=== PATIENT | male | born 1955 | race Caucasian/White ===

== ENCOUNTER 2020-01-28 16:13 | Inpatient (IN) | payer OTHER ==
[2020-01-28] MEDS ORDERED: Magnesium Replacement Protocol 1 EACH MISC MISCELLANE PRN (18:11)
[2020-01-28] MEDS ORDERED: Potassium Replacement Protocol 1 EACH MISC MISCELLANE PRN (18:12)
[2020-01-28] MEDS ORDERED: ACETAMINOPHEN TAB 325 MG TAB PO PRN (18:12)
[2020-01-28 18:56] LABS: ALT 19 U/L (4-49); AST 33 U/L (17-59); African American GFR (CKD) >90 (>60 ml/min/1.73 sqM); Albumin 2.7 g/dL (3.5-5.0); Alkaline Phosphatase 69 U/L (38-126); Anion Gap 7 mmol/L; Blood Urea Nitrogen 12 mg/dL (9-20); Calcium 8.3 mg/dL (8.4-10.2); Carbon Dioxide 25 mmol/L (22-30); Chloride 95 mmol/L (98-107); Glucose 109 mg/dL (74-99); Magnesium 1.8 mg/dL (1.6-2.3); Non-African American GFR(CKD) >90 (>60 ml/min/1.73 sqM); Potassium 3.6 mmol/L (3.5-5.1); Sodium 127 mmol/L (137-145); Total Protein 5.1 g/dL (6.3-8.2)
[2020-01-28 19:17] LABS: HCT 33.8 % (39.0-53.0); HGB 11.5 gm/dL (13.0-17.5); MCH 32.1 pg (25.0-35.0); MCV 94.3 fL (80.0-100.0); Platelet Count 240 k/uL (150-450); RBC 3.58 m/uL (4.30-5.90); RDW 14.8 % (11.5-15.5); WBC 4.5 k/uL (3.8-10.6)
[2020-01-28] MEDS: HYDROcodone/APAP 5-325MG 1 EACH TAB PO PRN (19:31)
[2020-01-28 19:54] LABS: Appearance,Urine Clear (Clear); Bilirubin,Urine Negative (Negative); Blood,Urine Negative (Negative); Color,Urine Yellow; Glucose,Urine (UA) Negative (Negative); Ketones,Urine Negative (Negative); Leukocyte Esterase,Urine Negative (Negative); Nitrite,Urine Negative (Negative); PH, Urine 8.5 (5.0-8.0); Protein,Urine Trace (Negative); Specific Gravity,Urine 1.014 (1.001-1.035); Urobilinogen,Urine <2.0 mg/dL (<2.0)
[2020-01-28] MEDS: SODIUM CHLORIDE 0.9% 1,000 ML IV SCH (19:57)
[2020-01-28] MEDS ORDERED: POTASSIUM CHLORIDE ER 20 MEQ TAB.ER PO SCH (20:00)
[2020-01-28] MEDS: HEPARIN SODIUM,PORCINE 5,000 UNIT/ML 1 ML VIAL SQ SCH (20:13)
[2020-01-28] MEDS: MAGNESIUM SULFATE-D5W PMX 1 GM in DEXTROSE/WATER 1 100ML.BAG IVPB SCH ×2 (20:19→21:40)
[2020-01-28 20:38] LABS: Lymphocytes # (M) 0.27 k/uL (1.0-4.8); Nucleated Red Blood Cells 0 /100 WBC (0-0)
[2020-01-28 20:50] LABS: Band Neutrophils % 9 %; Metamyelocytes # (M) 0.86 k/uL (0); Metamyelocytes % 19 %; Monocytes # (M) 0.23 k/uL (0-1.0); Myelocytes # (M) 2.12 k/uL (0); Myelocytes % 47 %; Neutrophils % (M) 15 %; Total Cells Counted 200
[2020-01-28 20:51] LABS: Polychromasia Present; Toxic Vacuolation Present
[2020-01-28] MEDS ORDERED: LORazepam 2 MG/ML INJ IV PRN ×3 (21:29)
[2020-01-28] MEDS: THIAMINE 100 MG TAB PO SCH (21:39)
[2020-01-28] MEDS ORDERED: HYDROmorphone 0.5 MG/0.5 ML SYRINGE IVP PRN (21:55)
--- NOTE | 2020-01-28 23:48 | US ---
EXAMINATION TYPE: US venous doppler duplex LE DATE OF EXAM: 01/28/2020 11:03 PM COMPARISON: NONE CLINICAL HISTORY: swelling, pain. Swelling and pain in bilateral lower extremities x 3 weeks. No hx o f DVT. Patient does not take blood thinners. SIDE PERFORMED: Bilateral TECHNIQUE: The lower extremity deep venous system is examined utilizing real time linear array sonog vanessa with graded compression, doppler sonography and color-flow sonography. VESSELS IMAGED: External Iliac Vein (EIV) Common Femoral Vein Deep Femoral Vein Greater Saphenous Vein * Femoral Vein Popliteal Vein Small Saphenous Vein * Proximal Calf Veins (* superficial vessels) Right Leg: No evidence of DVT in veins imaged at this time from prox calf veins to EIV. Multiple hyp oechoic areas with hyperechoic centers seen within the right groin. Largest appears to measure: 1.9 x 1.2 x 0.9 cm. Left Leg: No evidence of DVT in veins imaged at this time from prox calf veins to EIV. Hypoechoic/co mplex area seen left popliteal area measurin.0 x 2.3 x 0.9 cm. Incidental finding in right popliteal vein compression views: Right popliteal artery appears to good ve extensive calcification. Artery not completely evaluated, only venous study ordered. IMPRESSION: No evidence of deep vein thrombosis in both legs. Atherosclerotic vascular disease. Left side popliteal cyst noted.
[2020-01-29] MEDS: HYDROcodone/APAP 5-325MG 1 EACH TAB PO PRN ×2 (01:47→11:22)
--- NOTE | 2020-01-29 04:50 | HP ---
HISTORY AND PHYSICAL CHIEF COMPLAINT: Weakness. HISTORY OF PRESENT ILLNESS: This 64-year-old gentleman with a past medical history of COPD, history of dementia, history of DJD being followed by apparently by no primary physician in the outpatient setting presented to [facility] with complaints of weakness and tiredness. Evaluation showed possible hypokalemia and hypomagnesemia and the patient apparently also had in June 2019 had a liver biopsy for suspected mass lesion in [facility] in [facility]. The patient did not have any followup on that and because now currently the patient is severely emaciated. The patient is taking significant amount of alcohol and the patient was found to be extremely weak and tired and malnourished and patient was sent to [facility] after I talked to Dr. emerson over the phone. Patient was a direct admission. There is no history of fever, rigors. No history of headache, loss of consciousness, seizures. PAST MEDICAL HISTORY: COPD, memory impairment, DJD, history of orthopedic surgery, history of EtOH. MEDICATIONS: Home medications are: PreserVision 1 capsule daily. ALLERGIES: None. FAMILY HISTORY: No history of heart disease or strokes family. SOCIAL HISTORY: History of smoking. History of alcohol abuse, 2 bottles of wine daily. REVIEW OF SYSTEMS: ENT: Diminished hearing and diminished vision. CARDIOVASCULAR SYSTEM: No angina. RESPIRATORY SYSTEM: No cough or hemoptysis. GI: As mentioned earlier. : No dysuria. NERVOUS SYSTEM: No numbness or weakness. ALLERGY/IMMUNOLOGY: No asthma. MUSCULOSKELETAL: As mentioned earlier. HEMATOLOGY/ONCOLOGY: No history of anemia. ENDOCRINE: No history of diabetes or hypothyroidism. CONSTITUTIONAL: As mentioned earlier. DERMATOLOGY: Negative. RHEUMATOLOGY: Negative. PSYCHIATRY: As mentioned earlier. PHYSICAL EXAMINATION: The patient is alert and oriented x3. Pulse is 111, blood pressure is 100/54, respiration 16, temperature 98.7, pulse ox 100% on room air. HEENT: Conjunctivae normal. Oral mucosa moist. NECK: No jugular venous distention. No carotid bruit. No lymph node enlargement. CARDIOVASCULAR: S1, S2 muffled. RESPIRATORY: Breath sounds diminished at the bases. A few scattered rhonchi and crackles. ABDOMEN: Soft, obese, nontender. No mass palpable. LEGS: No edema. No swelling. Significantly emaciated, some erythema also present. NERVOUS SYSTEM: Higher function as mentioned. Moves all 4 limbs. Significant diffuse weakness present LYMPHATICS: No lymphadenopathy of the neck, axillae or groin. SKIN: No ulcer, rash or bleeding. JOINTS: No active deforming arthropathy. LABS: WBC 4.5, hemoglobin 11.5, otherwise sodium is 127, and calcium is 8.3. Albumin is 2.7. ASSESSMENT: 1. Diffuse weakness and emaciation wasting, alcoholic myopathy. 2. Severe gait dysfunction. 3. Change in mental status, acute delirium tremens. 4. Hyponatremia. 5. Hypokalemia. 6. Anemia, normocytic anemia of nutritional origin. 7. Severe protein calorie malnutrition, body mass index of 13.7. 8. History EtOH. 9. History of nicotine dependence. 10.Chronic obstructive pulmonary disease. 11.History of dementia, possibly. 12.History of liver biopsy. 13.History of enlarged prostate. 14.History of degenerative joint disease. 15.History of noncompliance with medications. RECOMMENDATIONS AND DISCUSSION: This 64-year-old gentleman presented with multiple complex medical issues as mentioned earlier. At this time I recommend to continue current medications, continue symptomatic treatment. Otherwise replace lytes and repeat lytes. I would also recommend resume the home medications. CIWA protocol. PT, OT evaluation. Possible ECF rehab. Otherwise, I would also recommend COVID-19 testing and supplement vitamins. DVT prophylaxis. Symptomatic treatment will be provided. Overall prognosis extremely guarded because of multiple complex medical issues. Further recommendations to follow. Also recommend the patient to follow up with a primary physician closely. GERALDINE / EDINN: [id number] / LALO
--- NOTE | 2020-01-29 07:47 | XR ---
EXAMINATION TYPE: XR chest 1V portable DATE OF EXAM: 01/29/2020 HISTORY: Shortness of breath. COMPARISON: None. TECHNIQUE: Single view of the chest is submitted. FINDINGS: Demonstrated are scattered senescent parenchymal change. COPD changes. There is no evidence for focal infiltrate. There is right upper lobe pulmonary nodule measuring 2.6 c m. There is also right paratracheal adenopathy. CT of the chest is recommended to exclude malignancy. The heart is stable. Degenerative changes are seen of the dorsal spine. IMPRESSION: 1. Right upper lobe pulmonary nodule right paratracheal adenopathy. Further characterization with CT is advised. A [place] level critical message alert has been initiated for Gilles Tirado MD via the [employer] Critical Results System on 01/29/2020 7:45 AM. This message alert has been sent to Gilles Tirado MD v lucille the preferences provided by the clinician for the receipt of Radiology Critical Findings. Message ID [id number].
[2020-01-29 08:10] LABS: African American GFR (CKD) >90 (>60 ml/min/1.73 sqM); Anion Gap 4 mmol/L; Blood Urea Nitrogen 12 mg/dL (9-20); Calcium 8.2 mg/dL (8.4-10.2); Carbon Dioxide 29 mmol/L (22-30); Chloride 95 mmol/L (98-107); Glucose 75 mg/dL (74-99); Magnesium 2.1 mg/dL (1.6-2.3); Non-African American GFR(CKD) >90 (>60 ml/min/1.73 sqM); Potassium 4.5 mmol/L (3.5-5.1); Sodium 128 mmol/L (137-145)
[2020-01-29] MEDS: PANTOPRAZOLE 40 MG/10 ML VIAL IVP SCH (10:04)
[2020-01-29] MEDS: MULTIVITAMINS, THERA 1 EACH TAB PO SCH (10:04)
[2020-01-29] MEDS: FOLIC ACID 1 MG TAB PO SCH (10:04)
[2020-01-29] MEDS: THIAMINE 100 MG TAB PO SCH ×2 (10:04→17:32)
[2020-01-29] MEDS: HEPARIN SODIUM,PORCINE 5,000 UNIT/ML 1 ML VIAL SQ SCH ×2 (10:16→20:02)
[2020-01-29 11:31] VITALS: BMI 13.6
[2020-01-29] MEDS: IOPAMIDOL CONTRAST (ORAL USE) VIAL PO PRN ×2 (13:31→14:33)
--- NOTE | 2020-01-29 17:52 | PN ---
PROGRESS NOTE DATE OF SERVICE: 01/29/2020 This 64-year-old gentleman who was admitted with diffuse weakness and emaciation and wasting with alcoholic myopathy is being closely monitored. The patient apparently had a biopsy report at [place]; we were able to obtain the report, which showed hepatic steatosis and no evidence of any malignancy. 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 A CT scan of the abdomen, pelvis and chest is being sought at this time. The patient continues to be confused and diffusely weak and emaciated. Past medical history reviewed. REVIEW OF SYSTEMS: CARDIOVASCULAR SYSTEM: No angina, palpitations. RESPIRATORY SYSTEM: As mentioned earlier. GI: No nausea, vomiting. : No dysuria or retention. NERVOUS SYSTEM: No numbness, weakness. CURRENT MEDICATIONS: Reviewed. They include: 1. Tylenol 650 q.6 p.r.n. 2. [place] 5 mg q.6 p.r.n. 3. Folic acid. 4. Heparin 5000 units subcutaneously b.i.d. 5. Dilaudid. 6. Ativan. 7. Replacement protocols. 8. Protonix. 9. Vitamin B1. PHYSICAL EXAMINATION: Patient is alert, oriented x1. Pulse is 103, blood pressure 99/62, respiration 18, temperature 98.1, pulse ox 94% on room air. HEENT: Conjunctivae normal. Oral mucosa moist. NECK: No jugular venous distention. No carotid bruit. No lymph node enlargement. CARDIOVASCULAR SYSTEM: S1, S2 muffled. RESPIRATORY SYSTEM: Breath sounds diminished at the bases. A few scattered rhonchi and crackles. ABDOMEN: Soft, scaphoid, non-tender. No mass palpable. LEGS: No edema. No swelling. NERVOUS SYSTEM: Higher functions as mentioned earlier. Moves all 4 limbs. No focal motor or sensory deficit. LYMPHATICS: No lymph node palpable in neck, axillae or groin. SKIN: No ulcer, rash, bleeding. JOINTS: No active deforming arthropathy. LABS: WBC 4.2, hemoglobin 11.5, sodium 128. ASSESSMENT: 1. Diffuse weakness, emaciation, wasting and alcoholic myopathy. 2. Severe gait dysfunction. 3. Right pulmonary nodule. Rule out malignancy. 4. Change in mental status, acute delirium tremens. 5. Hyponatremia. 6. Hypokalemia. 7. Anemia, normocytic anemia of nutritional origin. 8. Severe protein-calorie malnutrition with body mass index of 13.7. 9. History of ETOH. 10.History of nicotine dependence. 11.Chronic obstructive pulmonary disease. 12.Dementia, possibly. 13.History of liver biopsy. 14.History of enlarged prostate. 15.History of degenerative joint disease. 16.History of noncompliance with medications. 17.Generalized lymphadenopathy. RECOMMENDATIONS AND DISCUSSION: In this 64-year-old gentleman who presented with multiple complex medical issues, we will monitor the patient closely, continue the current medications, continue with vitamin supplementation. Await CT scan reports, PT/OT evaluation nutrition. Possible ECF rehab. Repeat electrolytes. Otherwise, continue with [facility] protocol, DVT prophylaxis. The chest x-ray, which was reviewed by me personally, showed right upper lobe pulmonary nodule and right paratracheal adenopathy. CT scan has been reviewed. Will continue to monitor. A venous Doppler was noted which was negative for DVT. Lymphadenopathy was noted. Once again, overall prognosis is guarded. Further recommendations to follow. MMODL / IJN: [id number] / LALO
--- NOTE | 2020-01-29 19:06 | CT ---
EXAMINATION TYPE: CT ChestAbdPelvis wo con DATE OF EXAM: 01/29/2020 INDICATION: possible mets COMPARISON: None CT DLP: 952 mGycm CONTRAST: Performed with Oral Contrast. No intravenous contrast. TECHNIQUE: Axial images at 5 mm thick sections. Reconstructed images in the coronal plane. Delayed images through the kidneys. FINDINGS: CT CHEST: Portion of the thyroid visualized is normal. There is a 0.5 cm nodularity in the lateral right apex. Series 4 image 12. There is a subtle area of increased density measuring 0.5 cm in the anterior lateral right upper lobe. Series 4 image 14. There is a small density with a central lucency measuring 0.5 cm in the posterior right midlung. Series 4 image 30. There is a spiculated suspicious mass measuring 2.1 x 2.2 cm in the right upper lobe. Series 4 image 18. There is a subtle area of pneumonitis within the periphery of the lingula. Series 4 image 28 Lack of intravenous contrast limits evaluation of the adenopathy within the mediastinum. However, the re appears to be a 3.5 cm pretracheal lymph node present. An additional 2.9 cm pretracheal lymph node is above the sigifredo. Hilar adenopathy would be difficult to exclude. Small bilateral pleural effusions are present with mild adjacent compressive atelectasis. The ascending aorta diameter at the level of the main pulmonary artery is 3.8 cm. The main pulmonary artery diameter at the bifurcation is 2.7 cm. Moderate coronary artery calcification is present. CT ABDOMEN: Liver: Normal Spleen: Normal Pancreas: Normal Adrenal glands: The adrenal glands are normal. Gallbladder: Normal Kidneys: No masses are evident. No hydronephrosis is present. No cysts are present. No renal stone s are identified. Aorta: Vascular calcification is within the aorta. Inferior vena cava: Normal. CT PELVIS: Loops of bowel within the abdomen and pelvis are normal. Diverticulosis without acute diverticulitis is within the sigmoid colon region. There are loops of bowel which are incompletely distended or l ack oral contrast limiting their evaluation. Appendix: Normal as visualized. Urinary bladder: Normal. Genitourinary structures: Urinary bladder wall may be mildly thickened diffusely. Suspicious nodulari ty is not identified. Osseous structures: No suspicious lytic or sclerotic lesions. Sacroiliac joint degenerative changes a re noted. IMPRESSIONS: 1. Spiculated nodule right upper lobe. 2. Subtle small nodularities are within the right upper lobe with additional areas of pneumonitis. Me tastatic disease is not excluded. 3. Markedly enlarged mediastinal lymph nodes suspicious for metastatic disease. 4. There may be some diffuse wall thickening through the urinary bladder. Correlate for cystitis. 5. Recommend follow-up PET CT for additional workup.
[2020-01-29] MEDS: SODIUM CHLORIDE 0.9% 1,000 ML IV SCH (19:38)
[2020-01-30 07:26] LABS: African American GFR (CKD) >90 (>60 ml/min/1.73 sqM); Anion Gap 5 mmol/L; Blood Urea Nitrogen 14 mg/dL (9-20); Calcium 8.6 mg/dL (8.4-10.2); Carbon Dioxide 25 mmol/L (22-30); Chloride 98 mmol/L (98-107); Cholesterol 89 mg/dL (<200); Glucose 78 mg/dL (74-99); HDL Cholesterol 31 mg/dL (40-60); LDL Cholesterol,Calculated 42 mg/dL (0-99); Non-African American GFR(CKD) >90 (>60 ml/min/1.73 sqM); Potassium 3.8 mmol/L (3.5-5.1); Sodium 128 mmol/L (137-145); Triglycerides 79 mg/dL (<150)
[2020-01-30] MEDS: THIAMINE 100 MG TAB PO SCH ×2 (07:53→17:37)
[2020-01-30 08:16] LABS: Basophils # (A) 0.1 k/uL (0-0.2); Basophils % (A) 1 %; Eosinophils % (A) 0 %; HGB 11.6 gm/dL (13.0-17.5); Lymphocytes # (A) 0.3 k/uL (1.0-4.8); Lymphocytes % (A) 2 %; MCH 31.4 pg (25.0-35.0); MCHC 31.5 g/dL (31.0-37.0); Macrocytosis Slight; Mean Platelet Volume 7.7; Monocytes # (A) 0.6 k/uL (0-1.0); Monocytes % (A) 4 %; Neutrophils # (A) 16.4 k/uL (1.3-7.7); Neutrophils % (A) 93 %; Platelet Count 203 k/uL (150-450); RDW 14.9 % (11.5-15.5); WBC 17.6 k/uL (3.8-10.6)
[2020-01-30 08:18] LABS: MCV 99.8 fL (80.0-100.0)
[2020-01-30] MEDS: HEPARIN SODIUM,PORCINE 5,000 UNIT/ML 1 ML VIAL SQ SCH ×2 (09:12→19:55)
[2020-01-30] MEDS: HYDROcodone/APAP 5-325MG 1 EACH TAB PO PRN (10:30)
[2020-01-30] MEDS: PANTOPRAZOLE 40 MG/10 ML VIAL IVP SCH (10:30)
[2020-01-30] MEDS: GABAPENTIN 100 MG CAP PO SCH ×3 (11:53→22:51)
[2020-01-30] MEDS: FOLIC ACID 1 MG TAB PO SCH (11:53)
[2020-01-30] MEDS: MULTIVITAMINS, THERA 1 EACH TAB PO SCH (11:53)
--- NOTE | 2020-01-30 16:27 | P.CNPUL ---
History of Present Illness Consult date: 01/30/20 Reason for consult: lung mass History of present illness: 62-year-old male patient, known history of COPD, dementia and chronic malnutrition seems to be significantly emaciated. The patient got transferred from [facility] because of generalized weakness and tiredness. He also had abnormalities in his electrolytes were the patient was found to be hyponatremic. The patient is a chronic alcoholic and he was found to be extrem aure weak and tired and malnourished and he was admitted to the hospital for further evaluation. He did have difficulty with mobility and gait along with altered mentation and electrodes imbalance with the patient was found to be hyponatremic and hypokalemic and anemic. His BMI is 13.7 and his severely malnourished. He is a chronic smoker. The CAT scan of the chest abdomen and pelvis was done on 01/29/2028 showed a spiculated right upper lobe mass and the mass was measuring 2.1 x 2.2 cm. In addition to small nodularity within the right upper lobe in addition to pneumonitis and possible metastatic disease. In addition there was a enlarged mediastinal paratracheal lymph node suspicious for malignancy. There was also some diffuse wall thickening throughout the urinary bladder. Recurrent sodium is 127. His potassium was 3.6 and replaced up to 4.5. The stuart virus Covid 19 evaluation by nasal swab was negative. UA was negative. At the time of my evaluation, the patient was fully competent awake and oriented 3 without any focal neurological deficit other than Review of Systems ROS unobtainable: due to mental status Constitutional: Reports fatigue, Reports weakness, Reports weight loss Eyes: denies as per HPI, denies blurred vision, denies bulging eye, denies decreased vision, denies diplopia, denies discharge, denies dry eye, denies irritation, denies itching, denies pain, denies photophobia, denies loss of peripheral vision, denies loss of vision, denies tunnel vision/blind spots Ears: deny: decreased hearing, ear discharge, earache, tinnitus Ears, nose, mouth and throat: Denies headache, Denies sore throat Breasts: absent: as per HPI, gynecomastia Cardiovascular: Reports decreased exercise tolerance, Reports dyspnea on exertion Respiratory: Reports cough, Reports dyspnea, Reports wheezing Gastrointestinal: Reports loss of appetite Genitourinary: Reports as per HPI, Reports urinary frequency, Reports urinary hesitancy, Reports urinary retention Musculoskeletal: Reports as per HPI Musculoskeletal: absent: ankle pain, ankle stiffness, ankle swelling Integumentary: Reports as per HPI Neurological: Reports as per HPI, Reports gait dysfunction, Reports weakness Psychiatric: Reports as per HPI Endocrine: Reports fatigue Allergic/Immunologic: Reports as per HPI Past Medical History Past Medical History: COPD, Memory Impairment Additional Past Medical History / Comment(s): BPH, dysphagia , previous liver biopsy for suspicion of a malignancy and malignancy was not confirmed back then pedis was done and [facility] in [place]. Alcoholism, COPD, dementia, chronic malnutrition History of Any Multi-Drug Resistant Organisms: None Reported Past Surgical History: Orthopedic Surgery Additional Past Surgical History / Comment(s): liver biopsy, left thumb surgery left arm fasciotomy Past Anesthesia/Blood Transfusion Reactions: No Reported Reaction Past Psychological History: No Psychological Hx Reported Smoking Status: Current every day smoker Past Alcohol Use History: Abuse, Daily Additional Past Alcohol Use History / Comment(s): 2 bottles of wine daily but says he is going to stop because it is expensive, smokes 1 pack a day of ciggarettes and daily marijuana use - Past Family History Father History Unknown: Yes Medications and Allergies Home Medications Medication Instructions Recorded Confirmed Type Vit C/E/Zn/Coppr/Lutein/Zeaxan 1 cap PO DAILY 01/28/20 01/28/20 History [Preservision Areds 2 Softgel] Allergies Allergy/AdvReac Type Severity Reaction Status Date / Time No Known Allergies Allergy Verified 01/28/20 19:35 Physical Exam Vitals: Vital Signs Temp Pulse Resp BP Pulse Ox 01/30/20 11:38 97.6 F 97 18 150/78 95 01/30/20 04:37 98.2 F 100 18 122/70 94 L 01/29/20 20:44 99.4 F 106 H 18 100/65 94 L Intake and Output 01/30/20 01/30/20 01/30/20 06:59 14:59 22:59 Other: Voiding Method Urinal Diaper Incontinent # Voids 1 Gen. appearance the patient is emaciated cachectic and thin with a BMI of 13.7 Head exam was generally normal. There was no scleral icterus or corneal arcus. Mucous membranes were moist. Neck was supple and without jugular venous distension, thyromegaly, or carotid bruits. Carotids were easily palpable bilaterally. There was no adenopathy. Lungs sounds are diminished breath sounds bilaterally along with some few scatte red expiratory rhonchi and wheeze Cardiac exam revealed the PMI to be normally situated and sized. The rhythm was regular and no extrasystoles were noted during several minutes of auscultation. The first and second heart sounds were normal and physiologic splitting of the second heart sound was noted. There were no murmurs, rubs, clicks, or gallops. Abdominal exam revealed normal bowel sounds. The abdomen was soft, non-tender, and without masses, organomegaly, or appreciable enlargement of the abdominal aorta. Examination of the extremities revealed easily palpable radial, femoral and pedal pulses. There was no cyanosis, clubbing or edema. The patient had diffuse muscle atrophy and weakness in all 4 extremities Neurologically, the patient has been moving all 4 extremity is without limitat ion. He has significant motor weakness. He is awake and alert 3 Examination of the skin revealed no evidence of significant rashes, suspicious appearing nevi or other concerning lesions. Results - Laboratory Findings CBC and BMP: 01/30/20 06:35 01/30/20 06:35 Abnormal lab findings: Abnormal Labs 01/28/20 01/28/20 01/28/20 18:09 18:09 18:30 WBC RBC 3.58 L Hgb 11.5 L Hct 33.8 L Neutrophils # Neutrophils # (Manual) 1.00 L Lymphocytes # Lymphocytes # (Manual) 0.27 L Metamyelocytes # (Man) 0.86 H Myelocytes # (Manual) 2.12 H Sodium 127 L Chloride 95 L Creatinine 0.31 L Glucose 109 H Calcium 8.3 L Total Protein 5.1 L Albumin 2.7 L HDL Cholesterol Urine pH 8.5 H Urine Protein Trace H 01/29/20 01/30/20 01/30/20 07:21 06:35 06:35 WBC 17.6 H RBC 3.70 L Hgb 11.6 L Hct 37.0 L Neutrophils # 16.4 H Neutrophils # (Manual) Lymphocytes # 0.3 L Lymphocytes # (Manual) Metamyelocytes # (Man) Myelocytes # (Manual) Sodium 128 L 128 L Chloride 95 L Creatinine 0.37 L 0.30 L Glucose Calcium 8.2 L Total Protein Albumin HDL Cholesterol 31 L Urine pH Urine Protein - Diagnostic Findings CT scan - chest: image reviewed Assessment and Plan Plan: 1 right upper lobe mass measuring 2.2 x 2.1 cm size along with medicinal lymphadenopathy, highly suspicious for malignancy, consider primary bronchogenic cancer 2 COPD 3 hyponatremia, consider SIADH related to lung cancer 4 chronic alcoholism 5 diffuse muscle wasting and protein calorie nutrition with a BMI of 13.7 6 gait dysfunction secondary to above 7 mental status change, with a component of delirium tremens, currently awake and alert at a time of my evaluation the patient had no cognitive impairment. 8 chronic anemia 9 alcoholism 10 chronic smoker 11 BPH 12 osteoarthritis 13 noncompliance with medical treatment Plan I elected discussion with the patient. Obviously the patient has a malignancy. The mass is easily accessible for biopsy. The patient categorically declined the procedure. He wanted no treatment that may be related to malignancy. He was made aware that this is a lethal disease and her progress within the next 6 months a year causing and mortality. He totally understands this. I think is competent. I would also run this by his family. No biopsy was planned for now.
--- NOTE | 2020-01-30 16:48 | PN ---
PROGRESS NOTE DATE OF SERVICE: 01/30/2020 This is a 64-year-old gentleman who was admitted with weakness and wasting and alcoholic myopathy, also had significant liver lesions. Apparently, the biopsy showed only is changes for possible chronic liver disease secondary to alcohol and no evidence of malignancy, but currently the patient had a chest x-ray which showed suspicious nodular lesion in the right upper lobe. A CAT scan of the chest, abdomen and pelvis was noted, showed a spiculated nodule in the right upper lobe and subtle small nodules within the right upper lobe with additional areas of pneumonias, metastatic disease not completely ruled out. Patient is also complaining of bilateral leg pain, history of peripheral neuropathy pains, possibly secondary to alcohol also. Some diffuse wall thickening of the urinary bladder was also noted. Mediastinal nodes are markedly enlarged. PAST MEDICAL HISTORY: Reviewed. REVIEW OF SYSTEMS: CARDIOVASCULAR SYSTEM: As mentioned earlier. RESPIRATORY: As mentioned earlier. GI: As mentioned earlier. : As mentioned earlier. NERVOUS SYSTEM: As mentioned earlier. CURRENT MEDICATIONS: 1. Tylenol p.r.n. 2. [place] 7.5 q.6 p.r.n. 3. Folic acid. 4. Neurontin 100 mg p.o. t.i.d. 5. Heparin. 6. Dilaudid. 7. Ativan. 8. Replacement protocols. 9. Protonix. 10.Vitamin B1. PHYSICAL EXAM: Patient is alert and oriented x2. Pulse is 100, blood pressure 120/70, respiration 18, temperature 98.2, pulse ox 94% on room air. HEENT: Conjunctivae normal. NECK: No jugular venous distension. CARDIOVASCULAR SYSTEM: S1, S2, muffled. RESPIRATIONS: Breath sounds diminished at the bases, no rhonchi, no crackles. ABDOMEN: Soft, nontender. LEGS: No edema, no swelling. LABS: WBC 17, hemoglobin 7.2, sodium 128. Other labs are noted. ASSESSMENT: 1. Diffuse weakness and mentation wasting secondary to severe alcoholic myopathy. 2. Severe gait dysfunction. 3. Right spiculated pulmonary nodules, rule out metastatic malignancy. 4. Bilateral painful neuropathy secondary. 5. Change in mental status, acute delirium tremens and acute metabolic encephalopathy. 6. Hyponatremia. 7. Hypokalemia. 8. Anemia, normocytic anemia for nutritional origin. 9. Severe protein calorie malnutrition with body mass index of 37.7. 10.History of EtOH. 11.Possible history of chronic liver disease secondary to EtOH. 12.History nicotine dependence. 13.COPD. 14.Dementia, possibly. 15.History of liver biopsy. 16.History of enlarged prostate. 17.History of degenerative joint disease. 18.History of noncompliance with medication. 19.Generalized lymphadenopathy. RECOMMENDATION: In this 64-year-old gentleman who presented with multiple complex medical issues, will monitor the patient closely, continue with the current management and symptomatic treatment. Otherwise at this time, sodium is 128. I would recommend continue with symptomatic treatment and repeat lytes. CT scan findings noted. I would recommend consultation with Pulmonary, otherwise rule out possible malignancy. Otherwise PT, OT evaluation, possible ECF rehab. Will continue with multivitamins and also add Neurontin with complex medications. MMODL / IJN: [id number] /
[2020-01-30] MEDS: HYDROcodone/APAP 7.5-325MG 1 EACH TAB PO PRN (19:50)
[2020-01-30] MEDS: SODIUM CHLORIDE 0.9% 1,000 ML IV SCH (19:53)
[2020-01-31 07:03] LABS: Basophils % (A) 0 %; Eosinophils # (A) 0.1 k/uL (0-0.7); Eosinophils % (A) 0 %; HCT 34.2 % (39.0-53.0); HGB 10.9 gm/dL (13.0-17.5); Lymphocytes # (A) 0.8 k/uL (1.0-4.8); Lymphocytes % (A) 5 %; MCH 30.6 pg (25.0-35.0); MCHC 31.8 g/dL (31.0-37.0); MCV 96.1 fL (80.0-100.0); Mean Platelet Volume 7.5; Monocytes # (A) 0.6 k/uL (0-1.0); Monocytes % (A) 4 %; Neutrophils # (A) 14.9 k/uL (1.3-7.7); Neutrophils % (A) 90 %; Platelet Count 233 k/uL (150-450); RBC 3.55 m/uL (4.30-5.90); RDW 14.7 % (11.5-15.5); WBC 16.5 k/uL (3.8-10.6)
[2020-01-31 07:19] LABS: African American GFR (CKD) >90 (>60 ml/min/1.73 sqM); Anion Gap 3 mmol/L; Blood Urea Nitrogen 11 mg/dL (9-20); Calcium 8.5 mg/dL (8.4-10.2); Carbon Dioxide 29 mmol/L (22-30); Chloride 98 mmol/L (98-107); Cholesterol 91 mg/dL (<200); Glucose 108 mg/dL (74-99); HDL Cholesterol 25 mg/dL (40-60); LDL Cholesterol,Calculated 47 mg/dL (0-99); Non-African American GFR(CKD) >90 (>60 ml/min/1.73 sqM); Potassium 3.4 mmol/L (3.5-5.1); Sodium 130 mmol/L (137-145); Triglycerides 96 mg/dL (<150)
[2020-01-31] MEDS: HEPARIN SODIUM,PORCINE 5,000 UNIT/ML 1 ML VIAL SQ SCH ×3 (07:53→19:58)
[2020-01-31] MEDS: PANTOPRAZOLE 40 MG/10 ML VIAL IVP SCH (07:53)
[2020-01-31] MEDS: GABAPENTIN 100 MG CAP PO SCH ×3 (07:53→19:53)
[2020-01-31] MEDS: THIAMINE 100 MG TAB PO SCH ×2 (07:53→17:06)
[2020-01-31] MEDS: POTASSIUM CHLORIDE ER 20 MEQ TAB.ER PO SCH ×2 (11:04→12:47)
[2020-01-31] MEDS: FOLIC ACID 1 MG TAB PO SCH (11:04)
[2020-01-31] MEDS: MULTIVITAMINS, THERA 1 EACH TAB PO SCH (11:04)
[2020-01-31] MEDS ORDERED: MINERAL OIL-WHITE PETROLATUM 120 GM JAR TOPICAL PRN (11:14)
[2020-01-31] MEDS: HYDROcodone/APAP 7.5-325MG 1 EACH TAB PO PRN ×2 (12:47→22:08)
--- NOTE | 2020-01-31 14:38 | P.PN ---
Subjective Progress Note Date: 01/31/20 Principal diagnosis: This is a 64-year-old male who was recently admitted with weakness and wasting an alcoholic myopathy and is also noted to have significant liver lesions. Nahomy ent is being Closely monitored. Patient was evaluated by pulmonary As most recent chest x-ray showed a nodular lesion in the right upper lobe and CAT scan shows a speculated nodule in the right upper lobe with subtle small nodules within the right upper lobe and additional areas of pneumonia as with metastatic disease not completely ruled out. Patient is refusing any further imaging or testing and treatment of these nodules. Patient continues to have some bilateral lower extremity discomfort and neuropathic pain and states he feels the Neurontin is slightly helping as he is now able to wiggle his toes and feel them. Patient is agreeable and open to discussing with palliative care and case management was made aware. Patient states once stabilized and discharged he will be returning home as he lives with his son and has support at home. Patient refusing Homecare at this time. Review of systems: Constitutional: No reports of fatigue, fevers, sore chills Cardiovascular: No reports of chest pain or palpitations Respiratory: No reports of shortness of breath, reports some occasional cough GI: No reports of nausea, vomiting, or diarrhea, reports some mild feelings of constipation : No reports of dysuria or retention Neurovascular: Reports mild weakness, reports tingling sensation of the lower extremities has improved Active Medications Acetaminophen (Tylenol Tab) 650 mg PO Q6HR PRN PRN Reason: Fever and/ or Pain Last Admin: 01/31/20 01:24 Dose: 650 mg Documented by: Hydrocodone Bitart/Acetaminophen ([place] 7.5-325) 1 each PO Q6H PRN PRN Reason: Pain Last Admin: 01/31/20 12:47 Dose: 1 each Documented by: Folic Acid (Folic Acid) 1 mg PO DAILY@1200 [facility] Last Admin: 01/31/20 11:04 Dose: 1 mg Documented by: Gabapentin (Neurontin) 200 mg PO TID [facility] Heparin Sodium (Porcine) (Heparin) 5,000 unit SQ Q12HR [facility] Last Admin: 01/31/20 07:53 Dose: Not Given Documented by: Hydromorphone HCl (Dilaudid) 0.5 mg IVP Q3HR PRN PRN Reason: Pain Sodium Chloride (Saline 0.9%) 1,000 mls @ 20 mls/hr IV .Q24H [facility] Last Admin: 01/30/20 19:53 Dose: Not Given Documented by: Lorazepam (Ativan) 1 mg IV Q2HR PRN PRN Reason: CIWA 8 or 9 Lorazepam (Ativan) 1 mg IV Q1HR PRN PRN Reason: CIWA 10 to 15 Miscellaneous Information (Magnesium Per Protocol) 1 each MISCELLANE DAILY PRN; Protocol PRN Reason: Per Protocol Miscellaneous Information (Potassium Per Protocol) 1 each MISCELLANE DAILY PRN; Protocol PRN Reason: Per Protocol Multi-Ingred Cream/Lotion/Oil/Oint (Eucerin Cream) 1 applic TOPICAL BID PRN PRN Reason: Dry Skin Multivitamins (Theragran) 1 each PO DAILY@1200 [facility] Last Admin: 01/31/20 11:04 Dose: 1 each Documented by: Pantoprazole Sodium (Protonix) 40 mg IVP DAILY [facility] Last Admin: 01/31/20 07:53 Dose: 40 mg Documented by: Senna/Docusate Sodium (Senokot-S) 1 each PO BID [facility] Thiamine HCl (Vitamin B-1) 100 mg PO BID-W/MEALS [facility] Last Admin: 01/31/20 07:53 Dose: 100 mg Documented by: Objective - Vital Signs Vital signs: Vital Signs Temp 98.6 F 01/31/20 12:05 Pulse 94 01/31/20 12:05 Resp 17 01/31/20 12:05 BP 123/77 01/31/20 12:05 Pulse Ox 98 01/31/20 12:05 Intake & Output 01/30/20 01/31/20 01/31/20 18:59 06:59 18:59 Intake Total 0 Output Total 200 Balance -200 Intake: Intake, IV Titration 0 Amount Sodium Chloride 0.9% 1, 0 000 ml @ 20 mls/hr IV . Q24H [facility] Rx#:[id number] Output: Urine 200 Other: Voiding Method Urinal Urinal Urinal Diaper Diaper Diaper Incontinent Incontinent Incontinent # Voids 4 - Exam Gen: This is a 64-year-old male sitting up in bed, awake, alert and oriented 3, thin built. HEENT: Head is atraumatic, normocephalic. Pupils equal, round. Sclerae is anicte mendoza. NECK: Supple. No JVD. No lymphadenopathy. No thyromegaly. LUNGS:Menisci sounds bilaterally with no rhonchi or wheezing noted. No intercostal retractions. HEART: S1, S2 are muffled ABDOMEN: Soft. Bowel sounds are present. No masses. No tenderness. EXTREMITIES: No pedal edema. No calf tenderness. NEUROLOGICAL: Patient is awake, alert and oriented x3. 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 Severe gait dysfunction Right spiculated pulmonary nodules, rule out metastatic malignancy Bilateral painful neuropathy Change in mental status, acute delirium tremens an acute metabolic encephalopathy Hyponatremia Hypokalemia anemia, normocytic anemia of nutritional origin Severe protein calorie malnutrition with a body mass index of 13.7 History of EtOH Possible history of chronic liver disease secondary to EtOH History of nicotine dependence COPD dementia, possibly History of liver biopsy history of enlarged prostate History of degenerative joint disease History of noncompliance with medications Generalized lymphadenopathy Recommendations and discussion: Recommend continue current medications, management, and symptomatic treatment. Increase Neurontin to 200 mg 3 times a day. Senokot also ordered as patient states he has not had a bowel movement since Tuesday. Pulmonary following although patient refusing any further treatments in regards to the lung nodules noted. Case management and social work following as patient is agreeable to discuss with palliative about their options although is not agreeable to home care and will be returning home with son once stabilized and discharged. Due to multiple complex medical issues, prognosis is guarded. Further recommendations to follow. Possible discharge in 24 hours. Time with Patient: Greater than 30
[2020-01-31] MEDS: SODIUM CHLORIDE 0.9% 1,000 ML IV SCH (16:56)
[2020-01-31] MEDS: SENNOSIDES-DOCUSATE SODIUM 1 EACH TAB PO SCH (19:53)
[2020-02-01] MEDS: HYDROcodone/APAP 7.5-325MG 1 EACH TAB PO PRN ×2 (04:13→13:47)
[2020-02-01 07:15] LABS: Basophils % (A) 0 %; Eosinophils # (A) 0.1 k/uL (0-0.7); Eosinophils % (A) 1 %; HCT 34.9 % (39.0-53.0); HGB 11.1 gm/dL (13.0-17.5); Lymphocytes % (A) 14 %; MCH 30.8 pg (25.0-35.0); MCHC 31.9 g/dL (31.0-37.0); MCV 96.5 fL (80.0-100.0); Monocytes # (A) 0.5 k/uL (0-1.0); Monocytes % (A) 7 %; Neutrophils # (A) 5.7 k/uL (1.3-7.7); Neutrophils % (A) 75 %; Platelet Count 239 k/uL (150-450); RBC 3.62 m/uL (4.30-5.90); RDW 14.8 % (11.5-15.5); WBC 7.6 k/uL (3.8-10.6)
[2020-02-01 07:40] LABS: African American GFR (CKD) >90 (>60 ml/min/1.73 sqM); Anion Gap 4 mmol/L; Blood Urea Nitrogen 7 mg/dL (9-20); Carbon Dioxide 29 mmol/L (22-30); Chloride 99 mmol/L (98-107); Glucose 85 mg/dL (74-99); Non-African American GFR(CKD) >90 (>60 ml/min/1.73 sqM); Potassium 3.7 mmol/L (3.5-5.1); Sodium 132 mmol/L (137-145)
[2020-02-01 08:36] VITALS: RESP 18
[2020-02-01] MEDS: PANTOPRAZOLE 40 MG/10 ML VIAL IVP SCH (09:34)
[2020-02-01] MEDS: THIAMINE 100 MG TAB PO SCH (09:34)
[2020-02-01] MEDS: GABAPENTIN 100 MG CAP PO SCH ×2 (09:51→15:54)
[2020-02-01] MEDS: HEPARIN SODIUM,PORCINE 5,000 UNIT/ML 1 ML VIAL SQ SCH ×2 (09:52→13:39)
[2020-02-01] MEDS: SENNOSIDES-DOCUSATE SODIUM 1 EACH TAB PO SCH (09:53)
[2020-02-01] MEDS: MULTIVITAMINS, THERA 1 EACH TAB PO SCH (13:44)
[2020-02-01] MEDS: FOLIC ACID 1 MG TAB PO SCH (13:47)
[2020-02-01 13:51] VITALS: BP 148/79; PULSE 92; TEMP 98.6
[2020-02-02] MEDS ORDERED: PANTOPRAZOLE 40 MG TABLET PO SCH (07:30)
--- NOTE | 2020-02-02 10:29 | P.DS ---
Providers Date of admission: 01/28/20 18:04 Expected date of discharge: 02/01/20 Attending physician: Gilles Tirado Consults: 01/30/20 13:37 Consult Physician Routine Consulting Provider: Laura Wen Consult Reason/Comments: lung ca?? 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 Severe gait dysfunction Right spiculated pulmonary nodules, rule out metastatic malignancy Bilateral painful neuropathy Change in mental status, acute delirium tremens an acute metabolic encephalopathy Hyponatremia Hypokalemia anemia, normocytic anemia of nutritional origin Severe protein calorie malnutrition with a body mass index of 13.7 History of EtOH Possible history of chronic liver disease secondary to EtOH History of nicotine dependence COPD dementia, possibly History of liver biopsy history of enlarged prostate History of degenerative joint disease History of noncompliance with medications Generalized lymphadenopathy Discharge disposition Patient is being discharged in a stable condition with guarded prognosis to home. Patient will follow-up with Dr. Garcia upon discharge. Patient also instructed to follow up with palliative care in the outpatient setting. A referral was placed. Total time taken is greater than 35 minutes. History of present illness This is a 64-year-old male who was recently admitted with weakness and wasting an alcoholic myopathy and is also noted to have significant liver lesions. Patient is being Closely monitored. Patient was evaluated by pulmonary As most recent chest x-ray showed a nodular lesion in the right upper lobe and CAT scan shows a speculated nodule in the right upper lobe with subtle small nodules within the right upper lobe and additional areas of pneumonia as with metastatic disease not completely ruled out. Patient is refusing any further imaging or testing and treatment of these nodules. Discussed with patient about palliative care and patient is willing to discuss options with them although is refusing home care or any form of rehab. Patient states that he lives with his son and has necessary equipment at home to be cared for. Currently no reports of chest pain, palpitations, or worsening shortness of breath. Patient is afebrile. No reports of nausea or vomiting and patient is tolerating diet. Prognosis is guarded. On exam vital signs are stable. Temp is 97.9F, pulse is 95, respirations are 18, blood pressure 128/80, oxygen saturation is 99% on room air. Cardio S1, S2 are present. Respiratory shows diminished breath sounds at the bases with no wheezing noted. Some scattered rhonchi noted. Abdomen is soft and nontender. Nervous system shows no focal deficits. Please refer to medication reconciliation sheet for a list of medications. Patient Condition at Discharge: Good Plan - Discharge Summary Discharge Rx Participant: Yes New Discharge Prescriptions: New Folic Acid 1 mg PO DAILY@1200 30 Days #30 tab Multivitamins, Thera [Multivitamin (formulary)] 1 each PO DAILY@1200 30 Days #30 tab Gabapentin [Neurontin] 200 mg PO TID #12 cap HYDROcodone/APAP 7.5-325MG [[place] 7.5-325] 1 each PO Q6H PRN #12 tab PRN Reason: Pain Sennosides-Docusate Sodium [Senokot-S] 1 each PO BID PRN #10 tab PRN Reason: Constipation Acetaminophen Tab [Tylenol] 650 mg PO Q6HR PRN 30 Days #30 tab PRN Reason: Fever And/ Or Pain Thiamine [Vitamin B-1] 100 mg PO BID-W/MEALS 30 Days #60 tab Continue Vit C/E/Zn/Coppr/Lutein/Zeaxan [Preservision Areds 2 Softgel] 1 cap PO DAILY Discharge Medication List Vit C/E/Zn/Coppr/Lutein/Zeaxan [Preservision Areds 2 Softgel] 1 cap PO DAILY 01/28/20 [History] Acetaminophen Tab [Tylenol] 650 mg PO Q6HR PRN 30 Days #30 tab 02/01/20 [Rx] Folic Acid 1 mg PO DAILY@1200 30 Days #30 tab 02/01/20 [Rx] Gabapentin [Neurontin] 200 mg PO TID #12 cap 02/01/20 [Rx] HYDROcodone/APAP 7.5-325MG [[place] 7.5-325] 1 each PO Q6H PRN #12 tab 02/01/20 [Rx] Multivitamins, Thera [Multivitamin (formulary)] 1 each PO DAILY@1200 30 Days #30 tab 02/01/20 [Rx] Sennosides-Docusate Sodium [Senokot-S] 1 each PO BID PRN #10 tab 02/01/20 [Rx] Thiamine [Vitamin B-1] 100 mg PO BID-W/MEALS 30 Days #60 tab 02/01/20 [Rx] Follow up Appointment(s)/Referral(s): [facility], [NON-STAFF] - Boom Garcia MD [REFERRING] - 02/07/20 3:00 pm Patient Instructions/Handouts: Acetaminophen (By mouth), Hydrocodone/Acetaminophen (By mouth), Thiamine (By mouth), Folic Acid (By mouth), Multivitamins, Adult Formula (By mouth), Gabapentin (By mouth), Senna (By mouth), Hyponatremia (DC), Hypomagnesemia (DC) Activity/Diet/Wound Care/Special Instructions: palliative care referral Activity Limited until follow-up Follow up with primary care provider Upon discharge Continue current diet Follow up with palliative care Discharge Disposition: HOME WITH HOME HEALTH SERVICES
== END 2020-02-01 18:18 | disposition home health service (06) | DRG 896 ==
LOC: 5NMEDONC 18:04
PROVIDERS: ADMIT Hospitalist; ATTEND Hospitalist
DX: F10.231 Alcohol dependence with withdrawal delirium (principal); E43 Unspecified severe protein-calorie malnutrition; G93.41 Metabolic encephalopathy; G72.1 Alcoholic myopathy; E22.2 Syndrome of inappropriate secretion of antidiuretic hormone; R64 Cachexia; C77.1 Secondary and unspecified malignant neoplasm of intrathoracic lymph nodes; C34.01 Malignant neoplasm of right main bronchus; Z68.1 Body mass index [BMI] 19.9 or less, adult; Z11.59 Encounter for screening for other viral diseases; F03.90 Unspecified dementia, unspecified severity, without behavioral disturbance, psychotic disturbance, mood disturbance, and anxiety; K76.0 Fatty (change of) liver, not elsewhere classified; K70.30 Alcoholic cirrhosis of liver without ascites; G62.1 Alcoholic polyneuropathy; J44.9 Chronic obstructive pulmonary disease, unspecified; R26.9 Unspecified abnormalities of gait and mobility; E87.6 Hypokalemia; D53.9 Nutritional anemia, unspecified; M19.90 Unspecified osteoarthritis, unspecified site; F17.210 Nicotine dependence, cigarettes, uncomplicated; K59.00 Constipation, unspecified; R13.10 Dysphagia, unspecified; N40.1 Benign prostatic hyperplasia with lower urinary tract symptoms; N39.498 Other specified urinary incontinence; R59.1 Generalized enlarged lymph nodes; Z71.3 Dietary counseling and surveillance; Z79.899 Other long term (current) drug therapy; Z91.14 Patient's other noncompliance with medication regimen
CPT/HCPCS: 71045; 71250; 74176; 80048; 80053; 80061; 81003; 83735; 85025; 93970

== ENCOUNTER 2020-02-16 10:54 | Inpatient (IN) | payer OTHER ==
[2020-02-16] MEDS ORDERED: MORPHINE SULFATE 4 MG/ML SYRINGE IVP STA (11:29)
[2020-02-16 12:20] LABS: ALT 17 U/L (4-49); AST 28 U/L (17-59); African American GFR (CKD) >90 (>60 ml/min/1.73 sqM); Albumin 2.6 g/dL (3.5-5.0); Alcohol <10 mg/dL; Alkaline Phosphatase 157 U/L (38-126); Anion Gap 6 mmol/L; Blood Urea Nitrogen 9 mg/dL (9-20); Calcium 7.9 mg/dL (8.4-10.2); Carbon Dioxide 28 mmol/L (22-30); Chloride 94 mmol/L (98-107); Glucose 100 mg/dL (74-99); Magnesium 1.8 mg/dL (1.6-2.3); Non-African American GFR(CKD) >90 (>60 ml/min/1.73 sqM); Potassium 4.3 mmol/L (3.5-5.1); Sodium 128 mmol/L (137-145); Total Bilirubin 0.3 mg/dL (0.2-1.3); Total Protein 5.7 g/dL (6.3-8.2)
[2020-02-16 12:22] LABS: INR 0.9 (<1.2); Prothrombin Time 9.3 sec (9.0-12.0)
[2020-02-16 12:24] LABS: Basophils # (A) 0.1 k/uL (0-0.2); Basophils % (A) 1 %; Eosinophils # (A) 0.2 k/uL (0-0.7); Eosinophils % (A) 1 %; HCT 33.2 % (39.0-53.0); HGB 10.8 gm/dL (13.0-17.5); Lymphocytes # (A) 2.2 k/uL (1.0-4.8); Lymphocytes % (A) 15 %; MCH 30.8 pg (25.0-35.0); MCHC 32.5 g/dL (31.0-37.0); MCV 94.9 fL (80.0-100.0); Mean Platelet Volume 6.4; Monocytes # (A) 1.1 k/uL (0-1.0); Monocytes % (A) 8 %; Neutrophils # (A) 10.8 k/uL (1.3-7.7); Neutrophils % (A) 74 %; RDW 14.8 % (11.5-15.5); WBC 14.6 k/uL (3.8-10.6)
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
[2020-02-16 12:33] LABS: Platelet Count 594 k/uL (150-450)
[2020-02-16 12:35] LABS: C Reactive Protein 29.4 mg/L (<10.0)
[2020-02-16] MEDS ORDERED: HYDROmorphone 1 MG/ML 1 ML SYRINGE IVP STA (13:09)
[2020-02-16] MEDS ORDERED: SODIUM CHLORIDE 0.9% 500 ML 500 ML IV STA (13:09)
[2020-02-16] MEDS ORDERED: NALOXONE 0.4 MG/ML 1 ML VIAL IV PRN (13:23)
[2020-02-16] MEDS ORDERED: ONDANSETRON 4 MG/2 ML VIAL IVP PRN (13:23)
[2020-02-16] MEDS ORDERED: LORazepam 2 MG/ML INJ IV PRN ×3 (13:23→21:23)
[2020-02-16] MEDS ORDERED: ACETAMINOPHEN TAB 325 MG TAB PO PRN (13:23)
[2020-02-16] MEDS ORDERED: MORPHINE SULFATE 4 MG/ML SYRINGE IV PRN (13:23)
[2020-02-16] MEDS ORDERED: VANCOMYCIN IV PER PHARMACY 1 EACH MISC MISCELLANE PRN (13:25)
[2020-02-16] MEDS ORDERED: VANCOMYCIN 1,250 MG in SODIUM CHLORIDE 0.9% 250 ML IVPB STA (13:35)
--- NOTE | 2020-02-16 13:49 | XR ---
EXAMINATION TYPE: XR foot complete bilateral DATE OF EXAM: 02/16/2020 CLINICAL HISTORY: pain TECHNIQUE: Frontal, lateral and oblique images of the right foot are obtained. COMPARISON: None. FINDINGS: There is no acute fracture/dislocation evident. The joint spaces appear within normal dickens its. The overlying soft tissue appears unremarkable. IMPRESSION: There is no acute fracture or dislocation. ICD 10 NO FRACTURE, INITIAL EVALUATION EXAMINATION TYPE: XR foot complete bilateral DATE OF EXAM: 02/16/2020 CLINICAL HISTORY: pain TECHNIQUE: Frontal, lateral and oblique images of the left foot are obtained. COMPARISON: None. FINDINGS: There is no acute fracture/dislocation evident. The joint spaces appear within normal dickens its. The overlying soft tissue appears unremarkable.
[2020-02-16] MEDS: SODIUM CHLORIDE 0.9% 1,000 ML IV SCH (14:02)
[2020-02-16] MEDS: HYDROcodone/APAP 5-325MG 1 EACH TAB PO PRN ×3 (15:01→22:00)
--- NOTE | 2020-02-16 16:27 | US ---
EXAMINATION TYPE: US venous doppler duplex LE DATE OF EXAM: 02/16/2020 4:10 PM COMPARISON: NONE CLINICAL HISTORY: Rule out DVT. extensive swelling, multiple lower leg ulcers, no h/o dvt SIDE PERFORMED: Bilateral TECHNIQUE: The lower extremity deep venous system is examined utilizing real time linear array sonog vanessa with graded compression, doppler sonography and color-flow sonography. VESSELS IMAGED: External Iliac Vein (EIV) Common Femoral Vein Deep Femoral Vein Greater Saphenous Vein * Femoral Vein Popliteal Vein Small Saphenous Vein * Proximal Calf Veins (* superficial vessels) patient has a hard time keeping legs still due to pain Right Leg: Negative for DVT Left Leg: Negative for DVT IMPRESSION: No evidence of deep vein thrombosis in both legs.
[2020-02-16 20:20] LABS: Glucose,Whole Blood 105 mg/dL (75-99)
--- NOTE | 2020-02-16 20:25 | P.HPIM ---
History of Present Illness This is a pleasant 64 years old male With past medical history of COPD, memory impairment, benign prostatic hypertrophy, alcoholism, chronic malnutrition, dysphagia. He is a patient of Dr. Garcia. He does not follow up with a ne urologist as an outpatient. Presents because of lower extremity infections. Patient states that he has chronic neuropathy as they told him earlier this year in June, he states that at baseline he cannot walk , that whenever he stands he looses balance and he cannot walk. and he uses a walker and a wheelchair. And he was pushing a cart which ran over his both feet about one month ago and now presents with bilateral redness, swelling and tenderness of both lower extremity with blistering the legs are red, scaly with ulcers there is one in the upper right leg anteriorly with a blunt on its base, and there are when dry ulcer on the right foods and when dry ulcer on the lower left leg also is right heel is with big ulcer covered with black eschar The history of numbness in both lower extremity from the groin down on both sides and then both fingertips since March 2019 Patient denies headache or back pain. He denies other symptoms like no chest pain or dyspnea, no abdominal pain, no change in urine or bowel habits. He smokes about 1 pack per day, he refuses to quit after he consult and he agrees were nicotine patch, he drinks alcohol daily as wine and smokes marijuana as he has medical cart Also patient looks disheveled with poor hygiene Patient's vitals are stable. Labs showed leukocytosis of 14.6 K, hemoglobin 10.8. INR is normal 0.9, BMP showing mild hyponatremia of 128, glucose 100, creatinine normal 0.3, potassium normal at 4.3. Liver enzymes not elevated. In the emergency room patient was started on ceftriaxone and IV vancomycin Infectious disease and vascular surgery consults were started from the emergency room. Review of Systems CONSTITUTIONAL: No fever, no malaise, no fatigue. HEENT: No recent visual problems or hearing problems. Denied any sore throat. CARDIOVASCULAR: No orthopnea, PND, no palpitations, no syncope. PULMONARY: No shortness of breath, no cough, no hemoptysis. GASTROINTESTINAL: No diarrhea, no nausea, no vomiting, no abdominal pain. Normoactive bowel sounds. NEUROLOGICAL: No headaches, no weakness, no numbness. HEMATOLOGICAL: Denies any bleeding or petechiae. GENITOURINARY: Denies any burning micturition, frequency, or urgency. MUSCULOSKELETAL/RHEUMATOLOGICAL: Denies any joint pain, swelling, or any muscle pain. ENDOCRINE: Denies any polyuria or polydipsia. Past Medical History Past Medical History: COPD, Memory Impairment Additional Past Medical History / Comment(s): BPH, dysphagia , previous liver biopsy for suspicion of a malignancy and malignancy was not confirmed back then pedis was done and [facility] in [place]. Alcoholism, COPD, dementia, chronic malnutrition History of Any Multi-Drug Resistant Organisms: None Reported Past Surgical History: Orthopedic Surgery Additional Past Surgical History / Comment(s): liver biopsy, left thumb surgery left arm fasciotomy Past Anesthesia/Blood Transfusion Reactions: No Reported Reaction Past Psychological History: No Psychological Hx Reported Smoking Status: Current every day smoker Past Alcohol Use History: Abuse, Daily Past Drug Use History: Marijuana - Past Family History Father History Unknown: Yes Medications and Allergies Home Medications Medication Instructions Recorded Confirmed Type Vit C/E/Zn/Coppr/Lutein/Zeaxan 1 cap PO DAILY 01/28/20 02/16/20 History [Preservision Areds 2 Softgel] Acetaminophen Tab [Tylenol] 650 mg PO Q6HR PRN 30 Days #30 tab 02/01/20 02/16/20 Rx Folic Acid 1 mg PO DAILY@1200 30 Days #30 tab 02/01/20 02/16/20 Rx Multivitamins, Thera [Multivitamin 1 each PO DAILY@1200 30 Days #30 02/01/20 02/16/20 Rx (formulary)] tab Sennosides-Docusate Sodium 1 each PO BID PRN #10 tab 02/01/20 02/16/20 Rx [Senokot-S] Thiamine [Vitamin B-1] 100 mg PO BID-W/MEALS 30 Days #60 02/01/20 02/16/20 Rx tab Furosemide [Lasix] 20 mg PO DAILY 02/16/20 02/16/20 History Gabapentin 300 mg PO DAILY 02/16/20 02/16/20 History Sulfamethox-Tmp 800-160Mg [Bactrim 1 tab PO BID 02/16/20 02/16/20 History DS 800-160 mg] Allergies Allergy/AdvReac Type Severity Reaction Status Date / Time No Known Allergies Allergy Verified 02/16/20 13:33 Physical Exam Vitals: Vital Signs Temp Pulse Pulse Resp BP BP Pulse Ox 02/16/20 14:35 97.7 F 100 19 163/90 100 02/16/20 14:00 99.0 F 78 20 155/78 99 02/16/20 13:07 90 20 135/72 99 02/16/20 11:03 97.9 F 99 18 142/72 96 Intake and Output 02/16/20 02/16/20 02/16/20 06:59 14:59 22:59 Other: Weight 68.039 kg GENERAL: The patient is alert and oriented x3, not in any acute distress. Well developed, well nourished. HEENT: Pupils are round and equally reacting to light. EOMI. No scleral icterus. No conjunctival pallor. Normocephalic, atraumatic. No pharyngeal erythema. No thyromegaly. CARDIOVASCULAR: S1 and S2 present. No murmurs, rubs, or gallops. PULMONARY: Chest is clear to auscultation, no wheezing or crackles. ABDOMEN: Soft, nontender, nondistended, normoactive bowel sounds. No palpable organomegaly. MUSCULOSKELETAL: No joint swelling or deformity. -EXTREMITIES: No cyanosis, clubbing, or pedal edema. Both legs are red swollen and tender, he has several ulcers in the right upper leg, the left lower leg and black base heel ulcer on the right side NEUROLOGICAL: Gross neurological examination did not reveal any focal deficits. SKIN: No rashes. No petechiae Results CBC & Chem 7: 02/16/20 11:48 02/16/20 11:48 Labs: Abnormal Lab Results - Last 24 Hours (Table) 02/16/20 02/16/20 02/16/20 Range/Units 11:48 11:48 12:59 WBC 14.6 H (3.8-10.6) k/uL RBC 3.50 L (4.30-5.90) m/uL Hgb 10.8 L (13.0-17.5) gm/dL Hct 33.2 L (39.0-53.0) % Plt Count 594 H D (150-450) k/uL Neutrophils # 10.8 H (1.3-7.7) k/uL Monocytes # 1.1 H (0-1.0) k/uL ESR 63 H (0-15) mm/hr Sodium 128 L (137-145) mmol/L Chloride 94 L (98-107) mmol/L Creatinine 0.36 L (0.66-1.25) mg/dL Glucose 100 H (74-99) mg/dL Calcium 7.9 L (8.4-10.2) mg/dL Alkaline Phosphatase 157 H (38-126) U/L C-Reactive Protein 29.4 H (<10.0) mg/L Total Protein 5.7 L (6.3-8.2) g/dL Albumin 2.6 L (3.5-5.0) g/dL Thrombosis Risk Factor Assmnt - Choose All That Apply Each Factor Represents 1 point: Swollen legs (current) Each Risk Factor Represents 2 Points: Age 61-74 years, Patient confined to bed Thrombosis Risk Factor Assessment Total Risk Factor Score: 5 Thrombosis Risk Factor Assessment Level: High Risk Assessment and Plan Assessment: Bilateral lower extremity cellulitis with multiple ulcerations Hypovolemic hyponatremia Alcohol abuse at-risk of alcohol withdrawal and delirium tremens Nicotine dependency Chronic peripheral neuropathy, with inability to walk at baseline with numbness and lower extremity 4 months Benign prostatic hypertrophy Chronic malnutrition COPD, not an active issue Benign prostatic hypertrophy Plan: This is a pleasant 64 years old male who presents with bilateral lower extremity cellulitis. Check Doppler ultrasound. Continue with antibiotics and consult infectious disease team for further recommendation. Follow-up vascular surgery consult. Continue with IV fluids. Ativan per CIWA protocol, give thiamine Labs and medication were reviewed.. Continue same treatment. Continue with symptomatic treatment. Resume home medication. Monitor lytes and vitals. DVT and GI prophylaxis. Further recommendations of the clinical course of the patient DVT prophylaxis: Subcutaneous heparin GI Prophylaxis: Pepcid PT/OT: Pending Prognosis is guarded
[2020-02-16] MEDS: THIAMINE 100 MG TAB PO SCH (21:31)
[2020-02-16] MEDS: FAMOTIDINE 20 MG/2 ML VIAL IV SCH (21:32)
[2020-02-16] MEDS: HEPARIN SODIUM,PORCINE 5,000 UNIT/ML 1 ML VIAL SQ SCH (21:32)
[2020-02-16] MEDS: VANCOMYCIN 1,250 MG in SODIUM CHLORIDE 0.9% 250 ML IVPB SCH (21:38)
[2020-02-16] MEDS: LORazepam 2 MG/ML INJ IV PRN (22:31)
--- NOTE | 2020-02-17 00:31 | P.CONS ---
History of Present Illness - Reason for Consult Consult date: 02/16/20 Bilateral leg wound and cellulitis Requesting physician: Clemente Pugh Sheet - Chief Complaint Bilateral leg wound and pain x weeks - History of Present Illness Patient is 64-year-old male with a past medical history significant for COPD current smoker and also history of alcoholism patient apparently seemed to have neuropathy and did have difficulty walking apparently the patient especially the cart about a month ago which again over both of his feet lately to some superficial ulceration to the lower leg most of the right leg that has not healed for the last 1 month patient basis and having increasing swelling redness patient with the right leg wound area for the patient was evaluated by the primary physician and was treated with the Bactrim DS patient to get 4 few days and did not have any improvement subsequently was evaluated by the nurse practitioner for the PCP yesterday and he was told that he needs to go to the hospital for admission and IV antibiotic therapy, patient complaining of nonhealing wound to both legs especially to the right leg for the last 1 month patient did have a associated swelling redness and a dull aching pain which at times can be sharp almost 7-8 out of 10 and no radiation patient denies having any purulent drainage from it, on arrival to the ER the patient was afebrile however he did have elevated white count of 14.6 did have elevated CRP x-rays of the leg did not show any bony changes patient was started on vancomycin and Rocephin and admitted to the hospital infectious disease and vascular surgery was consulted Review of Systems Positive point has been mentioned in the HPI rest of the systems are negative Past Medical History Past Medical History: COPD, Memory Impairment Additional Past Medical History / Comment(s): BPH, dysphagia , previous liver biopsy for suspicion of a malignancy and malignancy was not confirmed back then pedis was done and [facility] in [place]. Alcoholism, COPD, dementia, chronic malnutrition History of Any Multi-Drug Resistant Organisms: None Reported Past Surgical History: Orthopedic Surgery Additional Past Surgical History / Comment(s): liver biopsy, left thumb surgery left arm fasciotomy Past Anesthesia/Blood Transfusion Reactions: No Reported Reaction Past Psychological History: No Psychological Hx Reported Smoking Status: Current every day smoker Past Alcohol Use History: Abuse, Daily Past Drug Use History: Marijuana - Past Family History Father History Unknown: Yes Medications and Allergies Home Medications Medication Instructions Recorded Confirmed Type Vit C/E/Zn/Coppr/Lutein/Zeaxan 1 cap PO DAILY 01/28/20 02/16/20 History [Preservision Areds 2 Softgel] Acetaminophen Tab [Tylenol] 650 mg PO Q6HR PRN 30 Days #30 tab 02/01/20 02/16/20 Rx Folic Acid 1 mg PO DAILY@1200 30 Days #30 tab 02/01/20 02/16/20 Rx Multivitamins, Thera [Multivitamin 1 each PO DAILY@1200 30 Days #30 02/01/20 02/16/20 Rx (formulary)] tab Sennosides-Docusate Sodium 1 each PO BID PRN #10 tab 02/01/20 02/16/20 Rx [Senokot-S] Thiamine [Vitamin B-1] 100 mg PO BID-W/MEALS 30 Days #60 02/01/20 02/16/20 Rx tab Furosemide [Lasix] 20 mg PO DAILY 02/16/20 02/16/20 History Gabapentin 300 mg PO DAILY 02/16/20 02/16/20 History Sulfamethox-Tmp 800-160Mg [Bactrim 1 tab PO BID 02/16/20 02/16/20 History DS 800-160 mg] Allergies Allergy/AdvReac Type Severity Reaction Status Date / Time No Known Allergies Allergy Verified 02/16/20 13:33 Physical Exam Vitals: Vital Signs Temp Pulse Pulse Resp BP BP Pulse Ox 02/16/20 23:07 18 02/16/20 14:35 97.7 F 100 19 163/90 100 02/16/20 14:00 99.0 F 78 20 155/78 99 02/16/20 13:07 90 20 135/72 99 02/16/20 11:03 97.9 F 99 18 142/72 96 Intake and Output 02/16/20 02/16/20 02/17/20 14:59 22:59 06:59 Output Total 900 Balance -900 Output: Urine 900 Other: Voiding Method Urinal Diaper # Voids 3 Weight 68.039 kg GENERAL DESCRIPTION: Middle-aged male lying in bed, no distress. No tachypnea or accessory muscle of respiration use. HEENT: Shows Pallor , no scleral icterus. Oral mucous membrane is dry. No pharyngeal erythema or thrush NECK: Trachea central, no thyromegaly. LUNGS: Unlabored breathing. Clear to auscultation anteriorly. No wheeze or crackle. HEART: S1, S2, regular rate and rhythm. No loud murmur ABDOMEN: Soft, no tenderness , guarding or rigidity, no organomegaly EXTREMITIES: Bilateral lower extremity with superficial ulceration more marked the right leg with no significant slough tissue however the patient did have a necrotic unstageable wound to the right heel area SKIN: No rash, no masses palpable. NEUROLOGICAL: The patient is awake, alert, oriented x3, mood and affect normal. Results CBC & Chem 7: 02/16/20 11:48 02/16/20 11:48 Labs: Abnormal Lab Results - Last 24 Hours (Table) 02/16/20 02/16/20 02/16/20 Range/Units 11:48 11:48 12:59 WBC 14.6 H (3.8-10.6) k/uL RBC 3.50 L (4.30-5.90) m/uL Hgb 10.8 L (13.0-17.5) gm/dL Hct 33.2 L (39.0-53.0) % Plt Count 594 H D (150-450) k/uL Neutrophils # 10.8 H (1.3-7.7) k/uL Monocytes # 1.1 H (0-1.0) k/uL ESR 63 H (0-15) mm/hr Sodium 128 L (137-145) mmol/L Chloride 94 L (98-107) mmol/L Creatinine 0.36 L (0.66-1.25) mg/dL Glucose 100 H (74-99) mg/dL POC Glucose (mg/dL) (75-99) mg/dL Calcium 7.9 L (8.4-10.2) mg/dL Alkaline Phosphatase 157 H (38-126) U/L C-Reactive Protein 29.4 H (<10.0) mg/L Total Protein 5.7 L (6.3-8.2) g/dL Albumin 2.6 L (3.5-5.0) g/dL 02/16/20 Range/Units 20:10 WBC (3.8-10.6) k/uL RBC (4.30-5.90) m/uL Hgb (13.0-17.5) gm/dL Hct (39.0-53.0) % Plt Count (150-450) k/uL Neutrophils # (1.3-7.7) k/uL Monocytes # (0-1.0) k/uL ESR (0-15) mm/hr Sodium (137-145) mmol/L Chloride (98-107) mmol/L Creatinine (0.66-1.25) mg/dL Glucose (74-99) mg/dL POC Glucose (mg/dL) 105 H (75-99) mg/dL Calcium (8.4-10.2) mg/dL Alkaline Phosphatase (38-126) U/L C-Reactive Protein (<10.0) mg/L Total Protein (6.3-8.2) g/dL Albumin (3.5-5.0) g/dL Assessment and Plan Assessment: 1- patient with bilateral lower extremity wound traumatic with secondary cellulitis and possible component of ischemia in this patient failed to respond to outpatient oral Bactrim DS therapy will need to cover for resistant gram- positive and less likely Gram-negative pathogen 2-unstagable right heel pressure ulcer (1) Unstageable pressure ulcer of right heel Current Visit: Yes Status: Acute Code(s): L89.610 - PRESSURE ULCER OF RIGHT HEEL, UNSTAGEABLE SNOMED Code(s): 741432506 (2) Bilateral lower leg cellulitis Current Visit: Yes Status: Acute Code(s): L03.116 - CELLULITIS OF LEFT LOWER LIMB; L03.115 - CELLULITIS OF RIGHT LOWER LIMB SNOMED Code(s): 273732973 Plan: 1- await vascular surgery evaluation debridement and deep cultures 2- wound care with a dry aquacel silver dressing and apply protective dressing to the right heel wound 3-Vancomycin pharmacy to dose target trough of 15 while watching his kidney function and Vanco trough closely 4- Rocephin 2 g daily We will follow on clinical condition and cultures to further adjust medication if needed Thank you for this consultation will follow this patient with you
[2020-02-17] MEDS: LORazepam 2 MG/ML INJ IV PRN (04:26)
[2020-02-17] MEDS: VANCOMYCIN 1,250 MG in SODIUM CHLORIDE 0.9% 250 ML IVPB SCH ×3 (05:17→23:32)
[2020-02-17 07:19] LABS: African American GFR (CKD) >90 (>60 ml/min/1.73 sqM); Anion Gap 1 mmol/L; Blood Urea Nitrogen 8 mg/dL (9-20); Calcium 8.4 mg/dL (8.4-10.2); Carbon Dioxide 30 mmol/L (22-30); Chloride 99 mmol/L (98-107); Glucose 86 mg/dL (74-99); Non-African American GFR(CKD) >90 (>60 ml/min/1.73 sqM); Potassium 4.7 mmol/L (3.5-5.1); Sodium 130 mmol/L (137-145)
[2020-02-17] MEDS: HEPARIN SODIUM,PORCINE 5,000 UNIT/ML 1 ML VIAL SQ SCH ×2 (07:39→20:52)
[2020-02-17] MEDS: THIAMINE 100 MG TAB PO SCH (07:40)
[2020-02-17] MEDS: NICOTINE 21MG/24HR PATCH TRANSDERM SCH (07:40)
[2020-02-17 07:45] LABS: Basophils # (A) 0.1 k/uL (0-0.2); Basophils % (A) 1 %; Eosinophils # (A) 0.2 k/uL (0-0.7); Eosinophils % (A) 1 %; HCT 35.6 % (39.0-53.0); HGB 11.2 gm/dL (13.0-17.5); Lymphocytes # (A) 1.6 k/uL (1.0-4.8); Lymphocytes % (A) 10 %; MCH 30.6 pg (25.0-35.0); MCHC 31.4 g/dL (31.0-37.0); MCV 97.3 fL (80.0-100.0); Mean Platelet Volume 7.1; Monocytes # (A) 1.1 k/uL (0-1.0); Monocytes % (A) 7 %; Neutrophils % (A) 81 %; Platelet Count 531 k/uL (150-450); RBC 3.66 m/uL (4.30-5.90); RDW 14.8 % (11.5-15.5); WBC 16.1 k/uL (3.8-10.6)
[2020-02-17] MEDS: FAMOTIDINE 20 MG/2 ML VIAL IV SCH (08:45)
[2020-02-17] MEDS: HYDROcodone/APAP 5-325MG 1 EACH TAB PO PRN ×2 (08:53→13:56)
[2020-02-17] MEDS ORDERED: LORazepam 1 MG TAB PO PRN ×2 (11:15→11:16)
--- NOTE | 2020-02-17 12:23 | P.PN ---
Subjective This is a pleasant 64 years old male With past medical history of COPD, memory impairment, benign prostatic hypertrophy, alcoholism, chronic malnutrition, dysphagia. He is a patient of Dr. Garcia. He does not follow up with a neurologist as an outpatient. Presents because of lower extremity infections. Patient states that he has chronic neuropathy as they told him earlier this year in June, he states that at baseline he cannot walk , that whenever he stands he looses balance and he cannot walk. and he uses a walker and a wheelchair. And he was pushing a cart which ran over his both feet about one month ago and now presents with bilateral redness, swelling and tenderness of both lower extremity with blistering the legs are red, scaly with ulcers there is one in the upper right leg anteriorly with a blunt on its base, and there are when dry ulcer on the right foods and when dry ulcer on the lower left leg also is right heel is with big ulcer covered with black eschar The history of numbness in both lower extremity from the groin down on both sides and then both fingertips since March 2019 Patient denies headache or back pain. He denies other symptoms like no chest pain or dyspnea, no abdominal pain, no change in urine or bowel habits. He smokes about 1 pack per day, he refuses to quit after he consult and he agrees were nicotine patch, he drinks alcohol daily as wine and smokes marijuana as he has medical cart Also patient looks disheveled with poor hygiene Patient's vitals are stable. Labs showed leukocytosis of 14.6 K, hemoglobin 10.8. INR is normal 0.9, BMP showing mild hyponatremia of 128, glucose 100, c reatinine normal 0.3, potassium normal at 4.3. Liver enzymes not elevated. In the emergency room patient was started on ceftriaxone and IV vancomycin Infectious disease and vascular surgery consults were started from the emergency room. 02/17/2020 Patient is a little more drowsy and sleepy today, however he wakes up to verbal and tactile stimuli is and he is fully oriented to the surrounding and to his illness, it looks like he got several doses of Ativan last night and he had encounter with the aide because he did not want to take his clothes off, he got agitated several times and received several doses of Ativan. This morning he was refusing treatment, his IV line was out and he refused to be replaced, I talked to the patient and he did not get a clear answer but he said he will try. Patient denies to me any signs and symptoms of depression, he denies suicidal or homicidal ideation, also he denies hallucination, " I just want a cigarette and a Beer" patient asked me if he can go outside and smoke I explained to him this is against policy of the hospital, I offered nicotine patch but he declined saying it'll not work. Other than that the patient looks appropriate. Vitas looks stable, he has a leukocytosis at 16.1 K pro-calcitonin is normal at 0.09, serum alcohol less than 10, his sodium improved to 130 Infectious disease input is appreciated and was continued on IV vancomycin with local wound care. Venous Doppler is negative for DVT Review of Systems CONSTITUTIONAL: No fever, no malaise, no fatigue. HEENT: No recent visual problems or hearing problems. Denied any sore throat. CARDIOVASCULAR: No orthopnea, PND, no palpitations, no syncope. PULMONARY: No shortness of breath, no cough, no hemoptysis. GASTROINTESTINAL: No diarrhea, no nausea, no vomiting, no abdominal pain. Normoactive bowel sounds. NEUROLOGICAL: No headaches, no weakness, no numbness. HEMATOLOGICAL: Denies any bleeding or petechiae. GENITOURINARY: Denies any burning micturition, frequency, or urgency. MUSCULOSKELETAL/RHEUMATOLOGICAL: Denies any joint pain, swelling, or any muscle pain. ENDOCRINE: Denies any polyuria or polydipsia. Active Medications Generic Name Dose Route Start Last Admin Trade Name Freq PRN Reason Stop Dose Admin Acetaminophen 650 mg 02/16/20 13:23 Tylenol Tab PO Q6HR PRN Mild Pain or Fever > 100.5 Hydrocodone Bitart/Acetaminophen 1 each 02/16/20 13:23 02/17/20 08:53 Bledsoe 5-325 PO 1 each Q4HR PRN Administration Moderate Pain Famotidine 20 mg 02/17/20 21:00 Pepcid PO Q12HR HERACLIO Heparin Sodium (Porcine) 5,000 unit 02/16/20 21:00 02/17/20 07:39 Heparin SQ Not Given Q12HR HERACLIO Sodium Chloride 1,000 mls @ 75 mls/hr 02/16/20 13:30 02/16/20 14:02 Saline 0.9% IV 20 mls/hr .[id number] HERACLIO Administration Vancomycin HCl 1,250 mg/ 250 mls @ 125 mls/hr 02/16/20 22:00 02/17/20 05:17 Sodium Chloride IVPB 125 mls/hr Q8H HERACLIO Administration Ceftriaxone Sodium 2 gm/ 50 mls @ 100 mls/hr 02/17/20 09:00 02/17/20 08:56 Sodium Chloride IVPB Not Given Q24HR HERACLIO Lorazepam 1 mg 02/17/20 11:14 Ativan PO Q2HR PRN CIWA 8 or 9 Lorazepam 1 mg 02/17/20 11:15 Ativan PO Q1HR PRN CIWA 10 to 15 Lorazepam 2 mg 02/17/20 11:16 Ativan PO 02/18/20 23:59 Q10M PRN CIWA 16 or higher Miscellaneous Information 0 each 02/17/20 21:00 Vancomycin Trough Due MISCELLANE 02/17/20 21:01 DIRECTED ONE Morphine Sulfate 4 mg 02/16/20 13:23 Morphine Sulfate (Inj) IV Q4HR PRN Severe Pain Naloxone HCl 0.2 mg 02/16/20 13:23 Narcan IV Q2M PRN Opioid Reversal Nicotine 1 patch 02/17/20 09:00 02/17/20 07:40 Habitrol 21mg/24hr Patch TRANSDERM Not Given DAILY [facility] Ondansetron HCl 4 mg 02/16/20 13:23 Zofran IVP Q8HR PRN Nausea And Vomiting Thiamine HCl 100 mg 02/16/20 20:30 02/17/20 07:40 Vitamin B-1 PO Not Given DAILY [facility] Objective - Vital Signs Vital signs: Vital Signs Temp 97.9 F 02/17/20 07:00 Pulse 79 02/17/20 07:00 Resp 20 02/17/20 07:00 BP 156/77 02/17/20 01:00 Pulse Ox 97 02/17/20 07:00 Intake & Output 02/16/20 02/17/20 02/17/20 18:59 06:59 18:59 Output Total 900 Balance -900 Weight 68.039 kg Output: Urine 900 Other: Voiding Method Urinal Urinal Diaper Diaper # Voids 2 - Exam GENERAL: The patient is alert and oriented x3, not in any acute distress. Well developed, well nourished. HEENT: Pupils are round and equally reacting to light. EOMI. No scleral icterus. No conjunctival pallor. Normocephalic, atraumatic. No pharyngeal erythema. No thyromegaly. CARDIOVASCULAR: S1 and S2 present. No murmurs, rubs, or gallops. PULMONARY: Chest is clear to auscultation, no wheezing or crackles. ABDOMEN: Soft, nontender, nondistended, normoactive bowel sounds. No palpable organomegaly. MUSCULOSKELETAL: No joint swelling or deformity. -EXTREMITIES: No cyanosis, clubbing, or pedal edema. Both legs are red swollen and tender, he has several ulcers in the right upper leg, the left lower leg and black base heel ulcer on the right side NEUROLOGICAL: Gross neurological examination did not reveal any focal deficits. SKIN: No rashes. No petechiae - Labs CBC & Chem 7: 02/17/20 06:46 02/17/20 06:46 Labs: Abnormal Lab Results - Last 24 Hours (Table) 02/16/20 02/16/20 02/16/20 Range/Units 11:48 11:48 12:59 WBC 14.6 H (3.8-10.6) k/uL RBC 3.50 L (4.30-5.90) m/uL Hgb 10.8 L (13.0-17.5) gm/dL Hct 33.2 L (39.0-53.0) % Plt Count 594 H D (150-450) k/uL Neutrophils # 10.8 H (1.3-7.7) k/uL Monocytes # 1.1 H (0-1.0) k/uL ESR 63 H (0-15) mm/hr Sodium 128 L (137-145) mmol/L Chloride 94 L (98-107) mmol/L BUN (9-20) mg/dL Creatinine 0.36 L (0.66-1.25) mg/dL Glucose 100 H (74-99) mg/dL POC Glucose (mg/dL) (75-99) mg/dL Calcium 7.9 L (8.4-10.2) mg/dL Alkaline Phosphatase 157 H (38-126) U/L C-Reactive Protein 29.4 H (<10.0) mg/L Total Protein 5.7 L (6.3-8.2) g/dL Albumin 2.6 L (3.5-5.0) g/dL 02/16/20 02/17/20 02/17/20 Range/Units 20:10 06:46 06:46 WBC 16.1 H (3.8-10.6) k/uL RBC 3.66 L (4.30-5.90) m/uL Hgb 11.2 L (13.0-17.5) gm/dL Hct 35.6 L (39.0-53.0) % Plt Count 531 H (150-450) k/uL Neutrophils # 13.0 H (1.3-7.7) k/uL Monocytes # 1.1 H (0-1.0) k/uL ESR (0-15) mm/hr Sodium 130 L (137-145) mmol/L Chloride (98-107) mmol/L BUN 8 L (9-20) mg/dL Creatinine 0.28 L (0.66-1.25) mg/dL Glucose (74-99) mg/dL POC Glucose (mg/dL) 105 H (75-99) mg/dL Calcium (8.4-10.2) mg/dL Alkaline Phosphatase (38-126) U/L C-Reactive Protein (<10.0) mg/L Total Protein (6.3-8.2) g/dL Albumin (3.5-5.0) g/dL Assessment and Plan Assessment: Bilateral lower extremity cellulitis with multiple ulcerations, secondary to trauma Hypovolemic hyponatremia Nonadherence to therapy Alcohol abuse at-risk of alcohol withdrawal and delirium tremens Nicotine dependency Chronic peripheral neuropathy, with inability to walk at baseline with numbness and lower extremity 4 months Benign prostatic hypertrophy Chronic malnutrition COPD, not an active issue Benign prostatic hypertrophy Plan: This is a pleasant 64 years old male who presents with bilateral lower extremity cellulitis. Continue with antibiotics and consult infectious disease team for further recommendation. Follow-up vascular surgery consult. Continue with IV fluids. Ativan per CIWA protocol, give thiamine. Patient has been refusing treatment because he wants to smoke and drink and because of interaction with [facility] staff, Also patient looks to me has capacity to make decision and he is oriented to the surrounding, the suspicion for psychiatric illness is low however we will ask for psychiatrist evaluation for a second opinion. Labs and medication were reviewed.. Continue same treatment. Continue with sym ptomatic treatment. Resume home medication. Monitor lytes and vitals. DVT and GI prophylaxis. Further recommendations of the clinical course of the patient DVT prophylaxis: Subcutaneous heparin GI Prophylaxis: Pepcid PT/OT: Pending Prognosis is guarded
[2020-02-17] MEDS: SODIUM CHLORIDE 0.9% 1,000 ML IV SCH (13:22)
--- NOTE | 2020-02-17 18:35 | P.GSCN ---
History of Present Illness Consult date: 02/17/20 Reason for Consult: lower extremity wounds, arterial disease History of present illness: 64 year old male admitted to the hospital with lower extremity wounds and leg pain. Patient states the pain has been going on for weeks. He states he hasn't been ambulating but does admit to pain in his calf and feet at night. He also has numbness of his feet. He states he has pain at his right heel as well. He denies any fevers, chills, nausea or vomiting. Review of Systems All systems: negative (what is mentioned in the HPI or PMH) Past Medical History Past Medical History: COPD, Memory Impairment Additional Past Medical History / Comment(s): BPH, dysphagia , previous liver biopsy for suspicion of a malignancy and malignancy was not confirmed back then pedis was done and [facility] in [place]. Alcoholism, COPD, dementia, c hronic malnutrition History of Any Multi-Drug Resistant Organisms: None Reported Past Surgical History: Orthopedic Surgery Additional Past Surgical History / Comment(s): liver biopsy, left thumb surgery left arm fasciotomy Past Anesthesia/Blood Transfusion Reactions: No Reported Reaction Past Psychological History: No Psychological Hx Reported Smoking Status: Current every day smoker Past Alcohol Use History: Abuse, Daily Past Drug Use History: Marijuana - Past Family History Father History Unknown: Yes Medications and Allergies Home Medications Medication Instructions Recorded Confirmed Type Vit C/E/Zn/Coppr/Lutein/Zeaxan 1 cap PO DAILY 01/28/20 02/16/20 History [Preservision Areds 2 Softgel] Acetaminophen Tab [Tylenol] 650 mg PO Q6HR PRN 30 Days #30 tab 02/01/20 02/16/20 Rx Folic Acid 1 mg PO DAILY@1200 30 Days #30 tab 02/01/20 02/16/20 Rx Multivitamins, Thera [Multivitamin 1 each PO DAILY@1200 30 Days #30 02/01/20 02/16/20 Rx (formulary)] tab Sennosides-Docusate Sodium 1 each PO BID PRN #10 tab 02/01/20 02/16/20 Rx [Senokot-S] Thiamine [Vitamin B-1] 100 mg PO BID-W/MEALS 30 Days #60 02/01/20 02/16/20 Rx tab Furosemide [Lasix] 20 mg PO DAILY 02/16/20 02/16/20 History Gabapentin 300 mg PO DAILY 02/16/20 02/16/20 History Sulfamethox-Tmp 800-160Mg [Bactrim 1 tab PO BID 02/16/20 02/16/20 History DS 800-160 mg] Allergies Allergy/AdvReac Type Severity Reaction Status Date / Time No Known Allergies Allergy Verified 02/16/20 13:33 Surgical - Exam Vital Signs Temp Pulse Resp BP Pulse Ox 97.9 F 99 18 142/72 96 02/16/20 11:03 02/16/20 11:03 02/16/20 11:03 02/16/20 11:03 02/16/20 11:03 right anterior acosta wound which is shallow with surrounding erythema. Some eschar noted. No tenderness. Right heel with black eschar and adjacent wound. Erythema at the edges of the wound. Mild tenderness. No drainage. Palpable femoral, popliteal, and DP pulse on the left. Palpable femoral and popliteal pulse on the right. Non palpable DP or PT pulses. Slowed capillary refill - General well developed, no distress, other (disheveled) - Eyes PERRL - ENT normal pinna - Neck no masses, trachea midline - Respiratory normal expansion - Cardiovascular Rhythm: regular - Abdomen Abdomen: soft, non tender - Neurologic normal sensation - Psychiatric oriented to time, oriented to person, oriented to place Results - Labs 02/17/20 06:46 02/17/20 06:46 Abnormal Lab Results - Last 24 Hours (Table) 02/16/20 02/17/20 02/17/20 Range/Units 20:10 06:46 06:46 WBC 16.1 H (3.8-10.6) k/uL RBC 3.66 L (4.30-5.90) m/uL Hgb 11.2 L (13.0-17.5) gm/dL Hct 35.6 L (39.0-53.0) % Plt Count 531 H (150-450) k/uL Neutrophils # 13.0 H (1.3-7.7) k/uL Monocytes # 1.1 H (0-1.0) k/uL Sodium 130 L (137-145) mmol/L BUN 8 L (9-20) mg/dL Creatinine 0.28 L (0.66-1.25) mg/dL POC Glucose (mg/dL) 105 H (75-99) mg/dL Microbiology - Last 24 Hours (Table) 02/16/20 11:48 Blood Culture - Preliminary Blood No Growth after 24 hours Diabetes panel 02/17/20 Range/Units 06:46 Sodium 130 L (137-145) mmol/L Potassium 4.7 (3.5-5.1) mmol/L Chloride 99 (98-107) mmol/L Carbon Dioxide 30 (22-30) mmol/L BUN 8 L (9-20) mg/dL Creatinine 0.28 L (0.66-1.25) mg/dL Glucose 86 (74-99) mg/dL Calcium 8.4 (8.4-10.2) mg/dL Calcium panel 02/17/20 Range/Units 06:46 Calcium 8.4 (8.4-10.2) mg/dL Pituitary panel 02/17/20 Range/Units 06:46 Sodium 130 L (137-145) mmol/L Potassium 4.7 (3.5-5.1) mmol/L Chloride 99 (98-107) mmol/L Carbon Dioxide 30 (22-30) mmol/L BUN 8 L (9-20) mg/dL Creatinine 0.28 L (0.66-1.25) mg/dL Glucose 86 (74-99) mg/dL Calcium 8.4 (8.4-10.2) mg/dL Adrenal panel 02/17/20 Range/Units 06:46 Sodium 130 L (137-145) mmol/L Potassium 4.7 (3.5-5.1) mmol/L Chloride 99 (98-107) mmol/L Carbon Dioxide 30 (22-30) mmol/L BUN 8 L (9-20) mg/dL Creatinine 0.28 L (0.66-1.25) mg/dL Glucose 86 (74-99) mg/dL Calcium 8.4 (8.4-10.2) mg/dL Assessment and Plan Assessment: 1. Peripheral arterial disease Patt 4 2. Right lower extremity acosta and heel wounds 3. Peripheral neuropathy 4. Tobacco abuse Plan: Will obtain lower extremity arterial dopplers. Continue local wound care- will need formal debridement which we will schedule for Tuesday. Continue antibiotics
[2020-02-17] MEDS: FAMOTIDINE 20 MG TAB PO SCH (20:52)
[2020-02-17] MEDS ORDERED: VANCOMYCIN TROUGH DUE 1 EACH MISC MISCELLANE ONE (21:00)
[2020-02-17] MEDS: LORazepam 1 MG TAB PO PRN (22:00)
--- NOTE | 2020-02-18 00:26 | PN ---
PROGRESS NOTE DATE OF SERVICE: 02/17/2020 REASON FOR FOLLOWUP: Bilateral lower extremity wound and cellulitis. INTERVAL HISTORY: The patient is currently afebrile, has been breathing comfortably. Overall pain and discomfort to the lower extremity, slightly decreased. Denies having any chest pain or cough. No abdominal pain or diarrhea. PHYSICAL EXAMINATION: Blood pressure is 126/78 with a pulse of 91, temperature 98. He is 93% on room air. General description is a middle-aged male lying in bed in no distress. RESPIRATORY SYSTEM: Unlabored breathing, clear to auscultation anteriorly. HEART: S1, S2. Regular rate and rhythm. ABDOMEN: Soft. No tenderness. LEGS: Multiple wound with some redness with necrotic wound to the heel. LABS: White count 16.1, creatinine 0.28. DIAGNOSTIC IMPRESSION AND PLAN: Patient with bilateral lower extremity wound with unstageable pressure ulcer right heel. Surgery has seen the patient, formal debridement on Tuesday. Continue the vancomycin and Rocephin and will monitor his clinical course closely. Continue with supportive care. MMODL / IJN: [id number] /
[2020-02-18] MEDS: HYDROcodone/APAP 5-325MG 1 EACH TAB PO PRN ×6 (01:06→20:27)
[2020-02-18] MEDS: LORazepam 1 MG TAB PO PRN (01:07)
[2020-02-18] MEDS: VANCOMYCIN 1,250 MG in SODIUM CHLORIDE 0.9% 250 ML IVPB SCH ×2 (05:11→17:40)
[2020-02-18] MEDS: SODIUM CHLORIDE 0.9% 1,000 ML IV SCH ×3 (05:21→23:41)
[2020-02-18 07:54] LABS: African American GFR (CKD) >90 (>60 ml/min/1.73 sqM); Anion Gap 5 mmol/L; Basophils # (A) 0.1 k/uL (0-0.2); Basophils % (A) 1 %; Blood Urea Nitrogen 8 mg/dL (9-20); Calcium 8.3 mg/dL (8.4-10.2); Carbon Dioxide 28 mmol/L (22-30); Chloride 97 mmol/L (98-107); Eosinophils # (A) 0.2 k/uL (0-0.7); Eosinophils % (A) 1 %; Glucose 70 mg/dL (74-99); HCT 35.7 % (39.0-53.0); HGB 11.4 gm/dL (13.0-17.5); Lymphocytes # (A) 1.8 k/uL (1.0-4.8); Lymphocytes % (A) 11 %; MCV 97.1 fL (80.0-100.0); Mean Platelet Volume 7.3; Monocytes # (A) 0.9 k/uL (0-1.0); Monocytes % (A) 5 %; Neutrophils # (A) 12.9 k/uL (1.3-7.7); Neutrophils % (A) 81 %; Non-African American GFR(CKD) >90 (>60 ml/min/1.73 sqM); Platelet Count 507 k/uL (150-450); Potassium 4.3 mmol/L (3.5-5.1); RBC 3.68 m/uL (4.30-5.90); RDW 14.8 % (11.5-15.5); Sodium 130 mmol/L (137-145); WBC 16.1 k/uL (3.8-10.6)
[2020-02-18] MEDS: THIAMINE 100 MG TAB PO SCH (08:50)
[2020-02-18] MEDS: FAMOTIDINE 20 MG TAB PO SCH ×2 (08:50→20:27)
[2020-02-18] MEDS: NICOTINE 21MG/24HR PATCH TRANSDERM SCH (08:51)
[2020-02-18] MEDS: HEPARIN SODIUM,PORCINE 5,000 UNIT/ML 1 ML VIAL SQ SCH ×2 (08:51→20:28)
--- NOTE | 2020-02-18 12:27 | P.PN ---
Progress Note - Text Progress Note Date: 02/18/20 The patient was seen and examined at the bedside. Patient had physical therapy at the bedside earlier to help with ambulation. Patient states his right heel is painful. He denies any fevers or chills through the night. Arterial study was completed however is pending results. He denies any shortness of breath or chest pain. EXAM: right anterior acosta wound which is shallow with surrounding erythema. Some eschar noted. No tenderness. Right heel with black eschar and adjacent wound. Erythema at the edges of the wound. Mild tenderness. No drainage. Palpable femoral, popliteal, and DP pulse on the left. Palpable femoral and popliteal pulse on the right. Non palpable DP or PT pulses. Slowed capillary refill Assessment: 1. Peripheral arterial disease Patt 4 2. Right lower extremity acosta and heel wounds 3. Peripheral neuropathy 4. Tobacco abuse Plan: Arterial Doppler studY completed, pending results. Patient is scheduled to go to the operating room tomorrow with Dr. Fatima for right lower extremity wound debridements. Hold morning dose of heparin. Nothing by mouth after midnight. Continue with local wound care. Smoking cessation advised.
--- NOTE | 2020-02-18 16:30 | CONS ---
CONSULTATION DATE OF CONSULTATION: 02/18/2020 REASON FOR CONSULTATION: Capacity to make decision. HISTORY OF PRESENT ILLNESS: The patient is a 64-year-old male who has been receiving Social Security income since 2007. He presented to the emergency room with complaint of swelling and pain in both lower legs. The patient stated that the swelling has been going on since June, and he did seek help from his primary care physician, who put him on Bactrim for cellulitis. The patient stated that he has been smoking marijuana for the last 50 years, but it does not help the pain. Also he has been drinking almost on a daily basis; his last alcohol just prior to his admission, he had bottle of wine. The patient stated that he is living with his son, who is 37 years of age, and his son's girlfriend. According to him, his son is growing medical marijuana in the house. The patient stated that he has been losing weight since March of 2019, and he has lost 60 pounds since then. When I did ask him about the reason, he said "I was drinking hard liquor and my appetite was not the same." The patient denied any feeling of hopelessness or helplessness. He denied being suicidal or homicidal. He stated, "I am depressed because I am getting old, "" HOME MEDICATIONS: 1. Lasix 20 mg daily. 2. Gabapentin 300 mg daily. 3. Bactrim twice a day. 4. Vitamin C. ALLERGIES: There is NO DRUG ALLERGY. PAST MEDICAL HISTORY: History of COPD, status post liver biopsy to rule out malignancy, and it was not confirmed at that time. Currently they are trying to rule out lung malignancy. Currently patient has peripheral arterial disease and he is scheduled for wound cleaning on his lower extremity tomorrow. I did have a lengthy discussion about the procedure for tomorrow, and they need to do more workup to rule out any malignancy, as he lost 60 pounds since March of 2019. The patient said, "I do understand and I want to do everything to help myself." He stated that if he does not follow the recommendation regarding local wound care or any other medical recommendation, he will , and he does not want to , as he said, "I still have many years to go." PAST PSYCHIATRIC HISTORY: He has never been treated as outpatient or inpatient for depression or anxiety. SUBSTANCE USE DISORDER: Alcohol: He started drinking during his teens. He was drinking alcohol and then he startling drinking hard liquor. According to him, "I had been drinking hard liquor for almost 50 years." The patient stated that 10 years ago he was court-ordered to go for rehab and [facility] for alcohol use disorder, but according to him, after he was released from the program he did relapse right away. Marijuana: He has been smoking marijuana since age 16 or 17. It has been smoking on a daily basis between 1 and 2 joints. BRIEF SOCIAL HISTORY: The patient was once. This marriage ended by divorce in 1987. He has a son who is 37 years of age. The patient is currently living with his son and son's girlfriend. He has been retired since 2007. 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 Currently he is on an SSI. FAMILY PSYCHIATRIC HISTORY: He denied any mental illness in the family. However, he stated that both parents were alcoholic, and he said, "Even my mom was drinking while she was ." MENTAL STATUS EXAMINATION: The patient is an elderly cachectic male who looks much older than stated age. He was wearing hat to cover his avila hair. He is kind of disheveled and unkempt. He was cooperative and he gave good eye contact. His speech is spontaneous, normal in rhythm and volume. He denied any psychotic features. He denied any suicidal or homicidal ideation. He denied feeling hopeless or helpless, but he stated that he has been feeling down due to declining of his physical health. The patient was alert, oriented to place and person but not to today's exact date. He was able to recall the current president. He recalled the city and the state. He could not do any simple calculation, but he did recall 2 out of 3 objects after 5 minutes. His similarities between banana and orange were very concrete, as he stated that they are different in color. He could not spell "world" backward, but he did spell it forward. His insight and judgment are fair. However, his insight regarding his drinking is limited. DIAGNOSES: 1. Alcohol use disorder, severe. 2. Cannabis use disorder. 3. Anxiety disorder, unspecified, due to alcohol use. IMPRESSION: The patient has mild cognitive deficit due to extensive drinking,he did score in the mini-mental status exam 22 out of 30. However, I told him that if he continues drinking, his cognitive function will decline further. The patient is capable of making his own decisions, as he did understand his current medical condition and also he did understand the consequences if he refuses to do it. Currently he refused any referral to an alcohol use program. However, my recommendation is that when he is ready to be discharged, to give him a referral to a substance use program in case he will change his mind. Thank you for this consult. Psychiatrist will sign off. GERALDINE / DERECK: [id number] / LALO
[2020-02-18] MEDS ORDERED: fentaNYL (PF) 50 MCG/ML 2 ML AMP IV PRN (21:59)
[2020-02-18] MEDS ORDERED: DEXAMETHASONE SOD PHOSPHATE 10 MG/ML 1 ML VIAL IV ONE (21:59)
[2020-02-18] MEDS ORDERED: HYDROmorphone 0.5 MG/0.5 ML SYRINGE IVP PRN (21:59)
[2020-02-18] MEDS ORDERED: LIDOCAINE 1% (10MG/ML) FOR IV START INTRADERMA PRN (21:59)
--- NOTE | 2020-02-18 22:16 | PN ---
PROGRESS NOTE DATE OF SERVICE: 02/18/2020 REASON FOR FOLLOWUP: 1. Bilateral lower extremity wound and cellulitis. 2. Right heel unstageable pressure ulcer. INTERVAL HISTORY: The patient is currently afebrile, has been breathing comfortably. Still complaining of pain and discomfort to the lower extremities. No chest pain or cough. No abdominal pain or diarrhea. PHYSICAL EXAMINATION: Blood pressure 156/84 with a pulse of 99, temperature 99.4. He is 94% on room air. General description is a middle-aged male lying in bed in no distress. RESPIRATORY SYSTEM: Unlabored breathing. Clear to auscultation anteriorly. HEART: S1, S2. Regular rate and rhythm. ABDOMEN: Soft. No tenderness. Right lower extremity wounds present. Redness has improved. LABS: Hemoglobin 11.4, white count 16.1. BUN of 8, creatinine 0.32. DIAGNOSTIC IMPRESSION AND PLAN: Patient with bilateral lower extremity wounds with secondary cellulitis. Awaiting possible debridement tomorrow and possible deep cultures. Continue with vancomycin and Rocephin. Continue with supportive care. MMODL / IJN: [id number] /
--- NOTE | 2020-02-18 22:59 | P.PN ---
Subjective This is a pleasant 64 years old male With past medical history of COPD, memory impairment, benign prostatic hypertrophy, alcoholism, chronic malnutrition, dysphagia. He is a patient of Dr. Garcia. He does not follow up with a neurologist as an outpatient. Presents because of lower extremity infections. Patient states that he has chronic neuropathy as they told him earlier this year in June, he states that at baseline he cannot walk , that whenever he stands he looses balance and he cannot walk. and he uses a walker and a wheelchair. And he was pushing a cart which ran over his both feet about one month ago and now presents with bilateral redness, swelling and tenderness of both lower extremity with blistering the legs are red, scaly with ulcers there is one in the upper right leg anteriorly with a blunt on its base, and there are when dry ulcer on the right foods and when dry ulcer on the lower left leg also is right heel is with big ulcer covered with black eschar The history of numbness in both lower extremity from the groin down on both sides and then both fingertips since March 2019 Patient denies headache or back pain. He denies other symptoms like no chest pain or dyspnea, no abdominal pain, no change in urine or bowel habits. He smokes about 1 pack per day, he refuses to quit after he consult and he agrees were nicotine patch, he drinks alcohol daily as wine and smokes marijuana as he has medical cart Also patient looks disheveled with poor hygiene Patient's vitals are stable. Labs showed leukocytosis of 14.6 K, hemoglobin 10.8. INR is normal 0.9, BMP showing mild hyponatremia of 128, glucose 100, c reatinine normal 0.3, potassium normal at 4.3. Liver enzymes not elevated. In the emergency room patient was started on ceftriaxone and IV vancomycin Infectious disease and vascular surgery consults were started from the emergency room. 02/17/2020 Patient is a little more drowsy and sleepy today, however he wakes up to verbal and tactile stimuli is and he is fully oriented to the surrounding and to his illness, it looks like he got several doses of Ativan last night and he had encounter with the aide because he did not want to take his clothes off, he got agitated several times and received several doses of Ativan. This morning he was refusing treatment, his IV line was out and he refused to be replaced, I talked to the patient and he did not get a clear answer but he said he will try. Patient denies to me any signs and symptoms of depression, he denies suicidal or homicidal ideation, also he denies hallucination, " I just want a cigarette and a Beer" patient asked me if he can go outside and smoke I explained to him this is against policy of the hospital, I offered nicotine patch but he declined saying it'll not work. Other than that the patient looks appropriate. Vitas looks stable, he has a leukocytosis at 16.1 K pro-calcitonin is normal at 0.09, serum alcohol less than 10, his sodium improved to 130 Infectious disease input is appreciated and was continued on IV vancomycin with local wound care. Venous Doppler is negative for DVT 02/18/2020 Patient is fully awake and oriented today and he is more calm. He did not ask for smoking and Beer block yesterday however he was asking to increase his pain medic, patient is counseled about the risk of narcotics, continue with same medication. He is on Dilaudid and fentanyl It looks like his lower extremity wounds are secondary to trauma about one month ago, could be associated with poor blood supply, rather than infection, however we will keep antibiotics as he is high-risk for infection anyway as well as treatment if needed. ESR is elevated, leukocytosis but no fever Vascular surgery on the case and plan for surgical debridement of his lower extremity wound. Follow-up culture afterwards Patient is currently on normal saline, IV vancomycin and ceftriaxone, also his Ativan per [facility] protocol same Objective - Vital Signs Vital signs: Vital Signs Temp 98.4 F 02/18/20 14:39 Pulse 95 02/18/20 14:39 Resp 16 02/18/20 14:39 BP 155/79 02/18/20 14:39 Pulse Ox 97 02/18/20 14:39 Intake & Output 02/17/20 02/18/20 02/18/20 18:59 06:59 18:59 Intake Total 150 600 300 Balance 150 600 300 Intake: Intake, IV Titration 150 300 Amount Sodium Chloride 0.9% 1, 150 000 ml @ 75 mls/hr IV . [id number] [facility] Rx#:[id number] Vancomycin 1,250 mg In 250 Sodium Chloride 0.9% 250 ml @ 125 mls/hr IVPB Q12H [facility] Rx#:[id number] cefTRIAXone 2 gm In 50 Sodium Chloride 0.9% 50 ml @ 100 mls/hr IVPB Q24HR [facility] Rx#:[id number] Oral 600 Other: Voiding Method Urinal Urinal Urinal Diaper Diaper Diaper # Voids 3 # Bowel Movements 1 - Exam GENERAL: The patient is alert and oriented x3, not in any acute distress. Well developed, well nourished. HEENT: Pupils are round and equally reacting to light. EOMI. No scleral icterus. No conjunctival pallor. Normocephalic, atraumatic. No pharyngeal erythema. No thyromegaly. CARDIOVASCULAR: S1 and S2 present. No murmurs, rubs, or gallops. PULMONARY: Chest is clear to auscultation, no wheezing or crackles. ABDOMEN: Soft, nontender, nondistended, normoactive bowel sounds. No palpable organomegaly. MUSCULOSKELETAL: No joint swelling or deformity. -EXTREMITIES: No cyanosis, clubbing, or pedal edema. Both legs are red swollen and tender, he has several ulcers in the right upper leg, the left lower leg and black base heel ulcer on the right side NEUROLOGICAL: Gross neurological examination did not reveal any focal deficits. SKIN: No rashes. No petechiae - Labs CBC & Chem 7: 02/18/20 06:40 02/18/20 06:40 Labs: Abnormal Lab Results - Last 24 Hours (Table) 02/18/20 02/18/20 Range/Units 06:40 06:40 WBC 16.1 H (3.8-10.6) k/uL RBC 3.68 L (4.30-5.90) m/uL Hgb 11.4 L (13.0-17.5) gm/dL Hct 35.7 L (39.0-53.0) % Plt Count 507 H (150-450) k/uL Neutrophils # 12.9 H (1.3-7.7) k/uL Sodium 130 L (137-145) mmol/L Chloride 97 L (98-107) mmol/L BUN 8 L (9-20) mg/dL Creatinine 0.32 L (0.66-1.25) mg/dL Glucose 70 L (74-99) mg/dL Calcium 8.3 L (8.4-10.2) mg/dL Microbiology - Last 24 Hours (Table) 02/16/20 11:48 Blood Culture - Preliminary Blood No Growth after 48 hours Assessment and Plan Assessment: Bilateral lower extremity cellulitis with multiple ulcerations, secondary to trauma Hypovolemic hyponatremia Nonadherence to therapy Alcohol abuse at-risk of alcohol withdrawal and delirium tremens Nicotine dependency Chronic peripheral neuropathy, with inability to walk at baseline with numbness and lower extremity 4 months Benign prostatic hypertrophy Chronic malnutrition COPD, not an active issue Benign prostatic hypertrophy Plan: This is a pleasant 64 years old male who presents with bilateral lower extremity cellulitis. Continue with antibiotics and follow-up infectious disease team for further recommendation. Follow-up vascular surgery consult. Continue with IV fluids. Ativan per CIWA protocol, give thiamine. Patient has been refusing treatment because he wants to smoke and drink and because of interaction with the staff, Also patient looks to me has capacity to make decision and he is oriented to the surrounding, the suspicion for psychiatric illness is low however we will ask for psychiatrist evaluation for a second opinion. Labs and medication were reviewed.. Continue same treatment. Continue with symptomatic treatment. Resume home medication. Monitor lytes and vitals. DVT and GI prophylaxis. Further recommendations of the clinical course of the patient DVT prophylaxis: Subcutaneous heparin GI Prophylaxis: Pepcid PT/OT: Pending Prognosis is guarded
[2020-02-19] MEDS: HYDROcodone/APAP 5-325MG 1 EACH TAB PO PRN ×2 (06:12→14:53)
[2020-02-19] MEDS: VANCOMYCIN 1,250 MG in SODIUM CHLORIDE 0.9% 250 ML IVPB SCH ×2 (06:12→17:05)
[2020-02-19] MEDS: FAMOTIDINE 20 MG TAB PO SCH ×2 (06:51→20:11)
[2020-02-19] MEDS: HEPARIN SODIUM,PORCINE 5,000 UNIT/ML 1 ML VIAL SQ SCH ×2 (06:51→20:11)
[2020-02-19] MEDS: THIAMINE 100 MG TAB PO SCH (06:52)
--- NOTE | 2020-02-19 07:10 | CDI ---
Documentation Clarification Form Date: 02/19/2020 06:50:51 AM From: Sophia Crespo RN, CCDS Admit Date: 02/18/2020 09:22:00 AM Patient Name: Basil Mayen Visit Number: [id number] ATTENTION: The Clinical Documentation Specialists (CDI) and [facility] Coding Staff appreciate your assistance in clarifying documentation. Please respond to the clarification below the line at the bottom and electronically sign. The CDI & [facility] Coding staff will review the response and follow-up if needed. Please note: Queries are made part of the Legal Health Record. If you have any questions, please contact the author of this message via ITS. Dr. Clemente Milner Patient is noted to be cachetic, with alcoholism and lower extremity ulcers and chronic malnutrition. Please provide further specificity. History/Risk Factors: Alcoholism, nicotine dependency, dementia, chronic malnutrition, COPD, dysphagia Clinical Indicators: 02/17 Psych Consult: "The patient is an elderly cachectic male who looks much older than stated age." 02/15 H&P - 02/17 Attending Progress Note: " Chronic malnutrition. Alcohol abuse at-risk of alcohol withdrawal and delirium tremens Nicotine dependency." 02/15 ED Note: "Patient is a 64-year-old male, with multiple comorbidities including COPD, mild dementia, daily alcohol abuse, being currently worked up for lung malignancy, presenting to the emergency Department with complaints of swelling and pain in his bilateral lower legs for the past few weeks." 02/15 Labs: Total Protein 5.7, Albumin 2.6, Na+ 128, Ca+ 7.9, CRP 29.4, Alk Phos 157 Current BMI: 22.2 02/15 ED Note: Fluid accumulation: "bilateral lower leg edema, blisters, pain." Treatment: Dietary Consult: not ordered Supplements: Current NPO Status for Possible Debridement Lab monitoring: AM Daily 02/15 500 CC 0.9% NS IVF Bolus followed by 75 cc/hr Vitamin B-1 100 mg PO QD In your professional opinion, can you please clarify if these findings signify one of the following conditions? Mild Protein-Calorie Malnutrition Moderate Protein-Calorie Malnutrition Severe Protein-Calorie Malnutrition Other condition, please specify Unable to determine (Last Revision: December 2018) Mild Protein-Calorie Malnutrition MTDD
[2020-02-19 08:20] LABS: Basophils # (A) 0.1 k/uL (0-0.2); Basophils % (A) 1 %; Eosinophils # (A) 0.1 k/uL (0-0.7); Eosinophils % (A) 1 %; HCT 36.4 % (39.0-53.0); HGB 11.4 gm/dL (13.0-17.5); Lymphocytes # (A) 1.4 k/uL (1.0-4.8); Lymphocytes % (A) 12 %; MCH 30.1 pg (25.0-35.0); MCHC 31.4 g/dL (31.0-37.0); MCV 95.7 fL (80.0-100.0); Monocytes # (A) 0.7 k/uL (0-1.0); Monocytes % (A) 6 %; Neutrophils # (A) 9.7 k/uL (1.3-7.7); Neutrophils % (A) 80 %; Platelet Count 528 k/uL (150-450); RBC 3.81 m/uL (4.30-5.90); RDW 14.8 % (11.5-15.5); WBC 12.1 k/uL (3.8-10.6)
[2020-02-19 08:33] LABS: African American GFR (CKD) >90 (>60 ml/min/1.73 sqM); Anion Gap 4 mmol/L; Blood Urea Nitrogen 7 mg/dL (9-20); Calcium 8.4 mg/dL (8.4-10.2); Carbon Dioxide 30 mmol/L (22-30); Chloride 96 mmol/L (98-107); Glucose 100 mg/dL (74-99); Non-African American GFR(CKD) >90 (>60 ml/min/1.73 sqM); Potassium 4.2 mmol/L (3.5-5.1); Sodium 130 mmol/L (137-145)
[2020-02-19] MEDS ORDERED: ONDANSETRON 4 MG/2 ML VIAL IVP PRN (09:44)
[2020-02-19] MEDS ORDERED: NALOXONE 0.4 MG/ML 1 ML VIAL IV PRN (09:44)
[2020-02-19] MEDS: LACTATED RINGERS 1,000 ML IV SCH ×2 (11:11→20:08)
[2020-02-19] MEDS ORDERED: ONDANSETRON 4 MG/2 ML VIAL ONE (11:18)
[2020-02-19] MEDS ORDERED: fentaNYL (PF) 50 MCG/ML 2 ML AMP ONE (12:20)
[2020-02-19] MEDS ORDERED: MIDAZOLAM 2 MG/2 ML VIAL ONE (12:20)
[2020-02-19] MEDS ORDERED: PROPOFOL 10 MG/ML 20 ML VIAL IV ONE (12:20)
[2020-02-19] MEDS ORDERED: SODIUM HYPOCHLORITE 0.25% 480 ML BOT MISCELLANE ONE (12:44)
[2020-02-19] MEDS ORDERED: LACTATED RINGERS 1,000 ML IV ONE (12:57)
--- NOTE | 2020-02-19 14:52 | P.PN ---
Subjective Progress Note Date: 02/19/20 Principal diagnosis: This is a pleasant 64 years old male With past medical history of COPD, memory impairment, benign prostatic hypertrophy, alcoholism, chronic malnutrition, dysp hagia. He is a patient of Dr. Garcia. He does not follow up with a neurologist as an outpatient. Presents because of lower extremity infections. Patient states that he has chronic neuropathy as they told him earlier this year in June, he states that at baseline he cannot walk , that whenever he stands he looses balance and he cannot walk. and he uses a walker and a wheelchair. And he was pushing a cart which ran over his both feet about one month ago and now presents with bilateral redness, swelling and tenderness of both lower extremity with blistering the legs are red, scaly with ulcers there is one in the upper right leg anteriorly with a blunt on its base, and there are when dry ulcer on the right foods and when dry ulcer on the lower left leg also is right heel is with big ulcer covered with black eschar The history of numbness in both lower extremity from the groin down on both sides and then both fingertips since March 2019 Patient denies headache or back pain. He denies other symptoms like no chest pain or dyspnea, no abdominal pain, no change in urine or bowel habits. He smokes about 1 pack per day, he refuses to quit after he consult and he agrees were nicotine patch, he drinks alcohol daily as wine and smokes marijuana as he has medical cart Also patient looks disheveled with poor hygiene Patient's vitals are stable. Labs showed leukocytosis of 14.6 K, hemoglobin 10.8. INR is normal 0.9, BMP showing mild hyponatremia of 128, glucose 100, creatinine normal 0.3, potassium normal at 4.3. Liver enzymes not elevated. In the emergency room patient was started on ceftriaxone and IV vancomycin Infectious disease and vascular surgery consults were started from the emergency room. 02/17/2020 Patient is a little more drowsy and sleepy today, however he wakes up to verbal and tactile stimuli is and he is fully oriented to the surrounding and to his illness, it looks like he got several doses of Ativan last night and he had encounter with the aide because he did not want to take his clothes off, he got agitated several times and received several doses of Ativan. This morning he was refusing treatment, his IV line was out and he refused to be replaced, I talked to the patient and he did not get a clear answer but he said he will try. Patient denies to me any signs and symptoms of depression, he denies suicidal or homicidal ideation, also he denies hallucination, " I just want a cigarette and a Beer" patient asked me if he can go outside and smoke I explained to him this is against policy of the hospital, I offered nicotine patch but he declined saying it'll not work. Other than that the patient looks appropriate. Vitas looks stable, he has a leukocytosis at 16.1 K pro-calcitonin is normal at 0.09, serum alcohol less than 10, his sodium improved to 130 Infectious disease input is appreciated and was continued on IV vancomycin with local wound care. Venous Doppler is negative for DVT 02/18/2020 Patient is fully awake and oriented today and he is more calm. He did not ask for smoking and Beer block yesterday however he was asking to increase his pain medic, patient is counseled about the risk of narcotics, continue with same m edication. He is on Dilaudid and fentanyl It looks like his lower extremity wounds are secondary to trauma about one month ago, could be associated with poor blood supply, rather than infection, however we will keep antibiotics as he is high-risk for infection anyway as well as treatment if needed. ESR is elevated, leukocytosis but no fever Vascular surgery on the case and plan for surgical debridement of his lower extremity wound. Follow-up culture afterwards Patient is currently on normal saline, IV vancomycin and ceftriaxone, also his Ativan per [facility] protocol same Review of systems CONSTITUTIONAL: No fever, no malaise, no fatigue. HEENT: No recent visual problems or hearing problems. Denied any sore throat. CARDIOVASCULAR: No orthopnea, PND, no palpitations, no syncope. PULMONARY: No shortness of breath, no cough, no hemoptysis. GASTROINTESTINAL: No diarrhea, no nausea, no vomiting, no abdominal pain. Normoactive bowel sounds. NEUROLOGICAL: No headaches, no weakness, no numbness. HEMATOLOGICAL: Denies any bleeding or petechiae. 02/19/2020 Patient is seen and evaluated and follow-up awaiting to undergo deep tissue debridement of the right heel with vascular surgery Dr. Fatima today. Will await report. Patient is also being followed by infectious disease and cur rently maintained on IV antibiotics in the form of ceftriaxone and vancomycin and will continue while awaiting for deep tissue cultures. Blood cultures continue to be negative so far. Patient is afebrile. White blood count trending down and currently 12.1. Sodium continues to be low at 1:30, potassium is 4.2, current creatinine is 0.32. Review of systems: Constitutional: No reports of fatigue, fever, or chills Cardiovascular: No reports of chest pain or palpitations Respiratory: No reports of shortness of breath or cough GI: No reports of nausea, vomiting, or diarrhea : No reports of dysuria or retention Neurovascular: No reports of weakness or numbness All medications have been reviewed Objective - Vital Signs Vital signs: Vital Signs Temp 98.8 F 02/19/20 10:50 Pulse 95 02/19/20 10:50 Resp 16 02/19/20 10:50 BP 162/91 02/19/20 10:50 Pulse Ox 97 02/19/20 10:50 Intake & Output 02/18/20 02/19/20 02/19/20 18:59 06:59 18:59 Intake Total 300 200 Output Total 850 4000 Balance -550 -3800 Intake: Intake, IV Titration 300 Amount Vancomycin 1,250 mg In 250 Sodium Chloride 0.9% 250 ml @ 125 mls/hr IVPB Q12H [facility] Rx#:[id number] cefTRIAXone 2 gm In 50 Sodium Chloride 0.9% 50 ml @ 100 mls/hr IVPB Q24HR [facility] Rx#:[id number] Oral 200 Output: Urine 850 4000 Other: Voiding Method Urinal Urinal Urinal Diaper Diaper Diaper # Voids 2 # Bowel Movements 1 - Exam GENERAL: The patient is alert and oriented x3, not in any acute distress. Well developed, well nourished. HEENT: Pupils are round and equally reacting to light. EOMI. No scleral icterus. No conjunctival pallor. Normocephalic, atraumatic. No pharyngeal erythema. No t hyromegaly. CARDIOVASCULAR: S1 and S2 present. No murmurs, rubs, or gallops. PULMONARY: Chest is clear to auscultation, no wheezing or crackles. ABDOMEN: Soft, nontender, nondistended, normoactive bowel sounds. No palpable organomegaly. MUSCULOSKELETAL: No joint swelling or deformity. EXTREMITIES: No cyanosis, clubbing, or pedal edema. Both legs are red swollen and tender, he has several ulcers in the right upper leg and left lower leg, and black base heel ulcer on the right side NEUROLOGICAL: Gross neurological examination did not reveal any focal deficits. SKIN: No rashes. No petechiae - Labs CBC & Chem 7: 02/19/20 07:40 02/19/20 07:40 Labs: Abnormal Lab Results - Last 24 Hours (Table) 02/19/20 02/19/20 Range/Units 07:40 07:40 WBC 12.1 H (3.8-10.6) k/uL RBC 3.81 L (4.30-5.90) m/uL Hgb 11.4 L (13.0-17.5) gm/dL Hct 36.4 L (39.0-53.0) % Plt Count 528 H (150-450) k/uL Neutrophils # 9.7 H (1.3-7.7) k/uL Sodium 130 L (137-145) mmol/L Chloride 96 L (98-107) mmol/L BUN 7 L (9-20) mg/dL Creatinine 0.32 L (0.66-1.25) mg/dL Glucose 100 H (74-99) mg/dL Microbiology - Last 24 Hours (Table) 02/16/20 11:48 Blood Culture - Preliminary Blood No Growth after 48 hours Assessment and Plan Assessment: Bilateral lower extremity cellulitis with multiple ulcerations, secondary to trauma Hypovolemic hyponatremia Mild protein calorie malnutrition Nonadherence to therapy Alcohol abuse at-risk of alcohol withdrawal and delirium tremens Nicotine dependency Chronic peripheral neuropathy, with inability to walk at baseline with numbness and lower extremity 4 months Benign prostatic hypertrophy Chronic malnutrition COPD, not an active issue Benign prostatic hypertrophy DVT prophylaxis: Subcu heparin GI prophylaxis: Pepcid Plan: Continue current medications, management, and symptomatic treatment. Continue with IV antibiotic therapy while awaiting for wound cultures. Vascular surgery along with infectious disease are following. Currently maintained on CIWA protocol and will continue at this time. Psychiatry was consulted although currently pending at this time. Will repeat a.m. labs. Await debridement report with vascular surgery. Further recommendations to follow.
--- NOTE | 2020-02-19 15:42 | PN ---
PROGRESS NOTE DATE OF SERVICE: 02/19/2020 REASON FOR FOLLOWUP: Bilateral lower extremity wounds and cellulitis. INTERVAL HISTORY: The patient is currently afebrile. The patient is status post debridement of his lower extremity wounds by Vascular Surgery. Operative report is currently pending. The patient denies having any chest pain or cough. No abdominal pain or any worsening pain to the leg wounds. PHYSICAL EXAMINATION: Blood pressure 154/89 with a pulse of 95, temperature 97. He is 99% on room air. General description is a middle-aged male lying in bed in no distress. RESPIRATORY SYSTEM: Unlabored breathing. Clear to auscultation anteriorly. HEART: S1, S2. Regular rate and rhythm. ABDOMEN: Soft. No tenderness. Legs are currently dressed up. No obvious drainage on the dressing. LABS: Hemoglobin 11.4, white count 12.1, BUN of 7, creatinine 0.32. Blood culture negative. DIAGNOSTIC IMPRESSION AND PLAN: Patient with bilateral lower extremity wounds and cellulitis with an unstageable pressure ulcer on the right heel, status post debridement. Will wait for the extent of this wound and possible culture being done at surgery. The patient is covered with Rocephin and vancomycin; to continue, adjusting antibiotic further based on the culture report. Continue with supportive care. MMODL / IJN: [id number] /
[2020-02-19] MEDS: NICOTINE 21MG/24HR PATCH TRANSDERM SCH (17:06)
[2020-02-19] MEDS: SODIUM CHLORIDE 0.9% 1,000 ML IV SCH (17:06)
[2020-02-20] MEDS: HYDROcodone/APAP 5-325MG 1 EACH TAB PO PRN ×2 (01:37→07:34)
[2020-02-20] MEDS ORDERED: VANCOMYCIN TROUGH DUE 1 EACH MISC MISCELLANE ONE (05:00)
[2020-02-20 05:04] LABS: Basophils # (A) 0.1 k/uL (0-0.2); Basophils % (A) 1 %; Eosinophils # (A) 0.2 k/uL (0-0.7); Eosinophils % (A) 2 %; HCT 36.3 % (39.0-53.0); HGB 11.9 gm/dL (13.0-17.5); Lymphocytes # (A) 1.7 k/uL (1.0-4.8); Lymphocytes % (A) 15 %; MCH 31.4 pg (25.0-35.0); MCHC 32.6 g/dL (31.0-37.0); MCV 96.4 fL (80.0-100.0); Mean Platelet Volume 6.9; Monocytes # (A) 0.6 k/uL (0-1.0); Monocytes % (A) 6 %; Neutrophils % (A) 75 %; Platelet Count 528 k/uL (150-450); RBC 3.77 m/uL (4.30-5.90); RDW 14.7 % (11.5-15.5); WBC 10.7 k/uL (3.8-10.6)
[2020-02-20 05:15] LABS: African American GFR (CKD) >90 (>60 ml/min/1.73 sqM); Anion Gap 4 mmol/L; Blood Urea Nitrogen 8 mg/dL (9-20); Calcium 8.5 mg/dL (8.4-10.2); Carbon Dioxide 29 mmol/L (22-30); Chloride 98 mmol/L (98-107); Glucose 140 mg/dL (74-99); Non-African American GFR(CKD) >90 (>60 ml/min/1.73 sqM); Potassium 4.1 mmol/L (3.5-5.1); Sodium 131 mmol/L (137-145)
[2020-02-20] MEDS: VANCOMYCIN 1,250 MG in SODIUM CHLORIDE 0.9% 250 ML IVPB SCH ×2 (05:26→17:14)
[2020-02-20] MEDS: FAMOTIDINE 20 MG TAB PO SCH ×2 (07:34→20:16)
[2020-02-20] MEDS: THIAMINE 100 MG TAB PO SCH (07:34)
[2020-02-20] MEDS: NICOTINE 21MG/24HR PATCH TRANSDERM SCH (07:35)
[2020-02-20] MEDS: HEPARIN SODIUM,PORCINE 5,000 UNIT/ML 1 ML VIAL SQ SCH ×2 (07:36→20:15)
[2020-02-20] MEDS: SODIUM CHLORIDE 0.9% 1,000 ML IV SCH ×2 (08:26→21:51)
--- NOTE | 2020-02-20 09:06 | P.PN ---
Subjective Progress Note Date: 02/20/20 Principal diagnosis: Nonhealing right lower extremity wounds Patient was seen and examined at the bedside with Dr. Alfaro. Patient states pain has improved to the right lower extremity. Dressings are clean dry and intact. Patient denies any shortness of breath or chest pain. He denies any fever or chills. Patient states he drank 4 cases a week, he he has at least a pack a day smoker, also smokes marijuana. Patient states he is being followed for questionable lung nodule/masses. Bilateral arterial study shows diminished blood flow to the right lower extremity. Objective - Vital Signs Vital signs: Vital Signs Temp 98.5 F 02/20/20 07:00 Pulse 82 02/20/20 07:00 Resp 18 02/20/20 07:00 BP 151/75 02/20/20 07:00 Pulse Ox 93 L 02/20/20 07:00 Intake & Output 02/19/20 02/20/20 02/20/20 18:59 06:59 18:59 Intake Total 1025 1500 Output Total 1205 3100 Balance -180 -1600 Intake: IV 1025 Oral 1500 Output: Urine 1200 3100 Estimated Blood Loss 5 Other: Voiding Method Urinal Urinal Diaper Diaper # Voids 2 - Exam General appearance: The patient is alert, oriented, in no acute distress. HET: Head is normocephalic and atraumatic. Neck: Supple Heart: S1 S2. Regular rate and rhythm. Lungs: Clear to auscultation bilaterally, slightly diminished Extremities: Right lower extremity with dressing that is clean dry and intact. Neurological: No focal deficits. Strength and sensation are grossly intact. - Labs CBC & Chem 7: 02/20/20 04:46 02/20/20 04:46 Labs: Abnormal Lab Results - Last 24 Hours (Table) 02/20/20 02/20/20 Range/Units 04:46 04:46 WBC 10.7 H (3.8-10.6) k/uL RBC 3.77 L (4.30-5.90) m/uL Hgb 11.9 L (13.0-17.5) gm/dL Hct 36.3 L (39.0-53.0) % Plt Count 528 H (150-450) k/uL Neutrophils # 8.0 H (1.3-7.7) k/uL Sodium 131 L (137-145) mmol/L BUN 8 L (9-20) mg/dL Creatinine 0.46 L (0.66-1.25) mg/dL Glucose 140 H (74-99) mg/dL Microbiology - Last 24 Hours (Table) 02/19/20 12:40 Gram Stain - Preliminary Foot - Right Wound Culture - Preliminary 02/19/20 12:40 Gram Stain - Preliminary Leg - Right Wound Culture - Preliminary 02/19/20 12:40 Anaerobic Culture - Preliminary Leg - Right 02/19/20 12:40 Anaerobic Culture - Preliminary Foot - Right 02/16/20 11:48 Blood Culture - Preliminary Blood No Growth after 72 hours Assessment and Plan Assessment: Assessment: 1. Postop day 1, right lower extremity debridement 2. Peripheral arterial disease [facility] 4 3. Right lower extremity acosta and heel wounds 4. Peripheral neuropathy 5. Tobacco abuse 6. Marijuana abuse Plan: Continue with IV antibiotics as recommended per infectious disease. Arterial ultrasound study reviewed by Dr. Alfaro. Daily wet-to-dry dressing changes to right lower extremity wounds. Please apply soft boots to bilateral feet. Further recommendations to follow. The above dictated assessment and findings were discussed with Dr. Alfaro. The impression and plan of care have been directed as dictated.
--- NOTE | 2020-02-20 09:12 | P.ARTDOP ---
Arterial Doppler LOWER EXTREMITY ARTERIAL DOPPLER: DATE OF SERVICE: 02/18/2020 Reason for study: Ulcers bilateral lower legs. Doppler waveforms: Multiphasic throughout on the left. Multiphasic to the popliteal on the right and atypical below.. Pulse volume recording: []. Pressure gradients: Gradient only on the right at the toe level. Ankle-brachial indices: Not done due to ulcerations. Toe brachial indices: 0.41 on the right, 0.71 on the left Impression: Based on limited information the left side appeared to be normal. The right side has what is probably moderate fem-pop disease. Perfusion suspected to be adequate for healing. Clinical correlation recommended..
[2020-02-20] MEDS: HYDROcodone/APAP 7.5-325MG 1 EACH TAB PO PRN ×3 (11:01→23:23)
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
--- NOTE | 2020-02-20 16:21 | P.OP ---
Date of Procedure: 02/19/20 Preoperative Diagnosis: Right lower extremity ischemic wounds Postoperative Diagnosis: Right lower extremity ischemic wounds Procedure(s) Performed: Right lower extremity excisional debridement of anterior lower leg wounds, heel wound and foot wound Anesthesia: MAC, local Surgeon: Usama Fatima Estimated Blood Loss (ml): 5 Pathology: other (Anterior leg wound culture and heel culture) Condition: stable Disposition: floor Indications for Procedure: 64 year old gentleman presents to the OR for debridement of his right lower extremity and heel wounds. He has been having pain in the lower extremities and worsening wounds which developed over the last several weeks. Operative Findings: Heel wound measures [id number] Anterior foot wound measures [id number] Anterior acosta wound measures [id number] Medial ankle wound measures [id number] Description of Procedure: After written and informed consent was obtained from the patient and all the risks, benefits, and complications were described the patient was brought to the operating room and laid in a supine position. The multiple wounds on the right lower extremity were then debrided with a 15 blade scalpel down to the subcutaneous bleeding tissue. The ischemic, tissue was removed and the wounds were unroofed and tissue beneath the eschar had good granulation tissue but there was some discoloration and purulence noted at the heel wound and anterior acosta wound which were cultured. The wounds were then washed with betadine. The wounds were then dressed with Daikins wet to dry dressings. The patient tolerated the procedure well and sent to the PACU in stable condition.
--- NOTE | 2020-02-20 17:11 | PN ---
PROGRESS NOTE DATE OF SERVICE: 02/20/2020 REASON FOR FOLLOWUP: Lower extremity wound and cellulitis. INTERVAL HISTORY: Patient is currently afebrile, has been breathing comfortably, denies having any chest pain. He did have some cough. An episode of nausea, vomiting. No abdominal pain or diarrhea. Denies any worsening pain to the leg. PHYSICAL EXAMINATION: Blood pressure 151/75 with a pulse of 82, temperature 98.5. He is 93% on room air. General description is a middle-aged male, lying in bed in no distress. RESPIRATORY SYSTEM: Unlabored breathing, clear to auscultation anteriorly. HEART: S1, S2. Regular rate and rhythm. ABDOMEN: Soft, no tenderness. Leg is currently wrapped up. No obvious drainage on the dressing. LABS: Hemoglobin 11.1, white count 10.7, BUN of 8, creatinine 0.46. Wound culture showing presumptive Staph aureus. DIAGNOSTIC IMPRESSION AND PLAN: Patient has bilateral lower extremity wound and cellulitis with a positive pressure ulcer to the right heel, status post debridement. Culture now showing Staph aureus. Will wait for the culture to finalize. Continue vancomycin and Rocephin, local care per Surgery. Continue supportive care. MMODL / IJN: [id number] /
[2020-02-20] MEDS: LACTATED RINGERS 1,000 ML IV SCH (23:20)
[2020-02-21] MEDS: VANCOMYCIN 1,250 MG in SODIUM CHLORIDE 0.9% 250 ML IVPB SCH (05:49)
[2020-02-21] MEDS: HYDROcodone/APAP 7.5-325MG 1 EACH TAB PO PRN ×3 (05:55→16:11)
[2020-02-21 08:13] LABS: Basophils # (A) 0.1 k/uL (0-0.2); Basophils % (A) 1 %; Eosinophils # (A) 0.2 k/uL (0-0.7); Eosinophils % (A) 2 %; HCT 37.5 % (39.0-53.0); Lymphocytes # (A) 1.5 k/uL (1.0-4.8); Lymphocytes % (A) 15 %; MCH 30.6 pg (25.0-35.0); MCHC 32.1 g/dL (31.0-37.0); MCV 95.5 fL (80.0-100.0); Mean Platelet Volume 7.5; Monocytes # (A) 0.7 k/uL (0-1.0); Monocytes % (A) 7 %; Neutrophils # (A) 7.2 k/uL (1.3-7.7); Neutrophils % (A) 73 %; Platelet Count 429 k/uL (150-450); RBC 3.92 m/uL (4.30-5.90); RDW 14.7 % (11.5-15.5); WBC 9.9 k/uL (3.8-10.6)
[2020-02-21] MEDS: HEPARIN SODIUM,PORCINE 5,000 UNIT/ML 1 ML VIAL SQ SCH (09:03)
[2020-02-21] MEDS: NICOTINE 21MG/24HR PATCH TRANSDERM SCH (09:03)
[2020-02-21] MEDS: FAMOTIDINE 20 MG TAB PO SCH (09:05)
[2020-02-21] MEDS: THIAMINE 100 MG TAB PO SCH (09:05)
[2020-02-21 09:17] LABS: African American GFR (CKD) >90 (>60 ml/min/1.73 sqM); Anion Gap 5 mmol/L; Blood Urea Nitrogen 9 mg/dL (9-20); Calcium 8.2 mg/dL (8.4-10.2); Carbon Dioxide 26 mmol/L (22-30); Chloride 99 mmol/L (98-107); Glucose 95 mg/dL (74-99); Non-African American GFR(CKD) >90 (>60 ml/min/1.73 sqM); Potassium 4.3 mmol/L (3.5-5.1); Sodium 130 mmol/L (137-145)
--- NOTE | 2020-02-21 09:50 | P.PN ---
Subjective Progress Note Date: 02/21/20 Principal diagnosis: Nonhealing right lower extremity wounds Patient was seen and examined at the bedside with Dr. Rain. Dressings are removed. Debridement sites are healing well. There is no foul odor, has minimal drainage. Good capillary refill to the right lower extremity. Patient denies any acute changes through the night. Pain is well controlled. No fevers or chills, and is of breath or chest pain. Objective - Vital Signs Vital signs: Vital Signs Temp 98.2 F 02/21/20 07:00 Pulse 71 02/21/20 07:00 Resp 18 02/21/20 07:00 BP 156/98 02/21/20 07:00 Pulse Ox 97 02/21/20 07:00 Intake & Output 02/20/20 02/21/20 02/21/20 18:59 06:59 18:59 Intake Total 1330 Output Total 900 Balance 430 Intake: Intake, IV Titration 490 Amount Lactated Ringers 1,000 ml 240 @ 20 mls/hr IV .Q24H HERACLIO Rx#:[id number] Vancomycin 1,250 mg In 250 Sodium Chloride 0.9% 250 ml @ 125 mls/hr IVPB Q12H HERACLIO Rx#:[id number] Oral 840 Output: Urine 900 Other: Voiding Method Urinal Urinal Diaper Diaper # Voids 2 - Exam General appearance: The patient is alert, oriented, in no acute distress. HET: Head is normocephalic and atraumatic. Neck: Supple Heart: S1 S2. Regular rate and rhythm. Lungs: Clear to auscultation bilaterally, slightly diminished Extremities: Right lower extremity debridement sites with minimal drainage, no foul odor. Granulated tissue. Neurological: No focal deficits. Strength and sensation are grossly intact. - Labs CBC & Chem 7: 02/21/20 07:21 02/21/20 07:21 Labs: Abnormal Lab Results - Last 24 Hours (Table) 02/21/20 Range/Units 07:21 RBC 3.92 L (4.30-5.90) m/uL Hgb 12.0 L (13.0-17.5) gm/dL Hct 37.5 L (39.0-53.0) % Microbiology - Last 24 Hours (Table) 02/16/20 11:48 Blood Culture - Preliminary Blood No Growth after 96 hours 02/19/20 12:40 Gram Stain - Preliminary Foot - Right Wound Culture - Preliminary Presumptive Staph aureus 02/19/20 12:40 Gram Stain - Preliminary Leg - Right Wound Culture - Preliminary Assessment and Plan Assessment: Assessment: 1. Postop day 2, right lower extremity debridement 2. Peripheral arterial disease Patt 4 3. Right lower extremity acosta and heel wounds 4. Peripheral neuropathy 5. Tobacco abuse 6. Marijuana abuse Plan: A long discussion was had with patient regarding importance of smoking cessation. Continue with daily dressing changes, use adaptic guaze with wet-to-dry dressing. Apply soft bilateral boots to lower extremities. Patient may be discharged home from a vascular surgical standpoint. Would recommend continued antibiotics such as oral Augmentin outpatient. Appreciate infectious disease recommendations. Recommend home care for dressing changes.
[2020-02-21] MEDS: SODIUM CHLORIDE 0.9% 1,000 ML IV SCH (13:29)
[2020-02-21 14:58] VITALS: BP 155/77; PULSE 80; RESP 16; TEMP 98.1
--- NOTE | 2020-02-21 16:38 | PN ---
PROGRESS NOTE DATE OF SERVICE: 02/21/2020 REASON FOR FOLLOWUP: Bilateral lower extremity wounds, cellulitis and right heel wound. INTERVAL HISTORY: The patient is currently afebrile. The patient is breathing comfortably. Denies having any chest pain, shortness of breath or cough. No nausea, vomiting, abdominal pain or any worsening pain to the right heel and leg wound areas. PHYSICAL EXAMINATION: Blood pressure 155/77, pulse of 80, temperature 98.1. She is 98% on room air. General description is a middle-aged male lying in bed in no distress. RESPIRATORY SYSTEM: Unlabored breathing. Clear to auscultation anteriorly. HEART: S1, S2. Regular rate and rhythm. ABDOMEN: Soft. No tenderness. Legs are currently dressed up. No obvious drainage on the dressing. LABS: Hemoglobin is 12, white count 9.9, BUN of 9, creatinine 0.29. DIAGNOSTIC IMPRESSION AND PLAN: Patient with bilateral lower extremity wounds with a wound to the right heel, status post debridement. Culture with MSSA. He will finish therapy with oral Keflex 500 mg p.o. q.6 hours for 2 weeks. Local wound care per Vascular Surgery and close outpatient followup. MMODL / IJN: [id number] /
--- NOTE | 2020-02-22 12:40 | P.DS ---
Providers Date of admission: 02/18/20 09:22 Expected date of discharge: 02/21/20 Attending physician: Clemente Milner MD Consults: 02/16/20 13:09 Consult Physician Urgent Consulting Provider: Cara Kang Consult Reason/Comments: leg ulcers Do you want consulting provider notified?: Yes 02/16/20 13:10 Consult Physician Urgent Consulting Provider: Usama Fatima Consult Reason/Comments: leg ulcers, poor circulation Do you want consulting provider notified?: Yes 02/17/20 12:20 Consult Physician Urgent Consulting Provider: Jeffrey Pinzon Consult Reason/Comments: Asst capacity to make decisions, refusal of treatment Do you want consulting provider notified?: Yes Primary care physician: Boom Garcia Hospital Course: Final diagnosis Bilateral lower extremity cellulitis with multiple ulcerations, secondary to trauma Hypovolemic hyponatremia Mild protein calorie malnutrition Nonadherence to therapy Alcohol abuse at-risk of alcohol withdrawal and delirium tremens Nicotine dependency Chronic peripheral neuropathy, with inability to walk at baseline with numbness and lower extremity 4 months Benign prostatic hypertrophy Chronic malnutrition COPD, not an active issue Benign prostatic hypertrophy DVT prophylaxis GI prophylaxis Discharge disposition Patient is being discharged in a stable condition with guarded prognosis to home. Patient will continue with home care in the outpatient setting and will follow-up at the wound care center as well. Patient will follow-up with Dr. Garcia in the outpatient setting upon discharge. Patient also instructed to follow-up with vascular surgery in the outpatient setting. Patient will continue on oral antibiotics in the form of Keflex 4 times daily for the next 2 weeks . Total time taken is greater than 35 minutes. History of present illness This is a 64-year-old male who was recently admitted with bilateral lower extremity cellulitis and also a dry ulcer of the right heel and was being closely monitored. Patient was seen and evaluated by vascular surgery along with infectious disease and underwent debridement of the right heel. Patient was maintained on IV antibiotics and we'll transition to oral Keflex 500 mg 4 times daily for the next 2 weeks. Wound cultures finalized showing Staphylococcus aureus. Patient will follow-up with vascular surgery in the outpatient setting along with the wound care center and his primary care provider upon discharge. Patient will also continue with home care in the outpatient setting and a consult has been placed for palliative care to [facility]. Currently no reports of chest pain, shortness of breath, or palpitations. Patient is afebrile. No reports of nausea or vomiting and patient is tolerating diet. Patient will be discharged home today. On exam vital signs are stable. Temp is 98.1F, pulse is 80, respirations are 16, blood pressure is 155/77, oxygen saturation is 98% on room air. Cardio S1, S2 are muffled. Respiratory system shows diminished breath sounds at the bases with no wheezing or rhonchi noted. Abdomen is soft and nontender. Nervous system shows no focal deficits. Please refer to medication reconciliation sheet for a list of medications. Patient Condition at Discharge: Fair Plan - Discharge Summary Discharge Rx Participant: Yes New Discharge Prescriptions: New Cephalexin [Keflex] 500 mg PO Q6HR 14 Days #56 cap HYDROcodone/APAP 7.5-325MG [Motley 7.5-325] 1 each PO Q4H PRN #12 tab PRN Reason: Pain Continue Vit C/E/Zn/Coppr/Lutein/Zeaxan [Preservision Areds 2 Softgel] 1 cap PO DAILY Folic Acid 1 mg PO DAILY@1200 30 Days #30 tab Multivitamins, Thera [Multivitamin (formulary)] 1 each PO DAILY@1200 30 Days #30 tab Sennosides-Docusate Sodium [Senokot-S] 1 each PO BID PRN #10 tab PRN Reason: Constipation Acetaminophen Tab [Tylenol] 650 mg PO Q6HR PRN 30 Days #30 tab PRN Reason: Fever And/ Or Pain Gabapentin 300 mg PO DAILY Changed Thiamine [Vitamin B-1] 100 mg PO DAILY 30 Days #60 tab Discontinued Sulfamethox-Tmp 800-160Mg [Bactrim DS 800-160 mg] 1 tab PO BID Furosemide [Lasix] 20 mg PO DAILY Discharge Medication List Vit C/E/Zn/Coppr/Lutein/Zeaxan [Preservision Areds 2 Softgel] 1 cap PO DAILY 01/28/20 [History] Acetaminophen Tab [Tylenol] 650 mg PO Q6HR PRN 30 Days #30 tab 02/01/20 [Rx] Folic Acid 1 mg PO DAILY@1200 30 Days #30 tab 02/01/20 [Rx] Multivitamins, Thera [Multivitamin (formulary)] 1 each PO DAILY@1200 30 Days #30 tab 08/07/20 [Rx] Sennosides-Docusate Sodium [Senokot-S] 1 each PO BID PRN #10 tab 02/01/20 [Rx] Gabapentin 300 mg PO DAILY 02/16/20 [History] Cephalexin [Keflex] 500 mg PO Q6HR 14 Days #56 cap 02/21/20 [Rx] HYDROcodone/APAP 7.5-325MG [Motley 7.5-325] 1 each PO Q4H PRN #12 tab 02/21/20 [Rx] Thiamine [Vitamin B-1] 100 mg PO DAILY 30 Days #60 tab 02/21/20 [Rx] Follow up Appointment(s)/Referral(s): Usama Fatima DO [STAFF PHYSICIAN] - 1 Week (Unnable to reach office, pt to make self appointment. ) [facility], [NON-STAFF] - As Needed (palliative care) Boom Garcia MD [Primary Care Provider] - 02/22/20 10:30 am [facility],Nurse [NON-STAFF] - As Needed (home care) Patient Instructions/Handouts: Chronic Wounds (DC) Activity/Diet/Wound Care/Special Instructions: Activity Limited until follow-up Continue current diet Follow-up with home care Follow-up with primary care provider upon discharge Follow-up with vascular surgery upon discharge Continue with antibiotics 4 times daily for 2 weeks Discharge Disposition: HOME WITH HOME HEALTH SERVICES
== END 2020-02-21 17:22 | disposition home health service (06) | DRG 571 ==
LOC: EC 10:54 → 4SSUR 13:23 → OBSVTOIN 02-18 09:22
PROVIDERS: ADMIT Internal Medicine; ATTEND Internal Medicine
PROC: 0JBQ0ZZ Excision of Right Foot Subcutaneous Tissue and Fascia, Open Approach (ICD-10-PCS; principal; 2020-02-20)
PROC: 0JBN0ZZ Excision of Right Lower Leg Subcutaneous Tissue and Fascia, Open Approach (ICD-10-PCS; principal; 2020-02-20)
DX: L03.115 Cellulitis of right lower limb (principal); E44.1 Mild protein-calorie malnutrition; E87.1 Hypo-osmolality and hyponatremia; L03.116 Cellulitis of left lower limb; I70.261 Atherosclerosis of native arteries of extremities with gangrene, right leg; L89.610 Pressure ulcer of right heel, unstageable; J44.9 Chronic obstructive pulmonary disease, unspecified; L97.519 Non-pressure chronic ulcer of other part of right foot with unspecified severity; L97.529 Non-pressure chronic ulcer of other part of left foot with unspecified severity; K76.89 Other specified diseases of liver; G62.9 Polyneuropathy, unspecified; N40.0 Benign prostatic hyperplasia without lower urinary tract symptoms; Z68.22 Body mass index [BMI] 22.0-22.9, adult; R63.4 Abnormal weight loss; E86.1 Hypovolemia; F03.90 Unspecified dementia, unspecified severity, without behavioral disturbance, psychotic disturbance, mood disturbance, and anxiety; F10.20 Alcohol dependence, uncomplicated; F12.10 Cannabis abuse, uncomplicated; F17.210 Nicotine dependence, cigarettes, uncomplicated; F41.9 Anxiety disorder, unspecified; Z79.899 Other long term (current) drug therapy; R13.10 Dysphagia, unspecified; W23.0XXD Caught, crushed, jammed, or pinched between moving objects, subsequent encounter; S99.922D Unspecified injury of left foot, subsequent encounter; S99.921D Unspecified injury of right foot, subsequent encounter; Z81.1 Family history of alcohol abuse and dependence; Z91.19 Patient's noncompliance with other medical treatment and regimen; Z53.20 Procedure and treatment not carried out because of patient's decision for unspecified reasons
CPT/HCPCS: 36415; 80048; 80053; 80202; 80320; 83605; 83735; 84145; 85025; 85610; 85652; 85730; 86140; 87040; 87070; 87075; 87077; 87186; 87205; 93922; 93970; 96361; 96365; 96375; 99284

== ENCOUNTER 2020-03-07 13:39 | Emergency (ER) | payer OTHER ==
[2020-03-07 13:44] VITALS: RESP 16; TEMP 98
[2020-03-07] MEDS ORDERED: SODIUM CHLORIDE 0.9% 500 ML 500 ML IV STA (14:28)
[2020-03-07] MEDS ORDERED: MORPHINE SULFATE 4 MG/ML SYRINGE IVP STA (14:28)
--- NOTE | 2020-03-07 14:32 | ED ---
General Adult HPI - General Chief complaint: Fall Stated complaint: fall Time Seen by Provider: 03/07/20 14:04 Source: EMS, RN notes reviewed Mode of arrival: EMS Limitations: physical limitation - History of Present Illness Initial comments: 64-year-old male presents to the emergency room for a chief complaint of falls. Patient states he was released from the hospital a few weeks ago for lower extremity leg wounds. Patient reports that he is supposed to sleep in his bed with his legs elevated but finds this too painful. Therefore patient reports that he has been sleeping in his wheelchair. According to EMS he has fallen out of this several times. They're concerned he hit his head this past time as he has abrasions to his forehead. Patient reports he has never fallen out of that while awake. However he does complain of weakness stating he cannot lift a gallon of milk.Patient has no other complaints at this time including shortness of breath, chest pain, abdominal pain, nausea or vomiting, headache, or visual changes. - Related Data Home Medications Medication Instructions Recorded Confirmed Vit C/E/Zn/Coppr/Lutein/Zeaxan 1 cap PO DAILY 01/28/20 02/16/20 [Preservision Areds 2 Softgel] Gabapentin 300 mg PO DAILY 02/16/20 02/16/20 Previous Rx's Medication Instructions Recorded Acetaminophen Tab [Tylenol] 650 mg PO Q6HR PRN 30 Days #30 tab 02/01/20 Folic Acid 1 mg PO DAILY@1200 30 Days #30 tab 02/01/20 Multivitamins, Thera [Multivitamin 1 each PO DAILY@1200 30 Days #30 02/01/20 (formulary)] tab Sennosides-Docusate Sodium 1 each PO BID PRN #10 tab 02/01/20 [Senokot-S] Cephalexin [Keflex] 500 mg PO Q6HR 14 Days #56 cap 02/21/20 HYDROcodone/APAP 7.5-325MG [Ast[place] 1 each PO Q4H PRN #12 tab 02/21/20 7.5-325] Thiamine [Vitamin B-1] 100 mg PO DAILY 30 Days #60 tab 02/21/20 HYDROcodone/APAP 5-325MG [[place] 1 tab PO Q6HR PRN #10 tab 03/07/20 5-325] Allergies Allergy/AdvReac Type Severity Reaction Status Date / Time No Known Allergies Allergy Verified 03/07/20 13:41 Review of Systems ROS Statement: Those systems with pertinent positive or pertinent negative responses have been documented in the HPI. ROS Other: All systems not noted in ROS Statement are negative. Past Medical History Past Medical History: COPD, Memory Impairment Additional Past Medical History / Comment(s): BPH, dysphagia , previous liver biopsy for suspicion of a malignancy and malignancy was not confirmed back then pedis was done and [facility] in [place]. Alcoholism, COPD, dementia, chronic malnutrition History of Any Multi-Drug Resistant Organisms: None Reported Past Surgical History: Orthopedic Surgery Additional Past Surgical History / Comment(s): liver biopsy, left thumb surgery left arm fasciotomy Past Anesthesia/Blood Transfusion Reactions: No Reported Reaction Past Psychological History: No Psychological Hx Reported Smoking Status: Current every day smoker Past Alcohol Use History: Abuse, Daily Past Drug Use History: Marijuana - Past Family History Father History Unknown: Yes General Exam Limitations: physical limitation General appearance: alert, in no apparent distress Head exam: Present: atraumatic, normocephalic, normal inspection Eye exam: Present: normal appearance, PERRL, EOMI. Absent: scleral icterus, conjunctival injection, periorbital swelling ENT exam: Present: normal exam, mucous membranes moist Neck exam: Present: normal inspection, full ROM. Absent: tenderness, meningismus, lymphadenopathy Respiratory exam: Present: normal lung sounds bilaterally. Absent: respiratory distress, wheezes, rales, rhonchi, stridor Cardiovascular Exam: Present: regular rate, normal rhythm, normal heart sounds. Absent: systolic murmur, diastolic murmur, rubs, gallop, clicks GI/Abdominal exam: Present: soft, normal bowel sounds. Absent: distended, tenderness, guarding, rebound, rigid Neurological exam: Present: alert, oriented X3 Course Vital Signs 03/07/20 03/07/20 13:41 16:39 Temperature 98.0 F Pulse Rate 88 89 Respiratory 16 16 Rate Blood Pressure 155/88 146/90 O2 Sat by Pulse 98 99 Oximetry EKG Findings - EKG Comments: EKG Findings:: Sinus rhythm, frequent PVCs, ventricular rate 86, WA interval 160, QTC 452 Medical Decision Making - Medical Decision Making Vitals are stable. CBC CMP unremarkable. Minimal hyponatremia, patient was given normal saline. Urinalysis is negative. Chest x-ray shows no acute process. CT shows a spinous process fracture of C5. No additional fractures identified. I did discuss these findings with patient, he prefers to be discharged home. I discussed this case with [facility] who is on-call for Dr. Nelson. States discharge home is okay with follow-up next week to Dr. Duran and soft collar. Patient was given a soft collar here in the emergency room as we did get one from OR. He will be given pain medication at home. He will return for any worsening symptoms. - Lab Data Result diagrams: 03/07/20 14:33 03/07/20 14:33 Lab Results 03/07/20 03/07/20 03/07/20 Range/Units 14:33 14:33 14:33 WBC 12.5 H (3.8-10.6) k/uL RBC 4.12 L (4.30-5.90) m/uL Hgb 12.4 L (13.0-17.5) gm/dL Hct 40.1 (39.0-53.0) % MCV 97.3 (80.0-100.0) fL MCH 30.2 (25.0-35.0) pg MCHC 31.0 (31.0-37.0) g/dL RDW 14.8 (11.5-15.5) % Plt Count 394 (150-450) k/uL Neutrophils % 72 % Lymphocytes % 16 % Monocytes % 6 % Eosinophils % 3 % Basophils % 1 % Neutrophils # 9.0 H (1.3-7.7) k/uL Lymphocytes # 2.0 (1.0-4.8) k/uL Monocytes # 0.8 (0-1.0) k/uL Eosinophils # 0.4 (0-0.7) k/uL Basophils # 0.2 (0-0.2) k/uL PT 9.5 (9.0-12.0) sec INR 0.9 (<1.2) APTT 29.7 (22.0-30.0) sec Sodium (137-145) mmol/L Potassium (3.5-5.1) mmol/L Chloride (98-107) mmol/L Carbon Dioxide (22-30) mmol/L Anion Gap mmol/L BUN (9-20) mg/dL Creatinine (0.66-1.25) mg/dL Est GFR (CKD-EPI)AfAm (>60 ml/min/1.73 sqM) Est GFR (CKD-EPI)NonAf (>60 ml/min/1.73 sqM) Glucose (74-99) mg/dL Calcium (8.4-10.2) mg/dL Magnesium (1.6-2.3) mg/dL Total Bilirubin (0.2-1.3) mg/dL AST (17-59) U/L ALT (4-49) U/L Alkaline Phosphatase (38-126) U/L Total Protein (6.3-8.2) g/dL Albumin (3.5-5.0) g/dL Urine Color Light Yellow Urine Appearance Clear (Clear) Urine pH 7.0 (5.0-8.0) Ur Specific [place] 1.006 (1.001-1.035) Urine Protein Negative (Negative) Urine Glucose (UA) Negative (Negative) Urine Ketones Negative (Negative) Urine Blood Negative (Negative) Urine Nitrite Negative (Negative) Urine Bilirubin Negative (Negative) Urine Urobilinogen <2.0 (<2.0) mg/dL Ur Leukocyte Esterase Negative (Negative) Serum Alcohol mg/dL 03/07/20 Range/Units 14:33 WBC (3.8-10.6) k/uL RBC (4.30-5.90) m/uL Hgb (13.0-17.5) gm/dL Hct (39.0-53.0) % MCV (80.0-100.0) fL MCH (25.0-35.0) pg MCHC (31.0-37.0) g/dL RDW (11.5-15.5) % Plt Count (150-450) k/uL Neutrophils % % Lymphocytes % % Monocytes % % Eosinophils % % Basophils % % Neutrophils # (1.3-7.7) k/uL Lymphocytes # (1.0-4.8) k/uL Monocytes # (0-1.0) k/uL Eosinophils # (0-0.7) k/uL Basophils # (0-0.2) k/uL PT (9.0-12.0) sec INR (<1.2) APTT (22.0-30.0) sec Sodium 130 L (137-145) mmol/L Potassium 4.2 (3.5-5.1) mmol/L Chloride 97 L (98-107) mmol/L Carbon Dioxide 27 (22-30) mmol/L Anion Gap 6 mmol/L BUN 11 (9-20) mg/dL Creatinine 0.36 L (0.66-1.25) mg/dL Est GFR (CKD-EPI)AfAm >90 (>60 ml/min/1.73 sqM) Est GFR (CKD-EPI)NonAf >90 (>60 ml/min/1.73 sqM) Glucose 74 (74-99) mg/dL Calcium 9.1 (8.4-10.2) mg/dL Magnesium 1.9 (1.6-2.3) mg/dL Total Bilirubin 0.4 (0.2-1.3) mg/dL AST 32 (17-59) U/L ALT 16 (4-49) U/L Alkaline Phosphatase 111 (38-126) U/L Total Protein 6.5 (6.3-8.2) g/dL Albumin 3.3 L (3.5-5.0) g/dL Urine Color Urine Appearance (Clear) Urine pH (5.0-8.0) Ur Specific [place] (1.001-1.035) Urine Protein (Negative) Urine Glucose (UA) (Negative) Urine Ketones (Negative) Urine Blood (Negative) Urine Nitrite (Negative) Urine Bilirubin (Negative) Urine Urobilinogen (<2.0) mg/dL Ur Leukocyte Esterase (Negative) Serum Alcohol <10 mg/dL Disposition Clinical Impression: Spinous process fracture Disposition: HOME SELF-CARE Condition: Good Instructions (If sedation given, give patient instructions): Soft Cervical Collar (ED) Additional Instructions: Please take Astoria for pain. Please follow-up with Dr. Duran next week. Call Tuesday for an appointment. Use soft collar until that time. Return to the emergency room for any worsening symptoms. Prescriptions: HYDROcodone/APAP 5-325MG [Ast[place] 5-325] 1 tab PO Q6HR PRN #10 tab PRN Reason: Pain Is patient prescribed a controlled substance at d/c from ED?: Yes When asked, does pt state using other controlled substances?: No If prescribed controlled substance>3 days was MAPS reviewed?: Prescribed <3 Days If opioid is for acute pain is fill amount 7 days or less?: Yes If Rx opioid, was Start Talking consent form obtained?: Yes Referrals: Boom Garcia MD [Primary Care Provider] - 1-2 days Lexy Duran DO [Doctor of Osteopathic Medicine] - 1-2 days Time of Disposition: 17:06
[2020-03-07 14:47] LABS: Basophils # (A) 0.2 k/uL (0-0.2); Basophils % (A) 1 %; Eosinophils # (A) 0.4 k/uL (0-0.7); Eosinophils % (A) 3 %; HCT 40.1 % (39.0-53.0); HGB 12.4 gm/dL (13.0-17.5); Lymphocytes % (A) 16 %; MCH 30.2 pg (25.0-35.0); MCV 97.3 fL (80.0-100.0); Mean Platelet Volume 7.2; Monocytes # (A) 0.8 k/uL (0-1.0); Monocytes % (A) 6 %; Neutrophils % (A) 72 %; Platelet Count 394 k/uL (150-450); RBC 4.12 m/uL (4.30-5.90); RDW 14.8 % (11.5-15.5); WBC 12.5 k/uL (3.8-10.6)
[2020-03-07 14:49] LABS: Appearance,Urine Clear (Clear); Bilirubin,Urine Negative (Negative); Blood,Urine Negative (Negative); Color,Urine Light Yellow; Glucose,Urine (UA) Negative (Negative); Ketones,Urine Negative (Negative); Leukocyte Esterase,Urine Negative (Negative); Nitrite,Urine Negative (Negative); Protein,Urine Negative (Negative); Specific Gravity,Urine 1.006 (1.001-1.035); Urobilinogen,Urine <2.0 mg/dL (<2.0)
[2020-03-07 14:56] LABS: ALT 16 U/L (4-49); AST 32 U/L (17-59); African American GFR (CKD) >90 (>60 ml/min/1.73 sqM); Albumin 3.3 g/dL (3.5-5.0); Alcohol <10 mg/dL; Alkaline Phosphatase 111 U/L (38-126); Anion Gap 6 mmol/L; Blood Urea Nitrogen 11 mg/dL (9-20); Calcium 9.1 mg/dL (8.4-10.2); Carbon Dioxide 27 mmol/L (22-30); Chloride 97 mmol/L (98-107); Glucose 74 mg/dL (74-99); Magnesium 1.9 mg/dL (1.6-2.3); Non-African American GFR(CKD) >90 (>60 ml/min/1.73 sqM); Potassium 4.2 mmol/L (3.5-5.1); Sodium 130 mmol/L (137-145); Total Bilirubin 0.4 mg/dL (0.2-1.3); Total Protein 6.5 g/dL (6.3-8.2)
[2020-03-07 15:09] LABS: INR 0.9 (<1.2); Partial Thromboplastin Time 29.7 sec (22.0-30.0); Prothrombin Time 9.5 sec (9.0-12.0)
--- NOTE | 2020-03-07 15:35 | CT ---
EXAMINATION TYPE: CT brain cspine wo con DATE OF EXAM: 03/07/2020 COMPARISON: CT chest abdomen pelvis January 29, 2020 HISTORY: Multiple falls with injuries CT DLP: 1428.[address] of the brain was performed. The ventricles, basal cisterns and sulci overlying the cerebral convexities demonstrate mild enlargem ent. There is no evidence for intracranial hemorrhage or sulcal effacement. There is decreased attenuatio n about the periventricular white matter and deep white matter of both cerebral hemispheres, compatib le with chronic small vessel ischemia. No mass effects are seen. If symptoms persist consider MRI. Osseous calvarium is intact. IMPRESSION: 1. Age related atrophic and chronic small vessel ischemic change without acute intracranial process seen at this time. CT Cervical Spine: Unenhanced CT of the cervical spine was performed with bone and soft tissue window settings submitted . Coronal and sagittal reconstruction is obtained. There is normal alignment and prevertebral soft tissues. There is spinous process fracture noted of C 5. No additional fractures identified. Additional well-corticated spinous process defects lower cervi gildardo spine are felt to be chronic in nature. Moderate to severe degenerative disc disease and spondylo sis. No spiculated mass right upper lobe and mediastinal adenopathy. IMPRESSION: 1. There is spinous process fracture noted of C5. No additional fractures identified.
--- NOTE | 2020-03-07 16:31 | XR ---
EXAMINATION TYPE: XR chest 2V DATE OF EXAM: 03/07/2020 COMPARISON: January 29, 2020 HISTORY: Shortness of breath TECHNIQUE: Frontal and lateral views of the chest are obtained. FINDINGS: Scattered senescent parenchymal changes noted. Hyperinflation compatible with COPD. No evidence for infiltrate. No evidence for atelectasis. Right upper lobe pulmonary nodular density i s again noted. Additional nodular density right lower lobe. Heart size is stable. Right paratracheal adenopathy. No evidence for hilar prominence. Degenerative changes dorsal spine. IMPRESSION: 1. No evidence for acute pulmonary disease. Stable pulmonary nodules and mediastinal adenopathy.
[2020-03-07 18:00] VITALS: BP 118/77; PULSE 86
== END 2020-03-07 19:59 | disposition home or self-care (01) ==
LOC: EC 13:39
DX: S12.400A Unspecified displaced fracture of fifth cervical vertebra, initial encounter for closed fracture (principal); S00.81XA Abrasion of other part of head, initial encounter; E87.1 Hypo-osmolality and hyponatremia; F17.200 Nicotine dependence, unspecified, uncomplicated; V00.811A Fall from moving wheelchair (powered), initial encounter; Y92.009 Unspecified place in unspecified non-institutional (private) residence as the place of occurrence of the external cause
CPT/HCPCS: 36415; 93005; 80053; 83735; 85025; 85610; 85730; 81003; 71046; 72125; 70450; 99284; 96374; 96361; G0480; J2270; 80320

== ENCOUNTER 2020-06-04 09:38 | Day surgery (SDC) | payer OTHER ==
[2020-06-02 10:15] VITALS: BMI 22.8
[~2020-06-04 09:38] MED LIST: ALBUTEROL NEB (CONC) 2.5 MG/0.5 ML INHALATION ONE; LIDOCAINE 2% (PF) 20 MG/ML 5 ML VIAL INHALATION ONE; LIDOCAINE VISCOUS 300 MG/15 ML CUP MUCOUS MEM ONE; SODIUM CHLORIDE 0.9% 1,000 ML IV SCH
[2020-06-04] MEDS ORDERED: LACTATED RINGERS 1,000 ML IV ONE (10:34)
[2020-06-04] MEDS ORDERED: LIDOCAINE 1% (10MG/ML) FOR IV START INTRADERMA ONE (10:35)
[2020-06-04] MEDS ORDERED: SUCCINYLCHOLINE CHLORIDE 100 MG/5 ML SYR IV ONE (12:55)
[2020-06-04] MEDS ORDERED: PROPOFOL 10 MG/ML 20 ML VIAL IV ONE (12:55)
--- NOTE | 2020-06-04 13:44 | CT ---
EXAMINATION TYPE: CT Chest ayad Mantilla Protocol DATE OF EXAM: 06/04/2020 COMPARISON: 01/29/2020 HISTORY: Pulmonary nodules/mass. CT DLP: 639 mGycm Automated exposure control for dose reduction was used. Axial images were obtained at 5 mm thick sections. Reconstructed images in the coronal plane are revi ewed. Lung and mediastinal windows are reviewed. FINDINGS: There is a spiculated mass in the right upper lobe measuring 2.5 x 2.5 cm. Small infiltrate may be in the periphery of the lingula. Series 6 image 36. There is very large lymph node within the pretracheal space measuring 2.8 cm additional 1.69 cm lymph node is present. There is likely right suprahilar lymph node measuring 1.7 cm. Coronary artery calcification is present. The ascending thoracic aorta at the level of main pulmonar y artery is 3.6 cm. The main pulmonary artery the bifurcation is 2.[address] sections are obtained through the upper abdomen. IMPRESSION: 1. RIGHT UPPER LOBE NODULE. 2. ENLARGED MEDIASTINAL ADENOPATHY. 3. SMALL INFILTRATE OR PNEUMONITIS LEFT MIDLUNG. 4. CT FOR BRONCHOSCOPY GUIDANCE
--- NOTE | 2020-06-04 13:50 | P.PCN ---
Date of Procedure: 06/04/20 Preoperative Diagnosis: RUL mass Postoperative Diagnosis: RUL mass Anesthesia: GETA Surgeon: Laura Wen Court Deputy #1: Lina Stevens Estimated Blood Loss (ml): 0 Pathology: none sent Condition: stable Disposition: same day Operative Findings: navigational bronchoscopy. The patient came in to the hospital and initially was given a CAT scan of the chest utilizing the Veran protocol. Following that, the patient had the Vpads applied to his chest. The CAT scan images were up loaded into the system and the right upper lobe mass was identified and wasin the appropriate navigation tracks was not identified. The patient was brought into the operating room. The patient was intubated and placed on a mechanical ventilator. Intubation process was done by [employer]. Following that, the flexible bronchoscope was introduced through the orotracheal tube was advanced into the lower trachea. Examination of the airway was done. The trachea, bilateral mainstem bronchi, right upper lobe bronchus, right middle lobe bronchus, right lower lobe bronchus, left upper lobe bronchus and left lower lobe bronchus were all patent and within normal limits. The bronchoscope was then utilized to make the appropriate calibrations utilizing the main sigifredo nd the secondary sigifredo on the left. using navigational guidance, transbronchial needle aspirate of the paratracheal lymph node was located total of 4 passes with patient utilizing the 19 gait instability. The samples were checked and appropriateness of the sample was confirmed by the pathologist at the bedside. Following that, the bronchoscope was navigated to the right upper lobe. The appropriate subsegment in the apical segment of the right upper lobe was identified and transbronchial biopsies of the right upper lobe mass was done. Multiple biopsies were done on the medication guidance. At the conclusion of the procedure, using navigational guidance, and the bronchial brushings of the right upper lobe mass was done. The target lesion was biopsied and brushed without any major difficulties. No significant bleeding was encountered. therapeutic airway suctioning was done. Bronchoscope was removed and the patient was extubated and following that the patient was transferred recovery in stable condition. The patient will likely get discharged home today to follow up with me in the office.
[2020-06-04 14:02] VITALS: TEMP 98.7
[2020-06-04 14:27] VITALS: RESP 16
--- NOTE | 2020-06-04 14:45 | XR ---
EXAMINATION TYPE: XR chest 1V DATE OF EXAM: 06/04/2020 COMPARISON: Prior chest x-ray 03/07/2020 HISTORY: Post bronchoscopy TECHNIQUE: Single frontal view of the chest is obtained. FINDINGS: There is no focal air space opacity, pleural effusion, or pneumothorax seen. The cardiac silhouette size is within normal limits. The osseous structures are intact. There are overlying car diac leads. Right upper lobe mass is again seen. IMPRESSION: No evident complications status post biopsy
[2020-06-04 14:53] VITALS: BP 148/87; PULSE 88
== END 2020-06-04 15:10 | disposition home or self-care (01) ==
LOC: ORWHC2ENDO 09:38
PROVIDERS: ATTEND Internal Medicine Critical Care Medicine
DX: C34.11 Malignant neoplasm of upper lobe, right bronchus or lung (principal); G58.9 Mononeuropathy, unspecified; J44.9 Chronic obstructive pulmonary disease, unspecified; D64.9 Anemia, unspecified; R26.9 Unspecified abnormalities of gait and mobility; E43 Unspecified severe protein-calorie malnutrition; N40.0 Benign prostatic hyperplasia without lower urinary tract symptoms; M19.90 Unspecified osteoarthritis, unspecified site; F03.90 Unspecified dementia, unspecified severity, without behavioral disturbance, psychotic disturbance, mood disturbance, and anxiety; F17.210 Nicotine dependence, cigarettes, uncomplicated; F10.20 Alcohol dependence, uncomplicated; R29.6 Repeated falls; E87.1 Hypo-osmolality and hyponatremia; N32.89 Other specified disorders of bladder; G62.9 Polyneuropathy, unspecified; R13.10 Dysphagia, unspecified; Y90.9 Presence of alcohol in blood, level not specified; Z77.090 Contact with and (suspected) exposure to asbestos; Z79.899 Other long term (current) drug therapy; Z87.81 Personal history of (healed) traumatic fracture; Z98.890 Other specified postprocedural states; Z68.1 Body mass index [BMI] 19.9 or less, adult; Z87.01 Personal history of pneumonia (recurrent); Z97.2 Presence of dental prosthetic device (complete) (partial); Z80.0 Family history of malignant neoplasm of digestive organs
CPT/HCPCS: 88104; 88305; 88173; 88342; 88341; 71045; 71250; 31628; 31629; 31623; 31627; J0330; J2704

== ENCOUNTER → 2020-08-02 | Outpatient (CLI) | payer OTHER ==
--- NOTE | 2020-08-05 06:18 | PE ---
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 TECHNIQUE: Following the intravenous administration of 10.78 mCi of F-18 FDG, whole body images are performed from the skull base to the midthigh. Images are reviewed on the computer in the coronal, a xial, and sagittal planes. Reconstructed rotating images are created on independent workstation and reviewed on the computer. A localization and attenuation correction CT is performed in conjunction with the PET scan. Blood glucose level equals 89. SCAN: Initial Scan FINDINGS: SKULL BASE AND NECK: No areas of suspicious hypermetabolic uptake. CHEST, MEDIASTINUM, AND HILAR REGION: Background mild to moderate underlying emphysematous change. Th ere is hypermetabolic right upper lobe spiculated nodule redemonstrated measuring 2.7 x 1.9 cm axial image 76, max SUV is 4.62 on axial image 78. No additional areas of parenchymal hypermetabolic uptake . Interval resolution of small bilateral pleural effusions. There is abnormal large hypermetabolic paracarinal 4.9 x 3.7 cm lymph node axial image 88, max SUV is 6.23. There is abnormal enlarged hypermetabolic right paratracheal 3.5 x 3.5 cm lymph node superior to this axial image 78 with mass effect on the SVC near brachiocephalic confluence, max SUV is 5.03. ABDOMEN AND PELVIS: No additional areas of abnormal hypermetabolic uptake. No adrenal masses. OSSEOUS STRUCTURES: No areas of abnormal hypermetabolic uptake. OTHER CT: Multilevel spurring in the spine. Facet arthropathy lower lumbar spine. Multilevel disc spa ce narrowing and vacuum disc phenomenon. Moderate to severe degenerative changes bilateral shoulders and hips. Mild to moderate calcified plaque left carotid bulb. Mild cardiomegaly with moderate to severe three- vessel coronary artery calcification. Moderate to severe calcified plaque distal abdominal aorta extending into branch vessels. IMPRESSION: Confirmation of known malignancy right upper lobe with thoracic adenopathy. No distal met astatic disease. TNM STAGING T1c,N2,M0 AJCC STAGING IIIa
== END | disposition home or self-care (01) ==
LOC: RADPETMAIN 09:41
PROVIDERS: ATTEND Internal Medicine Hematology & Oncology
DX: C34.11 Malignant neoplasm of upper lobe, right bronchus or lung (principal); R59.0 Localized enlarged lymph nodes
CPT/HCPCS: 78815; A9552

== ENCOUNTER 2020-10-01 15:31 | Inpatient (IN) | payer OTHER ==
[2020-10-01] MEDS ORDERED: AMPICILLIN-SULBACTAM 3 GM in SODIUM CHLORIDE 0.9% 100 ML IVPB STA (16:46)
[2020-10-01] MEDS ORDERED: VANCOMYCIN IV PER PHARMACY 1 EACH MISC MISCELLANE PRN (16:47)
[2020-10-01] MEDS ORDERED: HYDROmorphone 1 MG/ML 1 ML SYRINGE IVP STA (16:47)
[2020-10-01] MEDS ORDERED: VANCOMYCIN 1,250 MG in SODIUM CHLORIDE 0.9% 250 ML IVPB ONE (17:00)
[2020-10-01 17:32] LABS: Basophils # (A) 0.1 k/uL (0-0.2); Basophils % (A) 1 %; Eosinophils # (A) 0.5 k/uL (0-0.7); Eosinophils % (A) 3 %; HCT 42.3 % (39.0-53.0); HGB 14.8 gm/dL (13.0-17.5); Lymphocytes % (A) 11 %; MCH 31.7 pg (25.0-35.0); MCV 90.7 fL (80.0-100.0); Mean Platelet Volume 7.7; Monocytes # (A) 1.1 k/uL (0-1.0); Monocytes % (A) 6 %; Neutrophils # (A) 14.9 k/uL (1.3-7.7); Neutrophils % (A) 80 %; Platelet Count 331 k/uL (150-450); RBC 4.67 m/uL (4.30-5.90); RDW 13.4 % (11.5-15.5); WBC 18.8 k/uL (3.8-10.6)
[2020-10-01 17:44] LABS: ALT 15 U/L (4-49); AST 26 U/L (17-59); African American GFR (CKD) >90 (>60 ml/min/1.73 sqM); Albumin 3.6 g/dL (3.5-5.0); Alkaline Phosphatase 121 U/L (38-126); Anion Gap 9 mmol/L; Blood Urea Nitrogen 13 mg/dL (9-20); C Reactive Protein 46.8 mg/L (<10.0); Calcium 9.5 mg/dL (8.4-10.2); Carbon Dioxide 33 mmol/L (22-30); Chloride 96 mmol/L (98-107); Glucose 89 mg/dL (74-99); Non-African American GFR(CKD) >90 (>60 ml/min/1.73 sqM); Potassium 3.8 mmol/L (3.5-5.1); Sodium 138 mmol/L (137-145); Total Bilirubin 0.6 mg/dL (0.2-1.3); Total Protein 7.1 g/dL (6.3-8.2)
[2020-10-01 18:39] LABS: Erythrocyte Sedimentation Rate 58 mm/hr (0-15)
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
[2020-10-01] MEDS ORDERED: NALOXONE 0.4 MG/ML 1 ML VIAL IV PRN (18:45)
[2020-10-01] MEDS: SODIUM CHLORIDE 0.9% 1,000 ML IV SCH (19:38)
[2020-10-02] MEDS: ENOXAPARIN 40 MG/0.4 ML SYRINGE SQ SCH ×5 (00:35→21:00)
[2020-10-02] MEDS: PREGABALIN 75 MG CAP PO SCH ×3 (00:36→20:25)
[2020-10-02] MEDS: AMPICILLIN-SULBACTAM 3 GM in SODIUM CHLORIDE 0.9% 100 ML IVPB SCH ×4 (04:23→23:30)
[2020-10-02] MEDS: VANCOMYCIN 1,250 MG in SODIUM CHLORIDE 0.9% 250 ML IVPB SCH ×3 (04:33→20:25)
[2020-10-02] MEDS: SODIUM CHLORIDE 0.9% 1,000 ML IV SCH ×3 (05:25→17:57)
[2020-10-02] MEDS: HYDROmorphone 1 MG/ML 1 ML SYRINGE IVP PRN ×4 (08:32→23:34)
[2020-10-02 09:38] LABS: Basophils # (A) 0.08 X 10*3/uL (0.00-0.10); Basophils % (A) 0.4 %; Eosinophils # (A) 0.01 X 10*3/uL (0.04-0.35); Eosinophils % (A) 0.1 %; HCT 39.7 % (39.6-50.0); HGB 12.8 g/dL (13.0-17.0); Lymphocytes # (A) 1.23 X 10*3/uL (0.90-5.00); Lymphocytes % (A) 6.8 %; MCH 29.8 pg (27.0-32.0); MCHC 32.2 g/dL (32.0-37.0); MCV 92.5 fL (80.0-97.0); Monocytes # (A) 0.94 X 10*3/uL (0.20-1.00); Monocytes % (A) 5.2 %; Neutrophils # (A) 15.57 X 10*3/uL (1.80-7.70); Neutrophils % (A) 86.1 %; Platelet Count 348 X 10*3/uL (140-440); RBC 4.29 X 10*6/uL (4.40-5.60); WBC 18.08 X 10*3/uL (4.50-10.00)
[2020-10-02] MEDS: dexAMETHasone 2 MG TAB PO SCH (15:07)
[2020-10-02] MEDS: NICOTINE 21MG/24HR PATCH TRANSDERM SCH ×2 (15:07→15:20)
--- NOTE | 2020-10-02 15:24 | XR ---
EXAMINATION TYPE: XR chest 1V portable DATE OF EXAM: 10/02/2020 HISTORY: Shortness of breath. COMPARISON: 06/04/2020 TECHNIQUE: Single view of the chest is submitted. FINDINGS: Demonstrated are scattered senescent parenchymal change. There is no evidence for focal infiltrate. Persistent right upper lobe of 2.2 cm pulmonary nodule con sistent with known malignancy. The heart is stable. Hilar and mediastinal structures are within normal limits. Degenerative changes are seen of the dorsal spine. IMPRESSION: 1. There is no evidence for focal infiltrate. Persistent right upper lobe of 2.2 cm pulmonary nodule consistent with known malignancy.
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
[2020-10-02] MEDS: ALBUTEROL HFA INHALER INHALATION SCH ×2 (15:57→19:24)
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
--- NOTE | 2020-10-02 20:03 | P.HPIM ---
History of Present Illness H&P Date: 10/02/20 Chief Complaint: Redness lower extremity History of presenting complaint: This is a 65-year-old patient who follows with Dr. Garcia. Patient's chronic stable medical conditions includes some cognitive impairment, painful peripheral neuropathy in both hand and feet, smoker has been diagnosed with right upper lobe lung mass with a negative PET scan currently no treatment, as best as exposure. Patient lives with his son and his girlfriend.. Does use a battery operated wheelchair. Patient has a home nurse who takes care of her lower extremities. Patient has noted increasing pain and redness and sometimes some drainage from the lower extremity. With swelling. Denies any fever and chills. Patient also got a cough some shortness of breath. A bit congested the chest. Denies any obvious fever and chills Review of systems: GEN.: Tired EYES: None HEENT: None NECK: None RESPIRATORY: As above CARDIOVASCULAR: None GASTROINTESTINAL: None GENITOURINARY: None MUSCULOSKELETAL: Joint pains LYMPHATICS: None HEMATOLOGICAL: None PSYCHIATRY: Anxious NEUROLOGICAL: Difficulty to walk uses a electronic cart Past medical history to include: COPD, cognitive impairment, bilateral lower extremity chronic cellulitis and wounds, peripheral neuropathy, smoker, right upper lobe lung mass with a negative PET scan, chronic anemia as best as exposure chronic left shoulder p ain. Social history: Visit his son and his girlfriend. Gets about of the electric cart. Patient s tarted smoking at the age of 10 up to pack and a half to 2 packs a day now down to one half a pack a day. Up to about a year ago he was drinking 4 cases of beer a week is not down to 6 Paxil 2 bottles of wine a week. Does use marijuana Gummi's Physical examination: VITAL SIGNS: 97.5, 90, 18, 145/79, 98% room air GENERAL: BMI 22.9, sitting up in bed, slightly short of breath. EYES: Pupils equal. Conjunctiva normal. HEENT: External appearance of nose and ears normal, oral cavity grossly normal. NECK: JVD not raised; masses not palpable. HEART: First and second heart sounds are normal; edema present. LUNGS: Respiratory rate increased, decreased breath sounds prolonged expiration and wheezing. ABDOMEN: Soft, nontender, liver spleen not palpable, no masses palpable. PSYCH: Alert and oriented x3; mood and affect slightly anxiousl. NEUROLOGICAL: Cranial nerves grossly intact; no facial asymmetry, power and sensation are decreased distally. DERMATOLOGICAL: Lower extremity redness with superficial breakdown of skin, tenderness edema LYMPHATICS: No lymph nodes palpable in the axilla and neck.. INVESTIGATIONS, reviewed in the clinical context: Chest x-ray film personally reviewed by me-right upper nodule, hyperinflation WBC 18.8 hemoglobin 14.8 platelets 331 potassium 3.8 creatinine 0.48 Lactic acid 3. 0 repeat 1.6 CRP 46.8 Coronavirus [PCR]-detected proBNP 1530 Assessment and plan: -Acute on chronic bilateral lower extremity cellulitis, worsened by underlying peripheral arterial disease. Consult ID. Silvadene cream. With Kerlix and Castro wrap. IV Unasyn and vanco mycin. -Acute COPD exacerbation and not current smoker Bronchodilators, steroids -Chronic nicotine dependence patient is a cigarette smoker Nicotine patch -Mild cognitive impairment -Painful peripheral neuropathy Continue with Lyrica -Right upper lobe lung mass with a known negative PET scan. Patient has not had any further workup or follow-up with seizures. Consult oncology -Chronic medical debility. Does use electronic cart Consult PTOT -Social issues including placement. Consult hospice case manager and social worker assistant. 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 History of Any Multi-Drug Resistant Organisms: None Reported Past Surgical History: Orthopedic Surgery Additional Past Surgical History / Comment(s): liver biopsy, left thumb surgery left arm fasciotomy, BILAT CATARACTS REMOVED WITH LENS IMPLANTS Past Anesthesia/Blood Transfusion Reactions: No Reported Reaction Past Psychological History: No Psychological Hx Reported Smoking Status: Current every day smoker Past Drug Use History: Marijuana - Past Family History Father History Unknown: Yes Mother Additional Family Medical History / Comment(s): Mother had a tumor in her heart/surgery to remove and of post op infection. Medications and Allergies Home Medications Medication Instructions Recorded Confirmed Type Furosemide [Lasix] 40 mg PO DAILY 06/02/20 10/01/20 History Ibuprofen [Motrin] 800 mg PO TID PRN 10/01/20 10/01/20 History Pregabalin [Lyrica] 150 mg PO BID 10/01/20 10/01/20 History Allergies Allergy/AdvReac Type Severity Reaction Status Date / Time No Known Allergies Allergy Verified 06/04/20 10:11 Physical Exam Vitals: Vital Signs Temp Pulse Resp BP Pulse Ox 10/02/20 09:58 71 18 96 10/02/20 08:23 77 18 97 10/02/20 07:38 97.2 F L 69 18 137/76 97 10/02/20 02:00 83 16 157/94 99 10/01/20 22:00 99 15 157/93 90 L 10/01/20 19:00 16 10/01/20 18:29 78 18 146/84 95 10/01/20 15:52 97.5 F L 90 18 145/79 98 Intake and Output 10/01/20 10/02/20 10/02/20 22:59 06:59 14:59 Output Total 400 Balance -400 Output: Urine 400 Other: # Voids 2 Weight 70.307 kg Results CBC & Chem 7: 10/02/20 05:10 10/01/20 17:04 Labs: Abnormal Lab Results - Last 24 Hours (Table) 10/01/20 10/01/20 10/01/20 Range/Units 17:04 17:04 17:04 WBC 18.8 H (3.8-10.6) k/uL RBC (4.40-5.60) X 10*6/uL Hgb (13.0-17.0) g/dL Immature Gran # (0.00-0.04) X 10*3/uL Neutrophils # 14.9 H (1.3-7.7) k/uL Monocytes # 1.1 H (0-1.0) k/uL Eosinophils # (0.04-0.35) X 10*3/uL ESR 58 H (0-15) mm/hr Chloride 96 L (98-107) mmol/L Carbon Dioxide 33 H (22-30) mmol/L Creatinine 0.48 L (0.66-1.25) mg/dL Plasma Lactic Acid Roberto Carlos 3.0 H* (0.7-2.0) mmol/L C-Reactive Protein 46.8 H (<10.0) mg/L Coronavirus (PCR) (Not Detectd) 10/01/20 10/02/20 Range/Units 21:00 05:10 WBC 18.08 H (3.8-10.6) k/uL RBC 4.29 L (4.40-5.60) X 10*6/uL Hgb 12.8 L (13.0-17.0) g/dL Immature Gran # 0.25 H (0.00-0.04) X 10*3/uL Neutrophils # 15.57 H (1.3-7.7) k/uL Monocytes # (0-1.0) k/uL Eosinophils # 0.01 L (0.04-0.35) X 10*3/uL ESR (0-15) mm/hr Chloride (98-107) mmol/L Carbon Dioxide (22-30) mmol/L Creatinine (0.66-1.25) mg/dL Plasma Lactic Acid Roberto Carlos (0.7-2.0) mmol/L C-Reactive Protein (<10.0) mg/L Coronavirus (PCR) Detected A (Not Detectd)
[2020-10-02] MEDS: MICONAZOLE NITRATE 2% CREAM 14 GM TUBE TOPICAL SCH (20:30)
[2020-10-02 21:08] LABS: African American GFR (CKD) 133.7 (60.0-200.0); Anion Gap 8.7 mmol/L (4.00-12.00); Calcium 8.6 mg/dL (8.7-10.3); Carbon Dioxide 29.3 mmol/L (21.6-31.8); Non-African American GFR(CKD) 115.3 (60.0-200.0); Potassium 3.8 mmol/L (3.5-5.5)
[2020-10-03] MEDS ORDERED: VANCOMYCIN TROUGH DUE 1 EACH MISC MISCELLANE ONE (02:00)
[2020-10-03] MEDS: SODIUM CHLORIDE 0.9% 1,000 ML IV SCH ×2 (02:39→17:01)
[2020-10-03] MEDS: AMPICILLIN-SULBACTAM 3 GM in SODIUM CHLORIDE 0.9% 100 ML IVPB SCH ×4 (05:11→23:15)
[2020-10-03 05:21] LABS: African American GFR (CKD) >90 (>60 ml/min/1.73 sqM); Non-African American GFR(CKD) >90 (>60 ml/min/1.73 sqM)
--- NOTE | 2020-10-03 06:12 | CONS ---
CONSULTATION DATE OF SERVICE: 10/02/2020 REASON FOR FOLLOWUP: 1. Bilateral lower extremity cellulitis. 2. Positive COVID test. HISTORY OF PRESENT ILLNESS: The patient is a 65-year-old male with past medical history significant for lung cancer diagnosed in the summer. However, the patient did not receive any treatment for it. The patient also has lower extremity stasis dermatitis, currently under care of his primary care physician. This patient mentioned he did have some kind of cream applied follow by Timi Leal. The last time the dressing was changed, the patient started having increasing pain to the lower extremity. The patient describes the pain to be more of a sharp pain with intensity 6 to 7/10. No radiation. Did have some superficial ulceration but no purulent drainage. The patient denies having any fever or any chills. Denies any chest pain. His breathing is mostly baseline. Also has a cough but no worsening, no sputum production. No abdominal pain. No diarrhea. With these symptoms, the patient was evaluated by the ER physician. On arrival to the ER, the patient was afebrile. The patient did have mild hypoxemia requiring supplemental oxygen placement. He did have elevated white count of 18.8 with left shift. Did have elevated lactic acid 3.0, repeat is 1.6. Electrolytes have been normal. COVID test came back positive. Chest x-ray reported negative. The patient was started on Unasyn and vancomycin and admitted to the hospital. Infectious Disease was consulted for further management of antibiotic therapy. REVIEW OF SYSTEMS: Positive points have been mentioned in HPI. Rest of systems are negative. PAST MEDICAL HISTORY: COPD, memory impairment, BPH, dysphagia, and lung cancer. PAST SURGICAL HISTORY: Liver biopsy, left thumb surgery, left arm , bilateral cataract surgery and lung biopsy. SOCIAL HISTORY: Patient is a current everyday smoker. Did admit to marijuana use. No drinking. FAMILY HISTORY: No pertinent findings noticed. ALLERGIES: No known drug allergies. MEDICATIONS: Currently the patient is on Unasyn 3 grams q.8 hours, vancomycin Pharmacy to dose, Ventolin, vitamin C, vitamin D3, dexamethasone, Lovenox Dilaudid, Narcan, nicotine patch, Lyrica, Silvadene cream. PHYSICAL EXAMINATION: VITAL SIGNS: Blood pressure 132/90 with a pulse of 83, temperature 97.8, he is 97% on 2 L nasal cannula. GENERAL DESCRIPTION: Patient is a middle-aged male lying in bed in no distress. No tachypnea or accessory muscles of respiration use. HEENT: Examination shows no pallor or scleral icterus. Oral mucous membrane is dry. NECK: Trachea central, no thyromegaly. LUNGS: Unlabored breathing, decreased intensity of breath sounds, no wheeze. HEART: S1-S2, regular rate and rhythm. ABDOMEN: Soft, no tenderness. No guarding or rigidity. EXTREMITIES: Did have evidence of venous stasis dermatitis with mild cellulitis. No purulent drainage. NEUROLOGICAL: Patient is awake, alert, oriented times three. Mood and affect normal. LABS: Hemoglobin is 12.1, white count 18.08, BUN of 10, creatinine 0.5. Lactic acid 3.0, repeat is 1.6. DIAGNOSTIC IMPRESSION AND PLAN: 1. Patient admitted to the hospital with bilateral lower extremity superficial ulceration and pain in this patient who has symptoms mostly of venous stasis dermatitis, plus or minus mild cellulitis likely from a gram-positive skin anastasiya. 2. Patient did have positive COVID test, but no significant respiratory symptoms. No ground-glass opacities or significant hypoxemia. More like mild infection and will need symptomatic supportive treatment. PLAN: 1. Discontinue the vancomycin. 2. Adjust dose of Unasyn to 3 grams q.6 hours. 3. We will apply Mycolog cream to the lower extremity. 4. Droplet isolation and respiratory support. 5. We will follow on clinical condition and culture to further adjust medication if needed. Thank you for this consultation. Will follow this patient along with you. MMODL / IJN: [id number] /
[2020-10-03] MEDS: dexAMETHasone 2 MG TAB PO SCH (08:16)
[2020-10-03] MEDS: ASCORBIC ACID 500 MG TAB PO SCH (08:18)
[2020-10-03] MEDS: CHOLECALCIFEROL 25 MCG (1000 IU) TABLET PO SCH (08:18)
[2020-10-03] MEDS: ZINC SULFATE 220 MG CAP PO SCH (08:18)
[2020-10-03] MEDS: NICOTINE 21MG/24HR PATCH TRANSDERM SCH (08:19)
[2020-10-03] MEDS: MICONAZOLE NITRATE 2% CREAM 14 GM TUBE TOPICAL SCH ×2 (08:19→21:31)
[2020-10-03] MEDS: PREGABALIN 75 MG CAP PO SCH ×2 (08:19→20:00)
[2020-10-03 08:48] LABS: Basophils % (A) 0 %; Eosinophils % (A) 0 %; HCT 39.7 % (39.0-53.0); HGB 13.2 gm/dL (13.0-17.5); Lymphocytes # (A) 0.8 k/uL (1.0-4.8); Lymphocytes % (A) 5 %; MCH 30.8 pg (25.0-35.0); MCHC 33.3 g/dL (31.0-37.0); MCV 92.5 fL (80.0-100.0); Mean Platelet Volume 8.9; Monocytes # (A) 0.7 k/uL (0-1.0); Monocytes % (A) 4 %; Neutrophils % (A) 90 %; Platelet Count 343 k/uL (150-450); RBC 4.29 m/uL (4.30-5.90); RDW 13.5 % (11.5-15.5); WBC 15.6 k/uL (3.8-10.6)
[2020-10-03] MEDS: ALBUTEROL HFA INHALER INHALATION SCH ×4 (08:50→20:12)
--- NOTE | 2020-10-03 10:14 | P.PN ---
Subjective Progress Note Date: 10/03/20 Principal diagnosis: Gamez virus infection and chronic lower extremity cellulitis 65-year-old male with a history of COPD, chronic lower extremity cellulitis, and lung cancer, who presents to the emergency room with bilateral lower shimmy pain. The patient was seen on October 01, at 1531. The patient was seen by Dr. Whittington. The patient typically sees a family doctor in the area. And also apparently has a home care nurse to come to the house to 10 to his lower extremity cellulitis and wounds. For a number of days now, the pain is been getting worse, and for that reason he came in to be evaluated. The legs are edematous, painful, and red. The legs have been weeping. He apparently takes Lyrica for pain control. He denied any fever or chills. There is no nausea or vomiting. White count 18.08, hemoglobin 12.8, hematocrit 39.7, and platelet count 348,000. Sodium 138, potassium 3.8, chlorides 96, CO2 33, anion gap 9, BUN 13, creatinine 0.48, and lactic acid 3.0. Repeat lactic acid was 1.6. C- reactive protein is 46.8. The patient did test positive for coronavirus. He is not having typical coronavirus symptoms. The patient apparently has a lesion in the right upper lobe, measuring about 2 cm in size, which is consistent with his known lung cancer. He apparently has not received any treatment as yet. Patient was reevaluated today on 10/03/2020, remains on room air, his O2 saturation is 91%. Patient is not in any distress, patient is receiving antibio tics for his cellulitis which is quite severe and seems to be affecting both lower extremities. Patient denies any cough, no wheezing, no shortness of breath. Leukocytosis is improving down to 15.6. Electrolytes and renal profile are normal. Lactic acid on admission was 1.6. Patient remains on vancomycin and Unasyn. Chest x-ray showed no evidence of focal infiltrate, patient has a persistent right upper lobe nodule consistent with known malignancy measures 2.2 cm. Objective - Vital Signs Vital signs: Vital Signs Temp 98.8 F 10/03/20 09:48 Pulse 60 10/03/20 09:48 Resp 16 10/03/20 09:48 BP 143/70 10/03/20 09:48 Pulse Ox 91 L 10/03/20 09:48 Intake & Output 10/02/20 10/03/20 10/03/20 18:59 06:59 18:59 Output Total 600 1375 Balance -600 -1375 Weight 70.307 kg Output: Urine 600 1375 Other: Voiding Method Urinal # Voids 2 - Exam GENERAL: Revealed a 65-year-old white male in no distress. On room air. EYES: PERRLA, EOMI, anicteric.. HEENT: External appearance of nose and ears normal, oral cavity grossly normal. NECK: Supple no neck masses no JVD no stridor. HEART: Normal S1 and S2, no S3 gallop. LUNGS: Symmetrical chest expansion, no crackles or rhonchi or wheezes. ABDOMEN: Soft nontender no megaly no rebound no guarding. PSYCH: Normal mood affect and normal mental status examination. NEUROLOGICAL: Alert and oriented 3 no gross focal deficits. DERMATOLOGICAL: Evidence of chronic venous stasis dermatitis with cellulitis, no purulent discharge noted. Or drainage LYMPHATICS: No palpable adenopathy. - Labs CBC & Chem 7: 10/03/20 08:10 10/03/20 02:19 Labs: Abnormal Lab Results - Last 24 Hours (Table) 10/02/20 10/03/20 Range/Units 05:10 08:10 WBC 15.6 H (3.8-10.6) k/uL RBC 4.29 L (4.30-5.90) m/uL Neutrophils # 14.0 H (1.3-7.7) k/uL Lymphocytes # 0.8 L (1.0-4.8) k/uL Creatinine 0.5 L (0.6-1.5) mg/dL Glucose 124 H (70-110) mg/dL Calcium 8.6 L (8.7-10.3) mg/dL Assessment and Plan Assessment: Impression: Gamez virus infection without pulmonary symptoms Chronic lower extremity cellulitis Recent diagnosis of non-small cell lung cancer no treatment initiated yet. History of underlying COPD History of chronic alcohol abuse History of BPH. Recommendation: Continue antibiotics including vancomycin and Unasyn as per infectious disease on the case. Continue the code but 19 cocktail. Patient is on Decadron and vitamin C vitamin D and zinc Continue Lovenox 40 mg subcu daily Chest x-ray was reviewed, and seems to be reassuring. Patient will need eventual follow-up on his right upper lobe malignancy, and I believe he is already scheduled to see oncology. At this point, considering his overall condition, lobectomy is not even an option, patient is a poor candidate for surgery We will continue to follow. Time with Patient: Less than 30
--- NOTE | 2020-10-03 12:28 | P.CONS ---
History of Present Illness - Reason for Consult Consult date: 10/03/20 wound care - History of Present Illness Is a 65-year-old patient being seen on 4 S. for a nonhealing ulceration to the right calcaneus. Patient also has irritation and redness to bilateral lower extremity. No open ulcerations are noted to bilateral lower extremity. The right calcaneus ulceration is a stae 2 ulceration with fat layer exposure wound edges are attached to the wound base. There is significant amount of slough noted within the wound bed and granulation seen throughout the wound base. Patient states that he's been utilizing Unna boots to the site with vascular surgery. He does have significant amount of pain to the left foot digits. No open ulcerations are noted. Patient's past medical history significant for COPD, memory impairment. Patient was seen previously in the wound care center which he did not like the wound care doctor and would not come back again. He has been receiving his wound care through home care. Review Of Systems: Constitutional: No fever, no chills, no night sweats. No weight change. No weakness, fatigue or lethargy. No daytime sleepiness. Integumentary:reports wounds, no lesions. No rash or pruritus. No unusual bruising. No change in hair or nails. Physical exam: General Appearance: Alert, cooperative, no distress, appears stated age. Skin: See HPI all other Skin color, texture, tugor normal, no rashes or lesions. Neurologic: Alert oriented x3 Assessment 1. Stage II pressure ulcer right calcaneus with fat layer exposure 2. Bilateral lower extremity irritation Plan: 1. Apply honey alginate, saline moistened gauze, dry gauze, rolled gauze and secure with paper tape. Change Tuesday. Utilize foam heel protectors. No weightbearing to the right calcaneus. Patient to continue with the dressings until healed. Thank you for the consultation any questions contact the wound care center DNP note has been reviewed and discussed with Dr. Tolentino and the impression and plan of care has been directed as dictated. 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 History of Any Multi-Drug Resistant Organisms: None Reported Past Surgical History: Orthopedic Surgery Additional Past Surgical History / Comment(s): liver biopsy, left thumb surgery left arm fasciotomy, BILAT CATARACTS REMOVED WITH LENS IMPLANTS Past Anesthesia/Blood Transfusion Reactions: No Reported Reaction Past Psychological History: No Psychological Hx Reported Smoking Status: Current every day smoker Past Drug Use History: Marijuana - Past Family History Father History Unknown: Yes Family Medical History: Myocardial Infarction ([place]) Additional Family Medical History / Comment(s): Father of a [place] at the age of 57yrs. Mother Additional Family Medical History / Comment(s): Mother had a tumor in her heart/surgery to remove and of post op infection. Medications and Allergies Home Medications Medication Instructions Recorded Confirmed Type Furosemide [Lasix] 40 mg PO DAILY 06/02/20 10/01/20 History Ibuprofen [Motrin] 800 mg PO TID PRN 10/01/20 10/01/20 History Pregabalin [Lyrica] 150 mg PO BID 10/01/20 10/01/20 History Allergies Allergy/AdvReac Type Severity Reaction Status Date / Time No Known Allergies Allergy Verified 06/04/20 10:11 Physical Exam Vitals: Vital Signs Temp Pulse Pulse Resp BP BP Pulse Ox 10/03/20 09:48 98.8 F 60 16 143/70 91 L 10/03/20 05:23 97.9 F 101 H 116/67 90 L 10/03/20 02:26 98.5 F 99 124/71 90 L 10/02/20 22:00 99.4 F 117 H 17 115/80 90 L 10/02/20 16:00 17 10/02/20 15:29 97.2 F L 85 18 132/90 97 10/02/20 12:27 85 18 132/90 97 Intake and Output 10/02/20 10/03/20 10/03/20 22:59 06:59 14:59 Output Total 1225 750 Balance -1225 -750 Output: Urine 1225 750 Other: Voiding Method Urinal # Voids 2 Results CBC & Chem 7: 10/03/20 08:10 10/03/20 02:19 Labs: Abnormal Lab Results - Last 24 Hours (Table) 10/02/20 10/03/20 Range/Units 05:10 08:10 WBC 15.6 H (3.8-10.6) k/uL RBC 4.29 L (4.30-5.90) m/uL Neutrophils # 14.0 H (1.3-7.7) k/uL Lymphocytes # 0.8 L (1.0-4.8) k/uL Creatinine 0.5 L (0.6-1.5) mg/dL Glucose 124 H (70-110) mg/dL Calcium 8.6 L (8.7-10.3) mg/dL Assessment and Plan (1) Stage II pressure ulcer of right heel Current Visit: Yes Status: Acute Code(s): L89.612 - PRESSURE ULCER OF RIGHT HEEL, STAGE 2 SNOMED Code(s): 021936092 (2) Bilateral lower leg cellulitis Current Visit: Yes Status: Acute Code(s): L03.116 - CELLULITIS OF LEFT LOWER LIMB; L03.115 - CELLULITIS OF RIGHT LOWER LIMB SNOMED Code(s): 713060136
--- NOTE | 2020-10-03 13:14 | P.PN ---
Subjective Progress Note Date: 10/03/20 Principal diagnosis: Bilateral lower extremity pain, cellulitis The patient is seen and examined lying in bed. States his pain in bilateral lower extremities has improved some. Swelling in the right lower extremity has improved. He has been afebrile, with no acute changes through the night. Her extremity arterial study although suboptimal shows likely some peripheral arter ial disease in the right lower extremity. Objective - Vital Signs Vital signs: Vital Signs Temp 98.8 F 10/03/20 09:48 Pulse 60 10/03/20 09:48 Resp 16 10/03/20 09:48 BP 143/70 10/03/20 09:48 Pulse Ox 91 L 10/03/20 09:48 Intake & Output 10/02/20 10/03/20 10/03/20 18:59 06:59 18:59 Output Total 600 1375 Balance -600 -1375 Weight 70.307 kg Output: Urine 600 1375 Other: Voiding Method Urinal # Voids 2 - Exam General appearance: The patient is alert, oriented, in no acute distress. HET: Head is normocephalic and atraumatic. Extremities: Left lower extremity with swelling and cellulitis. Right lower extremity with improved redness and swelling. Pressure ulcer on the right heel. Neurological: No focal deficits. Strength and sensation are grossly intact. - Labs CBC & Chem 7: 10/03/20 08:10 10/03/20 02:19 Labs: Abnormal Lab Results - Last 24 Hours (Table) 10/02/20 10/03/20 Range/Units 05:10 08:10 WBC 15.6 H (3.8-10.6) k/uL RBC 4.29 L (4.30-5.90) m/uL Neutrophils # 14.0 H (1.3-7.7) k/uL Lymphocytes # 0.8 L (1.0-4.8) k/uL Creatinine 0.5 L (0.6-1.5) mg/dL Glucose 124 H (70-110) mg/dL Calcium 8.6 L (8.7-10.3) mg/dL Assessment and Plan Assessment: 1. Peripheral arterial disease 2. Bilateral lower extremity cellulitis 3. Lower extremity Venous stasis 4. Peripheral neuropathy 5. Tobacco abuse 6. History of alcohol abuse 7. Recent diagnosis of non-small cell lung cancer 8. Positive Covid-19 PCR Plan: 1. Supportive care 2. Arterial Doppler studies reviewed 3. Consult wound care with local wound care 4. Infectious disease on consult, follow recommendations for IV antibiotics 5. Continue Lyrica 6. There is no indication for any vascular surgical intervention at this time patient may follow-up with vascular surgery in outpatient basis The impression and plan of care has been dictated as directed. Dr. Alfaro I performed a history and examination of this patient, discussed the same with the dictator. I agree with the dictator's note ,documented as a scribe. Any additional findings or plans will be noted.
--- NOTE | 2020-10-03 15:23 | P.CONS ---
History of Present Illness - Reason for Consult Consult date: 10/03/20 Lung Cancer Requesting physician: Ye Scott - Chief Complaint COvid - History of Present Illness Ti was recently seen by Dr. Lozano in office for concern of new lung cancer dx. 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 CT Scan Jun 04 revealed increased size of RUL mass to 2.5 cm, as well as, development of R paratracheal and subcarinal lymphadenopathy. He had navigational bronchoscopy by Dr Wen on 06/04/2020 revealed Pulmonary adenocarcinoma. The patient denies anorexia or weight loss, has chronic exertional dyspnea, denies hemoptysis. He smoked 1 PPD X 45 years, continues to smoke. Consumes 12 beers/day and claims to have stopped drinking 2 weeks ago. He denied family history of malignancy. 09/24/20: Stated being tired, having numbness & tingling in hands/feet, he is frustrated because insurance can't arrange transportations. PET Scan: Stage III disease, PTEN mutated, PD-L1 positive He now presents with COVID and Cellulitis (failing outpatient treatment). 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 History of Any Multi-Drug Resistant Organisms: None Reported Past Surgical History: Orthopedic Surgery Additional Past Surgical History / Comment(s): liver biopsy, left thumb surgery left arm fasciotomy, BILAT CATARACTS REMOVED WITH LENS IMPLANTS Past Anesthesia/Blood Transfusion Reactions: No Reported Reaction Past Psychological History: No Psychological Hx Reported Smoking Status: Current every day smoker Past Drug Use History: Marijuana - Past Family History Father History Unknown: Yes Family Medical History: Myocardial Infarction ([place]) Additional Family Medical History / Comment(s): Father of a [place] at the age of 57yrs. Mother Additional Family Medical History / Comment(s): Mother had a tumor in her heart/surgery to remove and of post op infection. Medications and Allergies Home Medications Medication Instructions Recorded Confirmed Type Furosemide [Lasix] 40 mg PO DAILY 06/02/20 10/01/20 History Ibuprofen [Motrin] 800 mg PO TID PRN 10/01/20 10/01/20 History Pregabalin [Lyrica] 150 mg PO BID 10/01/20 10/01/20 History Allergies Allergy/AdvReac Type Severity Reaction Status Date / Time No Known Allergies Allergy Verified 06/04/20 10:11 Physical Exam Vitals: Vital Signs Temp Pulse Pulse Resp BP BP Pulse Ox 10/03/20 09:48 98.8 F 60 16 143/70 91 L 10/03/20 05:23 97.9 F 101 H 116/67 90 L 10/03/20 02:26 98.5 F 99 124/71 90 L 10/02/20 22:00 99.4 F 117 H 17 115/80 90 L 10/02/20 16:00 17 10/02/20 15:29 97.2 F L 85 18 132/90 97 Intake and Output 10/03/20 10/03/20 10/03/20 06:59 14:59 22:59 Output Total 750 Balance -750 Output: Urine 750 - Constitutional General appearance: cooperative, no acute distress - EENT Eyes: EOMI, PERRLA ENT: hard of hearing, NA/AT, normal oropharynx - Neck Neck: normal ROM - Respiratory Respiratory: bilateral: rhonchi (increased effort) - Cardiovascular Rhythm: regularly irregular leg Peripheral Edema: bilateral: 2+ (bilateral ulcerations and bandages) - Gastrointestinal General gastrointestinal: soft, tenderness - Integumentary Integumentary: pale - Neurologic Neurologic: CNII-XII intact - Musculoskeletal Musculoskeletal: generalized weakness - Psychiatric Psychiatric: A&O x's 3 Results CBC & Chem 7: 10/03/20 08:10 10/03/20 02:19 Labs: Abnormal Lab Results - Last 24 Hours (Table) 10/02/20 10/03/20 Range/Units 05:10 08:10 WBC 15.6 H (3.8-10.6) k/uL RBC 4.29 L (4.30-5.90) m/uL Neutrophils # 14.0 H (1.3-7.7) k/uL Lymphocytes # 0.8 L (1.0-4.8) k/uL Creatinine 0.5 L (0.6-1.5) mg/dL Glucose 124 H (70-110) mg/dL Calcium 8.6 L (8.7-10.3) mg/dL Assessment and Plan (1) Non-small cell cancer of right lung Current Visit: Yes Status: Acute Code(s): C34.91 - MALIGNANT NEOPLASM OF UNSP PART OF RIGHT BRONCHUS OR LUNG SNOMED Code(s): 212895444 (2) COVID-19 Current Visit: Yes Status: Acute Code(s): U07.1 - COVID-19 SNOMED Code(s): 401061130 (3) Bilateral lower leg cellulitis Current Visit: Yes Status: Acute Code(s): L03.116 - CELLULITIS OF LEFT LOWER LIMB; L03.115 - CELLULITIS OF RIGHT LOWER LIMB SNOMED Code(s): 191405415 Plan: With known cancer diagnosis and positive COVID - recommend full dose anticoagulation for increased risk of thrombolic event Dr. Huber consultation to continue to monitor for start of concurrent radiation and chemotherapy (plan after resolution of acute picture) Pulmonary following and continued supportive care Physcian attest: I have completed the full history and physical and agree with above dictation, dictated as a scribe,.
[2020-10-03] MEDS: HYDROmorphone 1 MG/ML 1 ML SYRINGE IVP PRN (16:53)
--- NOTE | 2020-10-03 21:04 | P.PN ---
Progress Note - Text Progress Note Date: 10/03/20 Chief Complaint: Redness lower extremity History of presenting complaint: This is a 65-year-old patient who follows with Dr. Garcia. Patient's chronic stable medical conditions includes some cognitive impairment, painful peripheral neuropathy in both hand and feet, smoker has been diagnosed with right upper lobe lung mass with a negative PET scan currently no treatment, as best as exposure. Patient lives with his son and his girlfriend.. Does use a battery operated wheelchair. Patient has a home nurse who takes care of her lower extremities. Patient has noted increasing pain and redness and sometimes some drainage from the lower extremity. With swelling. Denies any fever and chills. Patient also got a cough some shortness of breath. A bit congested the chest. Denies any obvious fever and chills Admitted with: Acute on chronic bilateral lower extremity cellulitis, acute COPD exacerbation, COVID 19 infection. Today-sitting up in bed. Bringing up chunks of sputum. Thickened yellow in color. Wheezing. Appetite fair. Short of breath Review of systems: Was done for constitutional, cardiovascular, GI, pulmonary. relevant finding as above Active Medications Albuterol Sulfate (Albuterol Hfa Inhaler) 4 puff INHALATION RT-QID [facility] Last Admin: 10/03/20 20:12 Dose: Not Given Documented by: Ascorbic Acid (Ascorbic Acid 500 Mg Tab) 1,000 mg PO DAILY [facility] Last Admin: 10/03/20 08:18 Dose: 1,000 mg Documented by: Cholecalciferol (Cholecalciferol 25 Mcg (1000 Iu) Tablet) 125 mcg PO DAILY [facility] Last Admin: 10/03/20 08:18 Dose: 125 mcg Documented by: Dexamethasone (Dexamethasone 2 Mg Tab) 6 mg PO DAILY [facility] Last Admin: 10/03/20 08:16 Dose: 6 mg Documented by: Enoxaparin Sodium (Enoxaparin 40 Mg/0.4 Ml Syringe) 40 mg SQ DAILY@2200 [facility] Last Admin: 10/02/20 21:00 Dose: Not Given Documented by: Hydromorphone HCl (Hydromorphone 1 Mg/Ml 1 Ml Syringe) 1 mg IVP Q3HR PRN PRN Reason: Severe Pain Last Admin: 10/03/20 16:53 Dose: 1 mg Documented by: Sodium Chloride (Saline 0.9%) 1,000 mls @ 130 mls/hr IV .Q7H42M [facility] Last Admin: 10/03/20 17:01 Dose: Not Given Documented by: Ampicillin Sodium/Sulbactam (Sodium 3 gm/ Sodium Chloride) 100 mls @ 200 mls/hr IVPB Q6H [facility] Last Admin: 10/03/20 16:56 Dose: 200 mls/hr Documented by: Miconazole Nitrate (Miconazole Nitrate 2% Cream 14 Gm Tube) 1 applic TOPICAL BID [facility] Last Admin: 10/03/20 08:19 Dose: 1 applic Documented by: Naloxone HCl (Naloxone 0.4 Mg/Ml 1 Ml Vial) 0.2 mg IV Q2M PRN PRN Reason: Opioid Reversal Nicotine (Nicotine 21mg/24hr Patch) 1 patch TRANSDERM DAILY [facility] Last Admin: 10/03/20 08:19 Dose: Not Given Documented by: Pregabalin (Pregabalin 75 Mg Cap) 150 mg PO BID [facility] Last Admin: 10/03/20 20:00 Dose: 150 mg Documented by: Zinc Sulfate (Zinc Sulfate 220 Mg Cap) 220 mg PO DAILY [facility] Last Admin: 10/03/20 08:18 Dose: 220 mg Documented by: Past medical history to include: COPD, cognitive impairment, bilateral lower extremity chronic cellulitis and wounds, peripheral neuropathy, smoker, right upper lobe lung mass with a negative PET scan, chronic anemia as best as exposure chronic left shoulder pain. Social history: Visit his son and his girlfriend. Gets about of the [employer]. Patient [facility] [place] smoking at the age of 10 up to pack and a half to 2 packs a day now down to one half a pack a day. Up to about a year ago he was drinking 4 cases of beer a week is not down to 6 Paxil 2 bottles of wine a week. Does use marijuana Gummi's Physical examination: VITAL SIGNS: 99, 56, 16, 140/76, 92% room air GENERAL: BMI 22.9, sitting up in bed, coughing up thick sputum EYES: Pupils equal. Conjunctiva normal. HEENT: External appearance of nose and ears normal, oral cavity grossly normal. NECK: JVD not raised; masses not palpable. HEART: First and second heart sounds are normal; edema present. LUNGS: Respiratory rate increased, decreased breath sounds prolonged expiration and wheezing. ABDOMEN: Soft, nontender, liver spleen not palpable, no masses palpable. PSYCH: Alert and oriented x3; mood and affect slightly anxiousl. NEUROLOGICAL: Cranial nerves grossly intact; no facial asymmetry, power and sensation are decreased distally. DERMATOLOGICAL: Lower extremity redness with superficial breakdown of skin, tenderness edema INVESTIGATIONS, reviewed in the clinical context: October 03: WBC 15.6 hemoglobin 13.2 procalcitonin 0.06 Chest x-ray film personally reviewed by me-right upper nodule, hyperinflation WBC 18.8 hemoglobin 14.8 platelets 331 potassium 3.8 creatinine 0.48 Lactic acid 3. 0 repeat 1.6 CRP 46.8 Coronavirus [PCR]-detected proBNP 1530 Assessment and plan: -Acute on chronic bilateral lower extremity cellulitis, worsened by underlying peripheral arterial disease. Consult ID. honey alginate, saline moistened gauze, dry gauze,. IV Unasyn -Stage II pressure ulcer right calcaneum with fat layer exposure, POA Foam heel protectors -Acute COPD exacerbation in current smoker-slow to respond Bronchodilators, steroids -Chronic nicotine dependence patient is a cigarette smoker Nicotine patch -Mild cognitive impairment -Painful peripheral neuropathy Continue with Lyrica -Right upper lobe lung mass with a known negative PET scan. Patient has not had any further workup or follow-up with seizures. Oncology is consulted Dr. Huber from radiation oncology. -Chronic medical debility. Does use electronic cart Consult PTOT -Social issues including placement. Consult case resolution specialist and social media assistant. -COVID 19 infection On dexamethasone. Subcu Lovenox Continue wound care as per ID. Sputum sent off for his Gram stain and culture. beet worker looking into placement. Radiation oncology consulted. Add Mucinex
[2020-10-03] MEDS: guaiFENesin 600 MG TABLET.ER PO SCH (21:31)
[2020-10-04] MEDS: SODIUM CHLORIDE 0.9% 1,000 ML IV SCH ×4 (01:26→23:36)
[2020-10-04] MEDS: AMPICILLIN-SULBACTAM 3 GM in SODIUM CHLORIDE 0.9% 100 ML IVPB SCH ×4 (04:59→23:33)
--- NOTE | 2020-10-04 06:09 | PN ---
PROGRESS NOTE DATE OF SERVICE: 10/03/2020 REASON FOR FOLLOWUP: 1. Bilateral lower extremity ulceration and cellulitis. 2. COVID-19 infection. INTERVAL HISTORY: Patient is currently afebrile. Patient slightly sleepy and lethargic and not able to provide any medical history today. No vomiting, diarrhea and change has been reported. PHYSICAL EXAMINATION: Blood pressure 134/70 with a pulse of 90, temperature 98.5. He is 92% on room air. General description is a middle-aged male lying in bed in no distress. Respiratory system: Unlabored breathing with decreased breath sounds at the bases. Heart S1, S2. Regular rate and rhythm. ABDOMEN: Soft, no tenderness. Bilateral lower extremities with venous stasis dermatitis, though redness slightly decreased. No drainage. LABS: Hemoglobin is 13.1, white count down to 15.6, creatinine 0.6. IMPRESSION/PLAN: 1. Patient with bilateral lower extremity venous stasis dermatitis, possible fungal component. Continue local care with Mycolog cream. 2. Continue with Unasyn to cover for the possible cellulitis. 3. For the COVID-19 infection, patient is covered with dexamethasone, Lovenox, zinc and ascorbic acid. May qualify for the remdesivir. Monitor clinical course closely. MMODL / IJN: [id number] /
[2020-10-04] MEDS: CHOLECALCIFEROL 25 MCG (1000 IU) TABLET PO SCH (07:50)
[2020-10-04] MEDS: ASCORBIC ACID 500 MG TAB PO SCH (07:50)
[2020-10-04] MEDS: ZINC SULFATE 220 MG CAP PO SCH (07:51)
[2020-10-04] MEDS: dexAMETHasone 2 MG TAB PO SCH (07:51)
[2020-10-04] MEDS: guaiFENesin 600 MG TABLET.ER PO SCH ×4 (07:51→19:49)
[2020-10-04] MEDS: PREGABALIN 75 MG CAP PO SCH ×2 (07:51→19:49)
[2020-10-04] MEDS: NICOTINE 21MG/24HR PATCH TRANSDERM SCH (07:52)
[2020-10-04] MEDS: MICONAZOLE NITRATE 2% CREAM 14 GM TUBE TOPICAL SCH (07:52)
[2020-10-04] MEDS: ALBUTEROL HFA INHALER INHALATION SCH ×4 (08:16→19:58)
[2020-10-04 08:34] LABS: Basophils # (A) 0.1 k/uL (0-0.2); Basophils % (A) 0 %; Eosinophils # (A) 0.1 k/uL (0-0.7); Eosinophils % (A) 1 %; HCT 40.1 % (39.0-53.0); HGB 13.7 gm/dL (13.0-17.5); Lymphocytes # (A) 2.5 k/uL (1.0-4.8); Lymphocytes % (A) 16 %; MCH 31.1 pg (25.0-35.0); MCHC 34.2 g/dL (31.0-37.0); MCV 90.9 fL (80.0-100.0); Mean Platelet Volume 7.8; Monocytes # (A) 1.1 k/uL (0-1.0); Monocytes % (A) 7 %; Neutrophils # (A) 11.4 k/uL (1.3-7.7); Neutrophils % (A) 74 %; Platelet Count 321 k/uL (150-450); RBC 4.41 m/uL (4.30-5.90); RDW 13.6 % (11.5-15.5); WBC 15.3 k/uL (3.8-10.6)
[2020-10-04 08:57] LABS: ALT 13 U/L (4-49); AST 27 U/L (17-59); African American GFR (CKD) >90 (>60 ml/min/1.73 sqM); Albumin 2.8 g/dL (3.5-5.0); Albumin/Globulin Ratio 0.9; Alkaline Phosphatase 87 U/L (38-126); Anion Gap 5 mmol/L; Blood Urea Nitrogen 11 mg/dL (9-20); Calcium 8.8 mg/dL (8.4-10.2); Carbon Dioxide 26 mmol/L (22-30); Chloride 107 mmol/L (98-107); Globulin 3.1 g/dL; Glucose 98 mg/dL (74-99); Non-African American GFR(CKD) >90 (>60 ml/min/1.73 sqM); Potassium 3.5 mmol/L (3.5-5.1); Sodium 138 mmol/L (137-145); Total Bilirubin 0.4 mg/dL (0.2-1.3); Total Protein 5.9 g/dL (6.3-8.2)
[2020-10-04] MEDS: ACETAMINOPHEN TAB 325 MG TAB PO PRN (12:36)
--- NOTE | 2020-10-04 12:38 | P.PN ---
Subjective Progress Note Date: 10/04/20 Principal diagnosis: Gamez virus infection and chronic lower extremity cellulitis 65-year-old male with a history of COPD, chronic lower extremity cellulitis, and lung cancer, who presents to the emergency room with bilateral lower shimmy pain. The patient was seen on October 01, at 1531. The patient was seen by Dr. Whittington. The patient typically sees a family doctor in the area. And also apparently has a home care nurse to come to the house to 10 to his lower extremity cellulitis and wounds. For a number of days now, the pain is been getting worse, and for that reason he came in to be evaluated. The legs are edematous, painful, and red. The legs have been weeping. He apparently takes Lyrica for pain control. He denied any fever or chills. There is no nausea or vomiting. White count 18.08, hemoglobin 12.8, hematocrit 39.7, and platelet count 348,000. Sodium 138, potassium 3.8, chlorides 96, CO2 33, anion gap 9, BUN 13, creatinine 0.48, and lactic acid 3.0. Repeat lactic acid was 1.6. C- reactive protein is 46.8. The patient did test positive for coronavirus. He is not having typical coronavirus symptoms. The patient apparently has a lesion in the right upper lobe, measuring about 2 cm in size, which is consistent with his known lung cancer. He apparently has not received any treatment as yet. Patient was reevaluated today on 10/03/2020, remains on room air, his O2 saturation is 91%. Patient is not in any distress, patient is receiving antibio tics for his cellulitis which is quite severe and seems to be affecting both lower extremities. Patient denies any cough, no wheezing, no shortness of breath. Leukocytosis is improving down to 15.6. Electrolytes and renal profile are normal. Lactic acid on admission was 1.6. Patient remains on vancomycin and Unasyn. Chest x-ray showed no evidence of focal infiltrate, patient has a persistent right upper lobe nodule consistent with known malignancy measures 2.2 cm. Patient was reevaluated today on 10/04/2020, remains about the same, he has no active pulmonary symptoms whatsoever. Patient is asymptomatic, refusing lots of his medications according to the nurse. From our perspective, the patient has no active pulmonary issues, and he is being followed by oncology for his lung nodule which was proven to be cancerous. We will see the patient on when necessary basis. Objective - Vital Signs Vital signs: Vital Signs Temp 98.2 F 10/04/20 09:57 Pulse 101 H 10/04/20 09:57 Resp 17 10/04/20 09:57 BP 175/75 10/04/20 09:57 Pulse Ox 92 L 10/04/20 09:57 Intake & Output 10/03/20 10/04/20 10/04/20 18:59 06:59 18:59 Intake Total 360 Output Total 425 Balance -65 Intake: Oral 360 Output: Urine 425 Other: Voiding Method Urinal Urinal # Voids 2 4 - Exam GENERAL: Revealed a 65-year-old white male in no distress. On room air. EYES: PERRLA, EOMI, anicteric.. HEENT: External appearance of nose and ears normal, oral cavity grossly normal. NECK: Supple no neck masses no JVD no stridor. HEART: Normal S1 and S2, no S3 gallop. LUNGS: Symmetrical chest expansion, no crackles or rhonchi or wheezes. ABDOMEN: Soft nontender no megaly no rebound no guarding. PSYCH: Normal mood affect and normal mental status examination. NEUROLOGICAL: Alert and oriented 3 no gross focal deficits. DERMATOLOGICAL: Evidence of chronic venous stasis dermatitis with cellulitis, no purulent discharge noted. Or drainage LYMPHATICS: No palpable adenopathy. - Labs CBC & Chem 7: 10/04/20 08:08 10/04/20 08:08 Labs: Abnormal Lab Results - Last 24 Hours (Table) 10/04/20 10/04/20 Range/Units 08:08 08:08 WBC 15.3 H (3.8-10.6) k/uL Neutrophils # 11.4 H (1.3-7.7) k/uL Monocytes # 1.1 H (0-1.0) k/uL Creatinine 0.53 L (0.66-1.25) mg/dL Total Protein 5.9 L (6.3-8.2) g/dL Albumin 2.8 L (3.5-5.0) g/dL Assessment and Plan Assessment: Impression: Gamez virus infection without pulmonary symptoms Chronic lower extremity cellulitis Recent diagnosis of non-small cell lung cancer no treatment initiated yet. History of underlying COPD History of chronic alcohol abuse History of BPH. Recommendation: Continue antibiotics as per infectious disease on the case. Continue the the culprit 19 cocktail. Continue Lovenox 40 mg subcu daily Chest x-ray was reviewed, and seems to be reassuring. We will sign off and see on when necessary basis. Time with Patient: Less than 30
[2020-10-04] MEDS: HYDROmorphone 1 MG/ML 1 ML SYRINGE IVP PRN ×2 (16:16→19:48)
[2020-10-04] MEDS: ENOXAPARIN 40 MG/0.4 ML SYRINGE SQ SCH (19:47)
--- NOTE | 2020-10-04 20:02 | PN ---
PROGRESS NOTE DATE OF SERVICE: 10/04/2020 REASON FOR FOLLOWUP: Bilateral lower extremity venous stasis, dermatitis and cellulitis. INTERVAL HISTORY: The patient is currently afebrile. He is breathing comfortably currently on room air. Patient denies having any chest pain or cough. No abdominal pain or diarrhea. PHYSICAL EXAMINATION: Blood pressure 158/81 with a pulse of 107, temperature 98.1. He is 93% on room air. General description: The patient is a middle-aged male up in the bed in no distress. Respiratory system: Unlabored breathing, with decreased intensity of breath sounds, no wheeze. Heart S1, S2. Regular rate and rhythm. Abdomen: Soft, no tenderness. Lower extremity did have dry scaly skin and some superficial ulceration. Redness has decreased. LABS: Hemoglobin 13.1, white count 15.3, BUN of 11, creatinine 0.59. DIAGNOSTIC IMPRESSION AND PLAN: Patient with extensive bilateral lower extremity venous stasis dermatitis with cellulitis. Will advise Mycolog cream along with Unasyn and monitor clinical course closely. MMODL / IJN: [id number] /
[2020-10-04] MEDS: TRIAMCINOLONE ACET 0.1% OINTMENT 80 GM TUBE TOPICAL SCH (20:23)
[2020-10-04] MEDS: NYSTATIN 100,000 UNIT/GM OINT 30 GM TUBE TOPICAL SCH (20:23)
[2020-10-04] MEDS ORDERED: CLOTRIMAZOLE 1% CREAM 30 GM TUBE TOPICAL SCH (21:00)
--- NOTE | 2020-10-04 22:55 | P.PN ---
Progress Note - Text Progress Note Date: 10/04/20 Chief Complaint: Redness lower extremity History of presenting complaint: This is a 65-year-old patient who follows with Dr. Garcia. Patient's chronic stable medical conditions includes some cognitive impairment, painful peripheral neuropathy in both hand and feet, smoker has been diagnosed with right upper lobe lung mass with a negative PET scan currently no treatment, as best as exposure. Patient lives with his son and his girlfriend.. Does use a battery operated wheelchair. Patient has a home nurse who takes care of her lower extremities. Patient has noted increasing pain and redness and sometimes some drainage from the lower extremity. With swelling. Denies any fever and chills. Patient also got a cough some shortness of breath. A bit congested the chest. Denies any obvious fever and chills Admitted with: Acute on chronic bilateral lower extremity cellulitis, acute COPD exacerbation, COVID 19 infection. Today-feeling tired today. Some cough. Not eating much. Wants to sleep. Review of systems: Was done for constitutional, cardiovascular, GI, pulmonary. relevant finding as above Active Medications Acetaminophen (Acetaminophen Tab 325 Mg Tab) 650 mg PO Q6HR PRN PRN Reason: Fever and/ or Mild Pain Last Admin: 10/04/20 12:36 Dose: 650 mg Documented by: Albuterol Sulfate (Albuterol Hfa Inhaler) 4 puff INHALATION RT-QID [facility] Last Admin: 10/04/20 19:58 Dose: Not Given Documented by: Ascorbic Acid (Ascorbic Acid 500 Mg Tab) 1,000 mg PO DAILY [facility] Last Admin: 10/04/20 07:50 Dose: 1,000 mg Documented by: Cholecalciferol (Cholecalciferol 25 Mcg (1000 Iu) Tablet) 125 mcg PO DAILY [facility] Last Admin: 10/04/20 07:50 Dose: 125 mcg Documented by: Dexamethasone (Dexamethasone 2 Mg Tab) 6 mg PO DAILY [facility] Last Admin: 10/04/20 07:51 Dose: 6 mg Documented by: Enoxaparin Sodium (Enoxaparin 40 Mg/0.4 Ml Syringe) 40 mg SQ DAILY@2200 [facility] Last Admin: 10/04/20 19:47 Dose: Not Given Documented by: Guaifenesin (Guaifenesin 600 Mg Tablet.Er) 600 mg PO QID [facility] Last Admin: 10/04/20 19:49 Dose: 600 mg Documented by: Hydromorphone HCl (Hydromorphone 1 Mg/Ml 1 Ml Syringe) 1 mg IVP Q3HR PRN PRN Reason: Severe Pain Last Admin: 10/04/20 19:48 Dose: 1 mg Documented by: Sodium Chloride (Saline 0.9%) 1,000 mls @ 130 mls/hr IV .Q7H42M [facility] Last Admin: 10/04/20 16:53 Dose: 130 mls/hr Documented by: Ampicillin Sodium/Sulbactam (Sodium 3 gm/ Sodium Chloride) 100 mls @ 200 mls/hr IVPB Q6H [facility] Last Admin: 10/04/20 16:53 Dose: 200 mls/hr Documented by: Naloxone HCl (Naloxone 0.4 Mg/Ml 1 Ml Vial) 0.2 mg IV Q2M PRN PRN Reason: Opioid Reversal Nicotine (Nicotine 21mg/24hr Patch) 1 patch TRANSDERM DAILY [facility] Last Admin: 10/04/20 07:52 Dose: Not Given Documented by: Nystatin (Nystatin 100,000 Unit/Gm Oint 30 Gm Tube) 1 applic TOPICAL BID [facility] Last Admin: 10/04/20 20:23 Dose: 1 applic Documented by: Pregabalin (Pregabalin 75 Mg Cap) 150 mg PO BID [facility] Last Admin: 10/04/20 19:49 Dose: 150 mg Documented by: Triamcinolone Acetonide (Triamcinolone Acet 0.1% Ointment 80 Gm Tube) 1 applic TOPICAL BID [facility] Last Admin: 10/04/20 20:23 Dose: 1 applic Documented by: Zinc Sulfate (Zinc Sulfate 220 Mg Cap) 220 mg PO DAILY [facility] Last Admin: 10/04/20 07:51 Dose: 220 mg Documented by: Past medical history to include: COPD, cognitive impairment, bilateral lower extremity chronic cellulitis and wounds, peripheral neuropathy, smoker, right upper lobe lung mass with a negative PET scan, chronic anemia as best as exposure chronic left shoulder pain. Social history: Visit his son and his girlfriend. Gets about of the [employer]. Patient started smoking at the age of 10 up to pack and a half to 2 packs a day now down to one half a pack a day. Up to about a year ago he was drinking 4 cases of beer a week is not down to 6 Paxil 2 bottles of wine a week. Does use marijuana Gummi's Physical examination: VITAL SIGNS: 99.1, 107, 18, 158/81, 93% on room air GENERAL: Reclining in bed, tired EYES: Pupils equal. Conjunctiva normal. HEENT: External appearance of nose and ears normal, oral cavity grossly normal. NECK: JVD not raised; masses not palpable. HEART: First and second heart sounds are normal; edema present. LUNGS: Respiratory rate increased, decreased breath sounds prolonged expiration and wheezing. ABDOMEN: Soft, nontender, liver spleen not palpable, no masses palpable. PSYCH: Sleepy today DERMATOLOGICAL: Lower extremity redness with superficial breakdown of skin, tenderness edema INVESTIGATIONS, reviewed in the clinical context: October 04: WBC 15.3 hemoglobin 13.7 potassium 3.5 creatinine 0.53 October 03: WBC 15.6 hemoglobin 13.2 procalcitonin 0.06 Chest x-ray film personally reviewed by me-right upper nodule, hyperinflation WBC 18.8 hemoglobin 14.8 platelets 331 potassium 3.8 creatinine 0.48 Lactic acid 3. 0 repeat 1.6 CRP 46.8 Coronavirus [PCR]-detected proBNP 1530 Assessment and plan: -Acute on chronic bilateral lower extremity cellulitis, worsened by underlying peripheral arterial disease. Consult ID. honey alginate, saline moistened gauze, dry gauze,. IV Unasyn -Stage II pressure ulcer right calcaneum with fat layer exposure, POA Foam heel protectors -Acute COPD exacerbation in current smoker-slow to respond Bronchodilators, steroids -Chronic nicotine dependence patient is a cigarette smoker Nicotine patch -Mild cognitive impairment -Painful peripheral neuropathy Continue with Lyrica -Right upper lobe lung mass with a known negative PET scan. Patient has not had any further workup or follow-up with seizures. Oncology is consulted Dr. Huber from radiation oncology. -Chronic medical debility. Does use electronic cart Consult PTOT -Social issues including placement. Consult caser up and social worker psychiatric. -COVID 19 infection On dexamethasone. Subcu Lovenox Continue current medications.
[2020-10-05] MEDS: HYDROmorphone 1 MG/ML 1 ML SYRINGE IVP PRN ×3 (06:16→17:52)
[2020-10-05] MEDS: AMPICILLIN-SULBACTAM 3 GM in SODIUM CHLORIDE 0.9% 100 ML IVPB SCH ×3 (06:17→17:45)
[2020-10-05] MEDS: SODIUM CHLORIDE 0.9% 1,000 ML IV SCH (06:18)
[2020-10-05] MEDS: NICOTINE 21MG/24HR PATCH TRANSDERM SCH (08:19)
[2020-10-05] MEDS: PREGABALIN 75 MG CAP PO SCH ×2 (08:21→20:07)
[2020-10-05] MEDS: guaiFENesin 600 MG TABLET.ER PO SCH ×4 (08:21→20:08)
[2020-10-05] MEDS: dexAMETHasone 2 MG TAB PO SCH (08:21)
[2020-10-05] MEDS: ASCORBIC ACID 500 MG TAB PO SCH (08:21)
[2020-10-05] MEDS: CHOLECALCIFEROL 25 MCG (1000 IU) TABLET PO SCH (08:21)
[2020-10-05] MEDS: ZINC SULFATE 220 MG CAP PO SCH (08:21)
[2020-10-05] MEDS: NYSTATIN 100,000 UNIT/GM OINT 30 GM TUBE TOPICAL SCH ×2 (08:22→20:08)
[2020-10-05] MEDS: TRIAMCINOLONE ACET 0.1% OINTMENT 80 GM TUBE TOPICAL SCH ×2 (08:22→20:08)
[2020-10-05] MEDS: ALBUTEROL HFA INHALER INHALATION SCH ×4 (09:02→20:46)
[2020-10-05] MEDS: ENOXAPARIN 40 MG/0.4 ML SYRINGE SQ SCH (20:05)
--- NOTE | 2020-10-05 20:27 | PN ---
PROGRESS NOTE DATE OF SERVICE: 10/05/2020 REASON FOR FOLLOWUP VISIT: 1. Bilateral lower extremity stasis dermatitis and cellulitis. 2. COVID-19 infection. INTERVAL HISTORY: The patient is currently afebrile. The patient is breathing comfortably currently on room air. Denies having any chest pain. He did have a cough with clear sputum. No abdominal pain. Overall pain and discomfort to lower extremity has improved. PHYSICAL EXAMINATION: Blood pressure 148/83, pulse of 108, temperature is 98. He is 94% on room air. General description is a middle-aged male up in the room in no distress. Respiratory system: Unlabored breathing, decreased intensity of breath sounds. No wheeze. Heart: S1, S2. Regular rate and rhythm. Abdomens soft, no tenderness. LAB: D-dimer [place] 1.09. CRP is down to 27.9. DIAGNOSTIC IMPRESSION AND PLAN: 1. Patient with bilateral lower extremity venous stasis dermatitis and cellulitis. Patient is covered with Unasyn and Mycolog cream to continue. 2. Patient with COVID-19 infection, no hypoxemia. Continue with zinc, ascorbic acid, Lovenox and finish therapy with oral Augmentin and Mycolog cream for cellulitis and close outpatient followup. MMODL / IJN: [id number] /
--- NOTE | 2020-10-05 20:31 | P.PN ---
Progress Note - Text Progress Note Date: 10/05/20 Chief Complaint: Redness lower extremity History of presenting complaint: This is a 65-year-old patient who follows with Dr. Garcia. Patient's chronic stable medical conditions includes some cognitive impairment, painful peripheral neuropathy in both hand and feet, smoker has been diagnosed with right upper lobe lung mass with a negative PET scan currently no treatment, as best as exposure. Patient lives with his son and his girlfriend.. Does use a battery operated wheelchair. Patient has a home nurse who takes care of her lower extremities. Patient has noted increasing pain and redness and sometimes some drainage from the lower extremity. With swelling. Denies any fever and chills. Patient also got a cough some shortness of breath. A bit congested the chest. Denies any obvious fever and chills Admitted with: Acute on chronic bilateral lower extremity cellulitis, acute COPD exacerbation, COVID 19 infection. Patient rather picky about the food. Today-nurse informed me that patient having only drinking tea coffee and sometimes water which sugar. This morning that he ate better. Review of systems: Was done for constitutional, cardiovascular, GI, pulmonary. relevant finding as above Active Medications Acetaminophen (Acetaminophen Tab 325 Mg Tab) 650 mg PO Q6HR PRN PRN Reason: Fever and/ or Mild Pain Last Admin: 10/04/20 12:36 Dose: 650 mg Documented by: Albuterol Sulfate (Albuterol Hfa Inhaler) 4 puff INHALATION RT-QID [facility] Last Admin: 10/05/20 16:11 Dose: Not Given Documented by: Ascorbic Acid (Ascorbic Acid 500 Mg Tab) 1,000 mg PO DAILY [facility] Last Admin: 10/05/20 08:21 Dose: 1,000 mg Documented by: Cholecalciferol (Cholecalciferol 25 Mcg (1000 Iu) Tablet) 125 mcg PO DAILY [facility] Last Admin: 10/05/20 08:21 Dose: 125 mcg Documented by: Dexamethasone (Dexamethasone 2 Mg Tab) 6 mg PO DAILY [facility] Last Admin: 10/05/20 08:21 Dose: 6 mg Documented by: Enoxaparin Sodium (Enoxaparin 40 Mg/0.4 Ml Syringe) 40 mg SQ DAILY@2200 [facility] Last Admin: 10/05/20 20:05 Dose: Not Given Documented by: Guaifenesin (Guaifenesin 600 Mg Tablet.Er) 600 mg PO QID [facility] Last Admin: 10/05/20 20:08 Dose: Not Given Documented by: Hydromorphone HCl (Hydromorphone 1 Mg/Ml 1 Ml Syringe) 1 mg IVP Q3HR PRN PRN Reason: Severe Pain Last Admin: 10/05/20 17:52 Dose: 1 mg Documented by: Ampicillin Sodium/Sulbactam (Sodium 3 gm/ Sodium Chloride) 100 mls @ 200 mls/hr IVPB Q6H [facility] Last Admin: 10/05/20 17:45 Dose: 200 mls/hr Documented by: Naloxone HCl (Naloxone 0.4 Mg/Ml 1 Ml Vial) 0.2 mg IV Q2M PRN PRN Reason: Opioid Reversal Nicotine (Nicotine 21mg/24hr Patch) 1 patch TRANSDERM DAILY [facility] Last Admin: 10/05/20 08:19 Dose: Not Given Documented by: Nystatin (Nystatin 100,000 Unit/Gm Oint 30 Gm Tube) 1 applic TOPICAL BID [facility] Last Admin: 10/05/20 20:08 Dose: 1 applic Documented by: Pregabalin (Pregabalin 75 Mg Cap) 150 mg PO BID [facility] Last Admin: 10/05/20 20:07 Dose: 150 mg Documented by: Triamcinolone Acetonide (Triamcinolone Acet 0.1% Ointment 80 Gm Tube) 1 applic TOPICAL BID [facility] Last Admin: 10/05/20 20:08 Dose: 1 applic Documented by: Zinc Sulfate (Zinc Sulfate 220 Mg Cap) 220 mg PO DAILY [facility] Last Admin: 10/05/20 08:21 Dose: 220 mg Documented by: Past medical history to include: COPD, cognitive impairment, bilateral lower extremity chronic cellulitis and wounds, peripheral neuropathy, smoker, right upper lobe lung mass with a negative PET scan, chronic anemia as best as exposure chronic left shoulder pain. Social history: Visit his son and his girlfriend. Gets about of the [employer] Patient started smoking at the age of 10 up to pack and a half to 2 packs a day now down to one half a pack a day. Up to about a year ago he was drinking 4 cases of beer a week is not down to 6 Paxil 2 bottles of wine a week. Does use marijuana Gummi's Physical examination: VITAL SIGNS: 98.9, 105, 16, 136/73, 94% room air GENERAL: Reclining in bed, tired EYES: Pupils equal. Conjunctiva normal. HEENT: External appearance of nose and ears normal, oral cavity grossly normal. NECK: JVD not raised; masses not palpable. HEART: First and second heart sounds are normal; edema present. LUNGS: Respiratory rate increased, decreased breath sounds prolonged expiration and wheezing. ABDOMEN: Soft, nontender, liver spleen not palpable, no masses palpable. PSYCH: Awake, answering questions DERMATOLOGICAL: Lower extremity redness with superficial breakdown of skin, tenderness edema INVESTIGATIONS, reviewed in the clinical context: October 05: D-dimer 1.09 CRP 27.9 October 04: WBC 15.3 hemoglobin 13.7 potassium 3.5 creatinine 0.53 October 03: WBC 15.6 hemoglobin 13.2 procalcitonin 0.06 Chest x-ray film personally reviewed by me-right upper nodule, hyperinflation WBC 18.8 hemoglobin 14.8 platelets 331 potassium 3.8 creatinine 0.48 Lactic acid 3. 0 repeat 1.6 CRP 46.8 Coronavirus [PCR]-detected proBNP 1530 Assessment and plan: -Acute on chronic bilateral lower extremity cellulitis, worsened by underlying peripheral arterial disease. Seen by ID. honey alginate, saline moistened gauze, dry gauze,. IV Unasyn -Stage II pressure ulcer right calcaneum with fat layer exposure, POA Foam heel protectors -Acute COPD exacerbation in current smoker-slow to respond Bronchodilators, steroids -Chronic nicotine dependence patient is a cigarette smoker Nicotine patch -Mild cognitive impairment -Painful peripheral neuropathy Continue with Lyrica -Right upper lobe lung mass with a known negative PET scan. Patient has not had any further workup or follow-up with seizures. Oncology is consulted Dr. Huber from radiation oncology. -Chronic medical debility. Does use electronic cart Consult PTOT -Social issues including placement. Consult case resolution specialist and manager social media. -COVID 19 infection On dexamethasone. Subcu Lovenox Hopefully discharged to [facility] tomorrow
[2020-10-06] MEDS: AMPICILLIN-SULBACTAM 3 GM in SODIUM CHLORIDE 0.9% 100 ML IVPB SCH ×4 (00:21→17:02)
[2020-10-06] MEDS: HYDROmorphone 1 MG/ML 1 ML SYRINGE IVP PRN ×3 (00:28→13:54)
--- NOTE | 2020-10-06 05:02 | XR ---
EXAM: XR Chest, 1 View CLINICAL HISTORY: ITS.REASON XR Reason: shortness of breath TECHNIQUE: Frontal view of the chest. COMPARISON: 10/02/2020 chest x-ray. PET/CT 08/02/20 FINDINGS: Lungs: Mild bibasilar atelectasis or airspace disease. Mildly increased. Right upper lobe nodule obscured by overlying lead. Right paratracheal opacity correlates with adenopathy seen on the CT. Pleural space: Small left pleural effusion or thickening. Similar to prior. No pneumothorax. Heart: Unremarkable. No cardiomegaly. Mediastinum: Unremarkable. Bones/joints: Unremarkable. IMPRESSION: 1. Right upper lobe nodule obscured by overlying lead. Right paratracheal opacity correlates with adenopathy seen on the PET CT. 2. Mild bibasilar atelectasis or airspace disease. Mildly increased. 3. Small left pleural effusion or thickening. Similar to prior.
[2020-10-06] MEDS ORDERED: IPRATROPIUM-ALBUTEROL 3 ML NEB INHALATION PRN (06:27)
[2020-10-06 06:37] LABS: ALT 15 U/L (4-49); AST 30 U/L (17-59); African American GFR (CKD) >90 (>60 ml/min/1.73 sqM); Albumin 2.9 g/dL (3.5-5.0); Albumin/Globulin Ratio 0.9; Alkaline Phosphatase 92 U/L (38-126); Anion Gap 8 mmol/L; Blood Urea Nitrogen 14 mg/dL (9-20); Calcium 8.4 mg/dL (8.4-10.2); Carbon Dioxide 24 mmol/L (22-30); Chloride 100 mmol/L (98-107); Globulin 3.3 g/dL; Glucose 86 mg/dL (74-99); Magnesium 1.7 mg/dL (1.6-2.3); Non-African American GFR(CKD) >90 (>60 ml/min/1.73 sqM); Potassium 3.7 mmol/L (3.5-5.1); Sodium 132 mmol/L (137-145); Total Bilirubin 0.3 mg/dL (0.2-1.3); Total Protein 6.2 g/dL (6.3-8.2)
[2020-10-06] MEDS: NICOTINE 21MG/24HR PATCH TRANSDERM SCH (07:20)
[2020-10-06 08:18] LABS: Basophils # (A) 0.1 k/uL (0-0.2); Basophils % (A) 1 %; Eosinophils # (A) 0.1 k/uL (0-0.7); Eosinophils % (A) 1 %; HCT 45.8 % (39.0-53.0); HGB 14.8 gm/dL (13.0-17.5); Lymphocytes # (A) 1.1 k/uL (1.0-4.8); Lymphocytes % (A) 7 %; MCHC 32.3 g/dL (31.0-37.0); MCV 92.7 fL (80.0-100.0); Mean Platelet Volume 8.4; Monocytes # (A) 0.9 k/uL (0-1.0); Monocytes % (A) 6 %; Neutrophils # (A) 14.1 k/uL (1.3-7.7); Neutrophils % (A) 85 %; Platelet Count 273 k/uL (150-450); RBC 4.94 m/uL (4.30-5.90); RDW 14.1 % (11.5-15.5); WBC 16.5 k/uL (3.8-10.6)
[2020-10-06] MEDS: ALBUTEROL HFA INHALER INHALATION SCH ×4 (09:13→20:41)
[2020-10-06 09:16] LABS: Band Neutrophils % 17 %; Eosinophils # (M) 0.17 k/uL (0-0.7); Lymphocytes # (M) 1.98 k/uL (1.0-4.8); Metamyelocytes # (M) 0.17 k/uL (0); Metamyelocytes % 1 %; Monocytes # (M) 1.49 k/uL (0-1.0); Neutrophils % (M) 61 %; Nucleated Red Blood Cells 0 /100 WBC (0-0); Total Cells Counted 200
--- NOTE | 2020-10-06 09:27 | CT ---
EXAMINATION TYPE: CT brain wo con DATE OF EXAM: 10/06/2020 COMPARISON: 03/07/2020 HISTORY: 65-year-old male Fall, hit left side of the head. TECHNIQUE: Examination was done in axial plane without intravenous contrast. Coronal and sagittal r econstructions performed. CT DLP: 1099.4 mGycm Automated exposure control for dose reduction was used. FINDINGS: There is no evidence of acute intracranial hemorrhage, acute ischemic changes, mass, mass-effect, or extra-axial fluid collection. There is no effacement of cerebral sulci or basal subarachnoid cister ns. There is no hydrocephalus. There is no midline shift. Mueller-white matter distinction is preserv ed. Atherosclerotic calcifications within the carotid siphons and also within the V4 segments of the vert ebral arteries. No calvarial fracture seen. Leftward nasal septal deviation. Paranasal sinuses and ma stoid air cells well pneumatized. IMPRESSION: No acute intracranial abnormality seen.
[2020-10-06] MEDS ORDERED: METOPROLOL TARTRATE 25 MG TAB PO STA (09:30)
[2020-10-06] MEDS: ASCORBIC ACID 500 MG TAB PO SCH (09:58)
[2020-10-06] MEDS: PREGABALIN 75 MG CAP PO SCH ×2 (09:58→21:34)
[2020-10-06] MEDS: dexAMETHasone 2 MG TAB PO SCH (09:58)
[2020-10-06] MEDS: guaiFENesin 600 MG TABLET.ER PO SCH ×4 (09:59→21:34)
[2020-10-06] MEDS: ZINC SULFATE 220 MG CAP PO SCH (09:59)
[2020-10-06] MEDS: CHOLECALCIFEROL 25 MCG (1000 IU) TABLET PO SCH (09:59)
[2020-10-06] MEDS: NYSTATIN 100,000 UNIT/GM OINT 30 GM TUBE TOPICAL SCH ×2 (09:59→21:35)
[2020-10-06] MEDS: TRIAMCINOLONE ACET 0.1% OINTMENT 80 GM TUBE TOPICAL SCH ×2 (09:59→21:35)
--- NOTE | 2020-10-06 10:20 | CT ---
EXAMINATION TYPE: CT angio chest DATE OF EXAM: 10/06/2020 COMPARISON: PET CT 08/02/2020 HISTORY: 65-year-old male shortness of breath, rule out PE, COVID positive. TECHNIQUE: Contiguous axial scanning of the chest performed with IV Contrast, patient injected with 1 00 mL of Isovue 370. Coronal/sagittal MIP reconstructions performed. CT DLP: 374.2 mGycm Automated exposure control for dose reduction was used. FINDINGS: Heart normal size without pericardial effusion. LAD coronary artery calcifications are present. Mild reflux of contrast into the hepatic veins but no flattening of the interventricular septum. Ascending aorta borderline ectatic at 3.6 cm. Mild atherosclerotic arch calcifications. Bovine config uration to the aortic arch and additional direct takeoff of the left vertebral artery directly from t he aortic arch. Satisfactory opacification of the pulmonary system without evidence for pulmonary embolus. Right paratracheal lymphadenopathy measures 5.9 x 3.9 cm versus 5.2 x 3.8 cm, previously. Lower right paratracheal lymphadenopathy measures 5.2 x 4.0 cm versus 4.9 x 3.7 cm, previously. Right hilar lymph node measures 2.7 cm, more pronounced from previous. Lower left paratracheal lymph nodes have increased in size as well now measuring up to 1.0 cm short a xis. Bilateral axillary nodes have increased in size currently measuring up to 1 cm on each side, probably reactive. Small right and trace left effusions are new. Adjacent areas of atelectasis. Generalized anasarca darshan nge. Spiculated nodule right upper lobe measures 2.6 x 2.3 cm versus 2.3 x 2.2 cm, previously. Small area of central spiculation is noted. Some scattered peripheral patchy groundglass changes are also demonstrated. Mottled debris layering within the mid to lower trachea. A 1.5 cm left adrenal nodule not well seen previously. Bones: Degenerative change at both shoulders. Effusion at the left shoulder redemonstrated. Moderate to advanced degenerative disc disease mid to lower thoracic spine. IMPRESSION: 1. NO EVIDENCE FOR PULMONARY EMBOLUS. MILD PATCHY GROUNDGLASS COVID PNEUMONIA IS NOTED. 2. FINDINGS SUGGEST DISEASE PROGRESSION. SPICULATED RIGHT UPPER LOBE NEOPLASM AND THE LARGER AT 2.6 C M VERSUS 2.3 CM, PREVIOUSLY. RIGHT PARATRACHEAL LYMPHADENOPATHY IS ALSO INCREASING IN SIZE, FOR EXAMP LE, MEASURING UP TO 5.9 CM VERSUS 5.2 CM, PREVIOUSLY. A 1.5 CM LEFT ADRENAL NODULE IS NOW NOTED, NOT WELL SEEN PREVIOUSLY. A NEW LEFT ADRENAL METASTASIS NOT EXCLUDED. 3. CORRELATE FOR FLUID OVERLOAD STATE/MILD CHF GIVEN NEW SMALL RIGHT AND TRACE LEFT EFFUSIONS AND MIL D GENERALIZED ANASARCA CHANGES. 4. MILD DEBRIS LAYERING WITHIN THE MID AND LOWER TRACHEA COULD REPRESENT DYSMOTILITY OR GERD. CLINICA LLY CORRELATE.
--- NOTE | 2020-10-06 13:21 | P.CRDCN ---
History of Present Illness Consult date: 10/06/20 History of present illness: CHIEF COMPLAINT: A. fib with RVR HISTORY OF PRESENT ILLNESS: This is a 65-year-old male with a past medical history significant for COPD, nicotine dependence, marijuana use, alcohol abuse and memory impairment. We have been asked to see the patient in consultation for afib with RVR. Patient is currently admitted to the hospital secondary to Covid 19. Two EKGs obtained which revealing sinus tachycardia with PVCs and PACs. Telemetry tracings reviewed also reviewing sinus tachycardia with PACs and PVCs. No atrial fibrillation seen. Patient received a dose of oral metoprolol this morning with improvement in tachycardia. DIAGNOSTICS: EKG reveals sinus tachycardia with PACs and PVCs Chest xray right upper lobe nodule obscured by overlying made. Right paratracheal opacity correlates with adenopathy seen on PET CT. mild bibasilar atelectasis or airspace disease. Small left pleural effusion or thickening. Laboratory data: WBC 16.5. Hemoglobin 14.8. Platelet count 273. Sodium 132. Potassium 3.7. BUN 14. Creatinine 0.53. Current home cardiac medications include Lasix 40 mg daily REVIEW OF SYSTEMS: Thorough review of systems not completed secondary to limited evaluation/examination and due to Covid19 PHYSICAL EXAM: Thorough physical exam not completed secondary to limited evaluation/examination and due to Covid19 ASSESSMENT: Covid 19 Bilateral lower extremity cellulitis Acute exacerbation of COPD Sinus tachycardia Right upper lung mass Chronic nicotine dependence PLAN: Obtain 2D echo to assess cardiac structure and function Begin metoprolol 25mg PO BID for optimal heart rate control Obtain TSH Continue telemetry monitoring Further recommendations pending patient course Nurse practitioner note has been reviewed by physician. Signing provider agrees with the documented findings, assessment, and plan of care. 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 History of Any Multi-Drug Resistant Organisms: None Reported Past Surgical History: Orthopedic Surgery Additional Past Surgical History / Comment(s): liver biopsy, left thumb surgery left arm fasciotomy, BILAT CATARACTS REMOVED WITH LENS IMPLANTS Past Anesthesia/Blood Transfusion Reactions: No Reported Reaction Past Psychological History: No Psychological Hx Reported Smoking Status: Current every day smoker Past Drug Use History: Marijuana - Past Family History Father History Unknown: Yes Family Medical History: Myocardial Infarction (PR) Additional Family Medical History / Comment(s): Father of a PR at the age of 57yrs. Mother Additional Family Medical History / Comment(s): Mother had a tumor in her heart/surgery to remove and of post op infection. Medications and Allergies Home Medications Medication Instructions Recorded Confirmed Type Furosemide [Lasix] 40 mg PO DAILY 06/02/20 10/01/20 History Ibuprofen [Motrin] 800 mg PO TID PRN 10/01/20 10/01/20 History Pregabalin [Lyrica] 150 mg PO BID 10/01/20 10/01/20 History Allergies Allergy/AdvReac Type Severity Reaction Status Date / Time No Known Allergies Allergy Verified 06/04/20 10:11 Physical Exam Vitals: Vital Signs Temp Pulse Resp BP Pulse Ox 10/06/20 10:00 98.8 F 65 18 133/84 92 L 10/06/20 07:48 140 H 28 H 152/98 10/06/20 04:38 120 H 26 H 176/91 95 10/06/20 01:42 99.8 F H 58 L 21 146/76 86 L 10/05/20 21:21 99.3 F 87 19 127/67 91 L 10/05/20 20:00 110 H 20 10/05/20 17:46 98.0 F 110 H 16 148/83 94 L 10/05/20 14:00 98.9 F 105 H 16 136/73 94 L Intake and Output 10/05/20 10/06/20 10/06/20 22:59 06:59 14:59 Intake Total 100 Output Total 600 Balance -500 Intake: Oral 100 Output: Urine 600 Other: Voiding Method Urinal # Voids 8 2 Results 10/06/20 05:35 10/06/20 05:35 Cardiac Enzymes 10/06/20 Range/Units 05:35 AST 30 (17-59) U/L CBC 10/06/20 Range/Units 05:35 WBC 16.5 H (3.8-10.6) k/uL RBC 4.94 (4.30-5.90) m/uL Hgb 14.8 (13.0-17.5) gm/dL Hct 45.8 (39.0-53.0) % Plt Count 273 (150-450) k/uL Comprehensive Metabolic Panel 10/06/20 Range/Units 05:35 Sodium 132 L (137-145) mmol/L Potassium 3.7 (3.5-5.1) mmol/L Chloride 100 (98-107) mmol/L Carbon Dioxide 24 (22-30) mmol/L BUN 14 (9-20) mg/dL Creatinine 0.53 L (0.66-1.25) mg/dL Glucose 86 (74-99) mg/dL Calcium 8.4 (8.4-10.2) mg/dL AST 30 (17-59) U/L ALT 15 (4-49) U/L Alkaline Phosphatase 92 (38-126) U/L Total Protein 6.2 L (6.3-8.2) g/dL Albumin 2.9 L (3.5-5.0) g/dL Current Medications Generic Name Dose Route Start Last Admin Trade Name Freq PRN Reason Stop Dose Admin Acetaminophen 650 mg 10/04/20 12:32 10/04/20 12:36 Acetaminophen Tab 325 Mg Tab PO 650 mg Q6HR PRN Administration Fever and/ or Mild Pain Albuterol Sulfate 4 puff 10/02/20 16:00 10/06/20 12:37 Albuterol Hfa Inhaler INHALATION Not Given RT-QID [facility] Albuterol/Ipratropium 3 ml 10/06/20 06:27 Ipratropium-Albuterol 3 Ml Neb INHALATION RT-Q2H PRN Shortness Of Breath Or Wheezing Ascorbic Acid 1,000 mg 10/03/20 09:00 10/06/20 09:58 Ascorbic Acid 500 Mg Tab PO 1,000 mg DAILY [facility] Administration Cholecalciferol 125 mcg 10/03/20 09:00 10/06/20 09:59 Cholecalciferol 25 Mcg (1000 Iu) Tablet PO 125 mcg DAILY [facility] Administration Dexamethasone 6 mg 10/02/20 14:15 10/06/20 09:58 Dexamethasone 2 Mg Tab PO 6 mg DAILY [facility] Administration Enoxaparin Sodium 40 mg 10/01/20 21:30 10/05/20 20:05 Enoxaparin 40 Mg/0.4 Ml Syringe SQ Not Given DAILY@2200 [facility] Guaifenesin 600 mg 10/03/20 22:00 10/06/20 09:59 Guaifenesin 600 Mg Tablet.Er PO 600 mg QID [facility] Administration Hydromorphone HCl 1 mg 10/01/20 18:45 10/06/20 05:18 Hydromorphone 1 Mg/Ml 1 Ml Syringe IVP 1 mg Q3HR PRN Administration Severe Pain Ampicillin Sodium/Sulbactam 100 mls @ 200 mls/hr 10/03/20 00:00 10/06/20 05:27 Sodium 3 gm/ Sodium Chloride IVPB 200 mls/hr Q6H [facility] Administration Metoprolol Tartrate 25 mg 10/06/20 21:00 Metoprolol Tartrate 25 Mg Tab PO BID [facility] Naloxone HCl 0.2 mg 10/01/20 18:45 Naloxone 0.4 Mg/Ml 1 Ml Vial IV Q2M PRN Opioid Reversal Nicotine 1 patch 10/02/20 14:15 10/06/20 07:20 Nicotine 21mg/24hr Patch TRANSDERM Not Given DAILY [facility] Nystatin 1 applic 10/04/20 21:00 10/06/20 09:59 Nystatin 100,000 Unit/Gm Oint 30 Gm Tube TOPICAL 1 applic BID [facility] Administration Pregabalin 150 mg 10/01/20 21:30 10/06/20 09:58 Pregabalin 75 Mg Cap PO 150 mg BID [facility] Administration Triamcinolone Acetonide 1 applic 10/04/20 21:00 10/06/20 09:59 Triamcinolone Acet 0.1% Ointment 80 Gm Tube TOPICAL 1 applic BID [facility] Administration Zinc Sulfate 220 mg 10/03/20 09:00 10/06/20 09:59 Zinc Sulfate 220 Mg Cap PO 220 mg DAILY [facility] Administration Intake and Output 10/05/20 10/06/20 10/06/20 22:59 06:59 14:59 Intake Total 100 Output Total 600 Balance -500 Intake: Oral 100 Output: Urine 600 Other: Voiding Method Urinal # Voids 8 2 10/06/20 05:35 10/06/20 05:35
--- NOTE | 2020-10-06 14:53 | P.PN ---
Subjective Progress Note Date: 10/06/20 Principal diagnosis: Cellulitis, covid, lung adenocarcinoma In f/u pt feels he is doing ok, he needs more assistance with ADLs then normal, he is going to rehab. Lower extremities are less painful, fewer scabs, he is getting stiff from laying in bed. Tolerating oral intake, no acute/uncontrolled pain Objective - Vital Signs Vital signs: Vital Signs Temp 98.8 F 10/06/20 10:00 Pulse 65 10/06/20 10:00 Resp 18 10/06/20 10:00 BP 133/84 10/06/20 10:00 Pulse Ox 92 L 10/06/20 10:00 Intake & Output 10/05/20 10/06/20 10/06/20 18:59 06:59 18:59 Intake Total 100 Output Total 600 Balance -500 Intake: Oral 100 Output: Urine 600 Other: Voiding Method Urinal # Voids 8 2 - Constitutional General appearance: Present: cooperative, no acute distress, thin - EENT Eyes: Present: anicteric sclerae, poor dentition ENT: Present: hearing grossly normal - Respiratory Respiratory: bilateral: diminished - Cardiovascular Heart sounds: normal: S1, S2 - Peripheral edema leg Peripheral Edema: bilateral: Trace - Gastrointestinal General gastrointestinal: Present: normal bowel sounds, soft - Integumentary Integumentary: Present: cellulitis (BLE, mild) - Musculoskeletal Musculoskeletal: Present: generalized weakness, strength equal bilaterally - Psychiatric Psychiatric: Present: A&O x's 3, appropriate affect, intact judgment & insight - Labs CBC & Chem 7: 10/06/20 05:35 10/06/20 05:35 Labs: Abnormal Lab Results - Last 24 Hours (Table) 10/06/20 10/06/20 Range/Units 05:35 05:35 WBC 16.5 H (3.8-10.6) k/uL Neutrophils # 14.1 H (1.3-7.7) k/uL Neutrophils # (Manual) 12.80 H (1.3-7.7) k/uL Monocytes # (Manual) 1.49 H (0-1.0) k/uL Metamyelocytes # (Man) 0.17 H (0) k/uL Sodium 132 L (137-145) mmol/L Creatinine 0.53 L (0.66-1.25) mg/dL Total Protein 6.2 L (6.3-8.2) g/dL Albumin 2.9 L (3.5-5.0) g/dL Microbiology - Last 24 Hours (Table) 10/05/20 12:45 Gram Stain - Preliminary Sputum Sputum Culture - Preliminary Gram Neg Bacilli Assessment and Plan (1) Bilateral lower leg cellulitis Narrative/Plan: Improved with treatment of the same. Cont plan of care according to ID and wound care Current Visit: Yes Status: Acute Priority: High Code(s): L03.116 - CELLULITIS OF LEFT LOWER LIMB; L03.115 - CELLULITIS OF RIGHT LOWER LIMB SNOMED Code(s): 583529717 (2) COVID-19 Narrative/Plan: No current symptoms, resp status is stable. Current Visit: Yes Status: Acute Priority: High Code(s): U07.1 - COVID-19 SNOMED Code(s): 915493184 (3) Non-small cell cancer of right lung Narrative/Plan: Plans for chemo/XRT. Pt need rehabilitation and needs to be able to care for h imself. Pending treatment until discharged from rehab F/U with Dr. Lozano, appt in [place] plan Will discuss with Rad Onc Current Visit: Yes Status: Acute Priority: High Code(s): C34.91 - MALIGN ANT NEOPLASM OF UNSP PART OF RIGHT BRONCHUS OR LUNG SNOMED Code(s): 736308896 Plan: Covid and malignancy-recommend DVT prophylaxis with lovenox 40mg SQ daily for 28 days. Documented in discharge plan. Should be able to receive while in rehab. Will need Rx to complete 28 days of treatment when he is discharged form rehab.
[2020-10-06] MEDS: ACETAMINOPHEN TAB 325 MG TAB PO PRN (15:45)
--- NOTE | 2020-10-06 17:01 | ECHOF ---
Referral Reason:LV function, tachycardia MEASUREMENTS -------- HEIGHT: 177.8 cm WEIGHT: 70.3 kg BP: IVSd: 1.0 cm (0.6 - 1.1) LVIDd: 5.4 cm (3.9 - 5.3) LVPWd: 1.2 cm (0.6 - 1.1) EDV(Teich): 144 ml IVSs: 1.4 cm LVIDs: 4.6 cm LVPWs: 1.2 cm %IVS Thck: 40 % ESV(Teich): 99 ml EF(Teich): 31 % %FS: 15 % SV(Teich): 45 ml IVC: 18.41 mm LALs A4C: 4.6 cm LAAs A4C: 14.0 cm LAESV A-L A4C: 36 ml LAESV MOD A4C: 33 ml LALs A2C: 4.4 cm LAAs A2C: 9.6 cm LAESV A-L A2C: 18 ml LAESV MOD A2C: 17 ml LAESV(A-L): 26 ml LAESV Index (A-L): 13.84 ml/m Ao Diam: 3.2 cm (2.0 - 3.7) LA Diam: 2.6 cm (2.7 - 3.8) AV Cusp: 1.9 cm (1.5 - 2.6) EPSS: 1.9 cm MV E Pratik: 0.65 m/s MV DecT: 288 ms MV Dec [place]: 2.3 m/s MV A Pratik: 0.41 m/s MV E/A Ratio: 1.60 MV PHT: 84 ms MR Vmax: 2.35 m/s MR maxP.07 mmHg AV Vmax: 1.07 m/s AV maxP.56 mmHg AR Vmax: 2.71 m/s AR maxP.36 mmHg AR PHT: 924 ms AR Dec Time: 3186 ms AR Dec [place]: 0.9 m/s TR Vmax: 1.26 m/s TR maxP.33 mmHg RAP: 5.00 mmHg RVSP: 11.33 mmHg MV EF SLOPE: 81.77 mm/s (70 - 150) MV EXCURSION: 15.27 mm (> 18.000) FINDINGS -------- This was a technically good study. The left ventricular size is normal. Left ventricular wall thickness is normal. Overall left vent ricular systolic function is severely impaired with, an EF between 20 - 25 %. Normal LAP Grade 1 Di astolic Dysfunction. The right ventricle is normal in size. The left atrial size is normal. Normal LA size by volume 22+/-6 ml/m2. The right atrial size is normal. The aortic valve is trileaflet and appears structurally normal. There is mild aortic regurgitation. The mitral valve is normal. There is trace mitral regurgitation. The tricuspid valve appears structurally normal. Trace tricuspid regurgitation present. Right damián tricular systolic pressure is normal at < 35 mmHg. There is no pulmonic regurgitation present. The aortic root size is normal. Normal inferior vena cava with normal inspiratory collapse consistent with estimated right atrial pre ssure of 5 mmHg. There is a small, generalized pericardial effusion present. CONCLUSIONS -------- 1. The left ventricular size is normal. 2. Left ventricular wall thickness is normal. 3. Overall left ventricular systolic function is severely impaired with, an EF between 20 - 25 %. 4. Normal LAP Grade 1 Diastolic Dysfunction. 5. There is mild aortic regurgitation. 6. There is trace mitral regurgitation. 7. Trace tricuspid regurgitation present. 8. There is a small, generalized pericardial effusion present. BODY AND FENDER WORKER: Niurka Lamb RDCS
--- NOTE | 2020-10-06 18:06 | P.CONS ---
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 The patient was initially diagnosed in May 2020, but secondary to poor compliance and social support, he has not initiated any therapy as of yet. He is currently hospitalized secondary to lower extremity cellulitis. The patient's oncologic history began back in January 2020 when he was found to have a lung nodule on an x-ray. He subsequent underwent a CT scan of the chest, abdomen and pelvis on January 28 without contrast. This revealed a 2.2 cm right upper lung mass with a 3.5 and 2.9 cm paratracheal and pretracheal lymph node noted. The patient subsequently followed up with pulmonology, and underwent a bronchoscopy on June 04, 2020. No airway abnormalities were seen, but a biopsy of the pretracheal lymph node was consistent with pulmonary adenocarcinoma. He subsequently underwent a PET/CT on August 04, 2020 with the right upper lung lesion showing abnormal SUV. There is also increased uptake within the right paratracheal and pretracheal mediastinum. There was no evidence of elsewhere disease. The patient was subsequently admitted to the hospital secondary to increased difficulty with his lower extremities. 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 He notes ongoing difficulty with burning and pain in the lower extremities. He has also had difficulty with nonhealing areas of the bilateral lower extremities. He states he has had wound care out to his house over the past year. These have been having increased pain and swelling recently, and the patient was admitted and started on IV antibiotics for cellulitis. The patient was also found to be Covid positive, although he does not have any typical symptoms. He denies difficulty with abnormal cough, dyspnea, dysphagia or chest pain. The patient reports that he currently lives with his son and [place] the patient is unable to drive and he has very little support in early November transportation for his treatments. He has reportedly with Dr. Lozano in medical oncology - he was due to be seen in our clinic on Tuesday. Review of Systems Constitutional: Denies chills, Denies fever Eyes: denies blurred vision Ears, nose, mouth and throat: Denies headache Cardiovascular: Reports leg edema, Denies chest pain Respiratory: Reports cough, Denies dyspnea, Denies hemoptysis Gastrointestinal: Denies BRBPR, Denies change in bowel habits Genitourinary: Denies flank pain Integumentary: Reports darkening of skin, Reports sores (lower extremities) Neurological: Denies aphasia, Denies ataxia Psychiatric: Reports memory loss, Denies confusion Endocrine: Reports fatigue 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 History of Any Multi-Drug Resistant Organisms: None Reported Past Surgical History: Orthopedic Surgery Additional Past Surgical History / Comment(s): liver biopsy, left thumb surgery left arm fasciotomy, BILAT CATARACTS REMOVED WITH LENS IMPLANTS Past Anesthesia/Blood Transfusion Reactions: No Reported Reaction Past Psychological History: No Psychological Hx Reported Smoking Status: Current every day smoker Past Drug Use History: Marijuana - Past Family History Father History Unknown: Yes Family Medical History: Myocardial Infarction ([place]) Additional Family Medical History / Comment(s): Father of a [place] at the age of 57yrs. Mother Additional Family Medical History / Comment(s): Mother had a tumor in her heart/surgery to remove and of post op infection. Medications and Allergies Home Medications Medication Instructions Recorded Confirmed Type Furosemide [Lasix] 40 mg PO DAILY 06/02/20 10/01/20 History Ibuprofen [Motrin] 800 mg PO TID PRN 10/01/20 10/01/20 History Pregabalin [Lyrica] 150 mg PO BID 10/01/20 10/01/20 History Enoxaparin [Lovenox] 40 mg SQ DAILY #28 syringe 10/06/20 Rx Allergies Allergy/AdvReac Type Severity Reaction Status Date / Time No Known Allergies Allergy Verified 06/04/20 10:11 Physical Exam Vitals: Vital Signs Temp Pulse Resp BP Pulse Ox 10/06/20 14:00 99.9 F H 110 H 16 99/48 93 L 10/06/20 10:00 98.8 F 65 18 133/84 92 L 10/06/20 07:48 140 H 28 H 152/98 10/06/20 04:38 120 H 26 H 176/91 95 10/06/20 01:42 99.8 F H 58 L 21 146/76 86 L 10/05/20 21:21 99.3 F 87 19 127/67 91 L 10/05/20 20:00 110 H 20 Intake and Output 10/06/20 10/06/20 10/06/20 06:59 14:59 22:59 Other: # Voids 2 - Constitutional General appearance: no acute distress - EENT Eyes: EOMI, PERRLA ENT: hearing grossly normal - Neck Neck: no lymphadenopathy - Respiratory Respiratory: bilateral: rhonchi, negative: diminished - Cardiovascular Rhythm: regular - Gastrointestinal General gastrointestinal: no distended, no tenderness - Integumentary Integumentary: ulcer - Neurologic Neurologic: CNII-XII intact - Musculoskeletal Musculoskeletal: no generalized weakness - Psychiatric Psychiatric: A&O x's 3, appropriate affect Results CBC & Chem 7: 10/06/20 05:35 10/06/20 05:35 Labs: Abnormal Lab Results - Last 24 Hours (Table) 10/06/20 10/06/20 Range/Units 05:35 05:35 WBC 16.5 H (3.8-10.6) k/uL Neutrophils # 14.1 H (1.3-7.7) k/uL Neutrophils # (Manual) 12.80 H (1.3-7.7) k/uL Monocytes # (Manual) 1.49 H (0-1.0) k/uL Metamyelocytes # (Man) 0.17 H (0) k/uL Sodium 132 L (137-145) mmol/L Creatinine 0.53 L (0.66-1.25) mg/dL Total Protein 6.2 L (6.3-8.2) g/dL Albumin 2.9 L (3.5-5.0) g/dL Microbiology - Last 24 Hours (Table) 10/05/20 12:45 Gram Stain - Preliminary Sputum Sputum Culture - Preliminary Gram Neg Bacilli CT scan - chest: report reviewed, image reviewed CT Scan - head: report reviewed Assessment and Plan Assessment: The patient is a 65-year-old male with a history of a clinical stage III (cT1c, cN2, M0) pulmonary adenocarcinoma of the right upper lung. The patient was initially diagnosed in May 2020, but secondary to poor compliance and social support, he has not initiated any therapy as of yet. He is currently hospitalized secondary to lower extremity cellulitis. Plan: 1. Non-small cell lung cancer - at least stage III. I discussed with the patient that a typical standard of care for this type of disease would involve concurrent chemotherapy with radiation. I explained that he should undergo neuro imaging to rule out metastatic disease to the brain. He had a CT scan without contrast which was unremarkable, but MRI is preferred. I explained to the patient the standard course of radiation involve daily treatment for approximately 6 weeks. As the patient is currently recovering from a bout of cellulitis, and has difficulty with ambulation, I am not sure if he will be fit enough for this treatment regimen. I recommended the patient return to our clinic for outpatient evaluation following his rehabilitation stay. I will discuss his care in further detail with medical oncology. I will also discuss his case with our nurse navigator, as he appears to need significant social and functional help. Of note, the patient was initially seen in consultation on October 03. This document was not created until October 06 secondary to difficulty with remote login. Time with Patient: Greater than 30
--- NOTE | 2020-10-06 18:48 | PN ---
PROGRESS NOTE DATE OF SERVICE: 10/06/2020 REASON FOR FOLLOWUP: Bilateral lower extremity venostasis ulcers and cellulitis. INTERVAL HISTORY: The patient is currently afebrile. The patient is breathing comfortably. Denies having any chest pain or shortness of breath. Occasional cough. No abdominal pain or any worsening pain to the lower extremities. PHYSICAL EXAMINATION: Blood pressure 99/48, pulse of 110, temperature 99.9. He is 93% on room air. General description is a middle-aged male lying in bed in no distress. RESPIRATORY SYSTEM: Unlabored breathing with decreased intensity of breath sounds. No wheeze. HEART: S1, S2. Regular rate and rhythm. ABDOMEN: Soft. No tenderness. LEGS: Swelling and redness improved. LABS: Hemoglobin is 14.9, white count 16.5. DIAGNOSTIC IMPRESSION AND PLAN: 1. Patient with bilateral lower extremity venostasis ulcers and cellulitis, covered with Unasyn and Mycolog cream; to continue. 2. Patient with and possible tracheobronchitis. Sputum showing Gram-negative. Covered with Unasyn COVID-19, covered with dexamethasone, Lovenox. 3. Elevated white count, more likely steroid effect, as the patient did not show any worsening of his clinical condition. MMODL / IJN: [id number] /
[2020-10-06] MEDS ORDERED: METOPROLOL TARTRATE 25 MG TAB PO SCH (21:00)
[2020-10-06] MEDS: ENOXAPARIN 40 MG/0.4 ML SYRINGE SQ SCH (21:35)
--- NOTE | 2020-10-06 23:07 | P.PN ---
Progress Note - Text Progress Note Date: 10/06/20 Chief Complaint: Redness lower extremity History of presenting complaint: This is a 65-year-old patient who follows with Dr. Garcia. Patient's chronic stable medical conditions includes some cognitive impairment, painful peripheral neuropathy in both hand and feet, smoker has been diagnosed with right upper lobe lung mass with a negative PET scan currently no treatment, as best as exposure. Patient lives with his son and his girlfriend.. Does use a battery operated wheelchair. Patient has a home nurse who takes care of her lower extremities. Patient has noted increasing pain and redness and sometimes some drainage from the lower extremity. With swelling. Denies any fever and chills. Patient also got a cough some shortness of breath. A bit congested the chest. Denies any obvious fever and chills Admitted with: Acute on chronic bilateral lower extremity cellulitis, acute COPD exacerbation, COVID 19 infection. Patient rather picky about the food. Telemetry showing sinus tachycardia with PACs and PVCs. Patient told to cut back on his caffeine intake which has been excessive. Today: Sitting up, tired. Eating some. Review of systems: Was done for constitutional, cardiovascular, GI, pulmonary. relevant finding as above Active Medications Acetaminophen (Acetaminophen Tab 325 Mg Tab) 650 mg PO Q6HR PRN PRN Reason: Fever and/ or Mild Pain Last Admin: 10/06/20 15:45 Dose: 650 mg Documented by: Albuterol Sulfate (Albuterol Hfa Inhaler) 4 puff INHALATION RT-QID [facility] Last Admin: 10/06/20 20:41 Dose: 4 puff Documented by: Albuterol/Ipratropium (Ipratropium-Albuterol 3 Ml Neb) 3 ml INHALATION RT-Q2H PRN PRN Reason: Shortness Of Breath Or Wheezing Ascorbic Acid (Ascorbic Acid 500 Mg Tab) 1,000 mg PO DAILY [facility] Last Admin: 10/06/20 09:58 Dose: 1,000 mg Documented by: Cholecalciferol (Cholecalciferol 25 Mcg (1000 Iu) Tablet) 125 mcg PO DAILY [facility] Last Admin: 10/06/20 09:59 Dose: 125 mcg Documented by: Dexamethasone (Dexamethasone 2 Mg Tab) 6 mg PO DAILY [facility] Last Admin: 10/06/20 09:58 Dose: 6 mg Documented by: Enoxaparin Sodium (Enoxaparin 40 Mg/0.4 Ml Syringe) 40 mg SQ DAILY@2200 [facility] Last Admin: 10/06/20 21:35 Dose: 40 mg Documented by: Guaifenesin (Guaifenesin 600 Mg Tablet.Er) 600 mg PO QID [facility] Last Admin: 10/06/20 21:34 Dose: 600 mg Documented by: Hydromorphone HCl (Hydromorphone 1 Mg/Ml 1 Ml Syringe) 1 mg IVP Q3HR PRN PRN Reason: Severe Pain Last Admin: 10/06/20 13:54 Dose: 1 mg Documented by: Ampicillin Sodium/Sulbactam (Sodium 3 gm/ Sodium Chloride) 100 mls @ 200 mls/hr IVPB Q6H [facility] Last Admin: 10/06/20 17:02 Dose: 200 mls/hr Documented by: Metoprolol Tartrate (Metoprolol Tartrate 25 Mg Tab) 25 mg PO BID [facility] Last Admin: 10/06/20 21:35 Dose: 25 mg Documented by: Naloxone HCl (Naloxone 0.4 Mg/Ml 1 Ml Vial) 0.2 mg IV Q2M PRN PRN Reason: Opioid Reversal Nicotine (Nicotine 21mg/24hr Patch) 1 patch TRANSDERM DAILY [facility] Last Admin: 10/06/20 07:20 Dose: Not Given Documented by: Nystatin (Nystatin 100,000 Unit/Gm Oint 30 Gm Tube) 1 applic TOPICAL BID [facility] Last Admin: 10/06/20 21:35 Dose: 1 applic Documented by: Pregabalin (Pregabalin 75 Mg Cap) 150 mg PO BID [facility] Last Admin: 10/06/20 21:34 Dose: 150 mg Documented by: Triamcinolone Acetonide (Triamcinolone Acet 0.1% Ointment 80 Gm Tube) 1 applic TOPICAL BID [facility] Last Admin: 10/06/20 21:35 Dose: 1 applic Documented by: Zinc Sulfate (Zinc Sulfate 220 Mg Cap) 220 mg PO DAILY [facility] Last Admin: 10/06/20 09:59 Dose: 220 mg Documented by: Past medical history to include: COPD, cognitive impairment, bilateral lower extremity chronic cellulitis and wounds, peripheral neuropathy, smoker, right upper lobe lung mass with a negative PET scan, chronic anemia as best as exposure chronic left shoulder pain. Social history: Visit his son and his girlfriend. Gets about of the electric cart. Patient started smoking at the age of 10 up to pack and a half to 2 packs a day now down to one half a pack a day. Up to about a year ago he was drinking 4 cases of beer a week is not down to 6 Paxil 2 bottles of wine a week. Does use marijuana Gummi's Physical examination: VITAL SIGNS: 99.9, 110, 16, 99/48, 93% room air GENERAL: Reclining in bed, tired EYES: Pupils equal. Conjunctiva normal. HEENT: External appearance of nose and ears normal, oral cavity grossly normal. NECK: JVD not raised; masses not palpable. HEART: First and second heart sounds are normal; edema present. LUNGS: Respiratory rate increased, decreased breath sounds prolonged expiration and wheezing. ABDOMEN: Soft, nontender, liver spleen not palpable, no masses palpable. PSYCH: Awake, answering questions DERMATOLOGICAL: Lower extremity redness with superficial breakdown of skin, tenderness edema INVESTIGATIONS, reviewed in the clinical context: October 06: WBC 16.5 hemoglobin 14.8 potassium 3.7 creatinine 0.53 October 05: D-dimer 1.09 CRP 27.9 October 04: WBC 15.3 hemoglobin 13.7 potassium 3.5 creatinine 0.53 October 03: WBC 15.6 hemoglobin 13.2 procalcitonin 0.06 Chest x-ray film personally reviewed by me-right upper nodule, hyperinflation WBC 18.8 hemoglobin 14.8 platelets 331 potassium 3.8 creatinine 0.48 Lactic acid 3. 0 repeat 1.6 CRP 46.8 Coronavirus [PCR]-detected proBNP 1530 Assessment and plan: -Acute on chronic bilateral lower extremity cellulitis, worsened by underlying peripheral arterial disease. Seen by ID. honey alginate, saline moistened gauze, dry gauze,. IV Unasyn -Stage II pressure ulcer right calcaneum with fat layer exposure, POA Foam heel protectors -Acute COPD exacerbation in current smoker: Improving Bronchodilators, steroids -Chronic nicotine dependence patient is a cigarette smoker Nicotine patch -Mild cognitive impairment -Painful peripheral neuropathy Continue with Lyrica -Right upper lobe lung mass with a known negative PET scan. Patient has not had any further workup or follow-up with seizures. Oncology is consulted Dr. Huber from radiation oncology. He'll follow up the patient in the outpatient following patient's rehab -Chronic medical debility. Does use electronic cart Consult PTOT -Social issues including placement. Consult keycase assembler and social welfare clerk. -COVID 19 infection On dexamethasone. Subcu Lovenox Versed called me earlier about patient being in possible atrial fibrillation. Cardiology was consulted. Patient does have sinus tachycardia with EACs and PVCs. Lopressor 25 mg twice a day was started. Blood pressure remained under the lower side. Cutback to 12.5 twice a day
[2020-10-07] MEDS: AMPICILLIN-SULBACTAM 3 GM in SODIUM CHLORIDE 0.9% 100 ML IVPB SCH ×3 (00:20→11:43)
[2020-10-07] MEDS: HYDROmorphone 1 MG/ML 1 ML SYRINGE IVP PRN ×3 (00:24→11:43)
[2020-10-07] MEDS: ALBUTEROL HFA INHALER INHALATION SCH ×4 (07:59→21:21)
[2020-10-07] MEDS: CHOLECALCIFEROL 25 MCG (1000 IU) TABLET PO SCH (08:21)
[2020-10-07] MEDS: dexAMETHasone 2 MG TAB PO SCH (08:21)
[2020-10-07] MEDS: PREGABALIN 75 MG CAP PO SCH ×2 (08:21→22:04)
[2020-10-07] MEDS: ASCORBIC ACID 500 MG TAB PO SCH (08:21)
[2020-10-07] MEDS: ZINC SULFATE 220 MG CAP PO SCH (08:21)
[2020-10-07] MEDS: guaiFENesin 600 MG TABLET.ER PO SCH ×4 (08:21→22:04)
[2020-10-07] MEDS: NICOTINE 21MG/24HR PATCH TRANSDERM SCH (08:22)
[2020-10-07] MEDS: NYSTATIN 100,000 UNIT/GM OINT 30 GM TUBE TOPICAL SCH ×2 (08:22→22:03)
[2020-10-07] MEDS: TRIAMCINOLONE ACET 0.1% OINTMENT 80 GM TUBE TOPICAL SCH ×2 (08:22→22:03)
[2020-10-07] MEDS ORDERED: METOPROLOL TARTRATE 25 MG TAB PO STA (08:42)
[2020-10-07] MEDS ORDERED: METOPROLOL TARTRATE 12.5 MG TAB PO SCH (09:00)
[2020-10-07] MEDS: ATORVASTATIN 40 MG TAB PO SCH (09:43)
[2020-10-07] MEDS: lisinopriL 5 MG TAB PO SCH (09:43)
[2020-10-07] MEDS: ASPIRIN 81 MG PO SCH (09:43)
[2020-10-07] MEDS: ACETAMINOPHEN TAB 325 MG TAB PO PRN ×2 (11:44→17:35)
[2020-10-07] MEDS ORDERED: FLUCONAZOLE 100 MG TAB PO ONE (11:53)
[2020-10-07] MEDS ORDERED: CEFEPIME 2 GM in SODIUM CHLORIDE 0.9% 100 ML IVPB ONE (12:00)
--- NOTE | 2020-10-07 12:47 | P.PN ---
Subjective This is a pleasant 65-year-old male past medical history significant for COPD, chronic nicotine dependence, marijuana use and alcohol abuse. He is currently being treated for COVID 19. We are following secondary to possible arrhythmia noted on telemetry. Review of tracings indicate he is maintaining sinus mechanism with frequent PVCs and short runs of VT longest being 6 beats. Echocardiogram obtained revealed severely impaired LV systolic function with EF 20-25%. Blood pressure 128/70 heart rate 94 101.3F maintaining oxygen saturation on nasal cannula. No physical exam was performed due to acute COVID 19 infection ASSESSMENT Severe cardiomyopathy, likely from COVID but exact etiology is unclear at this point COVID Lower extremity cellulitis Non-small cell lung cancer Chronic nicotine dependence Marijuana use Alcohol abuse PLAN Increase lopressor to 50 mg BID. Add aspirin 81 mg daily, atorvastatin 40 mg daily and lisinopril 5 mg daily. He will require further outpatient work-up to determine if ischemic or non- ischemic, however we will defer this until his COVID has resolved. Nurse Practitioner note has been reviewed, I agree with a documented findings and plan of care. Patient was seen and examined. Objective - Vital Signs Vital signs: Vital Signs Temp 101.3 F H 10/07/20 11:50 Pulse 94 10/07/20 10:00 Resp 16 10/07/20 10:00 BP 128/70 10/07/20 10:00 Pulse Ox 95 10/07/20 10:00 Intake & Output 10/06/20 10/07/20 10/07/20 18:59 06:59 18:59 Intake Total 900 Output Total 1400 Balance -500 Intake: Intake, IV Titration 100 Amount Ampicillin-Sulbactam 3 gm 100 In Sodium Chloride 0.9% 100 ml @ 200 mls/hr IVPB Q6H [facility] Rx#:[id number] Oral 800 Output: Urine 1400 Other: # Voids 3 2 - Labs CBC & Chem 7: 10/06/20 05:35 10/06/20 05:35 Labs: Microbiology - Last 24 Hours (Table) 10/05/20 12:45 Gram Stain - Final Sputum Sputum Culture - Final Pseudomonas aeruginosa Aspen albicans
--- NOTE | 2020-10-07 14:33 | P.PN ---
Subjective Progress Note Date: 10/07/20 Principal diagnosis: Cellulitis, covid, lung adenocarcinoma In f/u pt needs more assistance with ADLs then normal, pending DC to rehab. Lower extremity pain, swelling and redness is improved. Objective - Vital Signs Vital signs: Vital Signs Temp 101.3 F H 10/07/20 11:50 Pulse 94 10/07/20 10:00 Resp 16 10/07/20 10:00 BP 128/70 10/07/20 10:00 Pulse Ox 95 10/07/20 10:00 Intake & Output 10/06/20 10/07/20 10/07/20 18:59 06:59 18:59 Intake Total 900 Output Total 1400 Balance -500 Intake: Intake, IV Titration 100 Amount Ampicillin-Sulbactam 3 gm 100 In Sodium Chloride 0.9% 100 ml @ 200 mls/hr IVPB Q6H [facility] Rx#:[id number] Oral 800 Output: Urine 1400 Other: # Voids 3 2 - Constitutional General appearance: Present: no acute distress, thin - EENT Eyes: Present: anicteric sclerae, EOMI - Respiratory Details: respirations even and unlabored - Integumentary Integumentary Comment(s): bilateral lower extremities continue to be reddened, mildly swollen, dry, peeling skin - Neurologic Neurologic: Present: CNII-XII intact - Psychiatric Psychiatric: Present: A&O x's 3, appropriate affect, intact judgment & insight - Labs CBC & Chem 7: 10/06/20 05:35 10/06/20 05:35 Labs: Microbiology - Last 24 Hours (Table) 10/05/20 12:45 Gram Stain - Final Sputum Sputum Culture - Final Pseudomonas aeruginosa Aspen albicans Assessment and Plan (1) Bilateral lower leg cellulitis Narrative/Plan: Improved with treatment of the same. Cont plan of care according to ID and wound care Current Visit: Yes Status: Acute Priority: High Code(s): L03.116 - CELLULITIS OF LEFT LOWER LIMB; L03.115 - CELLULITIS OF RIGHT LOWER LIMB SNOMED Code(s): 170597370 (2) COVID-19 Narrative/Plan: No current symptoms, resp status is stable. Fevers noted late this morning/early afternoon when documenting. Current Visit: Yes Status: Acute Priority: High Code(s): U07.1 - COVID-19 SNOMED Code(s): 315894248 (3) Non-small cell cancer of right lung Narrative/Plan: Plans for chemo/XRT. Pt need rehabilitation and needs to be able to care for himself. Pending treatment until discharged from rehab F/U with darian Schwarzt in DC plan Did not see CTA of chest report until after pt seen. Recommend recovery from covid before jumping to the conclusion that pt has metastatic disease, though that is alos possible. The data is very limited but, this link below to one of the better articles, with imaging results in the paper. Currently there is no established criteria for Radiologist to use to absolutely distinguish covid vs progressive malignancy. Discussed with treating Oncologist. F/U after rehab complete, then plan PET [facility]. 2019; 67: 003135. Published online 2019Dec 03. doi: [email or web address] Current Visit: Yes Status: Acute Priority: High Code(s): C34.91 - MALIGNANT NEOPLASM OF UNSP PART OF RIGHT BRONCHUS OR LUNG SNOMED Code(s): 855894146 Plan: Covid and malignancy-recommend DVT prophylaxis with lovenox 40mg SQ daily for 28 days. Documented in discharge plan. Should be able to receive while in rehab. Will need Rx to complete 28 days of treatment when he is discharged form rehab. Discussed with Manager Helpdesk
--- NOTE | 2020-10-07 20:38 | PN ---
PROGRESS NOTE DATE OF SERVICE: 10/07/2020 REASON FOR FOLLOWUP: 1. Bilateral lower extremity cellulitis. 2. Tracheobronchitis. INTERVAL HISTORY: The patient did spike a fever this morning of 101.3; subsequently afebrile. The patient denies having any worsening shortness of breath or chest pain. He did have a cough with green sputum but no abdominal pain or diarrhea. Lower extremity swelling and redness have much improved. PHYSICAL EXAMINATION: Blood pressure 117/60 with a pulse of 70, temperature 98.5, T-max 101.3. He is 93% on 2 L nasal cannula. General description is a middle-aged male up in the bed in no distress. RESPIRATORY SYSTEM: Unlabored breathing with decreased intensity of breath sounds. No wheeze. HEART: S1, S2. Regular rate and rhythm. ABDOMEN: Soft. No tenderness. Lower extremity swelling and redness have much improved. LABS: No new labs have been obtained today. Sputum has Pseudomonas and Aspen albicans. DIAGNOSTIC IMPRESSION AND PLAN: 1. Patient with lower extremity cellulitis, much improved clinically. Local care to continue with Mycolog cream. 2. Patient now with a new fever, concern for possible Pseudomonas tracheobronchitis, as CT was negative for any pneumonia but did show worsening of his malignancy. Antibiotic has been adjusted to cefepime. Will obtain blood cultures, CRP and procalcitonin and monitor his clinical course closely. MMODL / IJN: [id number] /
[2020-10-07] MEDS: CEFEPIME 2 GM in SODIUM CHLORIDE 0.9% 100 ML IVPB SCH (22:00)
[2020-10-07] MEDS: METOPROLOL TARTRATE 50 MG TAB PO SCH (22:04)
[2020-10-07] MEDS: ENOXAPARIN 40 MG/0.4 ML SYRINGE SQ SCH (22:05)
--- NOTE | 2020-10-07 22:49 | P.PN ---
Progress Note - Text Progress Note Date: 10/07/20 Chief Complaint: Redness lower extremity History of presenting complaint: This is a 65-year-old patient who follows with Dr. Garcia. Patient's chronic stable medical conditions includes some cognitive impairment, painful peripheral neuropathy in both hand and feet, smoker has been diagnosed with right upper lobe lung mass with a negative PET scan currently no treatment, as best as exposure. Patient lives with his son and his girlfriend.. Does use a battery operated wheelchair. Patient has a home nurse who takes care of her lower extremities. Patient has noted increasing pain and redness and sometimes some drainage from the lower extremity. With swelling. Denies any fever and chills. Patient also got a cough some shortness of breath. A bit congested the chest. Denies any obvious fever and chills Admitted with: Acute on chronic bilateral lower extremity cellulitis, acute COPD exacerbation, COVID 19 infection. Patient rather picky about the food. Telemetry showing sinus tachycardia with PACs and PVCs. Patient told to cut back on his caffeine intake which has been excessive. Today: Patient has not been eating much. Drinking a lot of water. Did cut back on his caffeine. Sputum culture did come back showing Pseudomonas. And Aspen. IV Unasyn swished over to IV cefepime and Diflucan added. Patient put on fluid restriction. Review of systems: Was done for constitutional, cardiovascular, GI, pulmonary. relevant finding as above Active Medications Acetaminophen (Acetaminophen Tab 325 Mg Tab) 650 mg PO Q6HR PRN PRN Reason: Fever and/ or Mild Pain Last Admin: 10/07/20 17:35 Dose: 650 mg Documented by: Albuterol Sulfate (Albuterol Hfa Inhaler) 4 puff INHALATION RT-QID [facility] Last Admin: 10/07/20 21:21 Dose: 2 puff Documented by: Albuterol/Ipratropium (Ipratropium-Albuterol 3 Ml Neb) 3 ml INHALATION RT-Q2H PRN PRN Reason: Shortness Of Breath Or Wheezing Ascorbic Acid (Ascorbic Acid 500 Mg Tab) 1,000 mg PO DAILY [facility] Last Admin: 10/07/20 08:21 Dose: 1,000 mg Documented by: Aspirin (Aspirin 81 Mg) 81 mg PO DAILY [facility] Last Admin: 10/07/20 09:43 Dose: 81 mg Documented by: Atorvastatin Calcium (Atorvastatin 40 Mg Tab) 40 mg PO DAILY [facility] Last Admin: 10/07/20 09:43 Dose: 40 mg Documented by: Cholecalciferol (Cholecalciferol 25 Mcg (1000 Iu) Tablet) 125 mcg PO DAILY [facility] Last Admin: 10/07/20 08:21 Dose: 125 mcg Documented by: Dexamethasone (Dexamethasone 2 Mg Tab) 6 mg PO DAILY [facility] Last Admin: 10/07/20 08:21 Dose: 6 mg Documented by: Enoxaparin Sodium (Enoxaparin 40 Mg/0.4 Ml Syringe) 40 mg SQ DAILY@2200 [facility] Last Admin: 10/07/20 22:05 Dose: Not Given Documented by: Fluconazole (Fluconazole 100 Mg Tab) 100 mg PO DAILY [facility] Guaifenesin (Guaifenesin 600 Mg Tablet.Er) 600 mg PO QID [facility] Last Admin: 10/07/20 22:04 Dose: 600 mg Documented by: Cefepime HCl 2 gm/ Sodium (Chloride) 100 mls @ 25 mls/hr IVPB Q12HR [facility] Last Admin: 10/07/20 22:00 Dose: 25 mls/hr Documented by: Lisinopril (Lisinopril 5 Mg Tab) 5 mg PO DAILY [facility] Last Admin: 10/07/20 09:43 Dose: 5 mg Documented by: Metoprolol Tartrate (Metoprolol Tartrate 50 Mg Tab) 50 mg PO BID [facility] Last Admin: 10/07/20 22:04 Dose: 50 mg Documented by: Naloxone HCl (Naloxone 0.4 Mg/Ml 1 Ml Vial) 0.2 mg IV Q2M PRN PRN Reason: Opioid Reversal Nicotine (Nicotine 21mg/24hr Patch) 1 patch TRANSDERM DAILY [facility] Last Admin: 10/07/20 08:22 Dose: Not Given Documented by: Nystatin (Nystatin 100,000 Unit/Gm Oint 30 Gm Tube) 1 applic TOPICAL BID [facility] Last Admin: 10/07/20 22:03 Dose: 1 applic Documented by: Pregabalin (Pregabalin 75 Mg Cap) 150 mg PO BID [facility] Last Admin: 10/07/20 22:04 Dose: 150 mg Documented by: Triamcinolone Acetonide (Triamcinolone Acet 0.1% Ointment 80 Gm Tube) 1 applic TOPICAL BID [facility] Last Admin: 10/07/20 22:03 Dose: 1 applic Documented by: Zinc Sulfate (Zinc Sulfate 220 Mg Cap) 220 mg PO DAILY [facility] Last Admin: 10/07/20 08:21 Dose: 220 mg Documented by: Past medical history to include: COPD, cognitive impairment, bilateral lower extremity chronic cellulitis and wounds, peripheral neuropathy, smoker, right upper lobe lung mass with a negative PET scan, chronic anemia as best as exposure chronic left shoulder pain. Social history: Visit his son and his girlfriend. Gets about of the electric cart. Patient started smoking at the age of 10 up to pack and a half to 2 packs a day now down to one half a pack a day. Up to about a year ago he was drinking 4 cases of beer a week is not down to 6 Paxil 2 bottles of wine a week. Does use marijuana Gummi's Physical examination: VITAL SIGNS: 101.3, 72, 16, 103/62, 94% on 2 L GENERAL: Sitting up in bed, tired EYES: Pupils equal. Conjunctiva normal. HEENT: External appearance of nose and ears normal, oral cavity grossly normal. NECK: JVD not raised; masses not palpable. HEART: First and second heart sounds are normal; edema present. LUNGS: Respiratory rate increased, decreased breath sounds prolonged expiration ABDOMEN: Soft, nontender, liver spleen not palpable, no masses palpable. PSYCH: Awake, answering questions DERMATOLOGICAL: Lower extremity redness with superficial breakdown of skin, tenderness edema INVESTIGATIONS, reviewed in the clinical context: October 06: WBC 16.5 hemoglobin 14.8 potassium 3.7 creatinine 0.53 October 05: D-dimer 1.09 CRP 27.9 October 04: WBC 15.3 hemoglobin 13.7 potassium 3.5 creatinine 0.53 October 03: WBC 15.6 hemoglobin 13.2 procalcitonin 0.06 Chest x-ray film personally reviewed by me-right upper nodule, hyperinflation WBC 18.8 hemoglobin 14.8 platelets 331 potassium 3.8 creatinine 0.48 Lactic acid 3. 0 repeat 1.6 CRP 46.8 Coronavirus [PCR]-detected proBNP 1530 Assessment and plan: -Acute on chronic bilateral lower extremity cellulitis, worsened by underlying peripheral arterial disease. Seen by ID. honey alginate, saline moistened gauze, dry gauze,. IV Unasyn changed to IV cefepime because of Pseudomonas in the sputum -Stage II pressure ulcer right calcaneum with fat layer exposure, POA Foam heel protectors -Acute COPD exacerbation in current smoker: Improving Bronchodilators, steroids -Pneumonia secondary to Pseudomonas IV cefepime -Chronic nicotine dependence patient is a cigarette smoker Nicotine patch -Mild cognitive impairment -Painful peripheral neuropathy Continue with Lyrica -Right upper lobe lung mass with a known negative PET scan. Patient has not had any further workup or follow-up with seizures. Oncology is consulted Dr. Huber from radiation oncology. He'll follow up the patient in the outpatient following patient's rehab -Chronic medical debility. Does use electronic cart Consult PTOT -Social issues including placement. Consult sample case porter and group social worker. -COVID 19 infection On dexamethasone. Subcu Lovenox -Hyponatremia likely hypoosmolar from excessive water intake. Discussed with the patient. Fluid restriction 1800 mL a day Patient put on IV cefepime today. Fluid restriction. Repeat labs. Hold off discharged to ECF currently. Discussed with the patient. IV Dilaudid discontinued. Patient's chronic lower extremity pain not acute. Explained to the patient. Continue Lyrica
[2020-10-08 07:35] LABS: Basophils # (A) 0.1 k/uL (0-0.2); Basophils % (A) 1 %; Eosinophils # (A) 0.1 k/uL (0-0.7); Eosinophils % (A) 1 %; HCT 42.4 % (39.0-53.0); HGB 14.6 gm/dL (13.0-17.5); Lymphocytes # (A) 0.8 k/uL (1.0-4.8); Lymphocytes % (A) 6 %; MCH 30.9 pg (25.0-35.0); MCHC 34.3 g/dL (31.0-37.0); MCV 90.1 fL (80.0-100.0); Mean Platelet Volume 8.5; Monocytes # (A) 0.5 k/uL (0-1.0); Monocytes % (A) 4 %; Neutrophils # (A) 11.9 k/uL (1.3-7.7); Neutrophils % (A) 88 %; Platelet Count 233 k/uL (150-450); RBC 4.71 m/uL (4.30-5.90); RDW 14.1 % (11.5-15.5); WBC 13.5 k/uL (3.8-10.6)
[2020-10-08 07:47] LABS: African American GFR (CKD) >90 (>60 ml/min/1.73 sqM); Anion Gap 4 mmol/L; Blood Urea Nitrogen 9 mg/dL (9-20); C Reactive Protein 71.8 mg/L (<10.0); Calcium 8.4 mg/dL (8.4-10.2); Carbon Dioxide 30 mmol/L (22-30); Chloride 102 mmol/L (98-107); Glucose 104 mg/dL (74-99); Non-African American GFR(CKD) >90 (>60 ml/min/1.73 sqM); Potassium 3.6 mmol/L (3.5-5.1); Sodium 136 mmol/L (137-145)
[2020-10-08] MEDS: ALBUTEROL HFA INHALER INHALATION SCH ×4 (08:36→22:27)
[2020-10-08] MEDS: METOPROLOL TARTRATE 50 MG TAB PO SCH ×2 (09:09→21:10)
[2020-10-08] MEDS: CEFEPIME 2 GM in SODIUM CHLORIDE 0.9% 100 ML IVPB SCH ×2 (09:09→21:05)
[2020-10-08] MEDS: dexAMETHasone 2 MG TAB PO SCH (09:10)
[2020-10-08] MEDS: FLUCONAZOLE 100 MG TAB PO SCH (09:10)
[2020-10-08] MEDS: lisinopriL 5 MG TAB PO SCH (09:10)
[2020-10-08] MEDS: CHOLECALCIFEROL 25 MCG (1000 IU) TABLET PO SCH (09:10)
[2020-10-08] MEDS: ATORVASTATIN 40 MG TAB PO SCH (09:10)
[2020-10-08] MEDS: ASCORBIC ACID 500 MG TAB PO SCH (09:10)
[2020-10-08] MEDS: PREGABALIN 75 MG CAP PO SCH ×2 (09:10→21:07)
[2020-10-08] MEDS: guaiFENesin 600 MG TABLET.ER PO SCH ×4 (09:10→21:10)
[2020-10-08] MEDS: ZINC SULFATE 220 MG CAP PO SCH (09:10)
[2020-10-08] MEDS: ASPIRIN 81 MG PO SCH (09:10)
[2020-10-08] MEDS: NICOTINE 21MG/24HR PATCH TRANSDERM SCH (09:11)
[2020-10-08] MEDS: TRIAMCINOLONE ACET 0.1% OINTMENT 80 GM TUBE TOPICAL SCH ×2 (09:11→21:10)
[2020-10-08] MEDS: NYSTATIN 100,000 UNIT/GM OINT 30 GM TUBE TOPICAL SCH ×2 (09:11→21:10)
--- NOTE | 2020-10-08 09:24 | P.ARTDOP ---
Arterial Doppler LOWER EXTREMITY ARTERIAL DOPPLER: DATE OF SERVICE: 10/02/2020 Reason for study: Bilateral leg ulcers. Doppler waveforms: Multiphasic at the right femoral. Atypical throughout on the left and distally on the right.. Pulse volume recording: []. Pressure gradients: Limited study with the only pressures done on the brachial and left great toe.. Ankle-brachial indices: Not done. Toe brachial indices: Not done on the right, 0.35 on the left Impression: This is a very limited study due to the patient's open weeping wounds. Waveforms would suggest reasonable circulatory status for healing. Do suspect mild to moderate occlusive disease bilaterally. However limitations require significant clinical correlation..
--- NOTE | 2020-10-08 11:56 | P.PN ---
Subjective Progress Note Date: 10/08/20 CHIEF COMPLAINT: A. fib with RVR HISTORY OF PRESENT ILLNESS: 10/06/2020 This is a 65-year-old male with a past medical history significant for COPD, nicotine dependence, marijuana use, alcohol abuse and memory impairment. We have been asked to see the patient in consultation for afib with RVR. Patient is currently admitted to the hospital secondary to Covid 19. Two EKGs obtained which revealing sinus tachycardia with PVCs and PACs. Telemetry tracings review ed also reviewing sinus tachycardia with PACs and PVCs. No atrial fibrillation seen. Patient received a dose of oral metoprolol this morning with improvement in tachycardia. EKG reveals sinus tachycardia with PACs and PVCs Chest xray right upper lobe nodule obscured by overlying made. Right paratr acheal opacity correlates with adenopathy seen on PET CT. mild bibasilar atelectasis or airspace disease. Small left pleural effusion or thickening. Laboratory data: WBC 16.5. Hemoglobin 14.8. Platelet count 273. Sodium 132. Potassium 3.7. BUN 14. Creatinine 0.53. Current home cardiac medications include Lasix 40 mg daily 10/08/2020 Patient remains in sinus rhythm on telemetry with PVCs and short runs of V. tach. Echocardiogram obtained reveals ejection fraction 20-25%. Blood pressure 150/84. Heart rate is in the 70s. He is on 2 L nasal cannula with oxygen saturations greater than 92%. He is afebrile. 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 However this will be deferred until patient has recovered from Covid. Further recommendations pending patient course Nurse practitioner note has been reviewed by physician. Signing provider agrees with the documented findings, assessment, and plan of care. Objective - Vital Signs Vital signs: Vital Signs Temp 98.7 F 10/08/20 10:00 Pulse 68 10/08/20 10:00 Resp 24 10/08/20 10:00 BP 150/84 10/08/20 10:00 Pulse Ox 95 10/08/20 10:00 Intake & Output 10/07/20 10/08/20 10/08/20 18:59 06:59 18:59 Intake Total 1379 500 Output Total 2 Balance 1377 500 Intake: Intake, IV Titration 500 Amount Ampicillin-Sulbactam 3 gm 200 In Sodium Chloride 0.9% 100 ml @ 200 mls/hr IVPB Q6H [facility] Rx#:[id number] Cefepime 2 gm In Sodium 200 Chloride 0.9% 100 ml @ 200 mls/hr IVPB ONCE ONE Rx#:[id number] Cefepime 2 gm In Sodium 100 Chloride 0.9% 100 ml @ 25 mls/hr IVPB Q12HR [facility] Rx #:[id number] Oral 1379 Output: Urine 2 Other: Voiding Method Urinal - Labs CBC & Chem 7: 10/08/20 07:18 10/08/20 07:18 Labs: Abnormal Lab Results - Last 24 Hours (Table) 10/08/20 10/08/20 Range/Units 07:18 07:18 WBC 13.5 H (3.8-10.6) k/uL Neutrophils # 11.9 H (1.3-7.7) k/uL Lymphocytes # 0.8 L (1.0-4.8) k/uL Sodium 136 L (137-145) mmol/L Creatinine 0.40 L (0.66-1.25) mg/dL Glucose 104 H (74-99) mg/dL C-Reactive Protein 71.8 H (<10.0) mg/L Microbiology - Last 24 Hours (Table) 10/05/20 12:45 Gram Stain - Final Sputum Sputum Culture - Final Pseudomonas aeruginosa Aspen albicans
[2020-10-08] MEDS: ACETAMINOPHEN TAB 325 MG TAB PO PRN (13:57)
--- NOTE | 2020-10-08 14:51 | P.PN ---
Subjective Progress Note Date: 10/08/20 Principal diagnosis: Cellulitis, covid, lung adenocarcinoma Pt continues to lay in bed, he is not able to use his legs, he has not been in his motorized scooter and now does not feel he can transfer like he used to. He is expectorating large amounts of tea colored fluid. He had fever yesterday Objective - Vital Signs Vital signs: Vital Signs Temp 99.5 F 10/08/20 14:00 Pulse 74 10/08/20 14:00 Resp 24 10/08/20 14:00 BP 144/79 10/08/20 14:00 Pulse Ox 94 L 10/08/20 14:00 Intake & Output 10/07/20 10/08/20 10/08/20 18:59 06:59 18:59 Intake Total 1379 500 Output Total 2 Balance 1377 500 Intake: Intake, IV Titration 500 Amount Ampicillin-Sulbactam 3 gm 200 In Sodium Chloride 0.9% 100 ml @ 200 mls/hr IVPB Q6H [facility] Rx#:[id number] Cefepime 2 gm In Sodium 200 Chloride 0.9% 100 ml @ 200 mls/hr IVPB ONCE ONE Rx#:[id number] Cefepime 2 gm In Sodium 100 Chloride 0.9% 100 ml @ 25 mls/hr IVPB Q12HR [facility] Rx #:[id number] Oral 1379 Output: Urine 2 Other: Voiding Method Urinal - Constitutional General appearance: Present: cooperative, no acute distress, thin - EENT Eyes: Present: anicteric sclerae, EOMI ENT: Present: hearing grossly normal - Respiratory Respiratory: bilateral: rales - Cardiovascular Heart sounds: normal: S1, S2 - Peripheral edema leg Peripheral Edema: right: 1+, left: 2+ - Gastrointestinal General gastrointestinal: Present: normal bowel sounds, soft - Integumentary Integumentary Comment(s): BLE skin is red, multiple healing lesions/wounds and scabbs, skin is dry and flaky, no acute drainage, not hot - Neurologic Neurologic: Present: CNII-XII intact (grossly) - Musculoskeletal Musculoskeletal: Present: generalized weakness - Psychiatric Psychiatric: Present: A&O x's 3, appropriate affect, intact judgment & insight - Labs CBC & Chem 7: 10/08/20 07:18 04/14/21 07:18 Labs: Abnormal Lab Results - Last 24 Hours (Table) 10/08/20 10/08/20 10/08/20 Range/Units 07:18 07:18 07:18 WBC 13.5 H (3.8-10.6) k/uL Neutrophils # 11.9 H (1.3-7.7) k/uL Lymphocytes # 0.8 L (1.0-4.8) k/uL Sodium 136 L (137-145) mmol/L Creatinine 0.40 L (0.66-1.25) mg/dL Glucose 104 H (74-99) mg/dL C-Reactive Protein 71.8 H (<10.0) mg/L Procalcitonin 0.10 H (0.02-0.09) ng/mL Microbiology - Last 24 Hours (Table) 10/05/20 12:45 Gram Stain - Final Sputum Sputum Culture - Final Pseudomonas aeruginosa Aspen albicans Assessment and Plan (1) Bilateral lower leg cellulitis Narrative/Plan: Improved with treatment of the same. Cont plan of care according to ID and w ound care Current Visit: Yes Status: Acute Priority: High Code(s): L03.116 - CELLULITIS OF LEFT LOWER LIMB; L03.115 - CELLULITIS OF RIGHT LOWER LIMB SNOMED Code(s): 482563048 (2) COVID-19 Narrative/Plan: Fever yesterday, sputum returned positive for fungal infection as well, ID adjusted infection treatment. Pt showed me a urinal with about 4 inches of tea colored liquid in it, and stated that he coughed all that up. His Hgb is stable at this time. Not absolutely certain pt is "coughing" all of this fluid up. Discussed with RN. This fluid will be monitored and measured for volume. Current Visit: Yes Status: Acute Priority: High Code(s): U07.1 - COVID-19 SNOMED Code(s): 841615947 (3) Non-small cell cancer of right lung Narrative/Plan: Plans for chemo/XRT. Pt need rehabilitation and needs to be able to care for himself. Pending treatment until discharged from rehab F/U with darian Schwarzt in [place] plan CTA of chest report reviewed. Currently there is no established criteria for Radiologist to use to absolutely distinguish covid vs progressive malignancy. Plan is for PET for restaging after recovery. Discussed with pt and he verbalized understanding Current Visit: Yes Status: Acute Priority: High Code(s): C34.91 - MALIGNANT NEOPLASM OF UNSP PART OF RIGHT BRONCHUS OR LUNG SNOMED Code(s): 024110875 Plan: Covid and malignancy-recommend DVT prophylaxis with lovenox 40mg SQ daily for 28 days. Cont while inpt. Documented in discharge plan to cont while outpt. Verified he can receive in rehab. May need Rx to complete 28 days of treatment when he is discharged form rehab. Discussed with Online Marketing Strategist 10/07/20
[2020-10-08 15:09] VITALS: BMI 22.8
--- NOTE | 2020-10-08 18:07 | PN ---
PROGRESS NOTE DATE OF SERVICE: 10/08/2020 REASON FOR FOLLOWUP: 1. Pseudomonas tracheobronchitis. 2. Lower extremity cellulitis. INTERVAL HISTORY: The patient is currently afebrile. The patient mentioned his breathing has improved. The patient denies having any chest pain. He continues to have a cough and is bringing up some purulent sputum. No nausea. No vomiting. No abdominal pain. Overall lower extremity swelling has improved. PHYSICAL EXAMINATION: Blood pressure 144/79, pulse 74, temperature 99.5. He is 94% on 2 L nasal cannula. General description is a middle-aged male lying in bed in no distress. RESPIRATORY SYSTEM: Unlabored breathing with decreased intensity of breath sounds. No wheeze. HEART: S1, S2. Regular rate and rhythm. ABDOMEN: Soft. No tenderness. Lower extremity swelling persists. Redness has decreased. No drainage. LABS: Hemoglobin is 14.6, white count 13.5, BUN of 9, creatinine 0.40. DIAGNOSTIC IMPRESSION AND PLAN: 1. Patient with bilateral lower extremity venostasis dermatitis and cellulitis. Overall improvement on Unasyn. Currently on cefepime. 2. Patient with Pseudomonas tracheobronchitis, on cefepime. Transition to oral Cipro for a short course on discharge. Continue supportive care. MMODL / IJN: [id number] /
--- NOTE | 2020-10-08 21:07 | P.PN ---
Progress Note - Text Progress Note Date: 10/08/20 Chief Complaint: Redness lower extremity History of presenting complaint: This is a 65-year-old patient who follows with Dr. Garcia. Patient's chronic stable medical conditions includes some cognitive impairment, painful peripheral neuropathy in both hand and feet, smoker has been diagnosed with right upper lobe lung mass with a negative PET scan currently no treatment, as best as exposure. Patient lives with his son and his girlfriend.. Does use a battery operated wheelchair. Patient has a home nurse who takes care of her lower extremities. Patient has noted increasing pain and redness and sometimes some drainage from the lower extremity. With swelling. Denies any fever and chills. Patient also got a cough some shortness of breath. A bit congested the chest. Denies any obvious fever and chills Admitted with: Acute on chronic bilateral lower extremity cellulitis, acute COPD exacerbation, COVID 19 infection. Patient rather picky about the food. Telemetry showing sinus tachycardia with PACs and PVCs. Patient told to cut back on his caffeine intake which has been excessive. Patient hardly eats. Sputum culture did cope positive for Pseudomonas. Antibiotics changed to IV cefepime. Today: Patient is on fluid restriction. Breathing better. No further fever. Review of systems: Was done for constitutional, cardiovascular, GI, pulmonary. relevant finding as above Active Medications Acetaminophen (Acetaminophen Tab 325 Mg Tab) 650 mg PO Q6HR PRN PRN Reason: Fever and/ or Mild Pain Last Admin: 10/08/20 13:57 Dose: 650 mg Documented by: Albuterol Sulfate (Albuterol Hfa Inhaler) 4 puff INHALATION RT-QID [facility] Last Admin: 10/08/20 16:06 Dose: Not Given Documented by: Albuterol/Ipratropium (Ipratropium-Albuterol 3 Ml Neb) 3 ml INHALATION RT-Q2H PRN PRN Reason: Shortness Of Breath Or Wheezing Ascorbic Acid (Ascorbic Acid 500 Mg Tab) 1,000 mg PO DAILY [facility] Last Admin: 10/08/20 09:10 Dose: 1,000 mg Documented by: Aspirin (Aspirin 81 Mg) 81 mg PO DAILY [facility] Last Admin: 10/08/20 09:10 Dose: 81 mg Documented by: Atorvastatin Calcium (Atorvastatin 40 Mg Tab) 40 mg PO DAILY [facility] Last Admin: 10/08/20 09:10 Dose: 40 mg Documented by: Cholecalciferol (Cholecalciferol 25 Mcg (1000 Iu) Tablet) 125 mcg PO DAILY [facility] Last Admin: 10/08/20 09:10 Dose: 125 mcg Documented by: Dexamethasone (Dexamethasone 2 Mg Tab) 6 mg PO DAILY [facility] Last Admin: 10/08/20 09:10 Dose: 6 mg Documented by: Enoxaparin Sodium (Enoxaparin 40 Mg/0.4 Ml Syringe) 40 mg SQ DAILY@2200 [facility] Last Admin: 10/07/20 22:05 Dose: Not Given Documented by: Fluconazole (Fluconazole 100 Mg Tab) 100 mg PO DAILY [facility] Last Admin: 10/08/20 09:10 Dose: 100 mg Documented by: Guaifenesin (Guaifenesin 600 Mg Tablet.Er) 600 mg PO QID [facility] Last Admin: 10/08/20 17:53 Dose: Not Given Documented by: Cefepime HCl 2 gm/ Sodium (Chloride) 100 mls @ 25 mls/hr IVPB Q12HR [facility] Last Admin: 10/08/20 09:09 Dose: 25 mls/hr Documented by: Lisinopril (Lisinopril 5 Mg Tab) 5 mg PO DAILY [facility] Last Admin: 10/08/20 09:10 Dose: 5 mg Documented by: Metoprolol Tartrate (Metoprolol Tartrate 50 Mg Tab) 50 mg PO BID [facility] Last Admin: 10/08/20 09:09 Dose: 50 mg Documented by: Naloxone HCl (Naloxone 0.4 Mg/Ml 1 Ml Vial) 0.2 mg IV Q2M PRN PRN Reason: Opioid Reversal Nicotine (Nicotine 21mg/24hr Patch) 1 patch TRANSDERM DAILY [facility] Last Admin: 10/08/20 09:11 Dose: Not Given Documented by: Nystatin (Nystatin 100,000 Unit/Gm Oint 30 Gm Tube) 1 applic TOPICAL BID [facility] Last Admin: 10/08/20 09:11 Dose: 1 applic Documented by: Pregabalin (Pregabalin 75 Mg Cap) 150 mg PO BID [facility] Last Admin: 10/08/20 09:10 Dose: 150 mg Documented by: Triamcinolone Acetonide (Triamcinolone Acet 0.1% Ointment 80 Gm Tube) 1 applic TOPICAL BID [facility] Last Admin: 10/08/20 09:11 Dose: 1 applic Documented by: Zinc Sulfate (Zinc Sulfate 220 Mg Cap) 220 mg PO DAILY [facility] Last Admin: 10/08/20 09:10 Dose: 220 mg Documented by: Past medical history to include: COPD, cognitive impairment, bilateral lower extremity chronic cellulitis and wounds, peripheral neuropathy, smoker, right upper lobe lung mass with a negative PET scan, chronic anemia as best as exposure chronic left shoulder pain. Social history: Visit his son and his girlfriend. Gets about of the electric cart. Patient started smoking at the age of 10 up to pack and a half to 2 packs a day now down to one half a pack a day. Up to about a year ago he was drinking 4 cases of beer a week is not down to 6 Paxil 2 bottles of wine a week. Does use marijuana Gummi's Physical examination: VITAL SIGNS: 98.7, 16, 24, 1 5184, 95% on 2 L GENERAL: Sitting up in bed, tired EYES: Pupils equal. Conjunctiva normal. HEENT: External appearance of nose and ears normal, oral cavity grossly normal. NECK: JVD not raised; masses not palpable. HEART: First and second heart sounds are normal; edema present. LUNGS: Respiratory rate increased, decreased breath sounds prolonged expiration ABDOMEN: Soft, nontender, liver spleen not palpable, no masses palpable. PSYCH: Awake, answering questions DERMATOLOGICAL: Lower extremity redness with superficial breakdown of skin, tenderness edema INVESTIGATIONS, reviewed in the clinical context: October 08: WBC 13.5 hemoglobin 14.6 potassium 3.6 creatinine 0.4 CRP 71.8 pro- calcitonin 0.1 October 06: WBC 16.5 hemoglobin 14.8 potassium 3.7 creatinine 0.53 October 05: D-dimer 1.09 CRP 27.9 October 04: WBC 15.3 hemoglobin 13.7 potassium 3.5 creatinine 0.53 October 03: WBC 15.6 hemoglobin 13.2 procalcitonin 0.06 Chest x-ray film personally reviewed by me-right upper nodule, hyperinflation WBC 18.8 hemoglobin 14.8 platelets 331 potassium 3.8 creatinine 0.48 Lactic acid 3. 0 repeat 1.6 CRP 46.8 Coronavirus [PCR]-detected proBNP 1530 Assessment and plan: -Acute on chronic bilateral lower extremity venous stasis cellulitis, worsened by underlying peripheral arterial disease. Seen by ID. honey alginate, saline moistened gauze, dry gauze,. IV Unasyn changed to IV cefepime because of Pseudomonas in the sputum -Stage II pressure ulcer right calcaneum with fat layer exposure, POA Foam heel protectors -Acute COPD exacerbation in current smoker: Improving Bronchodilators, steroids -Pneumonia secondary to Pseudomonas IV cefepime -Chronic nicotine dependence patient is a cigarette smoker Nicotine patch -Mild cognitive impairment -Painful peripheral neuropathy Continue with Lyrica -Right upper lobe lung mass with a known negative PET scan. Patient has not had any further workup or follow-up with seizures. Oncology is consulted Dr. Huber from radiation oncology. He'll follow up the patient in the outpatient following patient's rehab -Chronic medical debility. Does use electronic cart Consult PTOT -Social issues including placement. Consult ed case manager and family welfare social work professor. -COVID 19 infection On dexamethasone. Subcu Lovenox -Hyponatremia likely hypoosmolar from excessive water intake.-Improving Discussed with the patient. Fluid restriction 1800 mL a day Continue IVs cefepime for 24 more hours. Hopefully discharged to ECF tomorrow on ciprofloxacin as per ID.
[2020-10-08] MEDS: ENOXAPARIN 40 MG/0.4 ML SYRINGE SQ SCH (21:10)
[2020-10-09] MEDS: ALBUTEROL HFA INHALER INHALATION SCH ×2 (07:51→11:39)
[2020-10-09] MEDS: ASPIRIN 81 MG PO SCH (08:00)
[2020-10-09] MEDS: ASCORBIC ACID 500 MG TAB PO SCH (08:00)
[2020-10-09] MEDS: ATORVASTATIN 40 MG TAB PO SCH (08:00)
[2020-10-09] MEDS: CEFEPIME 2 GM in SODIUM CHLORIDE 0.9% 100 ML IVPB SCH (08:00)
[2020-10-09] MEDS: METOPROLOL TARTRATE 50 MG TAB PO SCH (08:01)
[2020-10-09] MEDS: guaiFENesin 600 MG TABLET.ER PO SCH ×2 (08:01→12:19)
[2020-10-09] MEDS: dexAMETHasone 2 MG TAB PO SCH (08:01)
[2020-10-09] MEDS: lisinopriL 5 MG TAB PO SCH (08:01)
[2020-10-09] MEDS: CHOLECALCIFEROL 25 MCG (1000 IU) TABLET PO SCH (08:01)
[2020-10-09] MEDS: FLUCONAZOLE 100 MG TAB PO SCH (08:01)
[2020-10-09] MEDS: TRIAMCINOLONE ACET 0.1% OINTMENT 80 GM TUBE TOPICAL SCH (08:02)
[2020-10-09] MEDS: PREGABALIN 75 MG CAP PO SCH (08:02)
[2020-10-09] MEDS: ZINC SULFATE 220 MG CAP PO SCH (08:02)
[2020-10-09] MEDS: NYSTATIN 100,000 UNIT/GM OINT 30 GM TUBE TOPICAL SCH (08:02)
[2020-10-09] MEDS: NICOTINE 21MG/24HR PATCH TRANSDERM SCH (08:02)
[2020-10-09 10:42] VITALS: PULSE 64
--- NOTE | 2020-10-09 13:47 | P.PN ---
Subjective Progress Note Date: 10/09/20 CHIEF COMPLAINT: A. fib with RVR HISTORY OF PRESENT ILLNESS: 10/06/2020 This is a 65-year-old male with a past medical history significant for COPD, nicotine dependence, marijuana use, alcohol abuse and memory impairment. We have been asked to see the patient in consultation for afib with RVR. Patient is currently admitted to the hospital secondary to Covid 19. Two EKGs obtained which revealing sinus tachycardia with PVCs and PACs. Telemetry tracings review ed also reviewing sinus tachycardia with PACs and PVCs. No atrial fibrillation seen. Patient received a dose of oral metoprolol this morning with improvement in tachycardia. EKG reveals sinus tachycardia with PACs and PVCs Chest xray right upper lobe nodule obscured by overlying made. Right paratr acheal opacity correlates with adenopathy seen on PET CT. mild bibasilar atelectasis or airspace disease. Small left pleural effusion or thickening. Laboratory data: WBC 16.5. Hemoglobin 14.8. Platelet count 273. Sodium 132. Potassium 3.7. BUN 14. Creatinine 0.53. Current home cardiac medications include Lasix 40 mg daily 10/08/2020 Patient remains in sinus rhythm on telemetry with PVCs and short runs of V. tach. Echocardiogram obtained reveals ejection fraction 20-25%. Blood pressure 150/84. Heart rate is in the 70s. He is on 2 L nasal cannula with oxygen saturations greater than 92%. He is afebrile. Patient is currently maintained on aspirin 81 mg daily, atorvastatin 40 mg daily, lisinopril 5 mg daily, and metoprolol tartrate 50 mg twice a day 10/09/2020 Patient remains in sinus mechanism on telemetry with a heart rate in the 60s. Blood pressure this morning 125/83. Patient is afebrile. Patient eventually was nasal cannula with oxygen saturations greater than 92%. 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 However this will be deferred until patient has recovered from Covid. Patient to follow up outpatient with Dr. Cárdenas We will sign off. Please reconsult if needed. Nurse practitioner note has been reviewed by physician. Signing provider agrees with the documented findings, assessment, and plan of care. Objective - Vital Signs Vital signs: Vital Signs Temp 98.5 F 10/09/20 10:00 Pulse 64 10/09/20 10:00 Resp 16 10/09/20 10:00 BP 136/80 10/09/20 10:00 Pulse Ox 94 L 10/09/20 10:00 Intake & Output 10/08/20 10/09/20 10/09/20 18:59 06:59 18:59 Output Total 750 1400 Balance -750 -1400 Weight 70.307 kg Output: Gastric Drainage 50 100 Urine 700 1300 Other: Voiding Method Urinal Urinal - Labs CBC & Chem 7: 10/08/20 07:18 10/08/20 07:18 Labs: Microbiology - Last 24 Hours (Table) 10/08/20 07:18 Blood Culture - Preliminary Blood No Growth after 24 hours
--- NOTE | 2020-10-09 14:56 | P.DS ---
Providers Date of admission: 10/01/20 18:51 Expected date of discharge: 10/09/20 Attending physician: Ye Scott Consults: 10/01/20 18:50 Consult Physician Urgent Consulting Provider: Cara Kang Consult Reason/Comments: b/l le cellulitis, failed outpatient treatment Do you want consulting provider notified?: Yes 10/02/20 14:13 Consult Physician Routine Consulting Provider: Prosper Ho Consult Reason/Comments: covid Do you want consulting provider notified?: Yes 10/02/20 19:50 Consult Physician Routine Consulting Provider: Herson Bailey Consult Reason/Comments: Lung cancer Do you want consulting provider notified?: Yes 10/03/20 15:17 Consult Physician Routine Consulting Provider: Boom Huber Consult Reason/Comments: was suppose to begin concurrent xrt Do you want consulting provider notified?: Yes Primary care physician: Boom [place] Hospital Course: Chief Complaint: Redness lower extremity History of presenting complaint: This is a 65-year-old patient who follows with Dr. Garcia. Patient's chronic stable medical conditions includes some cognitive impairment, painful peripheral neuropathy in both hand and feet, smoker has been diagnosed with right upper lobe lung mass with a negative PET scan currently no treatment, as best as exposure. Patient lives with his son and his girlfriend.. Does use a battery operated wheelchair. Patient has a home nurse who takes care of her lower extremities. Patient has noted increasing pain and redness and sometimes some drainage from the lower extremity. With swelling. Denies any fever and chills. Patient also got a cough some shortness of breath. A bit congested the chest. Denies any obvious fever and chills Admitted with: Acute on chronic bilateral lower extremity cellulitis, acute COPD exacerbation, COVID 19 infection. Patient rather picky about the food. Telemetry showing sinus tachycardia with PACs and PVCs. Patient told to cut back on his caffeine intake which has been excessive. Patient hardly eats. Sputum culture did cope positive for Pseudomonas. Antibiotics changed to IV cefepime. Today: Sitting up. Sputum output is greatly improved. To be discharged on 1800 mL of fluid restriction in 24 hours. Being changed over to to Augmentin and. Ciprofloxacin to complete course. Patient will follow-up with Dr. García Huber from radiation oncology as outpatient.. Discussion and discharge planning more than 35 minutes Consultation: Cardiology associates Dr. Kang from ID Dr. Bailey from oncology Dr. García Huber from radiation oncology Plastic surgery Dr. Loraine Alfaro Past medical history to include: COPD, cognitive impairment, bilateral lower extremity chronic cellulitis and wounds, peripheral neuropathy, smoker, right upper lobe lung mass with a negative PET scan, chronic anemia as best as exposure chronic left shoulder pain. Social history: Visit his son and his girlfriend. Gets about of the electric cart. Patient started smoking at the age of 10 up to pack and a half to 2 packs a day now down to one half a pack a day. Up to about a year ago he was drinking 4 cases of beer a week is not down to 6 Paxil 2 bottles of wine a week. Does use marijuana Gummi's Physical examination: VITAL SIGNS: 98.5, 64, 16, 136-80, 94% on 2 L GENERAL: Sitting up in bed, awake EYES: Pupils equal. Conjunctiva normal. HEENT: External appearance of nose and ears normal, oral cavity grossly normal. NECK: JVD not raised; masses not palpable. HEART: First and second heart sounds are normal; edema present. LUNGS: Respiratory rate increased, decreased breath sounds prolonged expiration ABDOMEN: Soft, nontender, liver spleen not palpable, no masses palpable. PSYCH: Awake, answering questions DERMATOLOGICAL: Lower extremity redness with superficial breakdown of skin, tenderness edema INVESTIGATIONS, reviewed in the clinical context: October 08: WBC 13.5 hemoglobin 14.6 potassium 3.6 creatinine 0.4 CRP 71.8 pro- calcitonin 0.1 October 06: WBC 16.5 hemoglobin 14.8 potassium 3.7 creatinine 0.53 October 05: D-dimer 1.09 CRP 27.9 October 04: WBC 15.3 hemoglobin 13.7 potassium 3.5 creatinine 0.53 October 03: WBC 15.6 hemoglobin 13.2 procalcitonin 0.06 Chest x-ray film personally reviewed by me-right upper nodule, hyperinflation WBC 18.8 hemoglobin 14.8 platelets 331 potassium 3.8 creatinine 0.48 Lactic acid 3. 0 repeat 1.6 CRP 46.8 Coronavirus [PCR]-detected proBNP 1530 Sputum culture: Pseudomonas aeruginosa, Aspen albicans Assessment and plan: -Acute on chronic bilateral lower extremity venous stasis cellulitis, worsened b y underlying peripheral arterial disease. Seen by ID. honey alginate, saline moistened gauze, dry gauze,. IV Unasyn changed to IV cefepime because of Pseudomonas in the sputum. -Stage II pressure ulcer right calcaneum with fat layer exposure, POA Foam heel protectors -Acute COPD exacerbation in current smoker: Improved Bronchodilators, steroids -Pneumonia secondary to Pseudomonas IV cefepime-changed over to Augmentin -Chronic nicotine dependence patient is a cigarette smoker Nicotine patch -Mild cognitive impairment -Painful peripheral neuropathy Continue with Lyrica -Right upper lobe lung mass with a known negative PET scan. Patient has not had any further workup or follow-up with seizures. Oncology is consulted Dr. Huber from radiation oncology. He'll follow up the patient in the outpatient following patient's rehab -Chronic medical debility. Does use electronic cart Consult PTOT -COVID 19 infection On dexamethasone-changed to prednisone taper. Subcu Lovenox -Hyponatremia likely hypoosmolar from excessive water intake.-Improving Discussed with the patient. Fluid restriction 1800 mL a day Disposition: ECF/emergency Labs: CBC/CMP-3 days Patient Condition at Discharge: Stable Plan - Discharge Summary Discharge Rx Participant: No New Discharge Prescriptions: New Enoxaparin [Lovenox] 40 mg SQ DAILY #28 syringe Ciprofloxacin HCl [Cipro] 500 mg PO Q12HR 7 Days #14 tab Aspirin 81 mg PO DAILY #90 chew lisinopriL [Zestril] 5 mg PO DAILY #90 tab Ipratropium-Albuterol Nebulize [Duoneb 0.5 mg-3 mg/3 ml Soln] 3 ml INHALATION RT-Q2H PRN ml PRN Reason: Shortness Of Breath Or Wheezing Nicotine 21Mg/24Hr Patch [Habitrol] 1 patch TRANSDERM DAILY patch Nystatin 100,000 Unit/gm Oint [Mycostatin Oint] 1 applic TOPICAL BID applic Acetaminophen Tab [Tylenol] 650 mg PO Q6HR PRN tab PRN Reason: Fever and/ or Mild Pain Ascorbic Acid [Vitamin C] 1,000 mg PO DAILY tab Cholecalciferol [Vitamin D3 (25 Mcg = 1000 Iu)] 125 mcg PO DAILY tablet Amoxic-Pot Clav 875-125Mg [Augmentin 875-125] 1 tab PO Q12HR 7 Days #14 tab Atorvastatin [Lipitor] 40 mg PO DAILY #90 tab Metoprolol Tartrate [Lopressor] 50 mg PO BID #180 tab Fluconazole [Diflucan] 100 mg PO DAILY #7 tab Triamcinolone 0.1% Ointment [Kenalog] 1 applic TOPICAL BID applic guaiFENesin [Mucinex] 600 mg PO QID tablet.er Zinc Sulfate [Orazinc] 220 mg PO DAILY cap predniSONE 10 mg PO DAILY #30 tab Continue Pregabalin [Lyrica] 150 mg PO BID #6 cap Discontinued Furosemide [Lasix] 40 mg PO DAILY Ibuprofen [Motrin] 800 mg PO TID PRN PRN Reason: Pain Discharge Medication List Enoxaparin [Lovenox] 40 mg SQ DAILY #28 syringe 10/06/20 [Rx] Amoxic-Pot Clav 875-125Mg [Augmentin 875-125] 1 tab PO Q12HR 7 Days #14 tab 10/07/20 [Rx] Ciprofloxacin HCl [Cipro] 500 mg PO Q12HR 7 Days #14 tab 10/07/20 [Rx] Acetaminophen Tab [Tylenol] 650 mg PO Q6HR PRN tab 10/09/20 [Rx] Ascorbic Acid [Vitamin C] 1,000 mg PO DAILY tab 10/09/20 [Rx] Aspirin 81 mg PO DAILY #90 chew 10/09/20 [Rx] Atorvastatin [Lipitor] 40 mg PO DAILY #90 tab 10/09/20 [Rx] Cholecalciferol [Vitamin D3 (25 Mcg = 1000 Iu)] 125 mcg PO DAILY tablet 10/09/20 [Rx] Fluconazole [Diflucan] 100 mg PO DAILY #7 tab 10/09/20 [Rx] Ipratropium-Albuterol Nebulize [Duoneb 0.5 mg-3 mg/3 ml Soln] 3 ml INHALATION RT-Q2H PRN ml 10/09/20 [Rx] Metoprolol Tartrate [Lopressor] 50 mg PO BID #180 tab 10/09/20 [Rx] Nicotine 21Mg/24Hr Patch [Habitrol] 1 patch TRANSDERM DAILY patch 10/09/20 [Rx] Nystatin 100,000 Unit/gm Oint [Mycostatin Oint] 1 applic TOPICAL BID applic 10/09/20 [Rx] Pregabalin [Lyrica] 150 mg PO BID #6 cap 10/09/20 [Rx] Triamcinolone 0.1% Ointment [Kenalog] 1 applic TOPICAL BID applic 10/09/20 [Rx] Zinc Sulfate [Orazinc] 220 mg PO DAILY cap 10/09/20 [Rx] guaiFENesin [Mucinex] 600 mg PO QID tablet.er 10/09/20 [Rx] lisinopriL [Zestril] 5 mg PO DAILY #90 tab 10/09/20 [Rx] predniSONE 10 mg PO DAILY #30 tab 10/09/20 [Rx] Follow up Appointment(s)/Referral(s): Robby Saavedra MD [STAFF PHYSICIAN] - 1-2 Days Boom Garcia MD [Primary Care Provider] - As Needed Boom Huber MD [STAFF PHYSICIAN] - 10/29/20 10:00 am (Appt at [facility] 1st Floor-Radiation Oncology, 10/29/2020 at 10am. [facility] En[facility]) Ismael Lozano MD [STAFF PHYSICIAN] - 10/31/20 1:30 pm Krishan Cárdenas MD [STAFF PHYSICIAN] - 2 Weeks Activity/Diet/Wound Care/Special Instructions: Lovenox 40mg SQ daily for 28 days-malignancy and covid. Please give while in rehab. He may need Rx for remaining days after discharge from rehab. Care Plan Goals (MU): pt. has medications in pharmacy to be picked up prior to discharge.
[2020-10-09 15:16] VITALS: BP 116/74; RESP 20; TEMP 99.1
--- NOTE | 2020-10-09 15:34 | PN ---
PROGRESS NOTE DATE OF SERVICE: 10/09/2020 REASON FOR FOLLOWUP: 1. Bilateral lower extremity cellulitis. 2. Pseudomonas tracheobronchitis. INTERVAL HISTORY: The patient is currently afebrile. The patient has been complaining about his fluid has been cut down. The patient denies having any chest pain. He did have a cough and bringing up some purulent sputum. No vomiting. No abdominal pain. No diarrhea. Overall leg swelling and redness has resolved. PHYSICAL EXAMINATION: Blood pressure 138/60 with a pulse of 64, temperature 98.5. He is 94% on 2 L nasal cannula. General description is a middle-aged male lying in bed in no distress. RESPIRATORY SYSTEM: Unlabored breathing, decreased intensity of breath sounds, no wheeze. HEART: S1, S2. Regular rate and rhythm. ABDOMEN: Soft, no tenderness. LABS: Hemoglobin is 14.6, white count 13.5. BUN of 9, creatinine 0.40. DIAGNOSTIC IMPRESSION AND PLAN: 1. Patient with bilateral lower extremity cellulitis, adequately treated. 2. Patient has Pseudomonas tracheobronchitis/clinically not behaving as pneumonia in this patient have underlying malignancy. Patient is covered cefepime. Finish therapy with oral Cipro. Continue with supportive care. MMODL / IJN: [id number] /
--- NOTE | 2020-10-09 16:51 | P.PN ---
Subjective Progress Note Date: 10/09/20 Principal diagnosis: Cellulitis, covid, lung adenocarcinoma Pt in bed, states the extra fluid in urinal he is using for expectorating mucus is liquids he is spitting out. His legs are red and warm today. Objective - Vital Signs Vital signs: Vital Signs Temp 99.1 F 10/09/20 14:00 Pulse 64 10/09/20 14:00 Resp 20 10/09/20 14:00 BP 116/74 10/09/20 14:00 Pulse Ox 95 10/09/20 14:00 Intake & Output 10/08/20 10/09/20 10/09/20 18:59 06:59 18:59 Output Total 750 1400 Balance -750 -1400 Weight 70.307 kg Output: Gastric Drainage 50 100 Urine 700 1300 Other: Voiding Method Urinal Urinal - Constitutional General appearance: Present: no acute distress, thin - EENT Eyes: Present: anicteric sclerae, EOMI, poor dentition ENT: Present: hearing grossly normal - Respiratory Respiratory: bilateral: rhonchi (expiratory) - Cardiovascular Heart sounds: normal: S1, S2 Abnormal Heart Sounds: Absent: systolic murmur, diastolic murmur, rub, S3 Gallop, S4 Gallop, click, other - Peripheral edema leg Peripheral Edema: right: Trace, left: 1+ - Gastrointestinal General gastrointestinal: Present: normal bowel sounds, soft - Integumentary Integumentary Comment(s): red, flaky, peeling skin on BLE - Psychiatric Psychiatric: Present: A&O x's 3 - Labs CBC & Chem 7: 10/08/20 07:18 10/08/20 07:18 Labs: Microbiology - Last 24 Hours (Table) 10/08/20 07:18 Blood Culture - Preliminary Blood No Growth after 24 hours Assessment and Plan (1) Bilateral lower leg cellulitis Narrative/Plan: Improved with treatment of the same. Cont plan of care according to ID and wound care Current Visit: Yes Status: Acute Priority: High Code(s): L03.116 - CELLULITIS OF LEFT LOWER LIMB; L03.115 - CELLULITIS OF RIGHT LOWER LIMB SNOMED Code(s): 947365691 (2) COVID-19 Current Visit: Yes Status: Acute Priority: High Code(s): U07.1 - COVID-19 SNOMED Code(s): 578517982 (3) Non-small cell cancer of right lung Narrative/Plan: Plans for chemo/XRT. Pt need rehabilitation and needs to be able to care for himself. Pending treatment until discharged from rehab F/U with dorothy Schwarz in [place] plan CTA of chest report reviewed. Currently there is no established criteria for Radiologist to use to absolutely distinguish covid vs progressive malignancy. Plan is for PET for restaging after recovery. Discussed with pt and he verbalized understanding Need for restaging PET scan when pt released from rehab. Long delay in starting treatment, need to re-assess disease Current Visit: Yes Status: Acute Priority: High Code(s): C34.91 - MALIGNANT NEOPLASM OF UNSP PART OF RIGHT BRONCHUS OR LUNG SNOMED Code(s): 961414682 Plan: Covid and malignancy-recommend DVT prophylaxis with lovenox 40mg SQ daily for 28 days. Cont while inpt. Documented in discharge plan to cont while outpt. Verified he can receive in rehab. May need Rx to complete 28 days of treatment when he is discharged form rehab. Discussed with Chief Technician 10/07/20
== END 2020-10-09 16:41 | disposition home or self-care (01) | DRG 602 ==
LOC: EC 15:31 → 4SSUR 18:51
PROVIDERS: ADMIT Hospitalist; ATTEND Hospitalist
DX: L03.115 Cellulitis of right lower limb (principal); U07.1 COVID-19; J15.1 Pneumonia due to Pseudomonas; E87.2 Acidosis; J44.1 Chronic obstructive pulmonary disease with (acute) exacerbation; C34.11 Malignant neoplasm of upper lobe, right bronchus or lung; I47.2 Ventricular tachycardia; I42.9 Cardiomyopathy, unspecified; J44.0 Chronic obstructive pulmonary disease with (acute) lower respiratory infection; E87.1 Hypo-osmolality and hyponatremia; L97.929 Non-pressure chronic ulcer of unspecified part of left lower leg with unspecified severity; L30.9 Dermatitis, unspecified; L03.116 Cellulitis of left lower limb; F17.210 Nicotine dependence, cigarettes, uncomplicated; G62.9 Polyneuropathy, unspecified; F10.10 Alcohol abuse, uncomplicated; N40.0 Benign prostatic hyperplasia without lower urinary tract symptoms; L89.612 Pressure ulcer of right heel, stage 2; I87.2 Venous insufficiency (chronic) (peripheral); D72.829 Elevated white blood cell count, unspecified; T38.0X5A Adverse effect of glucocorticoids and synthetic analogues, initial encounter; I48.91 Unspecified atrial fibrillation; I73.9 Peripheral vascular disease, unspecified; F03.90 Unspecified dementia, unspecified severity, without behavioral disturbance, psychotic disturbance, mood disturbance, and anxiety; I49.3 Ventricular premature depolarization; I87.8 Other specified disorders of veins; R09.02 Hypoxemia; Z77.090 Contact with and (suspected) exposure to asbestos; Z91.19 Patient's noncompliance with other medical treatment and regimen; Z96.1 Presence of intraocular lens; Z82.49 Family history of ischemic heart disease and other diseases of the circulatory system; Z79.899 Other long term (current) drug therapy; L98.492 Non-pressure chronic ulcer of skin of other sites with fat layer exposed
CPT/HCPCS: 36415; 70450; 71045; 71275; 80048; 80053; 80202; 82565; 83605; 83735; 83880; 84145; 84443; 85025; 85379; 85652; 86140; 87040; 87070; 87077; 87186; 87205; 87635; 93005; 93306; 93922; 94640; 94760; 96365; 96366; 96375; 99284

== ENCOUNTER 2020-11-10 15:30 | Inpatient (IN) | payer OTHER ==
[2020-11-10] MEDS ORDERED: MORPHINE SULFATE 4 MG/ML SYRINGE IVP STA (15:54)
[2020-11-10] MEDS ORDERED: MORPHINE SULFATE 2 MG/ML SYRINGE IVP STA (15:54)
--- NOTE | 2020-11-10 16:01 | ED ---
General Adult HPI - General Chief complaint: Extremity Problem,Nontraumatic Stated complaint: cellulitis in both legs Time Seen by Provider: 11/10/20 15:43 Source: patient, EMS, RN notes reviewed, old records reviewed Mode of arrival: EMS Limitations: no limitations - History of Present Illness Initial comments: 65-year-old male presenting for evaluation of pain and swelling of both of his legs. He was seen by his care physician and home care nurse today and was recommended to present to the emergency department for evaluation. He states that he's had increased drainage from both legs, increased pain. He had recent admission approximately one 1 month ago for bilateral lower extremity cellulitis re-completed a round of antibiotics. He states he is not currently on oral antibiotics. He denies fever or constitutional symptoms. - Related Data Previous Rx's Medication Instructions Recorded Enoxaparin [Lovenox] 40 mg SQ DAILY #28 syringe 10/06/20 Amoxic-Pot Clav 875-125Mg 1 tab PO Q12HR 7 Days #14 tab 10/07/20 [Augmentin 875-125] Ciprofloxacin HCl [Cipro] 500 mg PO Q12HR 7 Days #14 tab 10/07/20 Acetaminophen Tab [Tylenol] 650 mg PO Q6HR PRN tab 10/09/20 Ascorbic Acid [Vitamin C] 1,000 mg PO DAILY tab 10/09/20 Aspirin 81 mg PO DAILY #90 chew 10/09/20 Atorvastatin [Lipitor] 40 mg PO DAILY #90 tab 10/09/20 Cholecalciferol [Vitamin D3 (25 125 mcg PO DAILY tablet 10/09/20 Mcg = 1000 Iu)] Fluconazole [Diflucan] 100 mg PO DAILY #7 tab 10/09/20 Ipratropium-Albuterol Nebulize 3 ml INHALATION RT-Q2H PRN ml 10/09/20 [Duoneb 0.5 mg-3 mg/3 ml Soln] Metoprolol Tartrate [Lopressor] 50 mg PO BID #180 tab 10/09/20 Nicotine 21Mg/24Hr Patch [Habitrol] 1 patch TRANSDERM DAILY patch 10/09/20 Nystatin 100,000 Unit/gm Oint 1 applic TOPICAL BID applic 10/09/20 [Mycostatin Oint] Pregabalin [Lyrica] 150 mg PO BID #6 cap 10/09/20 Triamcinolone 0.1% Ointment 1 applic TOPICAL BID applic 10/09/20 [Kenalog] Zinc Sulfate [Orazinc] 220 mg PO DAILY cap 10/09/20 guaiFENesin [Mucinex] 600 mg PO QID tablet.er 10/09/20 lisinopriL [Zestril] 5 mg PO DAILY #90 tab 10/09/20 predniSONE 10 mg PO DAILY #30 tab 10/09/20 Allergies Allergy/AdvReac Type Severity Reaction Status Date / Time No Known Allergies Allergy Verified 06/04/20 10:11 Review of Systems ROS Statement: Those systems with pertinent positive or pertinent negative responses have been documented in the HPI. ROS Other: All systems not noted in ROS Statement are negative. 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 History of Any Multi-Drug Resistant Organisms: None Reported Past Surgical History: Orthopedic Surgery Additional Past Surgical History / Comment(s): liver biopsy, left thumb surgery left arm fasciotomy, BILAT CATARACTS REMOVED WITH LENS IMPLANTS Past Anesthesia/Blood Transfusion Reactions: No Reported Reaction Past Psychological History: No Psychological Hx Reported Smoking Status: Current every day smoker Past Drug Use History: Marijuana - Past Family History Father History Unknown: Yes Family Medical History: Myocardial Infarction ([place]) Additional Family Medical History / Comment(s): Father of a [place] at the age of 57yrs. Mother Additional Family Medical History / Comment(s): Mother had a tumor in her heart/surgery to remove and of post op infection. General Exam Limitations: no limitations General appearance: alert, in no apparent distress Head exam: Present: atraumatic, normocephalic Eye exam: Present: normal appearance, PERRL ENT exam: Present: normal exam Neck exam: Present: normal inspection. Absent: tenderness, meningismus Respiratory exam: Present: normal lung sounds bilaterally. Absent: respiratory distress, wheezes Cardiovascular Exam: Present: regular rate, normal rhythm GI/Abdominal exam: Present: soft. Absent: distended, tenderness, guarding, rebound Extremities exam: Present: pedal edema, calf tenderness (Bilateral lower extremity cellulitis, warmth, no crepitus, there is drainage and saturation of the dressings on both legs.) Neurological exam: Present: alert, oriented X3. Absent: motor sensory deficit Psychiatric exam: Present: normal affect, normal mood Skin exam: Present: warm Course Vital Signs 11/10/20 15:34 Temperature 97.7 F Pulse Rate 104 H Respiratory 18 Rate Blood Pressure 115/66 O2 Sat by Pulse 97 Oximetry Medical Decision Making - Medical Decision Making Patient with bilateral lower extremity cellulitis, swelling, warmth, with sign ificant drainage. Ultrasound performed negative for DVT. X-ray performed which is showing concern for some soft [id number] with this is related to bandage material. There is no crepitus on exam. Patient started on IV antibiotics. He will be admitted to Dr. Scott who is aware of the patient with infectious disease on consult. IV antibiotics initiated in the emergency department. - Lab Data Result diagrams: 11/10/20 15:57 11/10/20 15:57 Lab Results 11/10/20 11/10/20 11/10/20 Range/Units 15:57 15:57 15:57 WBC 11.1 H (3.8-10.6) k/uL RBC 4.43 (4.30-5.90) m/uL Hgb 13.1 (13.0-17.5) gm/dL Hct 41.1 (39.0-53.0) % MCV 92.8 (80.0-100.0) fL MCH 29.7 (25.0-35.0) pg MCHC 32.0 (31.0-37.0) g/dL RDW 14.4 (11.5-15.5) % Plt Count 383 (150-450) k/uL MPV 7.9 Neutrophils % 73 % Lymphocytes % 16 % Monocytes % 6 % Eosinophils % 4 % Basophils % 1 % Neutrophils # 8.1 H (1.3-7.7) k/uL Lymphocytes # 1.7 (1.0-4.8) k/uL Monocytes # 0.6 (0-1.0) k/uL Eosinophils # 0.5 (0-0.7) k/uL Basophils # 0.1 (0-0.2) k/uL PT 9.8 (9.0-12.0) sec INR 0.9 (<1.2) APTT 26.0 (22.0-30.0) sec Sodium 142 (137-145) mmol/L Potassium 3.4 L (3.5-5.1) mmol/L Chloride 102 (98-107) mmol/L Carbon Dioxide 32 H (22-30) mmol/L Anion Gap 8 mmol/L BUN 13 (9-20) mg/dL Creatinine 0.51 L (0.66-1.25) mg/dL Est GFR (CKD-EPI)AfAm >90 (>60 ml/min/1.73 sqM) Est GFR (CKD-EPI)NonAf >90 (>60 ml/min/1.73 sqM) Glucose 93 (74-99) mg/dL Plasma Lactic Acid Roberto Carlos (0.7-2.0) mmol/L Calcium 8.8 (8.4-10.2) mg/dL Total Bilirubin 0.4 (0.2-1.3) mg/dL AST 22 (17-59) U/L ALT 13 (4-49) U/L Alkaline Phosphatase 112 (38-126) U/L NT-Pro-B Natriuret Pep pg/mL Total Protein 6.7 (6.3-8.2) g/dL Albumin 3.2 L (3.5-5.0) g/dL Coronavirus (PCR) (Not Detectd) 11/10/20 11/10/20 11/10/20 Range/Units 15:57 15:57 15:57 WBC (3.8-10.6) k/uL RBC (4.30-5.90) m/uL Hgb (13.0-17.5) gm/dL Hct (39.0-53.0) % MCV (80.0-100.0) fL MCH (25.0-35.0) pg MCHC (31.0-37.0) g/dL RDW (11.5-15.5) % Plt Count (150-450) k/uL MPV Neutrophils % % Lymphocytes % % Monocytes % % Eosinophils % % Basophils % % Neutrophils # (1.3-7.7) k/uL Lymphocytes # (1.0-4.8) k/uL Monocytes # (0-1.0) k/uL Eosinophils # (0-0.7) k/uL Basophils # (0-0.2) k/uL PT (9.0-12.0) sec INR (<1.2) APTT (22.0-30.0) sec Sodium (137-145) mmol/L Potassium (3.5-5.1) mmol/L Chloride (98-107) mmol/L Carbon Dioxide (22-30) mmol/L Anion Gap mmol/L BUN (9-20) mg/dL Creatinine (0.66-1.25) mg/dL Est GFR (CKD-EPI)AfAm (>60 ml/min/1.73 sqM) Est GFR (CKD-EPI)NonAf (>60 ml/min/1.73 sqM) Glucose (74-99) mg/dL Plasma Lactic Acid Roberto Carlos 2.2 H* (0.7-2.0) mmol/L Calcium (8.4-10.2) mg/dL Total Bilirubin (0.2-1.3) mg/dL AST (17-59) U/L ALT (4-49) U/L Alkaline Phosphatase (38-126) U/L NT-Pro-B Natriuret Pep 1470 pg/mL Total Protein (6.3-8.2) g/dL Albumin (3.5-5.0) g/dL Coronavirus (PCR) Not Detected (Not Detectd) Disposition Clinical Impression: Bilateral lower leg cellulitis Disposition: ADMITTED IP TO THIS HOSP Condition: Stable Is patient prescribed a controlled substance at d/c from ED?: No Referrals: Simba Salmon MD [Primary Care Provider] - 1-2 days Decision to Admit Reason: Admit from EC Decision Date: 11/10/20 Decision Time: 17:39
[2020-11-10 16:14] LABS: Basophils # (A) 0.1 k/uL (0-0.2); Basophils % (A) 1 %; Eosinophils # (A) 0.5 k/uL (0-0.7); Eosinophils % (A) 4 %; HCT 41.1 % (39.0-53.0); HGB 13.1 gm/dL (13.0-17.5); Lymphocytes # (A) 1.7 k/uL (1.0-4.8); Lymphocytes % (A) 16 %; MCH 29.7 pg (25.0-35.0); MCV 92.8 fL (80.0-100.0); Mean Platelet Volume 7.9; Monocytes # (A) 0.6 k/uL (0-1.0); Monocytes % (A) 6 %; Neutrophils # (A) 8.1 k/uL (1.3-7.7); Neutrophils % (A) 73 %; Platelet Count 383 k/uL (150-450); RBC 4.43 m/uL (4.30-5.90); RDW 14.4 % (11.5-15.5); WBC 11.1 k/uL (3.8-10.6)
[2020-11-10 16:19] LABS: INR 0.9 (<1.2); Prothrombin Time 9.8 sec (9.0-12.0)
--- NOTE | 2020-11-10 16:21 | XR ---
EXAMINATION TYPE: XR tibia fibula bilateral DATE OF EXAM: 11/10/2020 CLINICAL HISTORY: Cellulitis, bilateral leg pain and swelling. TECHNIQUE: Two views of the bilateral legs are obtained. COMPARISON: None. FINDINGS: There is no acute fracture or dislocation seen in either leg. Demineralization is present. Moderate degenerative changes bilateral knees noted. Right ankle shows advanced degenerative changes with loss mortise symmetry. Prominent hindfoot arthropathy partially imaged. Distal right leg shows overlying gauze or bandage material lateral aspect. Left leg has overlying gau ze or bandage material with lucency lateral aspect proximal to mid fibular level. Cannot exclude soft tissue gas versus related to product of overlying bandage material. No suspicious osseous destructio n. IMPRESSION: As above.
[2020-11-10 16:22] LABS: ALT 13 U/L (4-49); AST 22 U/L (17-59); African American GFR (CKD) >90 (>60 ml/min/1.73 sqM); Albumin 3.2 g/dL (3.5-5.0); Alkaline Phosphatase 112 U/L (38-126); Anion Gap 8 mmol/L; Blood Urea Nitrogen 13 mg/dL (9-20); Calcium 8.8 mg/dL (8.4-10.2); Carbon Dioxide 32 mmol/L (22-30); Chloride 102 mmol/L (98-107); Glucose 93 mg/dL (74-99); Non-African American GFR(CKD) >90 (>60 ml/min/1.73 sqM); Sodium 142 mmol/L (137-145); Total Bilirubin 0.4 mg/dL (0.2-1.3); Total Protein 6.7 g/dL (6.3-8.2)
[2020-11-10 16:28] LABS: Potassium 3.4 mmol/L (3.5-5.1)
--- NOTE | 2020-11-10 17:24 | US ---
EXAMINATION TYPE: US venous doppler duplex LE DATE OF EXAM: 11/10/2020 4:56 PM COMPARISON: US CLINICAL HISTORY: pain and swelling. Serosanguinous drainage from multiple wounds bilateral lower ext remity x 8 months per patient. Patient stated has PAD and also unable to tolerate wound care center treatment SIDE PERFORMED: Bilateral TECHNIQUE: The lower extremity deep venous system is examined utilizing real time linear array sonog vanessa with graded compression, doppler sonography and color-flow sonography. VESSELS IMAGED: Common Femoral Vein Deep Femoral Vein Greater Saphenous Vein * Femoral Vein Popliteal Vein Small Saphenous Vein * Proximal Calf Veins (* superficial vessels) There is normal flow, compressibility, vascular waveforms. Right Leg: Negative for DVT. Right groin lymph nodes seen with largest = 2.6 x 1.7 x 1.2cm. Left Leg: Negative for DVT. Left groin lymph node seen = 2.2 x 1.3 x 0.7cm. IMPRESSION: No evident deep venous thrombosis at or central to the knees
[2020-11-10] MEDS ORDERED: VANCOMYCIN IV PER PHARMACY 1 EACH MISC MISCELLANE PRN (17:36)
[2020-11-10] MEDS ORDERED: cefTRIAXone IN SWFI 1,000 MG/10 ML SYRINGE IVP STA (17:36)
[2020-11-10] MEDS ORDERED: NALOXONE 0.4 MG/ML 1 ML VIAL IV PRN (17:37)
[2020-11-10] MEDS ORDERED: VANCOMYCIN 1,000 MG in SODIUM CHLORIDE 0.9% 250 ML IVPB STA (17:41)
[2020-11-10] MEDS ORDERED: ENOXAPARIN 40 MG/0.4 ML SYRINGE SQ SCH (19:15)
--- NOTE | 2020-11-10 19:25 | P.HPIM ---
History of Present Illness H&P Date: 11/10/20 Chief Complaint: Lower extremity wounds History of presenting complaint: This is a 65-year-old patient who follows with visiting physicians Dr Salmon. 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 Patient lives with his step son and his girlfriend.. Does use a battery operated wheelchair. home nurse who takes care of her lower extremities. Patient has noted increasing pain and redness and sometimes some drainage from the lower extremity. With swelling. Denies any fever and chills. Patient also got a cough some shortness of breath. A bit congested the chest. Denies any obvious fever and chills Admitted on October 01 for a week for: Acute on chronic bilateral lower extremity cellulitis, acute COPD exacerbation, COVID 19 infection. Patient now presented increasing swelling blisters worsening wound the lower extremity. Home nurse has been coming out. Denies any fever and chills. Patient has continued to smoke. Pain is lower extremity. Has a bowel movement every 3 days. Some shortness of breath and wheezing. Review of systems: GEN.: Tired EYES: None HEENT: None NECK: None RESPIRATORY: As above CARDIOVASCULAR: None GASTROINTESTINAL: None GENITOURINARY: None MUSCULOSKELETAL: Joint pains LYMPHATICS: None HEMATOLOGICAL: None PSYCHIATRY: Anxious NEUROLOGICAL: Difficulty to walk uses a electronic cart Past medical history to include: COPD, cognitive impairment, bilateral lower extremity chronic cellulitis and wounds, peripheral neuropathy, smoker, right upper lobe lung mass with a negative PET scan, chronic anemia, asbestos exposure, chronic left shoulder pain. Social history: Lives with his step son and his girlfriend. Gets about of the electric cart. Patient started smoking at the age of 10 up to pack and a half to 2 packs a day now down to one half a pack a day. Up to about a year ago he was drinking 4 cases of beer a week is 2 bottles of wine a week. Does use marijuana Gummi's Physical examination: VITAL SIGNS: 97.7, 64, 18, 115/66, 97% on room air GENERAL: BMI 19.2, disheveled, sitting up, tired EYES: Pupils equal. Conjunctiva normal. HEENT: External appearance of nose and ears normal, oral cavity grossly normal. NECK: JVD not raised; masses not palpable. HEART: First and second heart sounds are normal; edema present. LUNGS: Respiratory rate increased, decreased breath sounds prolonged expiration and wheezing. ABDOMEN: Soft, nontender, liver spleen not palpable, no masses palpable. PSYCH: Alert and oriented x3; mood and affect slightly anxious. NEUROLOGICAL: Cranial nerves grossly intact; no facial asymmetry, power and sensation are decreased distally. DERMATOLOGICAL: Lower extremity redness with breakdown of skin/wound, tenderness edema LYMPHATICS: No lymph nodes palpable in the axilla and neck.. INVESTIGATIONS, reviewed in the clinical context: WBC 11.1 hemoglobin 13.1 platelets 323 potassium 3.4 creatinine 0.5 bun lactic acid 2.2 proBNP 1470 albumin 3.2 Coronavirus [PCF]-not detected Venous Doppler: Negative for DVT. Assessment and plan: -Acute on chronic bilateral lower extremity venous stasis cellulitis/wounds, worsened by underlying peripheral arterial disease. Continue wound care. Consult ID. -Possible sepsis. IV fluids, antibiotics -Stage II pressure ulcer right calcaneum with fat layer exposure, POA Foam heel protectors -Acute COPD exacerbation in current smoker: Bronchodilators, steroids -Chronic nicotine dependence patient is a cigarette smoker Nicotine patch -Mild cognitive impairment -Painful peripheral neuropathy Continue with Lyrica -Right upper lobe lung mass with a known negative PET scan. Patient being followed by oncology. -Chronic medical debility. Does use electronic cart Consult PTOT Mild protein calorie malnutrition Nutritional supplements Consult ID. Wound care to continue. Home medications resumed. 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 History of Any Multi-Drug Resistant Organisms: None Reported Past Surgical History: Orthopedic Surgery Additional Past Surgical History / Comment(s): liver biopsy, left thumb surgery left arm fasciotomy, BILAT CATARACTS REMOVED WITH LENS IMPLANTS Past Anesthesia/Blood Transfusion Reactions: No Reported Reaction Past Psychological History: No Psychological Hx Reported Smoking Status: Current every day smoker Past Drug Use History: Marijuana - Past Family History Father History Unknown: Yes Family Medical History: Myocardial Infarction ([place]) Additional Family Medical History / Comment(s): Father of a [place] at the age of 57yrs. Mother Additional Family Medical History / Comment(s): Mother had a tumor in her heart/surgery to remove and of post op infection. Medications and Allergies Home Medications Medication Instructions Recorded Confirmed Type Enoxaparin [Lovenox] 40 mg SQ DAILY #28 syringe 10/06/20 Rx Amoxic-Pot Clav 875-125Mg 1 tab PO Q12HR 7 Days #14 tab 10/07/20 Rx [Augmentin 875-125] Ciprofloxacin HCl [Cipro] 500 mg PO Q12HR 7 Days #14 tab 10/07/20 Rx Acetaminophen Tab [Tylenol] 650 mg PO Q6HR PRN tab 10/09/20 Rx Ascorbic Acid [Vitamin C] 1,000 mg PO DAILY tab 10/09/20 Rx Aspirin 81 mg PO DAILY #90 chew 10/09/20 Rx Atorvastatin [Lipitor] 40 mg PO DAILY #90 tab 10/09/20 Rx Cholecalciferol [Vitamin D3 (25 125 mcg PO DAILY tablet 10/09/20 Rx Mcg = 1000 Iu)] Fluconazole [Diflucan] 100 mg PO DAILY #7 tab 10/09/20 Rx Ipratropium-Albuterol Nebulize 3 ml INHALATION RT-Q2H PRN ml 10/09/20 Rx [Duoneb 0.5 mg-3 mg/3 ml Soln] Metoprolol Tartrate [Lopressor] 50 mg PO BID #180 tab 10/09/20 Rx Nicotine 21Mg/24Hr Patch [Habitrol] 1 patch TRANSDERM DAILY patch 10/09/20 Rx Nystatin 100,000 Unit/gm Oint 1 applic TOPICAL BID applic 10/09/20 Rx [Mycostatin Oint] Pregabalin [Lyrica] 150 mg PO BID #6 cap 10/09/20 Rx Triamcinolone 0.1% Ointment 1 applic TOPICAL BID applic 10/09/20 Rx [Kenalog] Zinc Sulfate [Orazinc] 220 mg PO DAILY cap 10/09/20 Rx guaiFENesin [Mucinex] 600 mg PO QID tablet.er 10/09/20 Rx lisinopriL [Zestril] 5 mg PO DAILY #90 tab 10/09/20 Rx predniSONE 10 mg PO DAILY #30 tab 10/09/20 Rx Allergies Allergy/AdvReac Type Severity Reaction Status Date / Time No Known Allergies Allergy Verified 06/04/20 10:11 Physical Exam Vitals: Vital Signs Temp Pulse Resp BP Pulse Ox 11/10/20 15:34 97.7 F 104 H 18 115/66 97 Intake and Output 11/10/20 11/10/20 11/10/20 06:59 14:59 22:59 Other: Weight 58.967 kg Results CBC & Chem 7: 11/10/20 15:57 11/10/20 15:57 Labs: Abnormal Lab Results - Last 24 Hours (Table) 11/10/20 11/10/20 11/10/20 Range/Units 15:57 15:57 15:57 WBC 11.1 H (3.8-10.6) k/uL Neutrophils # 8.1 H (1.3-7.7) k/uL Potassium 3.4 L (3.5-5.1) mmol/L Carbon Dioxide 32 H (22-30) mmol/L Creatinine 0.51 L (0.66-1.25) mg/dL Plasma Lactic Acid Roberto Carlos 2.2 H* (0.7-2.0) mmol/L Albumin 3.2 L (3.5-5.0) g/dL
--- NOTE | 2020-11-10 21:23 | XR ---
EXAMINATION TYPE: XR chest 2V DATE OF EXAM: 11/10/2020 COMPARISON: Chest x-ray 10/06/2020, CT chest 10/06/2020 HISTORY: COPD, lung mass TECHNIQUE: Frontal and lateral views of the chest are obtained. FINDINGS: There is suprahilar increased attenuation consistent with patient's known mediastinal papa opathy, there is right hilar adenopathy, right upper lobe lung mass, no pneumothorax or pleural effus ion. The cardiac silhouette size is within normal limits. Prominent lung volumes are consistent with underlying COPD. There is thoracic spondylosis. The osseous structures are intact. IMPRESSION: Findings consistent with bronchogenic carcinoma
[2020-11-10] MEDS: NICOTINE 21MG/24HR PATCH TRANSDERM SCH (21:58)
[2020-11-10] MEDS: TRIAMCINOLONE ACET 0.1% OINTMENT 80 GM TUBE TOPICAL SCH (21:58)
[2020-11-10] MEDS: PREGABALIN 75 MG CAP PO SCH (21:59)
[2020-11-10] MEDS: METOPROLOL TARTRATE 50 MG TAB PO SCH (21:59)
[2020-11-10] MEDS: guaiFENesin 600 MG TABLET.ER PO SCH (22:00)
[2020-11-10] MEDS: MORPHINE SULFATE 4 MG/ML SYRINGE IV PRN (22:04)
[2020-11-11] MEDS: VANCOMYCIN 1,000 MG in SODIUM CHLORIDE 0.9% 250 ML IVPB SCH ×3 (01:51→18:13)
[2020-11-11] MEDS: MORPHINE SULFATE 4 MG/ML SYRINGE IV PRN (06:24)
[2020-11-11] MEDS: NICOTINE 21MG/24HR PATCH TRANSDERM SCH (07:31)
[2020-11-11] MEDS: ASCORBIC ACID 500 MG TAB PO SCH (07:58)
[2020-11-11] MEDS: guaiFENesin 600 MG TABLET.ER PO SCH ×4 (07:58→20:04)
[2020-11-11] MEDS: ACETAMINOPHEN TAB 325 MG TAB PO PRN ×2 (07:58→20:04)
[2020-11-11] MEDS: METOPROLOL TARTRATE 50 MG TAB PO SCH ×2 (07:58→20:04)
[2020-11-11] MEDS: PREGABALIN 75 MG CAP PO SCH ×2 (07:59→20:04)
[2020-11-11] MEDS: ASPIRIN 81 MG PO SCH (07:59)
[2020-11-11] MEDS: TRIAMCINOLONE ACET 0.1% OINTMENT 80 GM TUBE TOPICAL SCH ×2 (07:59→20:46)
[2020-11-11] MEDS: CHOLECALCIFEROL 25 MCG (1000 IU) TABLET PO SCH (07:59)
[2020-11-11] MEDS: ATORVASTATIN 40 MG TAB PO SCH (07:59)
[2020-11-11] MEDS: lisinopriL 5 MG TAB PO SCH (07:59)
[2020-11-11] MEDS ORDERED: predniSONE 10 MG TAB PO SCH (09:00)
[2020-11-11] MEDS ORDERED: IPRATROPIUM-ALBUTEROL 3 ML NEB INHALATION PRN (12:49)
--- NOTE | 2020-11-11 12:49 | P.CNPUL ---
History of Present Illness Consult date: 11/11/20 Requesting physician: Ye Scott Reason for consult: COPD, lung mass, abnormal CXR/CT Chief complaint: Lower extremity cellulitis, lung cancer. History of present illness: Pulmonary consult dated 11/11/2020. 65-year-old male, known to our service. He was seen in September on a prior admission. The patient came into the hospital on November 10, complaining of pain and swelling to both of his legs. He apparently was seen by his home care nurse and was recommended to come into the hospital to be evaluated. He apparently has had drainage from both lower extremities, with increasing pain. He's had this problem for at least a month and maybe longer, getting worse. He has completed antibiotics. We were asked to see him, because back in May 2020, he was found to have an abnormal chest x-ray and CAT scan showing a mass in his right upper lobe. He had a procedure done by my partner, and was found have adenocarcinoma. The patient had a PET scan in July, which showed no distant disease, only disease in the right upper lobe. The patient has been seen by oncology, but has not received any treatment as yet. His overall condition makes treatment very risky for him. He doesn't take good care of himself, and he is quite debilitated. From the pulmonary standpoint, the patient's not really complaining of any issues. He is currently not on any supplemental oxygen. His room air saturations are 92-98%. His heart rate about 100 bpm. Respiratory rate 18. Temperature 99.3. White count 11.1, hemoglobin 13.1, hematocrit 41.1, and platelet count 383,000. PT/INR PTT are normal. Sodium 142, potassium 3.4, chlorides 102, CO2 32, anion gap 8, BUN 13, and creatinine 0.51. Coronavirus testing was negative. Both right and left legs were negative for DVT. Chest x-ray shows right perihilar mass/right upper lobe mass, consistent with the patient's known history of lung cancer. Review of Systems REVIEW OF SYSTEMS: CONSTITUTIONAL: [Negative.] NEUROLOGIC: [ Negative.] HEENT: [ Negative.] CARDIAC: [Negative.] PULMONARY: History of lung cancer, not having received any treatment as yet. GI: [Negative.] : [Negative.] RHEUMATOLOGIC: [ Negative.] IMMUNOLOGIC: [ Negative.] ENDOCRINE: [Negative. ] DERMATOLOGIC: Bilateral lower extremity swelling, pain, and cellulitis. Past Medical History Past Medical History: COPD, Eye Disorder, Memory Impairment Additional Past Medical History / Comment(s): COVID in September 2019, BPH, dysphagia, previous liver biopsy results non malignant alcoholism, COPD, dementia, chronic malnutrition, BLE edema, macular degeneration to left eye, masses to both lung lobes suspecting malignancy History of Any Multi-Drug Resistant Organisms: None Reported Past Surgical History: Orthopedic Surgery Additional Past Surgical History / Comment(s): liver biopsy, left thumb surgery left arm fasciotomy, bilateral cataracts removed with lens implants Past Anesthesia/Blood Transfusion Reactions: No Reported Reaction Past Psychological History: No Psychological Hx Reported Additional Psychological History / Comment(s): Pt resides with his son and his son's girlfriend. Pt states he does not feel safe there anymore d/t son is gone alot and girlfriend does not help patient at all. Pt gets around in his electric cart. There is a ramp on the house. Pt states rides are difficult to get, sometimes his son or friends drive him. Pt has home care nurse for wound care from [facility]. He states he can toilet himself. Getting a shower is difficult d/t no one to help him. Pt states son's girlfriend does not like him. Pt states his son and girlfriend do not want him in the home. He states there is no abuse. Smoking Status: Current every day smoker Past Alcohol Use History: Heavy Additional Past Alcohol Use History / Comment(s): Pt started smoking in 1967 and was 2 ppd smoker but now down to 1/2 ppd. Pt states he was drinking 4 cases of beer a week but has cut down about a year ago and now drinks a 6 pack or two of wine (little bottles) a week. Past Drug Use History: Marijuana Additional Drug Use History / Comment(s): Marijuana gummies daily - Past Family History Father History Unknown: Yes Family Medical History: Myocardial Infarction (IN) Additional Family Medical History / Comment(s): Father of a IN at the age of 57yrs. Mother Additional Family Medical History / Comment(s): Mother had a tumor in her heart/surgery to remove and of post op infection. Medications and Allergies Home Medications Medication Instructions Recorded Confirmed Type Aspirin 81 mg PO DAILY #90 chew 10/09/20 11/10/20 Rx Atorvastatin [Lipitor] 40 mg PO DAILY #90 tab 10/09/20 11/10/20 Rx Metoprolol Tartrate [Lopressor] 50 mg PO BID #180 tab 10/09/20 11/10/20 Rx Nicotine 21Mg/24Hr Patch [Habitrol] 1 patch TRANSDERM DAILY patch 10/09/20 11/10/20 Rx Pregabalin [Lyrica] 150 mg PO BID #6 cap 10/09/20 11/10/20 Rx lisinopriL [Zestril] 5 mg PO DAILY #90 tab 10/09/20 11/10/20 Rx Ascorbic Acid [Vitamin C] 1,000 mg PO DAILY 11/10/20 11/10/20 History Furosemide [Lasix] 40 mg PO DAILY 11/10/20 11/10/20 History Allergies Allergy/AdvReac Type Severity Reaction Status Date / Time No Known Allergies Allergy Verified 11/10/20 19:16 Physical Exam Osteopathic Statement: *. No significant issues noted on an osteopathic structural exam other than those noted in the History and Physical/Consult. Vitals: Vital Signs Temp Pulse Pulse Resp BP BP Pulse Ox 11/11/20 08:20 121 H 18 11/11/20 08:00 100.2 F H 121 H 18 115/63 89 L 11/11/20 01:22 99.3 F 110 H 20 111/66 92 L 11/10/20 22:34 98.4 F 117 H 22 169/69 94 L 11/10/20 19:35 94 18 140/76 98 11/10/20 15:34 97.7 F 104 H 18 115/66 97 Intake and Output 11/10/20 11/11/20 11/11/20 22:59 06:59 14:59 Other: # Voids 2 Weight 58.967 kg No acute distress, oriented 3. Not on any supplemental oxygen. Patient is very dirty and disheveled looking. HEENT examination is grossly unremarkable. Neck supple. Full range of motion. No adenopathy thyromegaly or neck vein distention. Cardiovascular examination reveals regular rhythm rate. S1-S2 normal. No S3 or S4. No discernible murmur noted. Heart rate 100 bpm. Lungs reveal mostly clear breath sounds. A few scattered rhonchi. No wheezes or crackles. Breath sounds equal bilaterally. Saturations are in the 92-94% range on room air. Abdomen soft bowel sounds are heard. No masses or tenderness. Extremities reveal significant bilateral lower extremity cellulitis, multiple sores, and chronic venous stasis changes to the bilateral lower extremities. In addition, the patient has edema, but does not have any cyanosis or clubbing. Skin of the bilateral lower extremities is described above. Neurologic examination is brief but nonfocal. Results - Laboratory Findings CBC and BMP: 11/10/20 15:57 11/10/20 15:57 PT/INR, D-dimer PT 9.8 sec (9.0-12.0) 11/10/20 15:57 INR 0.9 (<1.2) 11/10/20 15:57 Abnormal lab findings: Abnormal Labs 11/10/20 11/10/20 11/10/20 15:57 15:57 15:57 WBC 11.1 H Neutrophils # 8.1 H Potassium 3.4 L Carbon Dioxide 32 H Creatinine 0.51 L Plasma Lactic Acid Roberto Carlos 2.2 H* Albumin 3.2 L - Diagnostic Findings Chest x-ray: image reviewed U/S of Legs: image reviewed Assessment and Plan Assessment: Bilateral lower extremity cellulitis. Recent diagnosis of lung cancer, adenocarcinoma type, in May 2020. The patient has not received any treatment as yet. A PET scan done in July 2020, showed no distant disease. History of COPD. History of BPH. History of chronic alcohol abuse. History of dementia. Macular degeneration. Ongoing tobacco use with nicotine addiction. Plan: Plan dated 11/11/2020. From the pulmonary standpoint, the patient's doing recently well. He has seen oncology. No treatment has been initiated as yet. I think oncology was co ncerned about the patient's overall clinical status and general medical debility. He is admitted with a diagnosis of cellulitis of the lower extremities. He is not having any respiratory issues at this time. We will add back his DuoNeb which he was on at home. No additional recommendations are m di. Prognosis is poor. Time with Patient: Greater than 30
[2020-11-11] MEDS: IPRATROPIUM-ALBUTEROL 3 ML NEB INHALATION SCH ×2 (15:34→21:14)
--- NOTE | 2020-11-11 16:43 | P.PN ---
Progress Note - Text Progress Note Date: 11/11/20 Chief Complaint: Lower extremity wounds History of presenting complaint: This is a 65-year-old patient who follows with visiting physicians Dr Salmon. 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 Patient lives with his step son and his girlfriend.. Does use a battery operated wheelchair. home nurse who takes care of her lower extremities. Patient has noted increasing pain and redness and sometimes some drainage from the lower extremity. With swelling. Denies any fever and chills. Patient also got a cough some shortness of breath. A bit congested the chest. Denies any obvious fever and chills Admitted on October 01 for a week for: Acute on chronic bilateral lower extremity cellulitis, acute COPD exacerbation, COVID 19 infection. Patient now presented increasing swelling blisters worsening wound the lower extremity. Home nurse has been coming out. Denies any fever and chills. Patient has continued to smoke. Pain is lower extremity. Has a bowel movement every 3 days. Some shortness of breath and wheezing. Admitted with acute on chronic lower extremity wounds. COPD exacerbation. Started IV vancomycin. Bronchodilators. Today: Sitting up in bed. Has wheezing. Dressing change in place. Eating about 25%. Review of systems: Was done for constitutional, cardiovascular, GI, pulmonary. relevant finding as above Active Medications Acetaminophen (Acetaminophen Tab 325 Mg Tab) 650 mg PO Q6HR PRN PRN Reason: Mild Pain or Fever > 100.5 Last Admin: 11/11/20 07:58 Dose: 650 mg Documented by: Albuterol/Ipratropium (Ipratropium-Albuterol 3 Ml Neb) 3 ml INHALATION RT-TID PRN PRN Reason: Shortness Of Breath Or Wheezing Albuterol/Ipratropium (Ipratropium-Albuterol 3 Ml Neb) 3 ml INHALATION RT-TID [facility] Last Admin: 11/11/20 15:34 Dose: Not Given Documented by: Ascorbic Acid (Ascorbic Acid 500 Mg Tab) 1,000 mg PO DAILY [facility] Last Admin: 11/11/20 07:58 Dose: 1,000 mg Documented by: Aspirin (Aspirin 81 Mg) 81 mg PO DAILY [facility] Last Admin: 11/11/20 07:59 Dose: 81 mg Documented by: Atorvastatin Calcium (Atorvastatin 40 Mg Tab) 40 mg PO DAILY [facility] Last Admin: 11/11/20 07:59 Dose: 40 mg Documented by: Cholecalciferol (Cholecalciferol 25 Mcg (1000 Iu) Tablet) 125 mcg PO DAILY [facility] Last Admin: 11/11/20 07:59 Dose: 125 mcg Documented by: Guaifenesin (Guaifenesin 600 Mg Tablet.Er) 600 mg PO QID [facility] Last Admin: 11/11/20 12:49 Dose: Not Given Documented by: Vancomycin HCl 1,000 mg/ (Sodium Chloride) 250 mls @ 125 mls/hr IVPB Q8H [facility] Last Admin: 11/11/20 12:49 Dose: 125 mls/hr Documented by: Lisinopril (Lisinopril 5 Mg Tab) 5 mg PO DAILY [facility] Last Admin: 11/11/20 07:59 Dose: 5 mg Documented by: Metoprolol Tartrate (Metoprolol Tartrate 50 Mg Tab) 50 mg PO BID [facility] Last Admin: 11/11/20 07:58 Dose: 50 mg Documented by: Miscellaneous Information (Vancomycin Trough Due 1 Each Misc) 0 each MISCELLANE DIRECTED ONE Stop: 11/12/20 09:01 Morphine Sulfate (Morphine Sulfate 4 Mg/Ml Syringe) 4 mg IV Q4HR PRN PRN Reason: Severe Pain Last Admin: 11/11/20 06:24 Dose: 4 mg Documented by: Naloxone HCl (Naloxone 0.4 Mg/Ml 1 Ml Vial) 0.2 mg IV Q2M PRN PRN Reason: Opioid Reversal Nicotine (Nicotine 21mg/24hr Patch) 1 patch TRANSDERM DAILY [facility] Last Admin: 11/11/20 07:31 Dose: Not Given Documented by: Pregabalin (Pregabalin 75 Mg Cap) 150 mg PO BID [facility] Last Admin: 11/11/20 07:59 Dose: 150 mg Documented by: Triamcinolone Acetonide (Triamcinolone Acet 0.1% Ointment 80 Gm Tube) 1 applic TOPICAL BID [facility] Last Admin: 11/11/20 07:59 Dose: 1 applic Documented by: Past medical history to include: COPD, cognitive impairment, bilateral lower extremity chronic cellulitis and wounds, peripheral neuropathy, smoker, right upper lobe lung mass with a negative PET scan, chronic anemia, asbestos exposure, chronic left shoulder pain. Social history: Lives with his step son and his girlfriend. Gets about of the electric cart. Patient started smoking at the age of 10 up to pack and a half to 2 packs a day now down to one half a pack a day. Up to about a year ago he was drinking 4 cases of beer a week is 2 bottles of wine a week. Does use marijuana Gummi's Physical examination: VITAL SIGNS: 100.2, 120, 18, 115/63, 89% on room air GENERAL: Sitting up in bed, slightly short of breath EYES: Pupils equal. Conjunctiva normal. NECK: JVD not raised; masses not palpable. HEART: First and second heart sounds are normal; edema present. LUNGS: Respiratory rate increased, decreased breath sounds prolonged expiration and mild wheezing. ABDOMEN: Soft, nontender, liver spleen not palpable, no masses palpable. PSYCH: Alert and oriented x3; mood and affect slightly anxious. DERMATOLOGICAL: Lower extremity redness with breakdown of skin/wound, tenderness edema. Dry skin in both the thigh and upper extremity INVESTIGATIONS, reviewed in the clinical context: WBC 11.1 hemoglobin 13.1 platelets 323 potassium 3.4 creatinine 0.5 bun lactic acid 2.2 proBNP 1470 albumin 3.2 Coronavirus [PCF]-not detected Venous Doppler: Negative for DVT. Assessment and plan: -Acute on chronic bilateral lower extremity venous stasis cellulitis/wounds, worsened by underlying peripheral arterial disease.-Slow to respond Continue wound care. Consult ID. on IV vancomycin -Possible sepsis. IV fluids, antibiotics -Stage II pressure ulcer right calcaneum with fat layer exposure, POA Foam heel protectors -Acute COPD exacerbation in current smoker:-Slow to respond Bronchodilators, steroids -Chronic nicotine dependence patient is a cigarette smoker Nicotine patch -Mild cognitive impairment -Painful peripheral neuropathy Continue with Lyrica -Right upper lobe lung mass with a known negative PET scan. Patient being followed by oncology/pulmonary. -Chronic medical debility. Does use electronic cart Consult PTOT Mild protein calorie malnutrition Nutritional supplements (Patient has a habit of drinking excessive fluid including coffee. Not eating much. We'll do fluid restriction. Await input from pulmonary and ID.
--- NOTE | 2020-11-11 22:16 | CONS ---
CONSULTATION DATE OF SERVICE: 11/11/2020 REASON FOR CONSULTATION: Bilateral lower extremity ulcers and cellulitis. HISTORY OF PRESENT ILLNESS: The patient is a 65-year-old male with a past medical history significant for COPD, recent diagnosis of lung cancer, for which the patient has not received any chemo. The patient was admitted to this facility and apparently did have bilateral lower extremity venostasis dermatitis and a component of pneumonia. Sputum was positive for Pseudomonas, treated with antibiotic. Local wound care to the leg was with Mycolog cream. The patient did have overall significant improvement. The patient is now presenting back to the ER at [facility] yesterday afternoon for evaluation of bilateral lower extremity swelling and pain. Apparently the patient was evaluated by his home care nurse, who noticed worsening of his lower extremity and advised the the patient to go to the hospital. The patient is complaining of increasing swelling and drainage from the lower extremity wound, complaining of pain to the leg that is more of a dull aching to throbbing, almost 8/10 and no radiation. The patient did have some foul-smelling drainage and superficial ulceration. The patient was afebrile on presentation. Subsequently this morning he had a low-grade fever of 100.2 degrees Fahrenheit. The patient did have a white count of 11.1 with a left shift. Creatinine was 0.51. Lactic acid was 2.2. Repeat is 2.0. Gamez PCR was negative. The patient was started on vancomycin. Infectious Disease was consulted for further management of antibiotic therapy. The patient did have a lower extremity venous Doppler that was negative for any DVT. Chest x-ray was consistent with bronchogenic carcinoma. REVIEW OF SYSTEMS: Positive points have been mentioned in the HPI. Rest of the systems are negative. PAST MEDICAL HISTORY: COPD, lower extremity venostasis dermatitis, BPH and right upper lobe lung cancer. PAST SURGICAL HISTORY: Liver biopsy, bronchoscopy with biopsy, bilateral cataract surgery and left arm fasciotomy. SOCIAL HISTORY: Current everyday smoker, more than 50 pack/years of smoking. Does admit to marijuana use. FAMILY HISTORY: No pertinent findings noticed. ALLERGIES: NO KNOWN DRUG ALLERGIES. MEDICATIONS: The patient is currently on Tylenol, [place], DuoNeb, aspirin, Lipitor, vitamin D3, Mucinex, Zestril, Lopressor, Narcan, nicotine patch, Lyrica and Kenalog. PHYSICAL EXAMINATION: Blood pressure 132/66, pulse of 102, temperature of 100.2. He is 98% on room air. General description is a middle-aged male lying in bed in no distress. No tachypnea or accessory muscles of respiration use. HEENT: Examination shows no pallor or scleral icterus. Oral mucous membrane is dry. NECK: Trachea is central. No thyromegaly. LUNGS: Unlabored breathing. Clear to auscultation anteriorly. HEART: S1, S2. Regular rate and rhythm. No added sound. ABDOMEN: Soft. No tenderness. No guarding or rigidity. No organomegaly. EXTREMITIES: Bilateral lower extremities with superficial ulcerations. Minimal swelling, redness, and foul-smelling drainage. Neurologically the patient is awake, alert, oriented x3. Mood and affect normal. LABS: Hemoglobin is 13.9, white count 11.1, BUN of 13, creatinine 0.51. Lactic acid 2.2; repeat is 2.0. DIAGNOSTIC IMPRESSION AND PLAN: Patient with bilateral lower extremity venostasis ulcers with secondary cellulitis in this patient with significant swelling and drainage, some foul-smelling. Concern for likely Gram-positive skin anastasiya. Underlying Gram-negative infection not entirely excluded. The patient seems to have fever despite being on the vancomycin. PLAN: 1. Discontinue vancomycin. 2. Will start empiric cefepime 2 grams q.8 hours. 3. Local wound care to the leg wound with dry Aquacel Silver dressing followed by Castro wrap to be changed daily. 4. Will follow his clinical condition and further adjust his medication if needed. Thank you for this consultation. Will follow this patient along with you. MMODL / IJN: [id number] /
[2020-11-12] MEDS: CEFEPIME 2 GM in SODIUM CHLORIDE 0.9% 100 ML IVPB SCH ×3 (01:10→17:51)
[2020-11-12] MEDS: HYDROcodone/APAP 5-325MG 1 EACH TAB PO PRN ×3 (01:10→17:52)
[2020-11-12] MEDS: PREGABALIN 75 MG CAP PO SCH ×2 (07:38→20:40)
[2020-11-12] MEDS: ASCORBIC ACID 500 MG TAB PO SCH (07:38)
[2020-11-12] MEDS: ATORVASTATIN 40 MG TAB PO SCH (07:38)
[2020-11-12] MEDS: ASPIRIN 81 MG PO SCH (07:38)
[2020-11-12] MEDS: CHOLECALCIFEROL 25 MCG (1000 IU) TABLET PO SCH (07:39)
[2020-11-12] MEDS: guaiFENesin 600 MG TABLET.ER PO SCH ×4 (07:39→20:40)
[2020-11-12] MEDS: TRIAMCINOLONE ACET 0.1% OINTMENT 80 GM TUBE TOPICAL SCH ×2 (07:40→20:52)
[2020-11-12] MEDS: NICOTINE 21MG/24HR PATCH TRANSDERM SCH (07:40)
[2020-11-12] MEDS: METOPROLOL TARTRATE 50 MG TAB PO SCH ×2 (07:40→20:40)
[2020-11-12] MEDS: lisinopriL 5 MG TAB PO SCH (07:40)
[2020-11-12] MEDS: IPRATROPIUM-ALBUTEROL 3 ML NEB INHALATION SCH ×3 (08:10→20:28)
[2020-11-12] MEDS ORDERED: VANCOMYCIN TROUGH DUE 1 EACH MISC MISCELLANE ONE (09:00)
--- NOTE | 2020-11-12 13:51 | P.PN ---
Subjective Progress Note Date: 11/12/20 Principal diagnosis: Lower extremity cellulitis, lung cancer 65-year-old male, known to our service. He was seen in September on a prior admission. The patient came into the hospital on November 10, complaining of pain and swelling to both of his legs. He apparently was seen by his home care nurse and was recommended to come into the hospital to be evaluated. He apparently has had drainage from both lower extremities, with increasing pain. He's had this problem for at least a month and maybe longer, getting worse. He has completed antibiotics. We were asked to see him, because back in May 2020, he was found to have an abnormal chest x-ray and CAT scan showing a mass in his right upper lobe. He had a procedure done by my partner, and was found have adenocarcinoma. The patient had a PET scan in July, which showed no distant disease, only disease in the right upper lobe. The patient has been seen by oncology, but has not received any treatment as yet. His overall condition makes treatment very risky for him. He doesn't take good care of himself, and he is quite debilitated. From the pulmonary standpoint, the patient's not really complaining of any issues. He is currently not on any supplemental oxygen. His room air saturations are 92-98%. His heart rate about 100 bpm. Respiratory rate 18. Temperature 99.3. White count 11.1, hemoglobin 13.1, hematocrit 41.1, and platelet count 383,000. PT/INR PTT are normal. Sodium 142, potassium 3.4, chlorides 102, CO2 32, anion gap 8, BUN 13, and creatinine 0.51. Coronavirus testing was negative. Both right and left legs were negative for DVT. Chest x-ray shows right perihilar mass/right upper lobe mass, consistent with the patient's known history of lung cancer. On 11/12/2020 patient seen in follow-up on medical surgical floor, he is resting in bed, appears to be in no acute distress, he continues on cefepime and vancomycin for lower extremity cellulitis, he is receiving local wound care with Aquacel silver and Castro wraps to bilateral lower extremity wounds. ID service is following, appears to be in no respiratory distress, he is on 2 L of oxygen and his pulse ox is 92%, he is afebrile, hemodynamically stable, but the chest discomfort, no hemoptysis. Patient was negative for COVID-19. He's had no fever or chills. his last chest x-ray on 11/10/2020 showed findings consistent with bronchogenic carcinoma in the right hilar adenopathy, right upper lobe lung mass. No pneumothorax or pleural effusion Objective - Vital Signs Vital signs: Vital Signs Temp 98.2 F 11/12/20 07:30 Pulse 85 11/12/20 07:30 Resp 18 11/12/20 07:30 BP 152/82 11/12/20 07:30 Pulse Ox 92 L 11/12/20 08:10 Intake & Output 11/11/20 11/12/20 11/12/20 18:59 06:59 18:59 Output Total 1200 Balance -1200 Output: Urine 1200 Other: # Voids 8 3 - Exam GENERAL EXAM: Alert, very pleasant, 65-year-old white male, on 2 L of oxygen, with a pulse ox of 92%, comfortable in no apparent distress. HEAD: Normocephalic/atraumatic. EYES: Normal reaction of pupils, equal size. Conjunctiva pink, sclera white. NOSE: Clear with pink turbinates. THROAT: No erythema or exudates. NECK: No masses, no JVD, no thyroid enlargement, no adenopathy. CHEST: No chest wall deformity. Symmetrical expansion. LUNGS: Equal air entry with no crackles, wheeze, rhonchi or dullness. CVS: Regular rate and rhythm, normal S1 and S2, no gallops, no murmurs, no rubs ABDOMEN: Soft, nontender. No hepatosplenomegaly, normal bowel sounds, no guarding or rigidity. EXTREMITIES: No clubbing, mild lower extremity edema and erythema no cyanosis, 2+ pulses and upper and lower extremities. Patient has chronic wounds on the lower extremities are covered with Castro wrap's right now MUSCULOSKELETAL: Muscle strength and tone normal. SPINE: No scoliosis or deformity SKIN: No rashes CENTRAL NERVOUS SYSTEM: Alert and oriented -3. No focal deficits, tone is normal in all 4 extremities. PSYCHIATRIC: Alert and oriented -3. Appropriate affect. Intact judgment and insight. - Labs CBC & Chem 7: 11/10/20 15:57 11/10/20 15:57 Labs: Microbiology - Last 24 Hours (Table) 11/10/20 15:57 Blood Culture - Preliminary Blood No Growth after 24 hours Assessment and Plan Plan: Assessment: #1. Bilateral lower extremity cellulitis and chronic wounds #2. Recent diagnosis of lung cancer, adenocarcinoma type, with right upper lobe mass, diagnosed in May 2020. Patient has not received any treatment as of yet. A CAT scan done in July 2020 showed no metastasis #3. History of COPD #4. History of BPH #5. History of chronic cough abuse #6. History of dementia #7. Macular degeneration #8. Ongoing tobacco with nicotine addiction Plan: Continue antibiotics per ID service recommendations Continue breathing treatments COPD seems to be stable We'll defer to medical oncology to make a recommendation on when the patient is to start treatment for his lung cancer I performed a history & physical examination of the patient and discussed their management with my nurse practitioner, Dorina Devi. I reviewed the nurse practitioner's note and agree with the documented findings and plan of care. Lung sounds are positive for diminished breath sounds. The findings and the impression was discussed with the patient. I attest to the documentation by the nurse practitioner. Time with Patient: Less than 30
[2020-11-12 14:16] LABS: Basophils % (A) 0 %; Eosinophils # (A) 0.5 k/uL (0-0.7); Eosinophils % (A) 4 %; HCT 35.4 % (39.0-53.0); HGB 11.8 gm/dL (13.0-17.5); Lymphocytes # (A) 1.3 k/uL (1.0-4.8); Lymphocytes % (A) 11 %; MCH 30.8 pg (25.0-35.0); MCHC 33.2 g/dL (31.0-37.0); MCV 92.8 fL (80.0-100.0); Mean Platelet Volume 7.4; Monocytes # (A) 0.7 k/uL (0-1.0); Monocytes % (A) 6 %; Neutrophils # (A) 9.2 k/uL (1.3-7.7); Neutrophils % (A) 78 %; Platelet Count 368 k/uL (150-450); RBC 3.81 m/uL (4.30-5.90); WBC 11.8 k/uL (3.8-10.6)
[2020-11-12 15:04] LABS: ALT 11 U/L (4-49); AST 23 U/L (17-59); African American GFR (CKD) >90 (>60 ml/min/1.73 sqM); Albumin 2.4 g/dL (3.5-5.0); Albumin/Globulin Ratio 0.8; Alkaline Phosphatase 83 U/L (38-126); Anion Gap 5 mmol/L; Blood Urea Nitrogen 8 mg/dL (9-20); Calcium 8.5 mg/dL (8.4-10.2); Carbon Dioxide 29 mmol/L (22-30); Chloride 102 mmol/L (98-107); Globulin 3.1 g/dL; Glucose 125 mg/dL (74-99); Non-African American GFR(CKD) >90 (>60 ml/min/1.73 sqM); Potassium 4.4 mmol/L (3.5-5.1); Sodium 136 mmol/L (137-145); Total Bilirubin 0.4 mg/dL (0.2-1.3); Total Protein 5.5 g/dL (6.3-8.2)
--- NOTE | 2020-11-12 18:11 | P.PN ---
Progress Note - Text Progress Note Date: 11/12/20 Chief Complaint: Lower extremity wounds History of presenting complaint: This is a 65-year-old patient who follows with visiting physicians Dr Salmon. 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 Patient lives with his step son and his girlfriend.. Does use a battery operated wheelchair. home nurse who takes care of her lower extremities. Patient has noted increasing pain and redness and sometimes some drainage from the lower extremity. With swelling. Denies any fever and chills. Patient also got a cough some shortness of breath. A bit congested the chest. Denies any obvious fever and chills Admitted on October 01 for a week for: Acute on chronic bilateral lower extremity cellulitis, acute COPD exacerbation, COVID 19 infection. Patient now presented increasing swelling blisters worsening wound the lower extremity. Home nurse has been coming out. Denies any fever and chills. Patient has continued to smoke. Pain is lower extremity. Has a bowel movement every 3 days. Some shortness of breath and wheezing. Admitted with acute on chronic lower extremity wounds. COPD exacerbation. Started IV vancomycin. Bronchodilators. Vancomycin discontinued. Started on IV cefepime by ID. Today: Laying in bed. Bringing up significant amount of sputum. Lower extremity wound care in place. Some shortness of breath. Review of systems: Was done for constitutional, cardiovascular, GI, pulmonary. relevant finding as above Active Medications Acetaminophen (Acetaminophen Tab 325 Mg Tab) 650 mg PO Q6HR PRN PRN Reason: Mild Pain or Fever > 100.5 Last Admin: 11/11/20 20:04 Dose: 650 mg Documented by: Hydrocodone Bitart/Acetaminophen (Hydrocodone/Apap 5-325mg 1 Each Tab) 1 each PO TID PRN PRN Reason: Pain Last Admin: 11/12/20 17:52 Dose: 1 each Documented by: Albuterol/Ipratropium (Ipratropium-Albuterol 3 Ml Neb) 3 ml INHALATION RT-TID PRN PRN Reason: Shortness Of Breath Or Wheezing Albuterol/Ipratropium (Ipratropium-Albuterol 3 Ml Neb) 3 ml INHALATION RT-TID HERACLIO Last Admin: 11/12/20 11:32 Dose: Not Given Documented by: Ascorbic Acid (Ascorbic Acid 500 Mg Tab) 1,000 mg PO DAILY [facility] Last Admin: 11/12/20 07:38 Dose: 1,000 mg Documented by: Aspirin (Aspirin 81 Mg) 81 mg PO DAILY [facility] Last Admin: 11/12/20 07:38 Dose: 81 mg Documented by: Atorvastatin Calcium (Atorvastatin 40 Mg Tab) 40 mg PO DAILY [facility] Last Admin: 11/12/20 07:38 Dose: Not Given Documented by: Cholecalciferol (Cholecalciferol 25 Mcg (1000 Iu) Tablet) 125 mcg PO DAILY [facility] Last Admin: 11/12/20 07:39 Dose: 125 mcg Documented by: Guaifenesin (Guaifenesin 600 Mg Tablet.Er) 600 mg PO QID [facility] Last Admin: 11/12/20 17:52 Dose: 600 mg Documented by: Cefepime HCl 2 gm/ Sodium (Chloride) 100 mls @ 25 mls/hr IVPB Q8HR [facility] Last Admin: 11/12/20 17:51 Dose: 25 mls/hr Documented by: Lisinopril (Lisinopril 5 Mg Tab) 5 mg PO DAILY [facility] Last Admin: 11/12/20 07:40 Dose: Not Given Documented by: Metoprolol Tartrate (Metoprolol Tartrate 50 Mg Tab) 50 mg PO BID [facility] Last Admin: 11/12/20 07:40 Dose: 50 mg Documented by: Naloxone HCl (Naloxone 0.4 Mg/Ml 1 Ml Vial) 0.2 mg IV Q2M PRN PRN Reason: Opioid Reversal Nicotine (Nicotine 21mg/24hr Patch) 1 patch TRANSDERM DAILY [facility] Last Admin: 11/12/20 07:40 Dose: Not Given Documented by: Pregabalin (Pregabalin 75 Mg Cap) 150 mg PO BID [facility] Last Admin: 11/12/20 07:38 Dose: 150 mg Documented by: Triamcinolone Acetonide (Triamcinolone Acet 0.1% Ointment 80 Gm Tube) 1 applic TOPICAL BID [facility] Last Admin: 11/12/20 07:40 Dose: Not Given Documented by: Past medical history to include: COPD, cognitive impairment, bilateral lower extremity chronic cellulitis and wounds, peripheral neuropathy, smoker, right upper lobe lung mass with a negative PET scan, chronic anemia, asbestos exposure, chronic left shoulder pain. Social history: Lives with his step son and his girlfriend. Gets about of the electric cart. Patient started smoking at the age of 10 up to pack and a half to 2 packs a day now down to one half a pack a day. Up to about a year ago he was drinking 4 cases of beer a week is 2 bottles of wine a week. Does use marijuana Gummi's Physical examination: VITAL SIGNS: 98.2, 85, 18, 152/82, 90% on 2 L GENERAL: Laying in bed, slightly short of breath EYES: Pupils equal. Conjunctiva normal. NECK: JVD not raised; masses not palpable. HEART: First and second heart sounds are normal; edema present. LUNGS: Respiratory rate increased, decreased breath sounds prolonged expiration and mild wheezing. ABDOMEN: Soft, nontender, liver spleen not palpable, no masses palpable. PSYCH: Alert and oriented x3; mood and affect slightly anxious. DERMATOLOGICAL: Lower extremity redness with breakdown of skin/wound, tenderness edema. Dry skin in both the thigh and upper extremity INVESTIGATIONS, reviewed in the clinical context: November 12: WBC 11.8 hemoglobin 11.8 potassium 4.4 creatinine 0.44 WBC 11.1 hemoglobin 13.1 platelets 323 potassium 3.4 creatinine 0.5 bun lactic acid 2.2 proBNP 1470 albumin 3.2 Coronavirus [PCF]-not detected Venous Doppler: Negative for DVT. Assessment and plan: -Acute on chronic bilateral lower extremity venous stasis cellulitis/wounds, worsened by underlying peripheral arterial disease.-Slow to respond Continue wound care. Consult ID. on IV vancomycin-discontinued. Started IV cefepime. Kenalog. -Possible sepsis. IV fluids, antibiotics -Stage II pressure ulcer right calcaneum with fat layer exposure, POA Foam heel protectors -Acute COPD exacerbation in current smoker:- Bronchodilators, steroids -Chronic nicotine dependence patient is a cigarette smoker Nicotine patch -Mild cognitive impairment -Painful peripheral neuropathy Continue with Lyrica -Right upper lobe lung mass with a known negative PET scan. Patient being followed by oncology/pulmonary. -Chronic medical debility. Does use electronic cart Consult PTOT -Hypoalbuminemia from Mild protein calorie malnutrition Nutritional supplements Discussed with patient. Continue current medication treatment plan. Including antibiotics.
--- NOTE | 2020-11-12 18:21 | P.CONS ---
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 CT Scan Jun 04 revealed increased size of RUL mass to 2.5 cm, as well as, development of R paratracheal and subcarinal lymphadenopathy. He had navigational bronchoscopy by Dr Wen on 06/04/2020 revealed Pulmonary adenocarcinoma. The patient denies anorexia or weight loss, has chronic exertional dyspnea, denies hemoptysis. He smoked 1 PPD X 45 years, continues to smoke. Consumes 12 beers/day and claims to have stopped drinking 2 weeks ago. He denied family history of malignancy. 09/24/20: Stated being tired, having numbness & tingling in hands/feet, he is frustrated because insurance can't arrange transportations. 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 The patient was initially diagnosed in May 2020, but secondary to poor compliance and social support, he has not initiated any therapy as of yet. He is currently hospitalized secondary to lower extremity cellulitis. The patient's oncologic history began back in January 2020 when he was found to have a lung nodule on an x-ray. He subsequent underwent a CT scan of the chest, abdomen and pelvis on January 28 without contrast. This revealed a 2.2 cm right upper lung mass with a 3.5 and 2.9 cm paratracheal and pretracheal lymph node noted. The patient subsequently followed up with pulmonology, and underwent a bronchoscopy on June 04, 2020. No airway abnormalities were seen, but a biopsy of the pretracheal lymph node was consistent with pulmonary adenocarcinom a. He subsequently underwent a PET/CT on August 04, 2020 with the right upper lung lesion showing abnormal SUV. There is also increased uptake within the right paratracheal and pretracheal mediastinum. There was no evidence of elsewhere disease. The patient was subsequently admitted to the hospital secondary to increased difficulty with his lower extremities. 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 He notes ongoing difficulty with burning and pain in the lower extremities. He has also had difficulty with nonhealing areas of the bilateral lower extremities. He states he has had wound care out to his house over the past year. These have been having increased pain and swelling recently, and the patient was admitted and started on IV antibiotics for cellulitis. The patient was also found to be Covid positive, although he does not have any typical symptoms. He denies difficulty with abnormal cough, dyspnea, dysphagia or chest pain. The patient reports that he currently lives with his son and Blaire, but the patient is unable to drive and he has very little support in early November transportation for his treatments. He has reportedly not followed up with Dr. Lozano in medical oncology - he was due to be seen in our clinic on Tuesday. He did not follow-up with further imaging as ordered either, states he has transportationi issues. Review of Systems All systems: negative Constitutional: Reports as per HPI Past Medical History Past Medical History: COPD, Eye Disorder, Memory Impairment Additional Past Medical History / Comment(s): COVID in September 2019, BPH, dysphagia, previous liver biopsy results non malignant alcoholism, COPD, dementia, chronic malnutrition, BLE edema, macular degeneration to left eye, masses to both lung lobes suspecting malignancy History of Any Multi-Drug Resistant Organisms: None Reported Past Surgical History: Orthopedic Surgery Additional Past Surgical History / Comment(s): liver biopsy, left thumb surgery left arm fasciotomy, bilateral cataracts removed with lens implants Past Anesthesia/Blood Transfusion Reactions: No Reported Reaction Past Psychological History: No Psychological Hx Reported Additional Psychological History / Comment(s): Pt resides with his son and his son's girlfriend. Pt states he does not feel safe there anymore d/t son is gone alot and girlfriend does not help patient at all. Pt gets around in his electric cart. There is a ramp on the house. Pt states rides are difficult to get, sometimes his son or friends drive him. Pt has home care nurse for wound care from [place]. He states he can toilet himself. Getting a shower is difficult d/t no one to help him. Pt states son's girlfriend does not like him. Pt states his son and girlfriend do not want him in the home. He states there is no abuse. Smoking Status: Current every day smoker Past Alcohol Use History: Heavy Additional Past Alcohol Use History / Comment(s): Pt started smoking in 1967 and was 2 ppd smoker but now down to 1/2 ppd. Pt states he was drinking 4 cases of beer a week but has cut down about a year ago and now drinks a 6 pack or two of wine (little bottles) a week. Past Drug Use History: Marijuana Additional Drug Use History / Comment(s): Marijuana gummies daily - Past Family History Father History Unknown: Yes Family Medical History: Myocardial Infarction (MO) Additional Family Medical History / Comment(s): Father of a MO at the age of 57yrs. Mother Additional Family Medical History / Comment(s): Mother had a tumor in her heart/surgery to remove and of post op infection. Medications and Allergies Home Medications Medication Instructions Recorded Confirmed Type Aspirin 81 mg PO DAILY #90 chew 10/09/20 11/10/20 Rx Atorvastatin [Lipitor] 40 mg PO DAILY #90 tab 10/09/20 11/10/20 Rx Metoprolol Tartrate [Lopressor] 50 mg PO BID #180 tab 10/09/20 11/10/20 Rx Nicotine 21Mg/24Hr Patch [Habitrol] 1 patch TRANSDERM DAILY patch 10/09/20 11/10/20 Rx Pregabalin [Lyrica] 150 mg PO BID #6 cap 10/09/20 11/10/20 Rx lisinopriL [Zestril] 5 mg PO DAILY #90 tab 10/09/20 11/10/20 Rx Ascorbic Acid [Vitamin C] 1,000 mg PO DAILY 11/10/20 11/10/20 History Furosemide [Lasix] 40 mg PO DAILY 11/10/20 11/10/20 History Allergies Allergy/AdvReac Type Severity Reaction Status Date / Time No Known Allergies Allergy Verified 11/10/20 19:16 Physical Exam Vitals: Vital Signs Temp Pulse Resp BP Pulse Ox 11/12/20 05:17 90 L 11/12/20 02:22 98.2 F 80 16 125/68 87 L 11/11/20 20:00 102 H 16 11/11/20 19:47 100.2 F H 102 H 16 130/66 89 L 11/11/20 08:20 121 H 18 11/11/20 08:00 100.2 F H 121 H 18 115/63 89 L Intake and Output 11/11/20 11/12/20 11/12/20 22:59 06:59 14:59 Output Total 1200 Balance -1200 Output: Urine 1200 Other: # Voids 8 3 - Constitutional General appearance: cooperative, no acute distress - EENT Eyes: EOMI, PERRLA ENT: hard of hearing, NA/AT, normal oropharynx - Neck Neck: normal ROM - Respiratory Respiratory: bilateral: rhonchi (increased effort) - Cardiovascular Rhythm: regularly irregular leg Peripheral Edema: bilateral: 2+ (bilateral ulcerations and bandages) - Gastrointestinal General gastrointestinal: soft, tenderness - Integumentary Integumentary: pale - Neurologic Neurologic: CNII-XII intact - Musculoskeletal Musculoskeletal: generalized weakness - Psychiatric Psychiatric: A&O x's 3 Results CBC & Chem 7: 11/12/20 13:39 11/12/20 13:39 Labs: Microbiology - Last 24 Hours (Table) 11/10/20 15:57 Blood Culture - Preliminary Blood No Growth after 24 hours Assessment and Plan Plan: Assessment and Plan (1) Bilateral lower leg cellulitis Current Visit: Yes Status: Acute Priority: High Code(s): L03.116 - CELLULITIS OF LEFT LOWER LIMB; L03.115 - CELLULITIS OF RIGHT LOWER LIMB SNOMED Code(s): 209193922 (2) COVID-19 Current Visit: Yes Status: Acute Priority: High Code(s): U07.1 - COVID-19 SNOMED Code(s): 520131080 (3) Non-small cell cancer of right lung Plans for chemo/XRT. - He has difficulty with with transportation Need for restaging PET scan when pt released from rehab. Long delay in starting treatment, need to re-assess disease Current Visit: Yes Status: Acute Priority: High Code(s): C34.91 - MALIGNANT NEOPLASM OF UNSP PART OF RIGHT BRONCHUS OR LUNG SNOMED Code(s): 211252533 Plan: Patient has not remained adherent due to transportation, re-emphasized. Re-staging outpatient Possible Rehab/Home PT Physician attest: I have completed the full history and physical and agree with above dictation, dictated as a scribe.
--- NOTE | 2020-11-12 23:11 | PN ---
PROGRESS NOTE DATE OF SERVICE: 11/12/2020 REASON FOR FOLLOWUP: Bilateral lower extremity venostasis ulcer and cellulitis. INTERVAL HISTORY: The patient is currently afebrile. The patient is still complaining of shortness of breath on exertion and has been coughing up sputum. No hemoptysis. No chest pain. No abdominal pain. Overall pain and discomfort to the leg has slightly decreased in intensity. PHYSICAL EXAMINATION: Blood pressure 98/69, pulse of 84, temperature 98.7. He is 96% on 2 L nasal cannula. General description is a middle-aged male lying in bed in no distress. RESPIRATORY SYSTEM: Unlabored breathing with decreased intensity of breath sounds. No wheeze. HEART: S1, S2. Regular rate and rhythm. ABDOMEN: Soft. No tenderness. LABS: Hemoglobin is 11.8, white count 11.8, BUN of 8, creatinine 0.44. DIAGNOSTIC IMPRESSION AND PLAN: Patient with bilateral lower extremity venostasis ulcers and cellulitis. Patient to continue on cefepime. Local wound care with dry Aquacel Silver dressing and Castro wrap and monitor his clinical course closely. MMODL / IJN: [id number] /
[2020-11-13] MEDS: CEFEPIME 2 GM in SODIUM CHLORIDE 0.9% 100 ML IVPB SCH ×3 (00:58→16:25)
[2020-11-13] MEDS: HYDROcodone/APAP 5-325MG 1 EACH TAB PO PRN ×3 (04:08→21:35)
[2020-11-13] MEDS: IPRATROPIUM-ALBUTEROL 3 ML NEB INHALATION SCH ×3 (08:25→18:45)
[2020-11-13] MEDS: CHOLECALCIFEROL 25 MCG (1000 IU) TABLET PO SCH (08:49)
[2020-11-13] MEDS: lisinopriL 5 MG TAB PO SCH (08:49)
[2020-11-13] MEDS: guaiFENesin 600 MG TABLET.ER PO SCH ×4 (08:49→21:36)
[2020-11-13] MEDS: PREGABALIN 75 MG CAP PO SCH ×2 (08:49→21:36)
[2020-11-13] MEDS: ASCORBIC ACID 500 MG TAB PO SCH (08:49)
[2020-11-13] MEDS: ATORVASTATIN 40 MG TAB PO SCH (08:49)
[2020-11-13] MEDS: ASPIRIN 81 MG PO SCH (08:49)
[2020-11-13] MEDS: TRIAMCINOLONE ACET 0.1% OINTMENT 80 GM TUBE TOPICAL SCH ×2 (08:50→21:36)
[2020-11-13] MEDS: NICOTINE 21MG/24HR PATCH TRANSDERM SCH (08:50)
[2020-11-13] MEDS: METOPROLOL TARTRATE 50 MG TAB PO SCH ×2 (08:57→21:35)
[2020-11-13] MEDS: ACETAMINOPHEN TAB 325 MG TAB PO PRN (09:02)
--- NOTE | 2020-11-13 12:37 | P.PN ---
Progress Note - Text Progress Note Date: 11/13/20 Chief Complaint: Lower extremity wounds History of presenting complaint: This is a 65-year-old patient who follows with visiting physicians Dr Salmon. 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 Patient lives with his step son and his girlfriend.. Does use a battery operated wheelchair. home nurse who takes care of her lower extremities. Patient has noted increasing pain and redness and sometimes some drainage from the lower extremity. With swelling. Denies any fever and chills. Patient also got a cough some shortness of breath. A bit congested the chest. Denies any obvious fever and chills Admitted on October 01 for a week for: Acute on chronic bilateral lower extremity cellulitis, acute COPD exacerbation, COVID 19 infection. Patient now presented increasing swelling blisters worsening wound the lower extremity. Home nurse has been coming out. Denies any fever and chills. Patient has continued to smoke. Pain is lower extremity. Has a bowel movement every 3 days. Some shortness of breath and wheezing. Admitted with acute on chronic lower extremity wounds. COPD exacerbation. Started IV vancomycin. Bronchodilators. Vancomycin discontinued. Started on IV cefepime by ID. Today: Oral intake fair. Bringing up significant amount of sputum. Lower extremity wound care to continue.. Review of systems: Was done for constitutional, cardiovascular, GI, pulmonary. relevant finding as above Active Medications Acetaminophen (Acetaminophen Tab 325 Mg Tab) 650 mg PO Q6HR PRN PRN Reason: Mild Pain or Fever > 100.5 Last Admin: 11/13/20 09:02 Dose: 650 mg Documented by: Hydrocodone Bitart/Acetaminophen (Hydrocodone/Apap 5-325mg 1 Each Tab) 1 each PO TID PRN PRN Reason: Pain Last Admin: 11/13/20 04:08 Dose: 1 each Documented by: Albuterol/Ipratropium (Ipratropium-Albuterol 3 Ml Neb) 3 ml INHALATION RT-TID PRN PRN Reason: Shortness Of Breath Or Wheezing Albuterol/Ipratropium (Ipratropium-Albuterol 3 Ml Neb) 3 ml INHALATION RT-TID HERACLIO Last Admin: 11/13/20 11:57 Dose: Not Given Documented by: Ascorbic Acid (Ascorbic Acid 500 Mg Tab) 1,000 mg PO DAILY [facility] Last Admin: 11/13/20 08:49 Dose: 1,000 mg Documented by: Aspirin (Aspirin 81 Mg) 81 mg PO DAILY [facility] Last Admin: 11/13/20 08:49 Dose: 81 mg Documented by: Atorvastatin Calcium (Atorvastatin 40 Mg Tab) 40 mg PO DAILY [facility] Last Admin: 11/13/20 08:49 Dose: 40 mg Documented by: Cholecalciferol (Cholecalciferol 25 Mcg (1000 Iu) Tablet) 125 mcg PO DAILY [facility] Last Admin: 11/13/20 08:49 Dose: 125 mcg Documented by: Guaifenesin (Guaifenesin 600 Mg Tablet.Er) 600 mg PO QID [facility] Last Admin: 11/13/20 08:49 Dose: 600 mg Documented by: Cefepime HCl 2 gm/ Sodium (Chloride) 100 mls @ 25 mls/hr IVPB Q8HR [facility] Last Admin: 11/13/20 08:49 Dose: 25 mls/hr Documented by: Lisinopril (Lisinopril 5 Mg Tab) 5 mg PO DAILY [facility] Last Admin: 11/13/20 08:49 Dose: 5 mg Documented by: Metoprolol Tartrate (Metoprolol Tartrate 50 Mg Tab) 50 mg PO BID [facility] Last Admin: 11/13/20 08:57 Dose: Not Given Documented by: Naloxone HCl (Naloxone 0.4 Mg/Ml 1 Ml Vial) 0.2 mg IV Q2M PRN PRN Reason: Opioid Reversal Nicotine (Nicotine 21mg/24hr Patch) 1 patch TRANSDERM DAILY [facility] Last Admin: 11/13/20 08:50 Dose: Not Given Documented by: Pregabalin (Pregabalin 75 Mg Cap) 150 mg PO BID [facility] Last Admin: 11/13/20 08:49 Dose: 150 mg Documented by: Triamcinolone Acetonide (Triamcinolone Acet 0.1% Ointment 80 Gm Tube) 1 applic TOPICAL BID [facility] Last Admin: 11/13/20 08:50 Dose: 1 applic Documented by: Past medical history to include: COPD, cognitive impairment, bilateral lower extremity chronic cellulitis and wounds, peripheral neuropathy, smoker, right upper lobe lung mass with a negative PET scan, chronic anemia, asbestos exposure, chronic left shoulder pain. Social history: Lives with his step son and his girlfriend. Gets about of the electric cart. Patient started smoking at the age of 10 up to pack and a half to 2 packs a day now down to one half a pack a day. Up to about a year ago he was drinking 4 cases of beer a week is 2 bottles of wine a week. Does use marijuana Gummi's Physical examination: VITAL SIGNS: 98.8, 82, 18, 170-74, 94% on 2 L GENERAL: Declining in bed EYES: Pupils equal. Conjunctiva normal. NECK: JVD not raised; masses not palpable. HEART: First and second heart sounds are normal; edema present. LUNGS: Respiratory rate increased, decreased breath sounds prolonged expiration and mild wheezing. ABDOMEN: Soft, nontender, liver spleen not palpable, no masses palpable. PSYCH: Alert and oriented x3; mood and affect slightly anxious. DERMATOLOGICAL: Lower extremity redness with breakdown of skin/wound, tenderness edema. Dry skin in both the thigh and upper extremity INVESTIGATIONS, reviewed in the clinical context: November 12: WBC 11.8 hemoglobin 11.8 potassium 4.4 creatinine 0.44 WBC 11.1 hemoglobin 13.1 platelets 323 potassium 3.4 creatinine 0.5 bun lactic acid 2.2 proBNP 1470 albumin 3.2 Coronavirus [PCF]-not detected Venous Doppler: Negative for DVT. Assessment and plan: -Acute on chronic bilateral lower extremity venous stasis cellulitis/wounds, worsened by underlying peripheral arterial disease.-Slow to respond Continue wound care. Follow up with ID. on IV vancomycin-discontinued. IV cefepime. Local wound care. Dry Aquacel silver dressing and Castro wrap -Possible sepsis. IV fluids, antibiotics -Stage II pressure ulcer right calcaneum with fat layer exposure, POA Foam heel protectors -Acute COPD exacerbation in current smoker:- Bronchodilators, steroids -Chronic nicotine dependence patient is a cigarette smoker Nicotine patch -Mild cognitive impairment -Painful peripheral neuropathy Continue with Lyrica -Right upper lobe lung mass with a known negative PET scan. Patient being followed by oncology/pulmonary. -Chronic medical debility. Does use electronic cart Consult PTOT -Hypoalbuminemia from Mild protein calorie malnutrition Nutritional supplements Continue current medication treatment plan. Including antibiotics.
--- NOTE | 2020-11-13 12:47 | P.PN ---
Subjective Progress Note Date: 11/13/20 Principal diagnosis: Lower extremity cellulitis, lung cancer 65-year-old male, known to our service. He was seen in September on a prior admission. The patient came into the hospital on November 10, complaining of pain and swelling to both of his legs. He apparently was seen by his home care nurse and was recommended to come into the hospital to be evaluated. He apparently has had drainage from both lower extremities, with increasing pain. He's had this problem for at least a month and maybe longer, getting worse. He has completed antibiotics. We were asked to see him, because back in May 2020, he was found to have an abnormal chest x-ray and CAT scan showing a mass in his right upper lobe. He had a procedure done by my partner, and was found have adenocarcinoma. The patient had a PET scan in July, which showed no distant disease, only disease in the right upper lobe. The patient has been seen by oncology, but has not received any treatment as yet. His overall condition makes treatment very risky for him. He doesn't take good care of himself, and he is quite debilitated. From the pulmonary standpoint, the patient's not really complaining of any issues. He is currently not on any supplemental oxygen. His room air saturations are 92-98%. His heart rate about 100 bpm. Respiratory rate 18. Temperature 99.3. White count 11.1, hemoglobin 13.1, hematocrit 41.1, and platelet count 383,000. PT/INR PTT are normal. Sodium 142, potassium 3.4, chlorides 102, CO2 32, anion gap 8, BUN 13, and creatinine 0.51. Coronavirus testing was negative. Both right and left legs were negative for DVT. Chest x-ray shows right perihilar mass/right upper lobe mass, consistent with the patient's known history of lung cancer. On 11/12/2020 patient seen in follow-up on medical surgical floor, he is resting in bed, appears to be in no acute distress, he continues on cefepime and vancomycin for lower extremity cellulitis, he is receiving local wound care with Aquacel silver and Castro wraps to bilateral lower extremity wounds. ID service is following, appears to be in no respiratory distress, he is on 2 L of oxygen and his pulse ox is 92%, he is afebrile, hemodynamically stable, but the chest discomfort, no hemoptysis. Patient was negative for COVID-19. He's had no fever or chills. his last chest x-ray on 11/10/2020 showed findings consistent with bronchogenic carcinoma in the right hilar adenopathy, right upper lobe lung mass. No pneumothorax or pleural effusion on 11/13/2020 patient seen in follow-up on medical surgical floor. He is curr ently resting comfortably in bed, appears to be in no acute distress. He is on 2 L of oxygen, pulse oximetry 93-94%, afebrile, hemodynamically stable, breathing comfortably, he is receiving antibiotics for lower extremity cellulitis, he is receiving local wound care and infectious disease service is following. Vital signs have been stable, has had no acute events overnight. Today's labs have been reviewed. Sputum culture from yesterday is pending. No complaints of worsening dyspnea, no hemoptysis or chest discomfort. Objective - Vital Signs Vital signs: Vital Signs Temp 98.8 F 11/13/20 07:45 Pulse 82 11/13/20 08:00 Resp 18 11/13/20 08:00 BP 117/74 11/13/20 07:45 Pulse Ox 94 L 11/13/20 07:45 Intake & Output 11/12/20 11/13/20 11/13/20 18:59 06:59 18:59 Output Total 1200 5 600 Balance -1200 -5 -600 Output: Urine 1200 5 600 Other: Voiding Method Urinal Urinal - Exam GENERAL EXAM: Alert, very pleasant, 65-year-old white male, on 2 L of oxygen, with a pulse ox of 94%, comfortable in no apparent distress. HEAD: Normocephalic/atraumatic. EYES: Normal reaction of pupils, equal size. Conjunctiva pink, sclera white. NOSE: Clear with pink turbinates. THROAT: No erythema or exudates. NECK: No masses, no JVD, no thyroid enlargement, no adenopathy. CHEST: No chest wall deformity. Symmetrical expansion. LUNGS: Equal air entry with no crackles, wheeze, rhonchi or dullness. CVS: Regular rate and rhythm, normal S1 and S2, no gallops, no murmurs, no rubs ABDOMEN: Soft, nontender. No hepatosplenomegaly, normal bowel sounds, no gua rding or rigidity. EXTREMITIES: No clubbing, mild lower extremity edema and erythema no cyanosis, 2+ pulses and upper and lower extremities. Patient has chronic wounds on the lower extremities are covered with Castro wrap's right now MUSCULOSKELETAL: Muscle strength and tone normal. SPINE: No scoliosis or deformity SKIN: No rashes CENTRAL NERVOUS SYSTEM: Alert and oriented -3. No focal deficits, tone is normal in all 4 extremities. PSYCHIATRIC: Alert and oriented -3. Appropriate affect. Intact judgment and insight. - Labs CBC & Chem 7: 11/12/20 13:39 11/12/20 13:39 Labs: Abnormal Lab Results - Last 24 Hours (Table) 11/12/20 11/12/20 Range/Units 13:39 13:39 WBC 11.8 H (3.8-10.6) k/uL RBC 3.81 L (4.30-5.90) m/uL Hgb 11.8 L (13.0-17.5) gm/dL Hct 35.4 L (39.0-53.0) % Neutrophils # 9.2 H (1.3-7.7) k/uL Sodium 136 L (137-145) mmol/L BUN 8 L (9-20) mg/dL Creatinine 0.44 L (0.66-1.25) mg/dL Glucose 125 H (74-99) mg/dL Total Protein 5.5 L (6.3-8.2) g/dL Albumin 2.4 L (3.5-5.0) g/dL Microbiology - Last 24 Hours (Table) 11/12/20 23:26 Sputum Culture - Preliminary Sputum 11/10/20 15:57 Blood Culture - Preliminary Blood No Growth after 48 hours Assessment and Plan Plan: Assessment: #1. Bilateral lower extremity cellulitis and chronic wounds #2. Recent diagnosis of lung cancer, adenocarcinoma type, with right upper lobe mass, diagnosed in May 2020. Patient has not received any treatment as of yet. A CAT scan done in July 2020 showed no metastasis #3. History of COPD #4. History of BPH #5. History of chronic cough abuse #6. History of dementia #7. Macular degeneration #8. Ongoing tobacco with nicotine addiction Plan: Patient is breathing comfortably, No worsening dyspnea or hypoxia No worsening cough or congestion Continue antibiotics per ID service recommendations Continue breathing treatments COPD seems to be stable We'll defer to medical oncology to make a recommendation on when the patient is to start treatment for his lung cancer Pulmonary service will sign off and follow on as-needed basis I performed a history & physical examination of the patient and discussed their management with my nurse practitioner, Dorina Devi. I reviewed the nurse practitioner's note and agree with the documented findings and plan of care. Lung sounds are positive for diminished breath sounds. The findings and the impression was discussed with the patient. I attest to the documentation by the nurse practitioner. Time with Patient: Less than 30
--- NOTE | 2020-11-13 18:07 | P.PN ---
Subjective Progress Note Date: 11/13/20 Cancer and cellulitis No new complaints and comfortable today during follow-up Objective - Vital Signs Vital signs: Vital Signs Temp 98.3 F 11/13/20 14:34 Pulse 91 11/13/20 14:34 Resp 18 11/13/20 14:34 BP 112/76 11/13/20 14:34 Pulse Ox 94 L 11/13/20 14:34 Intake & Output 11/12/20 11/13/20 11/13/20 18:59 06:59 18:59 Output Total 1200 5 600 Balance -1200 -5 -600 Output: Urine 1200 5 600 Other: Voiding Method Urinal Urinal - Exam - Constitutional General appearance: cooperative, no acute distress - EENT Eyes: EOMI, PERRLA ENT: hard of hearing, NA/AT, normal oropharynx - Neck Neck: normal ROM - Respiratory Respiratory: bilateral: rhonchi (increased effort) - Cardiovascular Rhythm: regularly irregular leg Peripheral Edema: bilateral: 2+ (bilateral ulcerations and bandages) - Gastrointestinal General gastrointestinal: soft, tenderness - Integumentary Integumentary: pale - Neurologic Neurologic: CNII-XII intact - Musculoskeletal Musculoskeletal: generalized weakness - Psychiatric Psychiatric: A&O x's 3 - Labs CBC & Chem 7: 11/12/20 13:39 11/12/20 13:39 Labs: Microbiology - Last 24 Hours (Table) 11/12/20 23:26 Gram Stain - Preliminary Sputum Sputum Culture - Preliminary 11/10/20 15:57 Blood Culture - Preliminary Blood No Growth after 48 hours Assessment and Plan Plan: Assessment and Plan (1) Bilateral lower leg cellulitis Current Visit: Yes Status: Acute Priority: High Code(s): L03.116 - CELLULITIS OF LEFT LOWER LIMB; L03.115 - CELLULITIS OF RIGHT LOWER LIMB SNOMED Code(s): 391714747 (2) COVID-19 Current Visit: Yes Status: Acute Priority: High Code(s): U07.1 - COVID-19 SNOMED Code(s): 990831881 (3) Non-small cell cancer of right lung Plans for chemo/XRT. - He has difficulty with with transportation Need for restaging PET scan when pt released from rehab. Long delay in starting treatment, need to re-assess disease Current Visit: Yes Status: Acute Priority: High Code(s): C34.91 - MALIGNANT NEOPLASM OF UNSP PART OF RIGHT BRONCHUS OR LUNG SNOMED Code(s): 320328795 Plan: Patient has not remained adherent due to transportation, re-emphasized. Re-staging outpatient Possible Rehab/Home PT He will need to see Dr. Marta winter after discharge, re-discussed the importance of this with him.
--- NOTE | 2020-11-13 18:59 | PN ---
PROGRESS NOTE DATE OF SERVICE: 11/13/2020 REASON FOR FOLLOWUP: Bilateral lower extremity venostasis ulcers and cellulitis. INTERVAL HISTORY: The patient is currently afebrile. The patient is breathing comfortably, still complaining of feeling nauseated. No chest pain. No abdominal pain. Overall pain to the left foot decreased in intensity. PHYSICAL EXAMINATION: Blood pressure 112/76, pulse 91, temperature 98.3. He is 94% on 2 L nasal cannula. General description is a middle-aged male lying in bed in no distress. RESPIRATORY SYSTEM: Unlabored breathing. Clear to auscultation anteriorly. HEART: S1, S2. Regular rate and rhythm. ABDOMEN: Soft. No tenderness. Bilateral leg wounds are currently dressed up. No obvious drainage on the dressing. LABS: No new labs have been obtained today. Blood and sputum cultures are currently pending. DIAGNOSTIC IMPRESSION AND PLAN: Patient with bilateral lower extremity venostasis ulcers with secondary cellulitis. The patient seems to be responding to cefazolin; to continue along with local wound care with dry Aquacel Silver dressing and reevaluate the wound tomorrow. Continue supportive care. MMODL / IJN: [id number] / MTDMarin
[2020-11-14] MEDS: CEFEPIME 2 GM in SODIUM CHLORIDE 0.9% 100 ML IVPB SCH ×4 (00:41→23:59)
[2020-11-14] MEDS: IPRATROPIUM-ALBUTEROL 3 ML NEB INHALATION SCH ×3 (08:22→15:52)
[2020-11-14] MEDS: ASCORBIC ACID 500 MG TAB PO SCH (08:35)
[2020-11-14] MEDS: guaiFENesin 600 MG TABLET.ER PO SCH ×4 (08:35→20:13)
[2020-11-14] MEDS: ATORVASTATIN 40 MG TAB PO SCH (08:35)
[2020-11-14] MEDS: PREGABALIN 75 MG CAP PO SCH ×2 (08:35→20:13)
[2020-11-14] MEDS: CHOLECALCIFEROL 25 MCG (1000 IU) TABLET PO SCH (08:35)
[2020-11-14] MEDS: ASPIRIN 81 MG PO SCH (08:35)
[2020-11-14] MEDS: NICOTINE 21MG/24HR PATCH TRANSDERM SCH (08:36)
[2020-11-14] MEDS: lisinopriL 5 MG TAB PO SCH (08:36)
[2020-11-14] MEDS: TRIAMCINOLONE ACET 0.1% OINTMENT 80 GM TUBE TOPICAL SCH ×2 (08:36→20:14)
[2020-11-14] MEDS: METOPROLOL TARTRATE 50 MG TAB PO SCH ×2 (08:36→20:14)
[2020-11-14] MEDS: HYDROcodone/APAP 5-325MG 1 EACH TAB PO PRN ×2 (10:45→20:12)
--- NOTE | 2020-11-14 12:52 | P.PN ---
Progress Note - Text Progress Note Date: 11/14/20 Chief Complaint: Lower extremity wounds History of presenting complaint: This is a 65-year-old patient who follows with visiting physicians Dr Salmon. 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 Patient lives with his step son and his girlfriend.. Does use a battery operated wheelchair. home nurse who takes care of her lower extremities. Patient has noted increasing pain and redness and sometimes some drainage from the lower extremity. With swelling. Denies any fever and chills. Patient also got a cough some shortness of breath. A bit congested the chest. Denies any obvious fever and chills Admitted on October 01 for a week for: Acute on chronic bilateral lower extremity cellulitis, acute COPD exacerbation, COVID 19 infection. Patient now presented increasing swelling blisters worsening wound the lower extremity. Home nurse has been coming out. Denies any fever and chills. Patient has continued to smoke. Pain is lower extremity. Has a bowel movement every 3 days. Some shortness of breath and wheezing. Admitted with acute on chronic lower extremity wounds. COPD exacerbation. Started IV vancomycin. Bronchodilators. Vancomycin discontinued. Started on IV cefepime by ID. Local wound care-Dry Aquacel silver dressing and Castro wrap Today: Cough shortness of breath present. Some improvement. Lower extremity wounds and cellulitis improving. Review of systems: Was done for constitutional, cardiovascular, GI, pulmonary. relevant finding as above Active Medications Acetaminophen (Acetaminophen Tab 325 Mg Tab) 650 mg PO Q6HR PRN PRN Reason: Mild Pain or Fever > 100.5 Last Admin: 11/13/20 09:02 Dose: 650 mg Documented by: Hydrocodone Bitart/Acetaminophen (Hydrocodone/Apap 5-325mg 1 Each Tab) 1 each PO TID PRN PRN Reason: Pain Last Admin: 11/14/20 10:45 Dose: 1 each Documented by: Albuterol/Ipratropium (Ipratropium-Albuterol 3 Ml Neb) 3 ml INHALATION RT-TID PRN PRN Reason: Shortness Of Breath Or Wheezing Albuterol/Ipratropium (Ipratropium-Albuterol 3 Ml Neb) 3 ml INHALATION RT-TID HERACLIO Last Admin: 11/14/20 11:39 Dose: Not Given Documented by: Ascorbic Acid (Ascorbic Acid 500 Mg Tab) 1,000 mg PO DAILY [facility] Last Admin: 11/14/20 08:35 Dose: 1,000 mg Documented by: Aspirin (Aspirin 81 Mg) 81 mg PO DAILY [facility] Last Admin: 11/14/20 08:35 Dose: 81 mg Documented by: Atorvastatin Calcium (Atorvastatin 40 Mg Tab) 40 mg PO DAILY [facility] Last Admin: 11/14/20 08:35 Dose: 40 mg Documented by: Cholecalciferol (Cholecalciferol 25 Mcg (1000 Iu) Tablet) 125 mcg PO DAILY [facility] Last Admin: 11/14/20 08:35 Dose: 125 mcg Documented by: Guaifenesin (Guaifenesin 600 Mg Tablet.Er) 600 mg PO QID [facility] Last Admin: 11/14/20 08:35 Dose: 600 mg Documented by: Cefepime HCl 2 gm/ Sodium (Chloride) 100 mls @ 25 mls/hr IVPB Q8HR [facility] Last Admin: 11/14/20 08:34 Dose: 25 mls/hr Documented by: Lisinopril (Lisinopril 5 Mg Tab) 5 mg PO DAILY [facility] Last Admin: 11/14/20 08:36 Dose: 5 mg Documented by: Metoprolol Tartrate (Metoprolol Tartrate 50 Mg Tab) 50 mg PO BID [facility] Last Admin: 11/14/20 08:36 Dose: 50 mg Documented by: Naloxone HCl (Naloxone 0.4 Mg/Ml 1 Ml Vial) 0.2 mg IV Q2M PRN PRN Reason: Opioid Reversal Nicotine (Nicotine 21mg/24hr Patch) 1 patch TRANSDERM DAILY [facility] Last Admin: 11/14/20 08:36 Dose: Not Given Documented by: Pregabalin (Pregabalin 75 Mg Cap) 150 mg PO BID [facility] Last Admin: 11/14/20 08:35 Dose: 150 mg Documented by: Triamcinolone Acetonide (Triamcinolone Acet 0.1% Ointment 80 Gm Tube) 1 applic TOPICAL BID [facility] Last Admin: 11/14/20 08:36 Dose: 1 applic Documented by: Past medical history to include: COPD, cognitive impairment, bilateral lower extremity chronic cellulitis and wounds, peripheral neuropathy, smoker, right upper lobe lung mass with a negative PET scan, chronic anemia, asbestos exposure, chronic left shoulder pain. Social history: Lives with his step son and his girlfriend. Gets about of the electric cart. Patient started smoking at the age of 10 up to pack and a half to 2 packs a day now down to one half a pack a day. Up to about a year ago he was drinking 4 cases of beer a week is 2 bottles of wine a week. Does use marijuana Gummi's Physical examination: VITAL SIGNS: 97.9, 91, 17, 104/63, 92% on 2 L GENERAL: Laying in bed EYES: Pupils equal. Conjunctiva normal. NECK: JVD not raised; masses not palpable. HEART: First and second heart sounds are normal; edema present. LUNGS: Respiratory rate increased, decreased breath sounds prolonged expiration and mild wheezing. ABDOMEN: Soft, nontender, liver spleen not palpable, no masses palpable. PSYCH: Alert and oriented x3; mood and affect slightly anxious. DERMATOLOGICAL: Lower extremity redness with breakdown of skin/wound, tenderness edema. Dry skin in both the thigh and upper extremity-bones of lower extremity improving. Decrease inflammation INVESTIGATIONS, reviewed in the clinical context: November 12: WBC 11.8 hemoglobin 11.8 potassium 4.4 creatinine 0.44 WBC 11.1 hemoglobin 13.1 platelets 323 potassium 3.4 creatinine 0.5 bun lactic acid 2.2 proBNP 1470 albumin 3.2 Coronavirus [PCF]-not detected Venous Doppler: Negative for DVT. Assessment and plan: -Acute on chronic bilateral lower extremity venous stasis cellulitis/wounds, worsened by underlying peripheral arterial disease.-Slow improvement Continue wound care. Follow up with ID. on IV vancomycin-discontinued. IV cefepime. Local wound care. Dry Aquacel silver dressing and Castro wrap -Possible sepsis. IV fluids, antibiotics -Stage II pressure ulcer right calcaneum with fat layer exposure, POA Foam heel protectors -Acute COPD exacerbation in current smoker:-Slow improvement Bronchodilators, steroids -Chronic nicotine dependence patient is a cigarette smoker Nicotine patch -Mild cognitive impairment -Painful peripheral neuropathy Continue with Lyrica -Right upper lobe lung mass with a known negative PET scan. Patient being followed by oncology/pulmonary. -Chronic medical debility. Does use electronic cart Consult PTOT -Hypoalbuminemia from Mild protein calorie malnutrition Nutritional supplements Continue local wound care, IV cefepime bronchodilators. social media marketing manager to coordinate transportation regarding follow-up for his cancer treatment and evaluation. Hopefully discharge Tuesday
--- NOTE | 2020-11-14 14:19 | P.PN ---
Subjective Progress Note Date: 11/14/20 Principal diagnosis: Lower extremity cellulitis, lung cancer 65-year-old male, known to our service. He was seen in September on a prior admission. The patient came into the hospital on November 10, complaining of pain and swelling to both of his legs. He apparently was seen by his home care nurse and was recommended to come into the hospital to be evaluated. He apparently has had drainage from both lower extremities, with increasing pain. He's had this problem for at least a month and maybe longer, getting worse. He has completed antibiotics. We were asked to see him, because back in May 2020, he was found to have an abnormal chest x-ray and CAT scan showing a mass in his right upper lobe. He had a procedure done by my partner, and was found have adenocarcinoma. The patient had a PET scan in July, which showed no distant disease, only disease in the right upper lobe. The patient has been seen by oncology, but has not received any treatment as yet. His overall condition makes treatment very risky for him. He doesn't take good care of himself, and he is quite debilitated. From the pulmonary standpoint, the patient's not really complaining of any issues. He is currently not on any supplemental oxygen. His room air saturations are 92-98%. His heart rate about 100 bpm. Respiratory rate 18. Temperature 99.3. White count 11.1, hemoglobin 13.1, hematocrit 41.1, and platelet count 383,000. PT/INR PTT are normal. Sodium 142, potassium 3.4, chlorides 102, CO2 32, anion gap 8, BUN 13, and creatinine 0.51. Coronavirus testing was negative. Both right and left legs were negative for DVT. Chest x-ray shows right perihilar mass/right upper lobe mass, consistent with the patient's known history of lung cancer. On 11/12/2020 patient seen in follow-up on medical surgical floor, he is resting in bed, appears to be in no acute distress, he continues on cefepime and vancomycin for lower extremity cellulitis, he is receiving local wound care with Aquacel silver and Castro wraps to bilateral lower extremity wounds. ID service is following, appears to be in no respiratory distress, he is on 2 L of oxygen and his pulse ox is 92%, he is afebrile, hemodynamically stable, but the chest discomfort, no hemoptysis. Patient was negative for COVID-19. He's had no fever or chills. his last chest x-ray on 11/10/2020 showed findings consistent with bronchogenic carcinoma in the right hilar adenopathy, right upper lobe lung mass. No pneumothorax or pleural effusion on 11/13/2020 patient seen in follow-up on medical surgical floor. He is curr ently resting comfortably in bed, appears to be in no acute distress. He is on 2 L of oxygen, pulse oximetry 93-94%, afebrile, hemodynamically stable, breathing comfortably, he is receiving antibiotics for lower extremity cellulitis, he is receiving local wound care and infectious disease service is following. Vital signs have been stable, has had no acute events overnight. Today's labs have been reviewed. Sputum culture from yesterday is pending. No complaints of worsening dyspnea, no hemoptysis or chest discomfort. The patient is seen today 11/14/2020 in follow-up on the regular medical floor. He is currently resting comfortably in bed. Awake and alert in no acute distress. He denies any worsening shortness of breath, cough or congestion. He is maintaining O2 saturations in the 90s on 2 L/m per nasal cannula. He is afebrile. Hemodynamically stable. Blood cultures reveal no growth. Sputum culture pending. White count 11.8. Hemoglobin 11.8. Sodium 136. Potassium 4.4. Creatinine 0.44. Cellulitis of the lower extremities is improving. Currently wraps are off. He remains on cefepime. Objective - Vital Signs Vital signs: Vital Signs Temp 97.9 F 11/14/20 07:54 Pulse 91 11/14/20 08:00 Resp 17 11/14/20 08:00 BP 104/63 11/14/20 07:54 Pulse Ox 92 L 11/14/20 07:54 Intake & Output 11/13/20 11/14/20 11/14/20 18:59 06:59 18:59 Output Total 600 1000 1400 Balance -600 -1000 -1400 Output: Urine 600 1000 1400 Other: Voiding Method Urinal Urinal Urinal # Voids 6 1 - Exam GENERAL EXAM: Alert, 65-year-old male, on 2 L of oxygen, with a pulse ox of 92%, comfortable in no apparent distress. HEAD: Normocephalic/atraumatic. EYES: Normal reaction of pupils, equal size. Conjunctiva pink, sclera white. NOSE: Clear with pink turbinates. THROAT: No erythema or exudates. NECK: No masses, no JVD, no thyroid enlargement, no adenopathy. CHEST: No chest wall deformity. Symmetrical expansion. LUNGS: Equal air entry with few scattered rhonchi CVS: Regular rate and rhythm, normal S1 and S2, no gallops, no murmurs, no rubs ABDOMEN: Soft, nontender. No hepatosplenomegaly, normal bowel sounds, no guarding or rigidity. EXTREMITIES: No clubbing, mild lower extremity edema and erythema no cyanosis, 2+ pulses and upper and lower extremities. Patient has chronic wounds on the lower extremities MUSCULOSKELETAL: Muscle strength and tone normal. SPINE: No scoliosis or deformity SKIN: No rashes CENTRAL NERVOUS SYSTEM: Alert and oriented -3. No focal deficits, tone is normal in all 4 extremities. PSYCHIATRIC: Alert and oriented -3. Appropriate affect. Intact judgment and insight. - Labs CBC & Chem 7: 11/12/20 13:39 11/12/20 13:39 Labs: Microbiology - Last 24 Hours (Table) 11/10/20 15:57 Blood Culture - Preliminary Blood No Growth after 72 hours 11/12/20 23:26 Gram Stain - Preliminary Sputum Sputum Culture - Preliminary Assessment and Plan Assessment: 1 Bilateral lower extremity cellulitis and chronic wounds 2 Recent diagnosis of lung cancer, adenocarcinoma type, with right upper lobe mass, diagnosed in May 2020. Patient has not received any treatment as of yet. A CAT scan done in July 2020 showed no metastasis 3 History of COPD 4 History of BPH 5 History of chronic cough abuse 6 History of dementia 7 Macular degeneration 8 Ongoing tobacco with nicotine addiction Plan: The patient was seen and evaluated by Dr. Ho Cellulitis improving Remains on cefepime Stable from the pulmonary standpoint I, the cosigning physician, performed a history & physical examination of the patient. Lungs sounds with few scattered rhonchi. Maintaining good O2 saturations in the 90s on 2 L/m per nasal cannula. I discussed the assessment and plan of care with my nurse practitioner, Lina Stevens. I attest to the above note as dictated by her.
--- NOTE | 2020-11-14 16:28 | P.PN ---
<Sada Bedoya - Last Filed: 11/14/20 16:21> Subjective Progress Note Date: 11/14/20 Principal diagnosis: BLE Cellulititis and Weakness worsening lower extremitiy weakness, numbness. Concern for progressive disease spine, will further evaluate. Objective - Vital Signs Vital signs: Vital Signs Temp 98 F 11/14/20 15:00 Pulse 78 11/14/20 15:00 Resp 14 11/14/20 15:00 BP 130/66 11/14/20 15:00 Pulse Ox 97 11/14/20 15:00 Intake & Output 11/13/20 11/14/20 11/14/20 18:59 06:59 18:59 Output Total 600 1000 1400 Balance -600 -1000 -1400 Output: Urine 600 1000 1400 Other: Voiding Method Urinal Urinal Urinal # Voids 6 1 - Exam - Constitutional General appearance: cooperative, no acute distress - EENT Eyes: EOMI, PERRLA ENT: hard of hearing, NA/AT, normal oropharynx - Neck Neck: normal ROM - Respiratory Respiratory: bilateral: rhonchi (increased effort) - Cardiovascular Rhythm: regularly irregular leg Peripheral Edema: bilateral: 2+ (bilateral ulcerations and bandages) - Gastrointestinal General gastrointestinal: soft, tenderness - Integumentary Integumentary: pale - Neurologic Neurologic: CNII-XII intact - Musculoskeletal Musculoskeletal: generalized weakness, BLE decreased sensation and wekaness - Psychiatric Psychiatric: A&O x's 3 - Labs CBC & Chem 7: 11/12/20 13:39 11/12/20 13:39 Labs: Microbiology - Last 24 Hours (Table) 11/10/20 15:57 Blood Culture - Preliminary Blood No Growth after 72 hours 11/12/20 23:26 Gram Stain - Preliminary Sputum Sputum Culture - Preliminary Assessment and Plan Plan: Assessment and Plan (1) Bilateral lower leg cellulitis/Weakness Current Visit: Yes Status: Acute Priority: High Code(s): L03.116 - CELLULITIS OF LEFT LOWER LIMB; L03.115 - CELLULITIS OF RIGHT LOWER LIMB SNOMED Code(s): 756121734 (2) COVID-19 Current Visit: Yes Status: Acute Priority: High Code(s): U07.1 - COVID-19 SNOMED Code(s): 888351273 (3) Non-small cell cancer of right lung Plans for chemo/XRT. - He has difficulty with with transportation Need for restaging PET scan when pt released from rehab. Long delay in starting treatment, need to re-assess disease Current Visit: Yes Status: Acute Priority: High Code(s): C34.91 - MALIGNANT NEOPLASM OF UNSP PART OF RIGHT BRONCHUS OR LUNG SNOMED Code(s): 416288457 Plan: - MRI Thoracic and Lumbar Spine for increased weakness and neurological sx, assess for metastatic disease - Social work consult for assistance with cordinatinf transport Patient has not remained adherent due to transportation, re-emphasized. Re-staging outpatient Possible Rehab/Home PT He will need to see Dr. Marta winter after discharge, re-discussed the importance of this with him. <Lynn,Herson - Last Filed: 11/15/20 14:58> Objective - Vital Signs Vital signs: Vital Signs Temp 98.4 F 11/15/20 14:30 Pulse 92 11/15/20 14:30 Resp 18 11/15/20 14:30 BP 114/71 11/15/20 14:30 Pulse Ox 96 11/15/20 14:30 Intake & Output 11/14/20 11/15/20 11/15/20 18:59 06:59 18:59 Output Total 1400 1500 Balance -1400 -1500 Output: Urine 1400 1500 Other: Voiding Method Urinal Urinal # Voids 7 - Labs CBC & Chem 7: 11/12/20 13:39 11/12/20 13:39 Labs: Microbiology - Last 24 Hours (Table) 11/12/20 23:26 Gram Stain - Final Sputum Sputum Culture - Final Aspen albicans 11/10/20 15:57 Blood Culture - Preliminary Blood No Growth after 96 hours Assessment and Plan Plan: ADD: strength , sensation at distal LE Ok. ? patchy numbness , weakness prox LE. Check spine imaging
--- NOTE | 2020-11-14 17:57 | PN ---
PROGRESS NOTE REASON FOR FOLLOWUP: Bilateral lower extremity venostasis ulcer and cellulitis. INTERVAL HISTORY: The patient is afebrile. The patient is breathing comfortably. He continues to complain of cough with occasional sputum. No nausea. No vomiting. No abdominal pain. Denies any worsening pain to the lower extremity. PHYSICAL EXAMINATION: Blood pressure 130/63 with a pulse of 78, temperature 98. He is 97% on 2 L nasal cannula. General description: The patient is a middle-aged male lying in bed in no distress. Respiratory system: Unlabored breathing, decreased breath sounds in the base. No wheeze. Heart: S1, S2. Regular rate and rhythm. ABDOMEN: Soft, no tenderness. Legs are currently wrapped up. Overall swelling and redness decreased. No drainage. LABS: No new labs have been obtained today. Culture has been negative so far. DIAGNOSTIC IMPRESSION AND PLAN: Patient has bilateral lower extremity venostasis ulcer with concern for secondary cellulitis responding to cefepime. Wound will be examined tomorrow during dressing changes. Continue cefepime. Local care with dry Aquacel dressing and continue supportive care. MMODL / IJN: [id number] /
[2020-11-15] MEDS: IPRATROPIUM-ALBUTEROL 3 ML NEB INHALATION SCH ×3 (08:12→21:04)
[2020-11-15] MEDS: CEFEPIME 2 GM in SODIUM CHLORIDE 0.9% 100 ML IVPB SCH ×2 (08:40→18:09)
[2020-11-15] MEDS: NICOTINE 21MG/24HR PATCH TRANSDERM SCH (08:42)
[2020-11-15] MEDS: lisinopriL 5 MG TAB PO SCH (08:43)
[2020-11-15] MEDS: HYDROcodone/APAP 5-325MG 1 EACH TAB PO PRN ×2 (08:43→18:08)
[2020-11-15] MEDS: CHOLECALCIFEROL 25 MCG (1000 IU) TABLET PO SCH (08:43)
[2020-11-15] MEDS: ASPIRIN 81 MG PO SCH (08:43)
[2020-11-15] MEDS: PREGABALIN 75 MG CAP PO SCH ×2 (08:43→21:09)
[2020-11-15] MEDS: ATORVASTATIN 40 MG TAB PO SCH (08:43)
[2020-11-15] MEDS: ASCORBIC ACID 500 MG TAB PO SCH (08:43)
[2020-11-15] MEDS: METOPROLOL TARTRATE 50 MG TAB PO SCH ×2 (08:44→21:08)
[2020-11-15] MEDS: guaiFENesin 600 MG TABLET.ER PO SCH ×4 (08:44→21:09)
[2020-11-15] MEDS: TRIAMCINOLONE ACET 0.1% OINTMENT 80 GM TUBE TOPICAL SCH ×2 (08:49→21:02)
--- NOTE | 2020-11-15 12:37 | P.PN ---
Subjective Progress Note Date: 11/15/20 Principal diagnosis: Lower extremity cellulitis, lung cancer 65-year-old male, known to our service. He was seen in September on a prior admission. The patient came into the hospital on November 10, complaining of pain and swelling to both of his legs. He apparently was seen by his home care nurse and was recommended to come into the hospital to be evaluated. He apparently has had drainage from both lower extremities, with increasing pain. He's had this problem for at least a month and maybe longer, getting worse. He has completed antibiotics. We were asked to see him, because back in May 2020, he was found to have an abnormal chest x-ray and CAT scan showing a mass in his right upper lobe. He had a procedure done by my partner, and was found have adenocarcinoma. The patient had a PET scan in July, which showed no distant disease, only disease in the right upper lobe. The patient has been seen by oncology, but has not received any treatment as yet. His overall condition makes treatment very risky for him. He doesn't take good care of himself, and he is quite debilitated. From the pulmonary standpoint, the patient's not really complaining of any issues. He is currently not on any supplemental oxygen. His room air saturations are 92-98%. His heart rate about 100 bpm. Respiratory rate 18. Temperature 99.3. White count 11.1, hemoglobin 13.1, hematocrit 41.1, and platelet count 383,000. PT/INR PTT are normal. Sodium 142, potassium 3.4, chlorides 102, CO2 32, anion gap 8, BUN 13, and creatinine 0.51. Coronavirus testing was negative. Both right and left legs were negative for DVT. Chest x-ray shows right perihilar mass/right upper lobe mass, consistent with the patient's known history of lung cancer. On 11/12/2020 patient seen in follow-up on medical surgical floor, he is resting in bed, appears to be in no acute distress, he continues on cefepime and vancomycin for lower extremity cellulitis, he is receiving local wound care with Aquacel silver and Castro wraps to bilateral lower extremity wounds. ID service is following, appears to be in no respiratory distress, he is on 2 L of oxygen and his pulse ox is 92%, he is afebrile, hemodynamically stable, but the chest discomfort, no hemoptysis. Patient was negative for COVID-19. He's had no fever or chills. his last chest x-ray on 11/10/2020 showed findings consistent with bronchogenic carcinoma in the right hilar adenopathy, right upper lobe lung mass. No pneumothorax or pleural effusion on 11/13/2020 patient seen in follow-up on medical surgical floor. He is curr ently resting comfortably in bed, appears to be in no acute distress. He is on 2 L of oxygen, pulse oximetry 93-94%, afebrile, hemodynamically stable, breathing comfortably, he is receiving antibiotics for lower extremity cellulitis, he is receiving local wound care and infectious disease service is following. Vital signs have been stable, has had no acute events overnight. Today's labs have been reviewed. Sputum culture from yesterday is pending. No complaints of worsening dyspnea, no hemoptysis or chest discomfort. The patient is seen today 11/14/2020 in follow-up on the regular medical floor. He is currently resting comfortably in bed. Awake and alert in no acute distress. He denies any worsening shortness of breath, cough or congestion. He is maintaining O2 saturations in the 90s on 2 L/m per nasal cannula. He is afebrile. Hemodynamically stable. Blood cultures reveal no growth. Sputum culture pending. White count 11.8. Hemoglobin 11.8. Sodium 136. Potassium 4.4. Creatinine 0.44. Cellulitis of the lower extremities is improving. Currently wraps are off. He remains on cefepime. The patient is seen today 11/15/2020 in follow-up on the regular medical floor. He remains awake and alert in no acute distress. Resting quite comfortably in bed. Maintaining good O2 saturations in the mid 90s on 2 L/m per nasal cannula. He's been afebrile. Hemodynamically stable. Sputum culture positive for Aspen only. Blood cultures reveal no growth. He remains on cefepime. ID is on the case. Objective - Vital Signs Vital signs: Vital Signs Temp 97.6 F 11/15/20 08:00 Pulse 96 11/15/20 08:00 Resp 17 11/15/20 08:00 BP 107/73 11/15/20 08:00 Pulse Ox 96 11/15/20 08:00 Intake & Output 11/14/20 11/15/20 11/15/20 18:59 06:59 18:59 Output Total 1400 1500 Balance -1400 -1500 Output: Urine 1400 1500 Other: Voiding Method Urinal Urinal # Voids 7 - Exam GENERAL EXAM: Alert, 65-year-old male, on 2 L of oxygen, with a pulse ox of 96%, comfortable in no apparent distress. HEAD: Normocephalic/atraumatic. EYES: Normal reaction of pupils, equal size. Conjunctiva pink, sclera white. NOSE: Clear with pink turbinates. THROAT: No erythema or exudates. NECK: No masses, no JVD, no thyroid enlargement, no adenopathy. CHEST: No chest wall deformity. Symmetrical expansion. LUNGS: Equal air entry with few scattered rhonchi CVS: Regular rate and rhythm, normal S1 and S2, no gallops, no murmurs, no rubs ABDOMEN: Soft, nontender. No hepatosplenomegaly, normal bowel sounds, no guarding or rigidity. EXTREMITIES: No clubbing, mild lower extremity edema and erythema no cyanosis, 2+ pulses and upper and lower extremities. Patient has chronic wounds on the lower extremities MUSCULOSKELETAL: Muscle strength and tone normal. SPINE: No scoliosis or deformity SKIN: No rashes CENTRAL NERVOUS SYSTEM: No focal deficits, tone is normal in all 4 extremities. PSYCHIATRIC: Alert and oriented -3. Appropriate affect. Intact judgment and insight. - Labs CBC & Chem 7: 11/12/20 13:39 11/12/20 13:39 Labs: Microbiology - Last 24 Hours (Table) 11/12/20 23:26 Gram Stain - Final Sputum Sputum Culture - Final Aspen albicans 11/10/20 15:57 Blood Culture - Preliminary Blood No Growth after 96 hours Assessment and Plan Assessment: 1 Bilateral lower extremity cellulitis and chronic wounds, currently on cefepime 2 Recent diagnosis of lung cancer, adenocarcinoma type, with right upper lobe mass, diagnosed in May 2020. Patient has not received any treatment as of yet. A CAT scan done in July 2020 showed no metastasis 3 History of COPD 4 History of BPH 5 History of chronic cough abuse 6 History of dementia 7 Macular degeneration 8 Ongoing tobacco with nicotine addiction Plan: The patient was seen and evaluated by Dr. Ho Cellulitis improving Remains on cefepime Stable from the pulmonary standpoint We will see as needed I, the cosigning physician, performed a history & physical examination of the patient. Lungs sounds with few scattered rhonchi. Maintaining good O2 saturations in the 90s on 2 L/m per nasal cannula. I discussed the assessment and plan of care with my nurse practitioner, Lina Stevens. I attest to the above note as dictated by her.
[2020-11-15] MEDS ORDERED: FLUCONAZOLE 100 MG TAB PO ONE ×2 (15:37→18:00)
--- NOTE | 2020-11-15 15:42 | P.PN ---
Progress Note - Text Progress Note Date: 11/15/20 Chief Complaint: Lower extremity wounds History of presenting complaint: This is a 65-year-old patient who follows with visiting physicians Dr Salmon. 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 Patient lives with his step son and his girlfriend.. Does use a battery operated wheelchair. home nurse who takes care of her lower extremities. Patient has noted increasing pain and redness and sometimes some drainage from the lower extremity. With swelling. Denies any fever and chills. Patient also got a cough some shortness of breath. A bit congested the chest. Denies any obvious fever and chills Admitted on October 01 for a week for: Acute on chronic bilateral lower extremity cellulitis, acute COPD exacerbation, COVID 19 infection. Patient now presented increasing swelling blisters worsening wound the lower extremity. Home nurse has been coming out. Denies any fever and chills. Patient has continued to smoke. Pain is lower extremity. Has a bowel movement every 3 days. Some shortness of breath and wheezing. Patient has missed his appointments as an outpatient even though transportation was arranged. Admitted with acute on chronic lower extremity wounds. COPD exacerbation. Started IV vancomycin. Bronchodilators. Vancomycin discontinued. Started on IV cefepime by ID. Local wound care-Dry Aquacel silver dressing and Castro wrap. supply chain program manager reinforced with the patient about transportation. So that he could keep his appointments. Today: Cough or sputum production improving. Leg wounds are getting better. Oral intake improving. Adding Diflucan. Review of systems: Was done for constitutional, cardiovascular, GI, pulmonary. relevant finding as above Active Medications Acetaminophen (Acetaminophen Tab 325 Mg Tab) 650 mg PO Q6HR PRN PRN Reason: Mild Pain or Fever > 100.5 Last Admin: 11/13/20 09:02 Dose: 650 mg Documented by: Hydrocodone Bitart/Acetaminophen (Hydrocodone/Apap 5-325mg 1 Each Tab) 1 each PO TID PRN PRN Reason: Pain Last Admin: 11/15/20 08:43 Dose: 1 each Documented by: Albuterol/Ipratropium (Ipratropium-Albuterol 3 Ml Neb) 3 ml INHALATION RT-TID PRN PRN Reason: Shortness Of Breath Or Wheezing Albuterol/Ipratropium (Ipratropium-Albuterol 3 Ml Neb) 3 ml INHALATION RT-TID S Last Admin: 11/15/20 11:03 Dose: Not Given Documented by: Ascorbic Acid (Ascorbic Acid 500 Mg Tab) 1,000 mg PO DAILY [facility] Last Admin: 11/15/20 08:43 Dose: 1,000 mg Documented by: Aspirin (Aspirin 81 Mg) 81 mg PO DAILY [facility] Last Admin: 11/15/20 08:43 Dose: 81 mg Documented by: Atorvastatin Calcium (Atorvastatin 40 Mg Tab) 40 mg PO DAILY [facility] Last Admin: 11/15/20 08:43 Dose: Not Given Documented by: Cholecalciferol (Cholecalciferol 25 Mcg (1000 Iu) Tablet) 125 mcg PO DAILY [facility] Last Admin: 11/15/20 08:43 Dose: 125 mcg Documented by: Fluconazole (Fluconazole 100 Mg Tab) 200 mg PO ONCE ONE Stop: 11/15/20 15:38 Fluconazole (Fluconazole 100 Mg Tab) 100 mg PO DAILY [facility] Guaifenesin (Guaifenesin 600 Mg Tablet.Er) 600 mg PO QID [facility] Last Admin: 11/15/20 12:56 Dose: Not Given Documented by: Cefepime HCl 2 gm/ Sodium (Chloride) 100 mls @ 25 mls/hr IVPB Q8HR [facility] Last Admin: 11/15/20 08:40 Dose: 25 mls/hr Documented by: Lisinopril (Lisinopril 5 Mg Tab) 5 mg PO DAILY [facility] Last Admin: 11/15/20 08:43 Dose: 5 mg Documented by: Metoprolol Tartrate (Metoprolol Tartrate 50 Mg Tab) 50 mg PO BID [facility] Last Admin: 11/15/20 08:44 Dose: Not Given Documented by: Naloxone HCl (Naloxone 0.4 Mg/Ml 1 Ml Vial) 0.2 mg IV Q2M PRN PRN Reason: Opioid Reversal Nicotine (Nicotine 21mg/24hr Patch) 1 patch TRANSDERM DAILY [facility] Last Admin: 11/15/20 08:42 Dose: Not Given Documented by: Pregabalin (Pregabalin 75 Mg Cap) 150 mg PO BID [facility] Last Admin: 11/15/20 08:43 Dose: 150 mg Documented by: Triamcinolone Acetonide (Triamcinolone Acet 0.1% Ointment 80 Gm Tube) 1 applic TOPICAL BID [facility] Last Admin: 11/15/20 08:49 Dose: Not Given Documented by: Past medical history to include: COPD, cognitive impairment, bilateral lower extremity chronic cellulitis and wo unds, peripheral neuropathy, smoker, right upper lobe lung mass with a negative PET scan, chronic anemia, asbestos exposure, chronic left shoulder pain. Social history: Lives with his step son and his girlfriend. Gets about of the electric cart. Patient started smoking at the age of 10 up to pack and a half to 2 packs a day now down to one half a pack a day. Up to about a year ago he was drinking 4 cases of beer a week is 2 bottles of wine a week. Does use marijuana Gummi's Physical examination: VITAL SIGNS: 98.4, 92, 18, 140s over 71, 96% room air GENERAL: Sitting up in bed, looking better EYES: Pupils equal. Conjunctiva normal. NECK: JVD not raised; masses not palpable. HEART: First and second heart sounds are normal; edema present. LUNGS: Respiratory rate increased, decreased breath sounds prolonged expiration ABDOMEN: Soft, nontender, liver spleen not palpable, no masses palpable. PSYCH: Alert and oriented x3; mood and affect slightly anxious. DERMATOLOGICAL: Lower extremity redness with breakdown of skin/wound, tenderness edema. Dry skin in both the thigh and upper extremity-bones of lower extremity: improving. Decrease inflammation INVESTIGATIONS, reviewed in the clinical context: Sputum: Aspen November 12: WBC 11.8 hemoglobin 11.8 potassium 4.4 creatinine 0.44 WBC 11.1 hemoglobin 13.1 platelets 323 potassium 3.4 creatinine 0.5 bun lactic acid 2.2 proBNP 1470 albumin 3.2 Coronavirus [PCF]-not detected Venous Doppler: Negative for DVT. Assessment and plan: -Acute on chronic bilateral lower extremity venous stasis cellulitis/wounds, worsened by underlying peripheral arterial disease.-Slow improvement Continue wound care. Follow up with ID. on IV vancomycin-discontinued. IV cefepime. Local wound care. Dry Aquacel silver dressing and Castro wrap -Possible sepsis-improved. IV fluids, antibiotics -Stage II pressure ulcer right calcaneum with fat layer exposure, POA Foam heel protectors -Acute COPD exacerbation in current smoker:-Improving Bronchodilators, -Chronic nicotine dependence patient is a cigarette smoker Nicotine patch -Mild cognitive impairment -Painful peripheral neuropathy Continue with Lyrica -Right upper lobe lung mass with a known negative PET scan. Patient being followed by oncology/pulmonary.-Further workup as outpatient -Chronic medical debility. Does use electronic cart Consult PTOT -Hypoalbuminemia from Mild protein calorie malnutrition Nutritional supplements . Appetite improving Continue current medication treatment plan. Discussed with the patient. Reinforced importance of keeping his appointment and coordination off transport. Hopefully discharge in next 1-2 days. Add Diflucan.
[2020-11-16] MEDS: CEFEPIME 2 GM in SODIUM CHLORIDE 0.9% 100 ML IVPB SCH ×3 (03:11→17:08)
--- NOTE | 2020-11-16 05:01 | MR ---
EXAMINATION TYPE: MR lizbeth/aston wo/w con DATE OF EXAM: 11/15/2020 COMPARISON: HISTORY: Metastatic cancer, BLE weakness. CONTRAST: Standard multiplanar, multisequence MRI departmental protocol utilizing 6 mL intravenous Gadavist brit olinium contrast. There is slight thoracic dextroscoliosis. There is multilevel spondylotic changes in the thoracic and cervical spine. There is facet arthropathy and posterior disc bulging at C5-6 with resultant mild sp inal stenosis. Canal measures 6.5 mm at C5-6. Cervical cord shows no edema. Thoracic spinal cord show s no edema. There are small posterior disc bulges and endplate spur formation at multiple levels in t he thoracic spine without spinal stenosis. There is T9-T10 posterior disc herniation which is in cont act with the anterior aspect of the spinal cord. Spinal canal appears adequate. There is no significa nt compression deformity in the thoracic and cervical spine. I see no paraspinal mass. The lumbar vertebra have fairly normal alignment. There is degenerative disc space narrowing from L1 to L5 there is no compression fracture. There is multilevel posterior disc bulging. There is developm entally adequate spinal canal and no significant canal stenosis. There is no lumbar paraspinal mass. The sacrum appears intact. There is narrowing of the right side L4-5 neural foramen due to facet arthropathy and disc space narr owing. Contrast images show no pathologic enhancement of the thoracic and lumbar spine. IMPRESSION: No evidence of metastatic disease. Multilevel spondylotic changes in the thoracic and lumbar spine wi th variable posterior disc herniation and endplate spur formation as above. No significant spinal gilberto nosis.
[2020-11-16] MEDS: HYDROcodone/APAP 5-325MG 1 EACH TAB PO PRN ×2 (05:26→17:22)
--- NOTE | 2020-11-16 07:49 | PN ---
PROGRESS NOTE DATE OF SERVICE: 11/15/2020 REASON FOR FOLLOWUP: Bilateral lower extremity venostasis ulcer. INTERVAL HISTORY: The patient is currently afebrile. The patient is breathing comfortably. The patient denies having any chest pain, shortness of breath. Cough has decreased in intensity. No vomiting. No abdominal pain. Lower extremity swelling and redness has decreased. PHYSICAL EXAMINATION: VITAL SIGNS: Blood pressure is 131/81 with a pulse of 100, temperature 98.5. He is 95% on room air. GENERAL DESCRIPTION: A middle-aged male lying in bed in no distress. RESPIRATORY SYSTEM: Unlabored breathing, decreased intensity of breath sounds, no wheeze. HEART: S1, S2. Regular rate and rhythm. ABDOMEN: Soft, no tenderness. EXTREMITIES: Legs are currently wrapped up. No drainage on the dressing. DIAGNOSTIC IMPRESSION AND PLAN: Patient with bilateral lower extremity venostasis ulcers with secondary cellulitis. This patient has shown clinical improvement with local care with Aquacel dressing. Legs will be evaluated tomorrow. Monitor clinical course closely. Continue supportive care. MMODL / IJN: [id number] /
[2020-11-16] MEDS: IPRATROPIUM-ALBUTEROL 3 ML NEB INHALATION SCH ×3 (08:10→20:48)
[2020-11-16] MEDS: guaiFENesin 600 MG TABLET.ER PO SCH ×4 (10:01→21:05)
[2020-11-16] MEDS: PREGABALIN 75 MG CAP PO SCH ×2 (10:01→21:05)
[2020-11-16] MEDS: lisinopriL 5 MG TAB PO SCH (10:01)
[2020-11-16] MEDS: ASCORBIC ACID 500 MG TAB PO SCH (10:02)
[2020-11-16] MEDS: ATORVASTATIN 40 MG TAB PO SCH (10:02)
[2020-11-16] MEDS: METOPROLOL TARTRATE 50 MG TAB PO SCH ×2 (10:02→21:05)
[2020-11-16] MEDS: ASPIRIN 81 MG PO SCH (10:02)
[2020-11-16] MEDS: NICOTINE 21MG/24HR PATCH TRANSDERM SCH (10:02)
[2020-11-16] MEDS: FLUCONAZOLE 100 MG TAB PO SCH (10:02)
[2020-11-16] MEDS: CHOLECALCIFEROL 25 MCG (1000 IU) TABLET PO SCH (10:02)
[2020-11-16] MEDS: TRIAMCINOLONE ACET 0.1% OINTMENT 80 GM TUBE TOPICAL SCH ×2 (10:03→21:13)
--- NOTE | 2020-11-16 20:32 | P.PN ---
Progress Note - Text Progress Note Date: 11/16/20 Chief Complaint: Lower extremity wounds History of presenting complaint: This is a 65-year-old patient who follows with visiting physicians Dr Salmon. 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 Patient lives with his step son and his girlfriend.. Does use a battery operated wheelchair. home nurse who takes care of her lower extremities. Patient has noted increasing pain and redness and sometimes some drainage from the lower extremity. With swelling. Denies any fever and chills. Patient also got a cough some shortness of breath. A bit congested the chest. Denies any obvious fever and chills Admitted on October 01 for a week for: Acute on chronic bilateral lower extremity cellulitis, acute COPD exacerbation, COVID 19 infection. Patient now presented increasing swelling blisters worsening wound the lower extremity. Home nurse has been coming out. Denies any fever and chills. Patient has continued to smoke. Pain is lower extremity. Has a bowel movement every 3 days. Some shortness of breath and wheezing. Patient has missed his appointments as an outpatient even though transportation was arranged. Admitted with acute on chronic lower extremity wounds. COPD exacerbation. Started IV vancomycin. Bronchodilators. Vancomycin discontinued. Started on IV cefepime by ID. Local wound care-Dry Aquacel silver dressing and Castro wrap. reservation manager reinforced with the patient about transportation. So that he could keep his appointments. Today: breathing better. Some cough. Lower extremity cellulitis wound is improving. Review of systems: Was done for constitutional, cardiovascular, GI, pulmonary. relevant finding as above Active Medications Acetaminophen (Acetaminophen Tab 325 Mg Tab) 650 mg PO Q6HR PRN PRN Reason: Mild Pain or Fever > 100.5 Last Admin: 11/13/20 09:02 Dose: 650 mg Documented by: Hydrocodone Bitart/Acetaminophen (Hydrocodone/Apap 5-325mg 1 Each Tab) 1 each PO TID PRN PRN Reason: Pain Last Admin: 11/16/20 17:22 Dose: 1 each Documented by: Albuterol/Ipratropium (Ipratropium-Albuterol 3 Ml Neb) 3 ml INHALATION RT-TID PRN PRN Reason: Shortness Of Breath Or Wheezing Albuterol/Ipratropium (Ipratropium-Albuterol 3 Ml Neb) 3 ml INHALATION RT-TID [facility] Last Admin: 11/16/20 11:28 Dose: Not Given Documented by: Ascorbic Acid (Ascorbic Acid 500 Mg Tab) 1,000 mg PO DAILY [facility] Last Admin: 11/16/20 10:02 Dose: 1,000 mg Documented by: Aspirin (Aspirin 81 Mg) 81 mg PO DAILY [facility] Last Admin: 11/16/20 10:02 Dose: Not Given Documented by: Atorvastatin Calcium (Atorvastatin 40 Mg Tab) 40 mg PO DAILY [facility] Last Admin: 11/16/20 10:02 Dose: Not Given Documented by: Cholecalciferol (Cholecalciferol 25 Mcg (1000 Iu) Tablet) 125 mcg PO DAILY [facility] Last Admin: 11/16/20 10:02 Dose: 125 mcg Documented by: Fluconazole (Fluconazole 100 Mg Tab) 100 mg PO DAILY [facility] Last Admin: 11/16/20 10:02 Dose: 100 mg Documented by: Guaifenesin (Guaifenesin 600 Mg Tablet.Er) 600 mg PO QID [facility] Last Admin: 11/16/20 17:08 Dose: Not Given Documented by: Cefepime HCl 2 gm/ Sodium (Chloride) 100 mls @ 25 mls/hr IVPB Q8H [facility] Last Admin: 11/16/20 17:08 Dose: 25 mls/hr Documented by: Lisinopril (Lisinopril 5 Mg Tab) 5 mg PO DAILY [facility] Last Admin: 11/16/20 10:01 Dose: 5 mg Documented by: Metoprolol Tartrate (Metoprolol Tartrate 50 Mg Tab) 50 mg PO BID [facility] Last Admin: 11/16/20 10:02 Dose: Not Given Documented by: Naloxone HCl (Naloxone 0.4 Mg/Ml 1 Ml Vial) 0.2 mg IV Q2M PRN PRN Reason: Opioid Reversal Nicotine (Nicotine 21mg/24hr Patch) 1 patch TRANSDERM DAILY [facility] Last Admin: 11/16/20 10:02 Dose: Not Given Documented by: Pregabalin (Pregabalin 75 Mg Cap) 150 mg PO BID [facility] Last Admin: 11/16/20 10:01 Dose: 150 mg Documented by: Triamcinolone Acetonide (Triamcinolone Acet 0.1% Ointment 80 Gm Tube) 1 applic TOPICAL BID [facility] Last Admin: 11/16/20 10:03 Dose: Not Given Documented by: Past medical history to include: COPD, cognitive impairment, bilateral lower extremity chronic cellulitis and wounds, peripheral neuropathy, smoker, right upper lobe lung mass with a negative PET scan, chronic anemia, asbestos exposure, chronic left shoulder pain. Social history: Lives with his step son and his girlfriend. Gets about of the electric cart. Patient started smoking at the age of 10 up to pack and a half to 2 packs a day now down to one half a pack a day. Up to about a year ago he was drinking 4 cases of beer a week is 2 bottles of wine a week. Does use marijuana Gummi's Physical examination: VITAL SIGNS: 97.9, 102, 18, 109/62, 97% on 2 L GENERAL: Sitting up in bed, better EYES: Pupils equal. Conjunctiva normal. NECK: JVD not raised; masses not palpable. HEART: First and second heart sounds are normal; edema present. LUNGS: Respiratory rate increased, decreased breath sounds prolonged expiration ABDOMEN: Soft, nontender, liver spleen not palpable, no masses palpable. PSYCH: Alert and oriented x3; mood and affect slightly anxious. DERMATOLOGICAL: Lower extremity redness with breakdown of skin/wound, tenderness edema. Dry skin in both the thigh and upper extremity-bones of lower extremity: improving. Decrease inflammation INVESTIGATIONS, reviewed in the clinical context: Sputum: Aspen November 12: WBC 11.8 hemoglobin 11.8 potassium 4.4 creatinine 0.44 WBC 11.1 hemoglobin 13.1 platelets 323 potassium 3.4 creatinine 0.5 bun lactic acid 2.2 proBNP 1470 albumin 3.2 Coronavirus [PCF]-not detected Venous Doppler: Negative for DVT. Assessment and plan: -Acute on chronic bilateral lower extremity venous stasis cellulitis/wounds, worsened by underlying peripheral arterial disease.-Slow improvement Continue wound care. Follow up with ID. on IV vancomycin-discontinued. IV cefepime. Local wound care. Dry Aquacel silver dressing and Castro wrap -Possible sepsis-improved. IV fluids, antibiotics -Stage II pressure ulcer right calcaneum with fat layer exposure, POA Foam heel protectors -Acute COPD exacerbation in current smoker:-Improving Bronchodilators, -Chronic nicotine dependence patient is a cigarette smoker Nicotine patch -Mild cognitive impairment -Painful peripheral neuropathy Continue with Lyrica -Right upper lobe lung mass with a known negative PET scan. Patient being followed by oncology/pulmonary.-Further workup as outpatient -Chronic medical debility. Does use electronic cart Consult PTOT -Hypoalbuminemia from Mild protein calorie malnutrition Nutritional supplements . Appetite improving discussed with the patient. Discharged tomorrow. reservation managermanager marketing communication worker to coordinate any additional think the patient may need. Patient informs be that his son will not take him back. We'll discuss antibiotics with Dr. Kang from ID.
[2020-11-17] MEDS: CEFEPIME 2 GM in SODIUM CHLORIDE 0.9% 100 ML IVPB SCH ×3 (01:37→16:34)
[2020-11-17] MEDS: HYDROcodone/APAP 5-325MG 1 EACH TAB PO PRN ×3 (01:40→16:16)
--- NOTE | 2020-11-17 06:04 | PN ---
PROGRESS NOTE DATE OF SERVICE: 11/16/2020 REASON FOR FOLLOWUP: Bilateral lower extremity venostasis ulcers. INTERVAL HISTORY: The patient is currently afebrile. The patient is breathing comfortably. The patient denies having any chest pain. He did have a cough with occasional sputum production. No abdominal pain. Overall swelling and redness of the leg has decreased. PHYSICAL EXAMINATION: VITAL SIGNS: Blood pressure 109/62 with a pulse of 102, temperature 97.9. He is 97% on 2 L nasal cannula. GENERAL DESCRIPTION: A middle-aged male lying in bed in no distress. RESPIRATORY SYSTEM: Unlabored breathing, clear to auscultation anteriorly. HEART: S1, S2. Regular rate and rhythm. ABDOMEN: Soft, no tenderness. EXTREMITIES: Lower extremity swelling and redness has improved. Did have superficial ulceration to the legs bilaterally. LABS: No new labs have been obtained today. DIAGNOSTIC IMPRESSION AND PLAN: Patient with bilateral lower extremity venostasis ulcer with secondary cellulitis. Underlying cellulitis has been adequately treated. Recommend local wound care with Aquacel Silver dressing and mild Castro wrap and outpatient followup in the wound clinic. No need for antibiotic on discharge. Discussed with the admitting physician. MMODL / IJN: [id number] /
[2020-11-17] MEDS: IPRATROPIUM-ALBUTEROL 3 ML NEB INHALATION SCH ×2 (08:33→12:04)
[2020-11-17] MEDS: lisinopriL 5 MG TAB PO SCH ×2 (09:04→09:16)
[2020-11-17] MEDS: METOPROLOL TARTRATE 50 MG TAB PO SCH (09:04)
[2020-11-17] MEDS: PREGABALIN 75 MG CAP PO SCH (09:04)
[2020-11-17] MEDS: ASCORBIC ACID 500 MG TAB PO SCH (09:04)
[2020-11-17] MEDS: FLUCONAZOLE 100 MG TAB PO SCH ×2 (09:04→09:16)
[2020-11-17] MEDS: guaiFENesin 600 MG TABLET.ER PO SCH ×4 (09:04→16:34)
[2020-11-17] MEDS: ATORVASTATIN 40 MG TAB PO SCH (09:04)
[2020-11-17] MEDS: ASPIRIN 81 MG PO SCH (09:04)
[2020-11-17] MEDS: CHOLECALCIFEROL 25 MCG (1000 IU) TABLET PO SCH (09:04)
[2020-11-17] MEDS: TRIAMCINOLONE ACET 0.1% OINTMENT 80 GM TUBE TOPICAL SCH (09:05)
[2020-11-17] MEDS: NICOTINE 21MG/24HR PATCH TRANSDERM SCH (09:05)
--- NOTE | 2020-11-17 13:38 | P.PN ---
Subjective Progress Note Date: 11/16/20 Principal diagnosis: BLE Cellulititis and Weakness MRI spine without evidence of metastatic or spinal cord involvement Objective - Vital Signs Vital signs: Vital Signs Temp 98.7 F 11/16/20 07:33 Pulse 93 11/16/20 07:33 Resp 18 11/16/20 07:33 BP 113/65 11/16/20 07:33 Pulse Ox 92 L 11/16/20 01:41 Intake & Output 11/15/20 11/16/20 11/16/20 18:59 06:59 18:59 Output Total 500 400 Balance -500 -400 Output: Urine 500 400 Other: Voiding Method Urinal Urinal - Exam - Constitutional General appearance: cooperative, no acute distress - EENT Eyes: EOMI, PERRLA ENT: hard of hearing, NA/AT, normal oropharynx - Neck Neck: normal ROM - Respiratory Respiratory: bilateral: rhonchi (increased effort) - Cardiovascular Rhythm: regularly irregular leg Peripheral Edema: bilateral: 2+ (bilateral ulcerations and bandages) - Gastrointestinal General gastrointestinal: soft, tenderness - Integumentary Integumentary: pale - Neurologic Neurologic: CNII-XII intact - Musculoskeletal Musculoskeletal: generalized weakness, BLE decreased sensation and wekaness - Psychiatric Psychiatric: A&O x's 3 - Labs CBC & Chem 7: 11/12/20 13:39 11/12/20 13:39 Labs: Microbiology - Last 24 Hours (Table) 11/10/20 15:57 Blood Culture - Preliminary Blood No Growth after 120 hours 11/12/20 23:26 Gram Stain - Final Sputum Sputum Culture - Final Aspen albicans Assessment and Plan Plan: Assessment and Plan (1) Bilateral lower leg cellulitis/Weakness Current Visit: Yes Status: Acute Priority: High Code(s): L03.116 - CELLULITIS OF LEFT LOWER LIMB; L03.115 - CELLULITIS OF RIGHT LOWER LIMB SNOMED Code(s): 992112106 (2) COVID-19 Current Visit: Yes Status: Acute Priority: High Code(s): U07.1 - COVID-19 SNOMED Code(s): 478864918 (3) Non-small cell cancer of right lung Plans for chemo/XRT. - He has difficulty with with transportation Need for restaging PET scan when pt released from rehab. Long delay in starting treatment, need to re-assess disease Current Visit: Yes Status: Acute Priority: High Code(s): C34.91 - MAL IGNANT NEOPLASM OF UNSP PART OF RIGHT BRONCHUS OR LUNG SNOMED Code(s): 25 0874549 Plan: MRI without evidence of involved Spinal cord or metastatic disease to spine Possible Rehab/Home PT He will need to see Dr. Marta winter after discharge, re-discussed the importance of this with him.
--- NOTE | 2020-11-17 13:39 | P.PN ---
Subjective Progress Note Date: 11/17/20 Principal diagnosis: BLE Cellulititis and Weakness MRI Negative, severe deconditioning, continued therapy Objective - Vital Signs Vital signs: Vital Signs Temp 98.2 F 11/17/20 08:00 Pulse 91 11/17/20 08:00 Resp 16 11/17/20 10:51 BP 111/67 11/17/20 08:00 Pulse Ox 90 L 11/17/20 08:00 Intake & Output 11/16/20 11/17/20 11/17/20 18:59 06:59 18:59 Output Total 4 400 Balance -4 -400 Output: Urine 4 400 Other: Voiding Method Urinal Urinal # Bowel Movements 1 - Exam - Constitutional General appearance: cooperative, no acute distress - EENT Eyes: EOMI, PERRLA ENT: hard of hearing, NA/AT, normal oropharynx - Neck Neck: normal ROM - Respiratory Respiratory: bilateral: rhonchi (increased effort) - Cardiovascular Rhythm: regularly irregular leg Peripheral Edema: bilateral: 2+ (bilateral ulcerations and bandages) - Gastrointestinal General gastrointestinal: soft, tenderness - Integumentary Integumentary: pale - Neurologic Neurologic: CNII-XII intact - Musculoskeletal Musculoskeletal: generalized weakness, BLE decreased sensation and wekaness - Psychiatric Psychiatric: A&O x's 3 - Labs CBC & Chem 7: 11/12/20 13:39 11/12/20 13:39 Labs: Microbiology - Last 24 Hours (Table) 11/10/20 15:57 Blood Culture - Final Blood No Growth after 144 hours Assessment and Plan Plan: Assessment and Plan (1) Bilateral lower leg cellulitis/Weakness Current Visit: Yes Status: Acute Priority: High Code(s): L03.116 - CELLULITIS OF LEFT LOWER LIMB; L03.115 - CELLULITIS OF RIGHT LOWER LIMB SNOMED Code(s): 744107608 (2) COVID-19 Current Visit: Yes Status: Acute Priority: High Code(s): U07.1 - COVID-19 SNOMED Code(s): 131371415 (3) Non-small cell cancer of right lung Plans for chemo/XRT. - He has difficulty with with transportation Need for restaging PET scan when pt released from rehab. Long delay in starting treatment, need to re-assess disease Current Visit: Yes Status: Acute Priority: High Code(s): C34.91 - MALIGNANT NEOPLASM OF UNSP PART OF RIGHT BRONCHUS OR LUNG SNOMED Code(s): 931233109 Plan: MRI without evidence of involved Spinal cord or metastatic disease to spine Possible Rehab/Home PT Severe deconditioning and dieticien to follow He will need to see Dr. Lozano one week after discharge, re-discussed the importance of this with him. Treatment initiation recommended
--- NOTE | 2020-11-17 13:53 | P.DS ---
Providers Date of admission: 11/10/20 17:37 Expected date of discharge: 11/17/20 Attending physician: Ye Scott Consults: 11/10/20 17:37 Consult Physician Routine Consulting Provider: Cara Russell Consult Reason/Comments: Bilateral lower extremity cellulitis Do you want consulting provider notified?: Yes 11/11/20 11:09 Consult Physician Routine Consulting Provider: Prosper Ho Consult Reason/Comments: lung mass Do you want consulting provider notified?: Yes 11/11/20 16:46 Consult Physician Routine Consulting Provider: Herson Bailey Consult Reason/Comments: Lungs CA Do you want consulting provider notified?: Yes Primary care physician: Simba Salmon MD Hospital Course: Chief Complaint: Lower extremity wounds History of presenting complaint: This is a 65-year-old patient who follows with visiting physicians Dr Salmon. 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 Patient lives with his step son and his girlfriend.. Does use a battery operated wheelchair. home nurse who takes care of her lower extremities. Patient has noted increasing pain and redness and sometimes some drainage from the lower extremity. With swelling. Denies any fever and chills. Patient also got a cough some shortness of breath. A bit congested the chest. Denies any obvious fever and chills Admitted on October 01 for a week for: Acute on chronic bilateral lower extremity cellulitis, acute COPD exacerbation, COVID 19 infection. Patient now presented increasing swelling blisters worsening wound the lower extremity. Home nurse has been coming out. Denies any fever and chills. Patient has continued to smoke. Pain is lower extremity. Has a bowel movement every 3 days. Some shortness of breath and wheezing. Patient has missed his appointments as an outpatient even though transportation was arranged. Admitted with acute on chronic lower extremity wounds. COPD exacerbation. Started IV vancomycin. Bronchodilators. Vancomycin discontinued. Started on IV cefepime by ID. Local wound care-Dry Aquacel silver dressing and Castro wrap. manager business operations reinforced with the patient about transportation. So that he could keep his appointments. Further lung cancer workup treatment as an outpatient. Today: Stable. Breathing better. Leg wounds are healed well. manager business operations is reaching for home discharge. Nebulizer: DuoNeb 3 times a day Hospital bed: Indicated for head of the bed to be raised for 30 for COPD at all times. Discussion and discharge planning more than 35 minutes Consultation: Dr. Russell from ID Dr. Ho from pulmonary Dr. Bailey for oncology Past medical history to include: COPD, cognitive impairment, bilateral lower extremity chronic cellulitis and wounds, peripheral neuropathy, smoker, right upper lobe lung mass with a negative PET scan, chronic anemia, asbestos exposure, chronic left shoulder pain. Social history: Lives with his step son and his girlfriend. Gets about of the electric [employer]. Patient started smoking at the age of 10 up to pack and a half to 2 packs a day now down to one half a pack a day. Up to about a year ago he was drinking 4 cases of beer a week is 2 bottles of wine a week. Does use marijuana Gummi's Physical examination: VITAL SIGNS: 98.2, 91, 18, 111/67, 93% room air GENERAL: Sitting up in bed, better EYES: Pupils equal. Conjunctiva normal. NECK: JVD not raised; masses not palpable. HEART: First and second heart sounds are normal; edema present. LUNGS: Respiratory rate increased, decreased breath sounds prolonged expiration ABDOMEN: Soft, nontender, liver spleen not palpable, no masses palpable. PSYCH: Alert and oriented x3; mood and affect slightly anxious. DERMATOLOGICAL: Lower extremity redness with breakdown of skin/wound, tenderness edema. Dry skin in both the thigh and upper extremity-bones of lower extremity: improving. Decrease inflammation INVESTIGATIONS, reviewed in the clinical context: Sputum: Aspen November 12: WBC 11.8 hemoglobin 11.8 potassium 4.4 creatinine 0.44 WBC 11.1 hemoglobin 13.1 platelets 323 potassium 3.4 creatinine 0.5 bun lactic acid 2.2 proBNP 1470 albumin 3.2 Coronavirus [PCF]-not detected Venous Doppler: Negative for DVT. Assessment and plan: -Acute on chronic bilateral lower extremity venous stasis cellulitis/wounds, worsened by underlying peripheral arterial disease.-Responded well Continue wound care. Follow up with ID. on IV vancomycin-discontinued. IV cefepime-completed course. Local wound care.-Dry Aquacel silver dressing and Castro wrap -Possible sepsis-improved. IV fluids, antibiotics-completed -Stage II pressure ulcer right calcaneum with fat layer exposure, POA Foam heel protectors -Acute COPD exacerbation in current smoker:-Improving DuoNeb 3 times a day via nebulizer for home Hospital bed for 30 head of the bed elevated for COPD-at all times -Chronic nicotine dependence patient is a cigarette smoker Nicotine patch -Mild cognitive impairment -Painful peripheral neuropathy Continue with Lyrica -Right upper lobe lung mass with a known negative PET scan. Patient being followed by oncology/pulmonary.-Further workup as outpatient -Chronic medical debility. Does use electronic cart Consult PTOT -Hypoalbuminemia from Mild protein calorie malnutrition Nutritional supplements . Appetite improving Disposition: Home Patient Condition at Discharge: Stable Plan - Discharge Summary Discharge Rx Participant: No New Discharge Prescriptions: New Fluconazole [Diflucan] 100 mg PO DAILY #7 tab Ipratropium-Albuterol Nebulize [Duoneb 0.5 mg-3 mg/3 ml Soln] 3 ml INHALATION RT-TID #90 ml Triamcinolone 0.1% Ointment [Kenalog] 1 applic TOPICAL BID applic Cholecalciferol [Vitamin D3 (25 Mcg = 1000 Iu)] 125 mcg PO DAILY #30 tablet guaiFENesin [Mucinex] 600 mg PO QID #60 tablet.er Continue Aspirin 81 mg PO DAILY #90 chew lisinopriL [Zestril] 5 mg PO DAILY #90 tab Ascorbic Acid [Vitamin C] 1,000 mg PO DAILY Atorvastatin [Lipitor] 40 mg PO DAILY #90 tab Metoprolol Tartrate [Lopressor] 50 mg PO BID #180 tab Pregabalin [Lyrica] 150 mg PO BID #6 cap Nicotine 21Mg/24Hr Patch [Habitrol] 1 patch TRANSDERM DAILY #14 patch Discontinued Furosemide [Lasix] 40 mg PO DAILY Discharge Medication List Aspirin 81 mg PO DAILY #90 chew 10/09/20 [Rx] Atorvastatin [Lipitor] 40 mg PO DAILY #90 tab 10/09/20 [Rx] Metoprolol Tartrate [Lopressor] 50 mg PO BID #180 tab 10/09/20 [Rx] Pregabalin [Lyrica] 150 mg PO BID #6 cap 10/09/20 [Rx] lisinopriL [Zestril] 5 mg PO DAILY #90 tab 10/09/20 [Rx] Ascorbic Acid [Vitamin C] 1,000 mg PO DAILY 11/10/20 [History] Cholecalciferol [Vitamin D3 (25 Mcg = 1000 Iu)] 125 mcg PO DAILY #30 tablet 11/17/20 [Rx] Fluconazole [Diflucan] 100 mg PO DAILY #7 tab 11/17/20 [Rx] Ipratropium-Albuterol Nebulize [Duoneb 0.5 mg-3 mg/3 ml Soln] 3 ml INHALATION RT-TID #90 ml 11/17/20 [Rx] Nicotine 21Mg/24Hr Patch [Habitrol] 1 patch TRANSDERM DAILY #14 patch 11/17/20 [Rx] Triamcinolone 0.1% Ointment [Kenalog] 1 applic TOPICAL BID applic 11/17/20 [Rx] guaiFENesin [Mucinex] 600 mg PO QID #60 tablet.er 11/17/20 [Rx] Follow up Appointment(s)/Referral(s): Simba Salmon MD [Primary Care Provider] - 1-2 days Nurse,[facility] [NON-STAFF] - As Needed Ismael Lozano MD [STAFF PHYSICIAN] - 11/27/20 10:00 am Cara Russell MD [STAFF PHYSICIAN] - 12/01/20 3:00 pm Activity/Diet/Wound Care/Special Instructions: Please call [facility] for senior transport #[phone] or his insurance #[phone] to arrange transport for appointments. Wound Care instructions as per Dr Russell - Primary dressing - Opticell Ag+ to be applied to open wound areas on bilateral lower limbs change Q48hr , follow up in wound care with Dr russell , call [phone] to make an appointment Secondary dressing - Castro wrapped from toes to knees Frequency - To be changed every 48 hours Discharge/Stand Alone Forms: [facility]
[2020-11-17 14:41] VITALS: BMI 19.2
[2020-11-17 14:53] VITALS: BP 122/72; PULSE 71; RESP 18; TEMP 98.1
--- NOTE | 2020-11-17 15:50 | PN ---
PROGRESS NOTE DATE OF SERVICE: 11/17/2020. REASON FOR FOLLOWUP: Bilateral lower extremity venostasis ulcers and cellulitis. INTERVAL HISTORY: The patient is currently afebrile. Breathing comfortably. No chest pain or cough. No abdominal pain or any worsening pain to the lower extremity. PHYSICAL EXAMINATION: Blood pressure 111/67, pulse of 91, temperature 98.2. He is 90% on 2 L nasal cannula. General description is a middle-aged male lying in bed in no distress. RESPIRATORY SYSTEM: Unlabored breathing. Bilateral lower extremity wounds are currently dressed with no drainage on the dressing. LABS: No new labs have been obtained. Culture has been negative. DIAGNOSTIC IMPRESSION AND PLAN: Patient with bilateral lower extremity venostasis ulcer with cellulitis . Local wound care with Aquacel Silver dressing. No need for systemic antibiotic therapy. MMODL / IJN: [id number] /
== END 2020-11-17 17:45 | disposition home health service (06) | DRG 872 ==
LOC: EC 15:30 → 4SSUR 17:37
PROVIDERS: ADMIT Hospitalist; ATTEND Hospitalist
DX: A41.9 Sepsis, unspecified organism (principal); L03.116 Cellulitis of left lower limb; L03.115 Cellulitis of right lower limb; C34.11 Malignant neoplasm of upper lobe, right bronchus or lung; E44.1 Mild protein-calorie malnutrition; Z68.1 Body mass index [BMI] 19.9 or less, adult; L97.919 Non-pressure chronic ulcer of unspecified part of right lower leg with unspecified severity; L97.929 Non-pressure chronic ulcer of unspecified part of left lower leg with unspecified severity; F10.988 Alcohol use, unspecified with other alcohol-induced disorder; J44.1 Chronic obstructive pulmonary disease with (acute) exacerbation; F17.210 Nicotine dependence, cigarettes, uncomplicated; F03.90 Unspecified dementia, unspecified severity, without behavioral disturbance, psychotic disturbance, mood disturbance, and anxiety; G62.9 Polyneuropathy, unspecified; H35.30 Unspecified macular degeneration; I73.9 Peripheral vascular disease, unspecified; I83.009 Varicose veins of unspecified lower extremity with ulcer of unspecified site; I87.2 Venous insufficiency (chronic) (peripheral); I87.8 Other specified disorders of veins; Z20.822 Contact with and (suspected) exposure to COVID-19; Z86.16 Personal history of COVID-19; L89.622 Pressure ulcer of left heel, stage 2; G62.1 Alcoholic polyneuropathy; E88.09 Other disorders of plasma-protein metabolism, not elsewhere classified; H91.90 Unspecified hearing loss, unspecified ear; J61 Pneumoconiosis due to asbestos and other mineral fibers; R53.81 Other malaise; G89.29 Other chronic pain; M25.512 Pain in left shoulder; D64.9 Anemia, unspecified; N40.0 Benign prostatic hyperplasia without lower urinary tract symptoms; Z79.82 Long term (current) use of aspirin; Z79.899 Other long term (current) drug therapy; Z82.49 Family history of ischemic heart disease and other diseases of the circulatory system; Z98.42 Cataract extraction status, left eye; Z98.41 Cataract extraction status, right eye; Z91.19 Patient's noncompliance with other medical treatment and regimen; Z79.01 Long term (current) use of anticoagulants
CPT/HCPCS: 36415; 71046; 72157; 72158; 80053; 83605; 83880; 85025; 85610; 85730; 87040; 87070; 87205; 87635; 93970; 94760; 96374; 99285

== ENCOUNTER → 2020-12-19 | Outpatient (CLI) | payer OTHER | END | disposition home or self-care (01) | DX: C34.11 Malignant neoplasm of upper lobe, right bronchus or lung (principal) | CPT/HCPCS: 78815; A9552 ==

== ENCOUNTER 2020-12-25 15:02 | Inpatient (IN) | payer OTHER ==
[2020-12-25] MEDS ORDERED: SODIUM CHLORIDE 0.9% 1,000 ML IV STA ×2 (15:36)
[2020-12-25] MEDS ORDERED: cefTRIAXone IN SWFI 1,000 MG/10 ML SYRINGE IVP STA (15:37)
--- NOTE | 2020-12-25 16:09 | XR ---
EXAMINATION TYPE: XR foot complete bilateral, 3 views each side DATE OF EXAM: 12/25/2020 Comparison: 02/16/2020 Clinical History: 65-year-old male rule out gas gangrene, BLE cellulitis Findings: Marked generalized soft tissue swelling. No discrete soft tissue air is seen. Moderate sized plantar heel spur on both sides. Osteopenia. No acute fracture seen. No osseous destruction identified. Degen erative change bilateral tibiotalar joints. Impression: Osteopenia. Marked soft tissue swelling suggesting cellulitis. No soft tissue air clearly identified. No convincing osseous destruction to suggest osteomyelitis at this time.
[2020-12-25 17:26] LABS: ALT 20 U/L (4-49); AST 31 U/L (17-59); African American GFR (CKD) >90 (>60 ml/min/1.73 sqM); Albumin 2.8 g/dL (3.5-5.0); Alkaline Phosphatase 100 U/L (38-126); Anion Gap 10 mmol/L; Blood Urea Nitrogen 9 mg/dL (9-20); Calcium 8.5 mg/dL (8.4-10.2); Carbon Dioxide 27 mmol/L (22-30); Chloride 100 mmol/L (98-107); Glucose 78 mg/dL (74-99); Non-African American GFR(CKD) >90 (>60 ml/min/1.73 sqM); Potassium 3.5 mmol/L (3.5-5.1); Sodium 137 mmol/L (137-145); Total Bilirubin 0.5 mg/dL (0.2-1.3); Total Protein 6.2 g/dL (6.3-8.2)
[2020-12-25] MEDS ORDERED: HYDROcodone/APAP 5-325MG 1 EACH TAB PO STA (17:26)
--- NOTE | 2020-12-25 17:42 | ED ---
Extremity Problem HPI - General Chief complaint: Extremity Problem,Nontraumatic Stated complaint: Leg pain Time Seen by Provider: 12/25/20 15:09 Source: police, EMS Mode of arrival: EMS Limitations: no limitations - History of Present Illness Initial comments: 65-year-old male presents emergency Department with a chief complaint of leg pain. Patient reports chronic history of leg infections. States the home care nurse the saw him read both of his legs due to cost a clear discharge. He reports chronic history of bilateral lower extremity edema. States she has been admitted here multiple times for infection. He does report chills but denies any fevers. States she has not been able to take a shower the past several weeks. States he currently lives with her son-in-law and they do not have a running shower. He reports increased erythema in the left foot over the last several days. - Related Data Home Medications Medication Instructions Recorded Confirmed Furosemide [Lasix] 20 mg PO DAILY 12/25/20 12/25/20 Vit C/E/Zn/Coppr/Lutein/Zeaxan 1 cap PO DAILY 12/25/20 12/25/20 [Preservision Areds 2 Softgel] Previous Rx's Medication Instructions Recorded Pregabalin [Lyrica] 150 mg PO BID #6 cap 10/09/20 Cholecalciferol [Vitamin D3 (25 125 mcg PO DAILY #30 tablet 11/17/20 Mcg = 1000 Iu)] Allergies Allergy/AdvReac Type Severity Reaction Status Date / Time No Known Allergies Allergy Verified 12/25/20 18:09 Review of Systems ROS Statement: Those systems with pertinent positive or pertinent negative responses have been documented in the HPI. ROS Other: All systems not noted in ROS Statement are negative. Past Medical History Past Medical History: COPD, Eye Disorder, Memory Impairment Additional Past Medical History / Comment(s): COVID in September 2019, BPH, dysphagia, previous liver biopsy results non malignant alcoholism, COPD, dementia, chronic malnutrition, BLE edema, macular degeneration to left eye, masses to both lung lobes suspecting malignancy History of Any Multi-Drug Resistant Organisms: None Reported Past Surgical History: Orthopedic Surgery Additional Past Surgical History / Comment(s): liver biopsy, left thumb surgery left arm fasciotomy, bilateral cataracts removed with lens implants Past Anesthesia/Blood Transfusion Reactions: No Reported Reaction Past Psychological History: No Psychological Hx Reported Smoking Status: Current every day smoker Past Alcohol Use History: Heavy Past Drug Use History: Marijuana - Past Family History Father History Unknown: Yes Family Medical History: Myocardial Infarction ([place]) Additional Family Medical History / Comment(s): Father of a [place] at the age of 57yrs. Mother Additional Family Medical History / Comment(s): Mother had a tumor in her heart/surgery to remove and of post op infection. General Exam Limitations: no limitations General appearance: alert, in no apparent distress Head exam: Present: atraumatic, normocephalic, normal inspection Eye exam: Present: normal appearance, PERRL, EOMI Pupils: Present: normal accommodation ENT exam: Present: normal exam, normal oropharynx, mucous membranes moist Neck exam: Present: normal inspection, full ROM. Absent: tenderness Respiratory exam: Present: normal lung sounds bilaterally. Absent: respiratory distress, wheezes, rales, rhonchi, stridor Cardiovascular Exam: Present: regular rate, normal rhythm, normal heart sounds. Absent: systolic murmur Extremities exam: Present: full ROM, tenderness (No significant tenderness to the lower extremities. ), normal capillary refill. Absent: normal inspection (Multiple wounds on the right lower extremity. Cellulitis noted the left lower trauma, particularly the foot. No obvious signs of an abscess at this time) Back exam: Present: normal inspection, full ROM Neurological exam: Present: alert, oriented X3 Psychiatric exam: Present: normal affect, normal mood Skin exam: Present: warm, dry, intact, normal color Course Vital Signs 12/25/20 15:15 Temperature 98.8 F Pulse Rate 65 Respiratory 18 Rate Blood Pressure 137/77 O2 Sat by Pulse 95 Oximetry Medical Decision Making - Medical Decision Making 65-year-old male presents emergency Department with a chief complaint of leg pain. On physical examination, patient has a foul smell in poor hygiene. Patient has not showered in quite some time. It was hard to remove the dressing on the lower extremities which was also very wet. Cellulitis noted on lower extremities. He also has multiple wounds in the right lower extremity. Sw elling noted on the left foot. X-rays of the feet reveal no signs of gas gangrene or osteomyelitis. CBC reveals leukocytosis of 16 K. Lactic acid elevated at 3.6. Patient was started on 1 g Rocephin.with appropriate IV fluids. Initial vital signs are within normal limits. Patient was later sta rted on vancomycin as well. Case discussed with Dr. Zimmerman. I spoke with who will admit patient. Infectious disease and consult. - Lab Data Result diagrams: 12/25/20 19:05 12/25/20 16:59 Lab Results 12/25/20 12/25/20 12/25/20 Range/Units 16:59 16:59 17:31 WBC (3.8-10.6) k/uL RBC (4.30-5.90) m/uL Hgb (13.0-17.5) gm/dL Hct (39.0-53.0) % MCV (80.0-100.0) fL MCH (25.0-35.0) pg MCHC (31.0-37.0) g/dL RDW (11.5-15.5) % Plt Count (150-450) k/uL MPV Neutrophils % % Lymphocytes % % Monocytes % % Eosinophils % % Basophils % % Neutrophils # (1.3-7.7) k/uL Lymphocytes # (1.0-4.8) k/uL Monocytes # (0-1.0) k/uL Eosinophils # (0-0.7) k/uL Basophils # (0-0.2) k/uL Sodium 137 (137-145) mmol/L Potassium 3.5 (3.5-5.1) mmol/L Chloride 100 (98-107) mmol/L Carbon Dioxide 27 (22-30) mmol/L Anion Gap 10 mmol/L BUN 9 (9-20) mg/dL Creatinine 0.42 L (0.66-1.25) mg/dL Est GFR (CKD-EPI)AfAm >90 (>60 ml/min/1.73 sqM) Est GFR (CKD-EPI)NonAf >90 (>60 ml/min/1.73 sqM) Glucose 78 (74-99) mg/dL Lactic Ac Sepsis Rflx Y Plasma Lactic Acid Roberto Carlos 3.1 H* (0.7-2.0) mmol/L Calcium 8.5 (8.4-10.2) mg/dL Total Bilirubin 0.5 (0.2-1.3) mg/dL AST 31 (17-59) U/L ALT 20 (4-49) U/L Alkaline Phosphatase 100 (38-126) U/L Total Protein 6.2 L (6.3-8.2) g/dL Albumin 2.8 L (3.5-5.0) g/dL 12/25/20 Range/Units 19:05 WBC 16.1 H (3.8-10.6) k/uL RBC 4.31 (4.30-5.90) m/uL Hgb 13.0 (13.0-17.5) gm/dL Hct 39.1 (39.0-53.0) % MCV 90.6 (80.0-100.0) fL MCH 30.2 (25.0-35.0) pg MCHC 33.3 (31.0-37.0) g/dL RDW 13.2 (11.5-15.5) % Plt Count 383 (150-450) k/uL MPV 7.2 Neutrophils % 79 % Lymphocytes % 10 % Monocytes % 6 % Eosinophils % 4 % Basophils % 1 % Neutrophils # 12.7 H (1.3-7.7) k/uL Lymphocytes # 1.7 (1.0-4.8) k/uL Monocytes # 0.9 (0-1.0) k/uL Eosinophils # 0.6 (0-0.7) k/uL Basophils # 0.1 (0-0.2) k/uL Sodium (137-145) mmol/L Potassium (3.5-5.1) mmol/L Chloride (98-107) mmol/L Carbon Dioxide (22-30) mmol/L Anion Gap mmol/L BUN (9-20) mg/dL Creatinine (0.66-1.25) mg/dL Est GFR (CKD-EPI)AfAm (>60 ml/min/1.73 sqM) Est GFR (CKD-EPI)NonAf (>60 ml/min/1.73 sqM) Glucose (74-99) mg/dL Lactic Ac Sepsis Rflx Plasma Lactic Acid Roberto Carlos (0.7-2.0) mmol/L Calcium (8.4-10.2) mg/dL Total Bilirubin (0.2-1.3) mg/dL AST (17-59) U/L ALT (4-49) U/L Alkaline Phosphatase (38-126) U/L Total Protein (6.3-8.2) g/dL Albumin (3.5-5.0) g/dL Disposition Clinical Impression: Bilateral lower leg cellulitis, Wound of lower extremity Disposition: ADMITTED IP TO THIS HOSP Condition: Fair Is patient prescribed a controlled substance at d/c from ED?: No Referrals: Simba Salmon MD [Primary Care Provider] - 1-2 days Time of Disposition: 20:36
[2020-12-25 19:20] LABS: Basophils # (A) 0.1 k/uL (0-0.2); Basophils % (A) 1 %; Eosinophils # (A) 0.6 k/uL (0-0.7); Eosinophils % (A) 4 %; HCT 39.1 % (39.0-53.0); Lymphocytes # (A) 1.7 k/uL (1.0-4.8); Lymphocytes % (A) 10 %; MCH 30.2 pg (25.0-35.0); MCHC 33.3 g/dL (31.0-37.0); MCV 90.6 fL (80.0-100.0); Mean Platelet Volume 7.2; Monocytes # (A) 0.9 k/uL (0-1.0); Monocytes % (A) 6 %; Neutrophils # (A) 12.7 k/uL (1.3-7.7); Neutrophils % (A) 79 %; Platelet Count 383 k/uL (150-450); RBC 4.31 m/uL (4.30-5.90); RDW 13.2 % (11.5-15.5); WBC 16.1 k/uL (3.8-10.6)
[2020-12-25] MEDS ORDERED: VANCOMYCIN IV PER PHARMACY 1 EACH MISC MISCELLANE PRN (20:27)
[2020-12-25] MEDS ORDERED: LORazepam 2 MG/ML INJ IV PRN (20:32)
[2020-12-25] MEDS ORDERED: NALOXONE 0.4 MG/ML 1 ML VIAL IV PRN (20:32)
[2020-12-25] MEDS ORDERED: VANCOMYCIN 1,250 MG in SODIUM CHLORIDE 0.9% 250 ML IVPB ONE (21:00)
[2020-12-25] MEDS: SODIUM CHLORIDE 0.9% 1,000 ML IV SCH (22:10)
[2020-12-26] MEDS: HYDROcodone/APAP 5-325MG 1 EACH TAB PO PRN ×2 (02:27→07:53)
[2020-12-26] MEDS ORDERED: VANCOMYCIN 1,000 MG in SODIUM CHLORIDE 0.9% 250 ML IVPB SCH (06:00)
[2020-12-26 06:54] LABS: Glucose,Whole Blood 95 mg/dL (75-99)
[2020-12-26] MEDS ORDERED: PANTOPRAZOLE 40 MG/10 ML VIAL IV SCH (09:00)
[2020-12-26] MEDS ORDERED: ONDANSETRON 4 MG/2 ML VIAL IVP PRN (09:59)
[2020-12-26] MEDS ORDERED: NALOXONE 0.4 MG/ML 1 ML VIAL IV PRN (09:59)
[2020-12-26] MEDS: MORPHINE SULFATE 2 MG/ML SYRINGE IVP PRN ×2 (10:44→17:32)
[2020-12-26] MEDS ORDERED: ALBUTEROL NEBULIZED 2.5 MG/3 ML INHALATION PRN (11:42)
--- NOTE | 2020-12-26 11:55 | P.CONS ---
History of Present Illness - Reason for Consult Consult date: 12/26/20 wound care - History of Present Illness this is a 65-year-old patient who is being seen on [facility] [address]. for nonhealing ulceration to the right calcaneus and right dorsal foot. Patient has cellulitis to bilateral lower extremities. patient states that the only thing that helps his legs is Silvadene. He has home care coming and applying Silvadene to the bilateral legs and zinc barrier cream to the heel. Patient has an open ulce ration cluster of 2 to the right lateral posterior calcaneus measuring approximately 0.6 x 0.4 x 0.2 and 0.4 x 0.5 x 0.2 cm minimal granulation nowithin the wo and nonviable tissue within the wound base. Wound edges are attached to the wound base no tunneling or undermining noted. The right dorsal foot has a cluster of 4 ulcerations total measurement approximately 3 x 0.5 x 0.1 cm ulcerations appear to have epithelialized skin however there is areas of slough around the ulceration. The periwound also shows excoriation. Review Of Systems: Constitutional: No fever, no chills, no night sweats. No weight change. No weakness, fatigue or lethargy. No daytime sleepiness. Integumentary:reports wounds, no lesions. No rash or pruritus. No unusual bruising. No change in hair or nails. Physical exam: General Appearance: Alert, cooperative, no distress, appears stated age. Skin: See HPI all other Skin color, texture, tugor normal, no rashes or lesions. Neurologic: Alert oriented x3 Assessment: 1. Pressure ulcer right calcaneus stage II 2. Nonhealing ulceration right dorsal foot with fatty layer exposure 3. Bilateral cellulitis Plan: 1. Apply collagen to the right calcaneus ulceration with saline moistened gauze, dry gauze, rolled gauze and secured paper tape. Right dorsal foot ulceration apply collagen, saline moistened gauze, dry gauze, rolled gauze secured paper tape. Change Mond Elevate legs as tolerated. Utilize foamheel covers to protect heel. 2. Bilateral lower extremities apply Silvadene, wrapped with rolled gauze and Castro wrap change daily. thank you for the consultation any questions please contact the wound care center DNP note has been reviewed and discussed with Dr. Tolentino and the impression and plan of care has been directed as dictated. Past Medical History Past Medical History: COPD, Eye Disorder, Memory Impairment Additional Past Medical History / Comment(s): COVID in September 2019, BPH, dysphagia, previous liver biopsy results non malignant alcoholism, COPD, dementia, chronic malnutrition, BLE edema, macular degeneration to left eye, masses to both lung lobes suspecting malignancy History of Any Multi-Drug Resistant Organisms: None Reported Past Surgical History: Orthopedic Surgery Additional Past Surgical History / Comment(s): liver biopsy, left thumb surgery left arm fasciotomy, bilateral cataracts removed with lens implants Past Anesthesia/Blood Transfusion Reactions: No Reported Reaction Past Psychological History: No Psychological Hx Reported Additional Psychological History / Comment(s): Pt resides with his son and his son's girlfriend. Pt states he does not feel safe there anymore d/t son is gone alot and girlfriend does not help patient at all. Pt gets around in his electric cart. There is a ramp on the house. Pt states rides are difficult to get, sometimes his son or friends drive him. Pt has home care nurse for wound care from [facility]. He states he can toilet himself. Getting a shower is d ifficult d/t no one to help him. Pt states son's girlfriend does not like him. Pt states his son and girlfriend do not want him in the home. He states there is no abuse. Smoking Status: Current every day smoker Past Alcohol Use History: Heavy Additional Past Alcohol Use History / Comment(s): Pt started smoking in 1967 and was 2 ppd smoker but now down to 1/2 ppd. Pt states he was drinking 4 cases of beer a week but has cut down about a year ago and now drinks a 6 pack or two of wine (little bottles) a week. Past Drug Use History: Marijuana Additional Drug Use History / Comment(s): Marijuana gummies daily - Past Family History Father History Unknown: Yes Family Medical History: Myocardial Infarction ([place]) Additional Family Medical History / Comment(s): Father of a [place] at the age of 57yrs. Mother Additional Family Medical History / Comment(s): Mother had a tumor in her heart/surgery to remove and of post op infection. Medications and Allergies Home Medications Medication Instructions Recorded Confirmed Type Pregabalin [Lyrica] 150 mg PO BID #6 cap 10/09/20 12/25/20 Rx Cholecalciferol [Vitamin D3 (25 125 mcg PO DAILY #30 tablet 11/17/20 12/25/20 Rx Mcg = 1000 Iu)] Furosemide [Lasix] 20 mg PO DAILY 12/25/20 12/25/20 History Vit C/E/Zn/Coppr/Lutein/Zeaxan 1 cap PO DAILY 12/25/20 12/25/20 History [Preservision Areds 2 Softgel] Allergies Allergy/AdvReac Type Severity Reaction Status Date / Time No Known Allergies Allergy Verified 12/25/20 18:09 Physical Exam Vitals: Vital Signs Temp Pulse Pulse Resp BP BP Pulse Ox 12/26/20 07:38 99.8 F H 57 L 17 128/76 90 L 12/26/20 02:00 98.7 F 109 H 18 146/76 94 L 12/25/20 23:27 98.8 F 99 18 128/72 97 12/25/20 22:27 98.3 F 73 18 133/70 95 12/25/20 20:39 97.7 F 93 18 140/73 95 12/25/20 15:15 98.8 F 65 18 137/77 95 Intake and Output 12/25/20 12/26/20 12/26/20 22:59 06:59 14:59 Output Total 300 Balance -300 Output: Urine 300 Other: Voiding Method Urinal # Voids 600 Weight 58.513 kg 58.513 kg Results CBC & Chem 7: 12/25/20 19:05 12/25/20 16:59 Labs: Abnormal Lab Results - Last 24 Hours (Table) 12/25/20 12/25/20 12/25/20 Range/Units 16:59 16:59 19:05 WBC 16.1 H (3.8-10.6) k/uL Neutrophils # 12.7 H (1.3-7.7) k/uL Creatinine 0.42 L (0.66-1.25) mg/dL Plasma Lactic Acid Roberto Carlos 3.1 H* (0.7-2.0) mmol/L Total Protein 6.2 L (6.3-8.2) g/dL Albumin 2.8 L (3.5-5.0) g/dL Assessment and Plan (1) Stage II pressure ulcer of right heel Current Visit: No Status: Acute Code(s): L89.612 - PRESSURE ULCER OF RIGHT HEEL, STAGE 2 SNOMED Code(s): 275645057 (2) Non-healing ulcer of right foot with fat layer exposed Current Visit: Yes Status: Acute Code(s): L97.512 - NON-PRS CHRONIC ULCER OTH PRT RIGHT FOOT W FAT LAYER EXPOSED SNOMED Code(s): 882798148 (3) Bilateral lower leg cellulitis Current Visit: Yes Status: Acute Priority: High Code(s): L03.116 - CELLULITIS OF LEFT LOWER LIMB; L03.115 - CELLULITIS OF RIGHT LOWER LIMB SNOMED Code(s): 938481609
--- NOTE | 2020-12-26 12:21 | P.HPIM ---
History of Present Illness H&P Date: 12/26/20 Chief Complaint: left lower extremity cellulitis Patient is a 65-year-old male with a complex past medical history including COPD, BPH, dysphagia, chronic liver disease, and multiple other comorbid conditions who presented to the hospital with complaints of left leg pain. He does report a history of chronic leg infections. The ER he was diagnosed with left lower extremity cellulitis. His white blood cell count was 16. He was started on IV fluids, Rocephin, and vancomycin. He was admitted for further monitoring. of note the patient was admitted in September 2020 as well as October 2020 for the same thing. Records from those admissions were reviewed. Patient seen and examined at bedside. He reports that his home health care nurse told him to come in 3 days ago because of increasing redness, but he waited to make sure he got admitted. He complains of neuropathy and pain in both legs. He states that he had dopplers done over a year ago and has a 60 and 40% known b lockage. He that he also was diagnosed with cancer but is unable to follow-up right (this is discussed with case management and he had rides set up an no show appointments multiple times with the [facility]). He denies any chest pain, shortness of breath, nausea, vomiting, or diarrhea. He has multiple complaints about difficulty with his home living situation, not having home care supplies delivered, and ride issues. He states he may not have any were to return back to. He does continue to smoke. Pertinent positives and negatives as discussed in HPI, a complete review of systems was performed and all other systems are negative. General: non toxic, no distress, appears at stated age Derm: bilateral lower extremity skin sloughing with thickening and yellow discoloration, multiple areas of ulceration with granular tissue present, red jody appearance of both lower extremities, hemosiderin deposits, nonpalpable pulses DP and PT bilateral Head: atraumatic, normocephalic, symmetric Eyes: EOMI, no lid lag, anicteric sclera, pupils equal round reactive to light ENT: Nose and ears atraumatic, no thrush, no pharyngeal erythema Neck: No thyromegaly, no cervical lymphadenopathy, trachea midline, supple, poor dentition Mouth: no lip lesion, mucus membranes moist Cardiovascular: S1S2 reg, no murmur, positive posterior tibial pulse bilateral, no edema, capillary refill less than 2 seconds Lungs: clear to ascultation bilateral, no ronchi, no rales, no wheeze, no accessory muscle use Abdominal: soft, nontender to palpation, no guarding, no appreciable organomegaly, normal bowel sounds Ext: no gross muscle atrophy, muscle strength muscle strength 5 out of 5 in all 4 extremities, no contractures Neuro: CN II-XI grossly intact, light touch intact all 4 extremities, finger to nose within normal limits, Psych: Alert, oriented, appropriate affect Bilateral lower extremity ulcerations with peripheral arterial disease and venous stasis changes - Possible underlying infection - Continue with Vancomycin - Consult ID, vascular surgery, and wound care - Elevate legs COPD without exacerbation with ongoing tobacco abuse - Encourage cessation - nocitne replacement - prn bronchodilators Neuropathy - lyrica Possible lung cancer - Patient is already in contact with the oncology clinic, and has had difficulty with rides. - seen by Dr Bailey 11/12/20 as inpatient who recommended restaging as outpatient. lactic acidosis, resolved The patient is admitted with an anticipated greater than 2 midnight stay for evaluation of lower extremity non healing wounds. Surrogate decision-maker: nephew CODE STATUS:full DVT prophylaxis: lovenox Discussed with: patient, nursing Anticipated discharge date: in 1-[address]: A total of 75 minutes was spent on the care of this complex patient more than 50% of the time was spent in counseling and care coordination. Past Medical History Past Medical History: COPD, Eye Disorder, Memory Impairment Additional Past Medical History / Comment(s): COVID in September 2019, BPH, dysphagia, previous liver biopsy results non malignant alcoholism, COPD, d ementia, chronic malnutrition, BLE edema, macular degeneration to left eye, masses to both lung lobes suspecting malignancy History of Any Multi-Drug Resistant Organisms: None Reported Past Surgical History: Orthopedic Surgery Additional Past Surgical History / Comment(s): liver biopsy, left thumb surgery left arm fasciotomy, bilateral cataracts removed with lens implants Past Anesthesia/Blood Transfusion Reactions: No Reported Reaction Past Psychological History: No Psychological Hx Reported Additional Psychological History / Comment(s): Pt resides with his son and his son's girlfriend. Pt states he does not feel safe there anymore d/t son is gone alot and girlfriend does not help patient at all. Pt gets around in his electric cart. There is a ramp on the house. Pt states rides are difficult to get, sometimes his son or friends drive him. Pt has home care nurse for wound care from [facility]. He states he can toilet himself. Getting a shower is difficult d/t no one to help him. Pt states son's girlfriend does not like him. Pt states his son and girlfriend do not want him in the home. He states there is no abuse. Smoking Status: Current every day smoker Past Alcohol Use History: Heavy Additional Past Alcohol Use History / Comment(s): Pt started smoking in 1967 and was 2 ppd smoker but now down to 1/2 ppd. Pt states he was drinking 4 cases of beer a week but has cut down about a year ago and now drinks a 6 pack or two of wine (little bottles) a week. Past Drug Use History: Marijuana Additional Drug Use History / Comment(s): Marijuana gummies daily - Past Family History Father History Unknown: Yes Family Medical History: Myocardial Infarction ([place]) Additional Family Medical History / Comment(s): Father of a [place] at the age of 57yrs. Mother Additional Family Medical History / Comment(s): Mother had a tumor in her heart/surgery to remove and of post op infection. Medications and Allergies Home Medications Medication Instructions Recorded Confirmed Type Pregabalin [Lyrica] 150 mg PO BID #6 cap 10/09/20 12/25/20 Rx Cholecalciferol [Vitamin D3 (25 125 mcg PO DAILY #30 tablet 11/17/20 12/25/20 Rx Mcg = 1000 Iu)] Furosemide [Lasix] 20 mg PO DAILY 12/25/20 12/25/20 History Vit C/E/Zn/Coppr/Lutein/Zeaxan 1 cap PO DAILY 12/25/20 12/25/20 History [Preservision Areds 2 Softgel] Allergies Allergy/AdvReac Type Severity Reaction Status Date / Time No Known Allergies Allergy Verified 12/25/20 18:09 Physical Exam Osteopathic Statement: *. No significant issues noted on an osteopathic structural exam other than those noted in the History and Physical/Consult. Vitals: Vital Signs Temp Pulse Pulse Resp BP BP Pulse Ox 12/26/20 07:38 99.8 F H 57 L 17 128/76 90 L 12/26/20 02:00 98.7 F 109 H 18 146/76 94 L 12/25/20 23:27 98.8 F 99 18 128/72 97 12/25/20 22:27 98.3 F 73 18 133/70 95 12/25/20 20:39 97.7 F 93 18 140/73 95 12/25/20 15:15 98.8 F 65 18 137/77 95 Intake and Output 12/25/20 12/26/20 12/26/20 22:59 06:59 14:59 Output Total 300 Balance -300 Output: Urine 300 Other: # Voids 600 Weight 58.513 kg 58.513 kg Results CBC & Chem 7: 12/25/20 19:05 12/25/20 16:59 Labs: Abnormal Lab Results - Last 24 Hours (Table) 12/25/20 12/25/20 12/25/20 Range/Units 16:59 16:59 19:05 WBC 16.1 H (3.8-10.6) k/uL Neutrophils # 12.7 H (1.3-7.7) k/uL Creatinine 0.42 L (0.66-1.25) mg/dL Plasma Lactic Acid Roberto Carlos 3.1 H* (0.7-2.0) mmol/L Total Protein 6.2 L (6.3-8.2) g/dL Albumin 2.8 L (3.5-5.0) g/dL
[2020-12-26] MEDS ORDERED: NYSTAT-TRIAMCIN 100,000-0.1 UNIT/GM-% CREAM 30 GM TUBE TOPICAL SCH (13:45)
[2020-12-26] MEDS: HYDROcodone/APAP 10-325MG 1 EACH TAB PO PRN ×2 (14:32→21:12)
[2020-12-26] MEDS: SODIUM CHLORIDE 0.9% 1,000 ML IV SCH (14:46)
[2020-12-26] MEDS ORDERED: CEFEPIME 2 GM in SODIUM CHLORIDE 0.9% 100 ML IVPB ONE (15:00)
[2020-12-26] MEDS: NICOTINE 21MG/24HR PATCH TRANSDERM SCH (15:03)
--- NOTE | 2020-12-26 15:15 | P.GSCN ---
History of Present Illness Consult date: 12/26/20 History of present illness: Rodney is a 65-year-old male known to our service from previous admission earlier this year for similar issues. He came in with cellulitis and erythema to the bilateral lower extremities. He has a history of a nonhealing wound to the right heel. He was supposed to be seeing wound care but has not been attending. At the time of his last hospitalization, lower extremity arterial Dopplers were performed but were difficult to read due to inability to tolerate compression. Further wave form analysis there is some degree of femoral-popl iteal disease bilaterally area Past Medical History Past Medical History: COPD, Eye Disorder, Memory Impairment Additional Past Medical History / Comment(s): COVID in September 2019, BPH, dysphagia, previous liver biopsy results non malignant alcoholism, COPD, dementia, chronic malnutrition, BLE edema, macular degeneration to left eye, m asses to both lung lobes suspecting malignancy History of Any Multi-Drug Resistant Organisms: None Reported Past Surgical History: Orthopedic Surgery Additional Past Surgical History / Comment(s): liver biopsy, left thumb surgery left arm fasciotomy, bilateral cataracts removed with lens implants Past Anesthesia/Blood Transfusion Reactions: No Reported Reaction Past Psychological History: No Psychological Hx Reported Additional Psychological History / Comment(s): Pt resides with his son and his son's girlfriend. Pt states he does not feel safe there anymore d/t son is gone alot and girlfriend does not help patient at all. Pt gets around in his electric cart. There is a ramp on the house. Pt states rides are difficult to get, sometimes his son or friends drive him. Pt has home care nurse for wound care from [place]. He states he can toilet himself. Getting a shower is difficult d/t no one to help him. Pt states son's girlfriend does not like him. Pt states his son and girlfriend do not want him in the home. He states there is no abuse. Smoking Status: Current every day smoker Past Alcohol Use History: Heavy Additional Past Alcohol Use History / Comment(s): Pt started smoking in 1967 and was 2 ppd smoker but now down to 1/2 ppd. Pt states he was drinking 4 cases of beer a week but has cut down about a year ago and now drinks a 6 pack or two of wine (little bottles) a week. Past Drug Use History: Marijuana Additional Drug Use History / Comment(s): Marijuana gummies daily - Past Family History Father History Unknown: Yes Family Medical History: Myocardial Infarction (MN) Additional Family Medical History / Comment(s): Father of a MN at the age of 57yrs. Mother Additional Family Medical History / Comment(s): Mother had a tumor in her heart/surgery to remove and of post op infection. Medications and Allergies Home Medications Medication Instructions Recorded Confirmed Type Pregabalin [Lyrica] 150 mg PO BID #6 cap 10/09/20 12/25/20 Rx Cholecalciferol [Vitamin D3 (25 125 mcg PO DAILY #30 tablet 11/17/20 12/25/20 Rx Mcg = 1000 Iu)] Furosemide [Lasix] 20 mg PO DAILY 12/25/20 12/25/20 History Vit C/E/Zn/Coppr/Lutein/Zeaxan 1 cap PO DAILY 12/25/20 12/25/20 History [Preservision Areds 2 Softgel] Allergies Allergy/AdvReac Type Severity Reaction Status Date / Time No Known Allergies Allergy Verified 12/25/20 18:09 Surgical - Exam Vital Signs Temp Pulse Resp BP Pulse Ox 98.8 F 65 18 137/77 95 12/25/20 15:15 12/25/20 15:15 12/25/20 15:15 12/25/20 15:15 12/25/20 15:15 Gen. is a gruff male in no acute distress. HEENT is normal cephalic, atraumatic, excellent motion intact. Poor dentition. Heart appears regular. Lungs are diminished bilaterally with coarse breath sounds. Abdomen is soft, nontender nondistended. Extremities show no clubbing or cyanosis. There is mild 1+ edema in the left lower extremity. There is moderate erythema and scaling dry and cracked skin. There is a small clean based ulceration on the right heel. Palpable femoral pulses. Results - Labs 12/25/20 19:05 12/25/20 16:59 Abnormal Lab Results - Last 24 Hours (Table) 12/25/20 12/25/20 12/25/20 Range/Units 16:59 16:59 19:05 WBC 16.1 H (3.8-10.6) k/uL Neutrophils # 12.7 H (1.3-7.7) k/uL Creatinine 0.42 L (0.66-1.25) mg/dL Plasma Lactic Acid Roberto Carlos 3.1 H* (0.7-2.0) mmol/L Total Protein 6.2 L (6.3-8.2) g/dL Albumin 2.8 L (3.5-5.0) g/dL Diabetes panel 12/25/20 Range/Units 16:59 Sodium 137 (137-145) mmol/L Potassium 3.5 (3.5-5.1) mmol/L Chloride 100 (98-107) mmol/L Carbon Dioxide 27 (22-30) mmol/L BUN 9 (9-20) mg/dL Creatinine 0.42 L (0.66-1.25) mg/dL Glucose 78 (74-99) mg/dL Calcium 8.5 (8.4-10.2) mg/dL AST 31 (17-59) U/L ALT 20 (4-49) U/L Alkaline Phosphatase 100 (38-126) U/L Total Protein 6.2 L (6.3-8.2) g/dL Albumin 2.8 L (3.5-5.0) g/dL Calcium panel 12/25/20 Range/Units 16:59 Calcium 8.5 (8.4-10.2) mg/dL Albumin 2.8 L (3.5-5.0) g/dL Pituitary panel 12/25/20 Range/Units 16:59 Sodium 137 (137-145) mmol/L Potassium 3.5 (3.5-5.1) mmol/L Chloride 100 (98-107) mmol/L Carbon Dioxide 27 (22-30) mmol/L BUN 9 (9-20) mg/dL Creatinine 0.42 L (0.66-1.25) mg/dL Glucose 78 (74-99) mg/dL Calcium 8.5 (8.4-10.2) mg/dL Adrenal panel 12/25/20 Range/Units 16:59 Sodium 137 (137-145) mmol/L Potassium 3.5 (3.5-5.1) mmol/L Chloride 100 (98-107) mmol/L Carbon Dioxide 27 (22-30) mmol/L BUN 9 (9-20) mg/dL Creatinine 0.42 L (0.66-1.25) mg/dL Glucose 78 (74-99) mg/dL Calcium 8.5 (8.4-10.2) mg/dL Total Bilirubin 0.5 (0.2-1.3) mg/dL AST 31 (17-59) U/L ALT 20 (4-49) U/L Alkaline Phosphatase 100 (38-126) U/L Total Protein 6.2 L (6.3-8.2) g/dL Albumin 2.8 L (3.5-5.0) g/dL Assessment and Plan Assessment: Bilateral lower extremity cellulitis Nonhealing wound right lower extremity Peripheral arterial disease Medical noncompliance Plan: At this time there does not appear to be a significant need for operative debridement. It appears that the majority of his issues are more likely due to his swelling and noncompliance. If he is able to tolerate a repeat KENNETH with adequate cuff apposition, a better idea of his lower extremity arterial disease would be gained. Given the amount of swelling he has this time I do believe we can achieve this. We'll try to order a repeat for improved images however I do believe local wound care and Silvadene on his best benefits.
[2020-12-26] MEDS: TRIAMCINOLONE 0.1% CREAM 80 GM TUBE TOPICAL SCH ×2 (16:19→21:11)
[2020-12-26] MEDS: NYSTATIN 100,000UNIT/GM CREAM 30 GM TUBE TOPICAL SCH ×2 (16:19→21:11)
[2020-12-26] MEDS: PREGABALIN 75 MG CAP PO SCH (21:11)
[2020-12-27] MEDS: SODIUM CHLORIDE 0.9% 1,000 ML IV SCH ×2 (00:47→13:30)
[2020-12-27] MEDS: CEFEPIME 2 GM in SODIUM CHLORIDE 0.9% 100 ML IVPB SCH ×4 (00:47→23:17)
[2020-12-27] MEDS: MORPHINE SULFATE 2 MG/ML SYRINGE IVP PRN ×3 (04:41→20:08)
[2020-12-27] MEDS ORDERED: VANCOMYCIN TROUGH DUE 1 EACH MISC MISCELLANE ONE (05:30)
[2020-12-27] MEDS: PANTOPRAZOLE 40 MG TABLET PO SCH (08:06)
[2020-12-27] MEDS: VIT A,C & E-LUTEIN-MINERALS 1 EACH TAB PO SCH (08:06)
[2020-12-27] MEDS: NICOTINE 21MG/24HR PATCH TRANSDERM SCH (08:06)
[2020-12-27] MEDS: ENOXAPARIN 40 MG/0.4 ML SYRINGE SQ SCH (08:06)
[2020-12-27] MEDS: CHOLECALCIFEROL 25 MCG (1000 IU) TABLET PO SCH (08:06)
[2020-12-27] MEDS: PREGABALIN 75 MG CAP PO SCH ×2 (08:07→20:08)
[2020-12-27] MEDS: HYDROcodone/APAP 10-325MG 1 EACH TAB PO PRN ×3 (08:07→23:16)
[2020-12-27] MEDS: NYSTATIN 100,000UNIT/GM CREAM 30 GM TUBE TOPICAL SCH ×3 (08:07→21:57)
[2020-12-27] MEDS: TRIAMCINOLONE 0.1% CREAM 80 GM TUBE TOPICAL SCH ×3 (08:08→21:57)
[2020-12-27 11:00] LABS: African American GFR (CKD) >90 (>60 ml/min/1.73 sqM); Anion Gap 7 mmol/L; Blood Urea Nitrogen 7 mg/dL (9-20); Calcium 8.4 mg/dL (8.4-10.2); Carbon Dioxide 26 mmol/L (22-30); Chloride 103 mmol/L (98-107); Glucose 118 mg/dL (74-99); Non-African American GFR(CKD) >90 (>60 ml/min/1.73 sqM); Sodium 136 mmol/L (137-145)
[2020-12-27 11:02] LABS: HCT 37.4 % (39.0-53.0); HGB 12.3 gm/dL (13.0-17.5); MCH 30.4 pg (25.0-35.0); MCHC 32.8 g/dL (31.0-37.0); MCV 92.7 fL (80.0-100.0); Mean Platelet Volume 7.2; Platelet Count 413 k/uL (150-450); RBC 4.03 m/uL (4.30-5.90); RDW 13.2 % (11.5-15.5); WBC 18.3 k/uL (3.8-10.6)
--- NOTE | 2020-12-27 15:02 | PN ---
PROGRESS NOTE DATE OF SERVICE: 12/27/2020 REASON FOR FOLLOWUP: Lower extremity venostasis ulcer and cellulitis with elevated white count. INTERVAL HISTORY: Patient is afebrile. The patient is breathing comfortably. He did have a congested cough with occasional sputum. No hemoptysis, no abdominal pain. Overall pain and discomfort in the legs has decreased. PHYSICAL EXAM: Blood pressure 132/83, pulse of 50, temperature 98.2. He is 93% on room air. General description is a middle-aged male lying in bed in no distress. Respiratory system: Unlabored breathing, coarse breath sounds bilaterally, no wheezes. Heart S1, S2. Regular rate and rhythm. Abdomen is soft, no tenderness. LABORATORY DATA: Hemoglobin 12.8, white count 18.3, BUN of 7, creatinine 0.52. Blood culture has been negative. IMPRESSION/PLAN: Bilateral lower extremity venostasis dermatitis and cellulitis. The cellulitis does not look that bad, however, the patient did have worsening of his white count, could be related to his pulmonary in this patient who did have an untreated lung cancer with worsening of the white count. Will obtain chest x-ray PA and lateral and obtain a sputum. Continue cefepime. Local care with Mycolog cream as per discussion with the hospitalist. Patient on admission. If he has to be discharged, treatment will be oral Keflex and Mycolog cream. MMODL / IJN: [id number] /
--- NOTE | 2020-12-27 15:20 | XR ---
EXAMINATION TYPE: XR chest 2V DATE OF EXAM: 12/27/2020 COMPARISON: 11/10/2020 HISTORY: Pneumonia TECHNIQUE: FINDINGS: There is slight blunting of the costophrenic angles. There is increased right paratracheal density. Heart size is normal. There is no heart failure. There is a mild infiltrate in the left lowe r lobe. IMPRESSION: Small pleural effusions are new compared to old exam. Right paratracheal masslike density is the same or slightly increased. There is a small infiltrate left lower lobe that is new compared to old exam.
--- NOTE | 2020-12-27 16:55 | P.PN ---
Subjective Progress Note Date: 12/27/20 (delayed charting seen at 1130) Principal diagnosis: leg pain Patient is a 65-year-old male with a complex past medical history including COPD, BPH, dysphagia, chronic liver disease, and multiple other comorbid conditions who presented to the hospital with complaints of left leg pain. He does report a history of chronic leg infections. The ER he was diagnosed with left lower extremity cellulitis. His white blood cell count was 16. He was started on IV fluids, Rocephin, and vancomycin. He was placed in observation for further monitoring. He was seen by wound care who recommended Silvadene and continue dressings. Seen by vascular surgery did not recommend any surgical intervention at this point in time. By infectious disease who felt that his legs to be adequately treated with oral antibiotics. Plan had been for discharge from observation on 12/27/20 however patient does not know family's phone number, and number listed in chart is disconnected. Therefore no safe discharge is available at this time. Patient seen and examined at bedside. We discussed his observational status. He states that no one will give him pain medications on an outpatient basis due to rules. He then continues to say he cannot care for himself at home, there is no be at home to care for him. He is asking for long-term placement. We discussed that this is not typically ranged from an acute hospital stay but needs to be arranged between a facility and his Medicaid. General: non toxic, no distress, appears at stated age Dermbilateral lower extremity skin sloughing with thickening and yellow discoloration, multiple areas of ulceration with granular tissue present, red jody appearance of both lower extremities, hemosiderin deposits, nonpalpable pulses DP and PT bilateral Head: atraumatic, normocephalic, symmetric Eyes: EOMI, no lid lag, anicteric sclera Mouth: no lip lesion, mucus membranes moist Cardiovascular: S1S2 reg, no murmur, positive posterior tibial pulse bilateral, Lungs: Decreased bs bilateral, no rhonchi, no rales , no accessory muscle use Abdominal: soft, nontender to palpation, no guarding, no appreciable organomegaly Ext: no gross muscle atrophy, no edema, no contractures Neuro: CN II-XI grossly intact, no focal neuro deficits Psych: Alert, oriented, appropriate affect Bilateral lower extremity ulcerations with peripheral arterial disease and venous stasis changes - Possible underlying infection - ID recs: continue with cefepime okay for oral at dsicharge. - Vascular surgery, and wound care recs appreciated - Elevate legs COPD without exacerbation with ongoing tobacco abuse - Encourage cessation - nocitne replacement - prn bronchodilators Leukocytosis - consistent with known mass Neuropathy - lyrica Adenocarcinoma of the lung - Patient is already in contact with the oncology clinic, and has had difficulty with rides. - seen by Dr Bailey 11/12/20 as inpatient who recommended restaging as outpatient. lactic acidosis, resolved Plan had been for discharge from observation on 12/27/20 however patient does not know family's phone number, and number listed in chart is disconnected. Therefore no safe discharge is available at this time. DVT prophylaxis: lovenox Discussed with: patient, nursing Anticipated discharge date: would have discharged today Anticipated discharge place: A total of 35 minutes was spent on the care of this complex patient more than 50% of the time was spent in counseling and care coordination. Objective - Vital Signs Vital signs: Vital Signs Temp 98.2 F 12/27/20 14:00 Pulse 116 H 12/27/20 14:00 Resp 18 12/27/20 14:00 BP 132/83 12/27/20 14:00 Pulse Ox 93 L 12/27/20 14:00 Intake & Output 12/26/20 12/27/20 12/27/20 18:59 06:59 18:59 Output Total 3 Balance -3 Output: Urine 3 Other: Voiding Method Urinal Urinal Urinal # Voids 3 3 4 # Bowel Movements 1 # Emeses 3 - Labs CBC & Chem 7: 12/27/20 10:32 12/27/20 10:32 Labs: Abnormal Lab Results - Last 24 Hours (Table) 12/27/20 12/27/20 Range/Units 10:32 10:32 WBC 18.3 H (3.8-10.6) k/uL RBC 4.03 L (4.30-5.90) m/uL Hgb 12.3 L (13.0-17.5) gm/dL Hct 37.4 L (39.0-53.0) % Sodium 136 L (137-145) mmol/L BUN 7 L (9-20) mg/dL Creatinine 0.52 L (0.66-1.25) mg/dL Glucose 118 H (74-99) mg/dL Microbiology - Last 24 Hours (Table) 12/25/20 16:59 Blood Culture - Preliminary Blood No Growth after 24 hours 12/25/20 16:59 Blood Culture - Preliminary Blood No Growth after 24 hours
[2020-12-28] MEDS: SODIUM CHLORIDE 0.9% 1,000 ML IV SCH ×2 (03:15→17:05)
[2020-12-28] MEDS: HYDROcodone/APAP 10-325MG 1 EACH TAB PO PRN (06:22)
[2020-12-28] MEDS: CHOLECALCIFEROL 25 MCG (1000 IU) TABLET PO SCH (07:48)
[2020-12-28] MEDS: ENOXAPARIN 40 MG/0.4 ML SYRINGE SQ SCH (07:48)
[2020-12-28] MEDS: PANTOPRAZOLE 40 MG TABLET PO SCH (07:48)
[2020-12-28] MEDS: PREGABALIN 75 MG CAP PO SCH ×2 (07:48→19:20)
[2020-12-28] MEDS: TRIAMCINOLONE 0.1% CREAM 80 GM TUBE TOPICAL SCH ×2 (07:49→19:36)
[2020-12-28] MEDS: NICOTINE 21MG/24HR PATCH TRANSDERM SCH (07:49)
[2020-12-28] MEDS: VIT A,C & E-LUTEIN-MINERALS 1 EACH TAB PO SCH (07:49)
[2020-12-28] MEDS: CEFEPIME 2 GM in SODIUM CHLORIDE 0.9% 100 ML IVPB SCH ×3 (07:49→23:27)
[2020-12-28] MEDS: NYSTATIN 100,000UNIT/GM CREAM 30 GM TUBE TOPICAL SCH ×2 (07:49→19:36)
--- NOTE | 2020-12-28 10:33 | P.PN ---
<Emmanuel Lang - Last Filed: 12/28/20 10:13> Subjective Progress Note Date: 12/28/20 Hospital course: Patient is a 65-year-old male with a complex past medical history including C OPD, BPH, dysphagia, chronic liver disease, and multiple other comorbid conditions. He presented to the hospital on 12/25/20with a cheif complaint of left leg pain. He does report having a history of chronic leg infections. The ER he was diagnosed with left lower extremity cellulitis. His white blood cell count was 16. He was started on IV fluids, Rocephin, and vancomycin. He was placed in observation for further monitoring. He was seen by wound care who recommended Silvadene and continue dressings. Seen by vascular surgery whom did not recommend any surgical interventions at this point in time. Pt then evaluated by infectious disease who felt that his legs may be adequately treated with oral antibiotics. Plan had been for discharge from observation on 12/27/20 however patient does not know family's phone number, and number listed in chart is disconnected. Therefore no safe discharge is available at this time. Physical examination: Patient seen and examined at bedside. He reports currently his leg pain is manageable. He denies having any other complaints at this time including headache, lightheadedness, dizziness, chest pain, increased shortness of breath or increase or changes in his chronic productive cough, abdominal pain, nausea, vomiting, or any other complaints at this time. He reports that he understands he is currently remaining under hospitalization in observation status secondary to inability to contact family and arrange for safe discharge plan. Patient states he is wheelchair-bound and unable to care for himself at home. Case management working on finding family contacts at this time. Until then, there is no safe discharge plan and patient will remain hospitalized under observation status. Morning labs pending. General: non toxic, no distress, appears older than biological age. Skin: bilateral lower extremity skin sloughing and excessively dry scaly skin with thickening and yellow discoloration, multiple areas of ulceration with granular tissue present, red jody appearance of both lower extremities, hemosiderin deposits, nonpalpable pulses DP and PT bilateral Head: atraumatic, normocephalic, symmetric Eyes: EOMI, no lid lag, anicteric sclera Mouth: no lip lesion, mucus membranes moist Cardiovascular: S1S2 reg, no murmur Lungs: Respirations even, regular, and unlabored on room air. Patient coughing up thick brown sputum in which he states is a chronic issue and typically worse in the morning and also has diffuse coarse rhonchi bilaterally. No wheezing noted. No accessory muscle usage. GI/: soft, nontender to palpation, no guarding, no appreciable organomegaly Ext: no gross muscle atrophy, no edema, no contractures Neuro: GCS 15. CN II-XI grossly intact, no focal neuro deficits Psych: Alert, oriented, appropriate affect Assessment and plan of care: Bilateral lower extremity ulcerations with peripheral arterial disease and venous stasis changes -Possible underlying infection as ulcerations do have noted seepage. -ID following and recommending for patient to continue with IV antibiotic: Cefepime and it is okay to transition to oral abx upon discharge. -Vascular surgery, and wound care following and appreciate further recommendations. -Encourage elevation of bilateral lower extremities when not in use. COPD without exacerbation with ongoing tobacco abuse -Encourage and educate patient on the importance of smoking cessation and risks of continued use. -NicoDerm patch -PRN bronchodilators -Encourage use of incentive spirometry 10-15 times hourly while awake. Leukocytosis -Chronic and unchanged with known lung mass. Neuropathy -Continue daily medication regimen with Lyrica Adenocarcinoma of the lung - Patient is already in contact with the oncology clinic, and reports difficulty with rides. - Seen by Dr Bailey 11/12/20 as inpatient who recommended restaging as outpatient. Patient to continue to follow up outpatient as recommended. Lactic acidosis, resolved DVT prophylaxis: Lovenox Discussed with: Patient and RN Anticipated discharge date: Anticipated discharge date would have been 12/27/20, however patient does not know family's phone number and number listed in the chart is disconnected. Case management continues to work on obtaining contact information to enable a safe discharge. Currently there is no safe discharge plan available and patient has to remain under observation status. Anticipated discharge place: Home with home health care. A total of 45 minutes was spent on the care of this complex patient more than 50% of the time was spent in counseling and care coordination. Objective - Vital Signs Vital signs: Vital Signs Temp 97.9 F 12/28/20 07:47 Pulse 108 H 12/28/20 07:47 Resp 16 12/28/20 07:47 BP 118/64 12/28/20 07:47 Pulse Ox 97 12/28/20 08:08 Intake & Output 12/27/20 12/28/20 12/28/20 18:59 06:59 18:59 Output Total 3 1300 Balance -3 -1300 Output: Urine 3 1300 Other: Voiding Method Urinal Urinal # Voids 4 5 # Emeses 3 - Labs CBC & Chem 7: 12/27/20 10:32 12/27/20 10:32 Labs: Abnormal Lab Results - Last 24 Hours (Table) 12/27/20 12/27/20 Range/Units 10:32 10:32 WBC 18.3 H (3.8-10.6) k/uL RBC 4.03 L (4.30-5.90) m/uL Hgb 12.3 L (13.0-17.5) gm/dL Hct 37.4 L (39.0-53.0) % Sodium 136 L (137-145) mmol/L BUN 7 L (9-20) mg/dL Creatinine 0.52 L (0.66-1.25) mg/dL Glucose 118 H (74-99) mg/dL Microbiology - Last 24 Hours (Table) 12/25/20 16:59 Blood Culture - Preliminary Blood No Growth after 48 hours 12/25/20 16:59 Blood Culture - Preliminary Blood No Growth after 48 hours <Antonia Lance A - Last Filed: 12/28/20 16:53> Objective - Vital Signs Vital signs: Vital Signs Temp 97.8 F 12/28/20 13:25 Pulse 131 H 12/28/20 13:25 Resp 22 12/28/20 13:25 BP 114/75 12/28/20 13:25 Pulse Ox 93 L 12/28/20 13:25 Intake & Output 12/27/20 12/28/20 12/28/20 18:59 06:59 18:59 Output Total 3 1300 Balance -3 -1300 Output: Urine 3 1300 Other: Voiding Method Urinal Urinal # Voids 4 5 6 # Emeses 3 - Labs CBC & Chem 7: 12/27/20 10:32 12/27/20 10:32 Labs: Microbiology - Last 24 Hours (Table) 12/25/20 16:59 Blood Culture - Preliminary Blood No Growth after 48 hours 07/01/21 16:59 Blood Culture - Preliminary Blood No Growth after 48 hours Assessment and Plan Assessment: Emmanuel Lang [employer] rendered care for this patient independently, reviewed the findings and plan as documented in the note above. I did not physically speak with or examine the patient on this date.
--- NOTE | 2020-12-28 18:31 | PN ---
PROGRESS NOTE DATE OF SERVICE: 12/28/2020 REASON FOR FOLLOWUP: 1. Bilateral lower extremity venostasis ulcer and cellulitis. 2. Possible pneumonia. INTERVAL HISTORY: Patient is afebrile. Has been complaining of more shortness of breath. He did have a cough with purulent sputum. No hemoptysis. No chest pain. No abdominal pain or any worsening pain to the lower extremities. PHYSICAL EXAMINATION: Blood pressure 118/64, pulse of 108, temperature 97.9. He is 96% on 2 L nasal cannula. General description is a middle-aged male lying in in no distress. Respiratory system: Unlabored breathing, coarse breath sounds bilaterally, no wheeze. Heart S1, S2. Regular rate and rhythm. Abdomen is soft, no tenderness. Bilateral lower extremities with dry scaly skin. Minimal redness. No drainage. LABS: No new labs have been obtained today. DIAGNOSTIC IMPRESSION AND PLAN: Patient with admission to the hospital with bilateral lower extremity pain in this patient who did have evidence of venostasis dermatitis and possible cellulitis for which the patient is currently covered with Mycolog cream and cefepime to continue. With elevated white count, further workup was done. No blood work has been done today. Sputum culture has been requested. Those will be followed. Antibiotic adjusted further if needed. MMODL / IJN: [id number] /
[2020-12-29] MEDS: HYDROcodone/APAP 10-325MG 1 EACH TAB PO PRN ×3 (04:00→20:34)
[2020-12-29] MEDS: ENOXAPARIN 40 MG/0.4 ML SYRINGE SQ SCH (07:44)
[2020-12-29] MEDS: PANTOPRAZOLE 40 MG TABLET PO SCH (07:44)
[2020-12-29] MEDS: SODIUM CHLORIDE 0.9% 1,000 ML IV SCH (07:44)
[2020-12-29] MEDS: CEFEPIME 2 GM in SODIUM CHLORIDE 0.9% 100 ML IVPB SCH ×2 (07:44→16:47)
[2020-12-29] MEDS: PREGABALIN 75 MG CAP PO SCH ×2 (07:44→20:34)
[2020-12-29] MEDS: VIT A,C & E-LUTEIN-MINERALS 1 EACH TAB PO SCH (07:45)
[2020-12-29] MEDS: CHOLECALCIFEROL 25 MCG (1000 IU) TABLET PO SCH (07:45)
[2020-12-29] MEDS: TRIAMCINOLONE 0.1% CREAM 80 GM TUBE TOPICAL SCH ×2 (07:45→20:42)
[2020-12-29] MEDS: NYSTATIN 100,000UNIT/GM CREAM 30 GM TUBE TOPICAL SCH ×2 (07:45→20:42)
[2020-12-29] MEDS: NICOTINE 21MG/24HR PATCH TRANSDERM SCH (07:52)
--- NOTE | 2020-12-29 16:22 | P.PN ---
Progress Note - Text Progress Note Date: 12/29/20 Chief Complaint: Lower extremity wounds History of presenting complaint: This is a 65-year-old patient who follows with visiting physicians Dr Salmon. Patient's chronic stable medical conditions includes some cognitive impairment, COPD, chronic lower extremity wound cellulitis. painful peripheral neuropathy in both hand and feet, smoker, diagnosed with right upper lobe lung mass with a negative PET scan, possibly awaiting another one.. Patient lives with his step son and his girlfriend.. Does use a battery operated wheelchair. home nurse who takes care of her lower extremities. This admission:The ER he was diagnosed with left lower extremity cellulitis. His white blood cell count was 16. He was started on IV fluids, Rocephin, and vancomycin. He was placed in observation for further monitoring. He was seen by wound care who recommended Silvadene and continue dressings. Seen by vascular surgery whom did not recommend any surgical interventions at this point in time. Pt then evaluated by infectious disease who felt that his legs may be adequately treated with oral antibiotics. Plan had been for discharge from observation on 12/27/20 however patient does not know family's phone number, and number listed in chart is disconnected. Therefore no safe discharge is available at this time. Today: Patient drinks several cups of coffee a day. Not eating. He's done this on previous admissions. Coffee was restricted and he started eating better. Review of systems: Was done for constitutional, cardiovascular, GI, pulmonary. relevant finding as above Active Medications Hydrocodone Bitart/Acetaminophen (Hydrocodone/Apap 10-325mg 1 Each Tab) 1 each PO Q6H PRN PRN Reason: Pain Last Admin: 12/29/20 13:44 Dose: 1 each Documented by: Albuterol Sulfate (Albuterol Nebulized 2.5 Mg/3 Ml) 2.5 mg INHALATION RT-QID PRN PRN Reason: Shortness Of Breath Or Wheezing Last Admin: 12/28/20 06:20 Dose: 2.5 mg Documented by: Cholecalciferol (Cholecalciferol 25 Mcg (1000 Iu) Tablet) 125 mcg PO DAILY [facility] Last Admin: 12/29/20 07:45 Dose: 125 mcg Documented by: Enoxaparin Sodium (Enoxaparin 40 Mg/0.4 Ml Syringe) 40 mg SQ DAILY [facility] Last Admin: 12/29/20 07:44 Dose: 40 mg Documented by: Sodium Chloride (Saline 0.9%) 1,000 mls @ 75 mls/hr IV .[id number] [facility] Last Admin: 12/29/20 07:44 Dose: 75 mls/hr Documented by: Cefepime HCl 2 gm/ Sodium (Chloride) 100 mls @ 25 mls/hr IVPB Q8HR [facility] Last Admin: 12/29/20 07:44 Dose: 25 mls/hr Documented by: Lorazepam (Lorazepam 2 Mg/Ml Inj) 0.5 mg IV Q6HR PRN PRN Reason: Anxiety Last Admin: 12/28/20 06:19 Dose: 0.5 mg Documented by: Morphine Sulfate (Morphine Sulfate 2 Mg/Ml Syringe) 2 mg IVP Q6H PRN PRN Reason: Pain/Discomfort Last Admin: 12/27/20 20:08 Dose: 2 mg Documented by: Multivitamins/Minerals (Vit A,C & T-Yoezwi-Xswzofzw 1 Each Tab) 1 each PO DAILY [facility] Last Admin: 12/29/20 07:45 Dose: 1 each Documented by: Naloxone HCl (Naloxone 0.4 Mg/Ml 1 Ml Vial) 0.2 mg IV Q2M PRN PRN Reason: Opioid Reversal Nicotine (Nicotine 21mg/24hr Patch) 1 patch TRANSDERM DAILY [facility] Last Admin: 12/29/20 07:52 Dose: Not Given Documented by: Nystatin (Nystatin 100,000unit/Gm Cream 30 Gm Tube) 1 applic TOPICAL BID [facility] Last Admin: 12/29/20 07:45 Dose: 1 applic Documented by: Ondansetron HCl (Ondansetron 4 Mg/2 Ml Vial) 4 mg IVP Q8HR PRN PRN Reason: Nausea And Vomiting Last Admin: 12/28/20 19:21 Dose: 4 mg Documented by: Pantoprazole Sodium (Pantoprazole 40 Mg Tablet) 40 mg PO AC-BRKFST [facility] Last Admin: 12/29/20 07:44 Dose: 40 mg Documented by: Pregabalin (Pregabalin 75 Mg Cap) 150 mg PO BID [facility] Last Admin: 12/29/20 07:44 Dose: 150 mg Documented by: Triamcinolone Acetonide (Triamcinolone 0.1% Cream 80 Gm Tube) 1 applic TOPICAL BID [facility] Last Admin: 12/29/20 07:45 Dose: 1 applic Documented by: Past medical history to include: COPD, cognitive impairment, bilateral lower extremity chronic cellulitis and wounds, peripheral neuropathy, smoker, right upper lobe lung mass with a negat sybil PET scan, chronic anemia, asbestos exposure, chronic left shoulder pain. Social history: Lives with his step son and his girlfriend. Gets about of the electric cart. Patient started smoking at the age of 10 up to pack and a half to 2 packs a day now down to one half a pack a day. Up to about a year ago he was drinking 4 cases of beer a week is 2 bottles of wine a week. Does use marijuana Gummi's Physical examination: VITAL SIGNS: 97.9, 100, 18, 100/64, 100% on 2 L GENERAL: A reclining in bed, awake EYES: Pupils equal. Conjunctiva normal. NECK: JVD not raised; masses not palpable. HEART: First and second heart sounds are normal; edema present. LUNGS: Respiratory rate increased, decreased breath sounds prolonged expiration ABDOMEN: Soft, nontender, liver spleen not palpable, no masses palpable. PSYCH: Alert and oriented x3; mood and affect - anxious. DERMATOLOGICAL: Evidence of stasis dermatitis and cellulitis INVESTIGATIONS, reviewed in the clinical context: WBC 18.3 hemoglobin 12.3 potassium 4 creatinine 0.52 Assessment and plan: -Acute on chronic bilateral lower extremity venous stasis cellulitis/wounds, worsened by underlying peripheral arterial disease. Continue wound care-Silvadene. IV cefepime -Stage II pressure ulcer right calcaneum with fat layer exposure, nonhealing ulcer right dorsal foot with fatty layer exposure POA Colovaginal, saline moistened gauze, dry gauze. Foam heel covers. -Acute COPD exacerbation in current smoker:-Uncontrolled Start DuoNeb 4 times a day -Chronic nicotine dependence patient is a cigarette smoker Nicotine patch -Mild cognitive impairment -Painful peripheral neuropathy Continue with Lyrica -Right upper lobe lung mass with a known negative PET scan. Patient being followed by oncology/pulmonary.-Further workup as outpatient -Chronic medical debility. Does use electronic cart Consult PTOT - moderate protein calorie malnutrition Nutritional supplements . Patient's excessive coffee intake will be curtailed hiking previous admissions. Encourage oral intake Communicated with casework supervisor. Did try to contact patient's family. Add DuoNeb. Cutback on coffee intake. Encourage oral intake. Discussed with the patient. Total time spent today about 40 minutes with over 20 minutes of discussion
[2020-12-29] MEDS: IPRATROPIUM-ALBUTEROL 3 ML NEB INHALATION SCH (18:52)
[2020-12-30] MEDS: CEFEPIME 2 GM in SODIUM CHLORIDE 0.9% 100 ML IVPB SCH ×3 (00:15→17:28)
--- NOTE | 2020-12-30 07:01 | PN ---
PROGRESS NOTE DATE OF SERVICE: 12/29/2020 REASON FOR FOLLOWUP: 1. Bilateral lower extremity venostasis ulcer and question of cellulitis. 2. Pneumonia. INTERVAL HISTORY: Patient is afebrile. The patient is breathing comfortably. Denies having any chest pain or shortness. Does have a cough. No abdominal pain or any worsening pain in the lower extremity. PHYSICAL EXAMINATION: Blood pressure 139/75, pulse of 60, temperature 98.6. He is 91% on room air. General description is a middle-aged male up in the bed in no distress. Respiratory system: Unlabored breathing. Decreased intensity of breath sounds. No wheeze. Heart S1, S2. Regular rate and rhythm. Abdomen is soft, no tenderness. Bilateral extremities with dry scaly skin, some superficial plaque. Redness has improved. No drainage. LABS: No new labs been obtained today. Sputum pending. Blood culture negative. DIAGNOSTIC IMPRESSION AND PLAN: Patient with bilateral lower extremity venostasis dermatitis with concern for possible cellulitis. The patient is currently covered with cefepime. If the culture remains negative, finish therapy with short course of oral Keflex along with Mycolog cream. Plan of care was discussed with the admitting physician. MMODL / IJN: [id number] /
[2020-12-30] MEDS: PREGABALIN 75 MG CAP PO SCH (08:20)
[2020-12-30] MEDS: IPRATROPIUM-ALBUTEROL 3 ML NEB INHALATION SCH ×3 (08:20→17:23)
[2020-12-30] MEDS: VIT A,C & E-LUTEIN-MINERALS 1 EACH TAB PO SCH (08:21)
[2020-12-30] MEDS: CHOLECALCIFEROL 25 MCG (1000 IU) TABLET PO SCH (08:21)
[2020-12-30] MEDS: NICOTINE 21MG/24HR PATCH TRANSDERM SCH (08:22)
[2020-12-30] MEDS: PANTOPRAZOLE 40 MG TABLET PO SCH (08:22)
[2020-12-30] MEDS: ENOXAPARIN 40 MG/0.4 ML SYRINGE SQ SCH (08:22)
[2020-12-30] MEDS: NYSTATIN 100,000UNIT/GM CREAM 30 GM TUBE TOPICAL SCH (08:30)
[2020-12-30] MEDS: TRIAMCINOLONE 0.1% CREAM 80 GM TUBE TOPICAL SCH (08:31)
[2020-12-30] MEDS: HYDROcodone/APAP 10-325MG 1 EACH TAB PO PRN (08:34)
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
--- NOTE | 2020-12-30 11:44 | PN ---
PROGRESS NOTE DATE OF SERVICE: 12/30/2020 REASON FOR FOLLOWUP: Bilateral lower extremity venostasis ulcer and cellulitis. INTERVAL HISTORY: Patient is afebrile. The patient is breathing about the same. No worsening. No chest pain or worsening cough. No abdominal pain. Still complaining of some burning pain to the lower extremity. PHYSICAL EXAMINATION: Blood pressure 120/87, pulse of 160. Temperature 98.6. He is 95% on 2 L nasal cannula. General description is an elderly male lying in bed in no distress. Respiratory system: Unlabored breathing, decreased intensity if the breath sounds, with no wheeze. Heart S1, S2. Regular rate and rhythm. Abdomen: Soft. Legs are currently wrapped up. No drainage on the dressing. LAB: Sputum showing Aspen. Blood culture has been negative. DIAGNOSTIC IMPRESSION AND PLAN: Patient with bilateral lower extremity venostasis dermatitis and possible component of cellulitis. On cefepime, transition to oral Keflex. Local care with Mycolog cream and close outpatient followup. MMODL / IJN: [id number] /
[2020-12-30 13:23] VITALS: BP 110/63; PULSE 54; RESP 21; TEMP 98.4
--- NOTE | 2020-12-30 14:59 | P.DS ---
Providers Date of admission: 12/29/20 13:22 Expected date of discharge: 12/30/20 Attending physician: Ye Scott Consults: 12/25/20 20:32 Consult Physician Routine Consulting Provider: Cara Russell Consult Reason/Comments: Lower extremity cellulitis Do you want consulting provider notified?: Yes 12/26/20 09:58 Consult Physician Routine Consulting Provider: Usama Fatima Consult Reason/Comments: PAD Do you want consulting provider notified?: Yes Primary care physician: Simba Salmon MD Hospital Course: Chief Complaint: Lower extremity wounds History of presenting complaint: This is a 65-year-old patient who follows with visiting physicians Dr Salmon. Patient's chronic stable medical conditions includes some cognitive impairment, COPD, chronic lower extremity wound cellulitis. painful peripheral neuropathy in both hand and feet, smoker, diagnosed with right upper lobe lung mass with a negative PET scan, possibly awaiting another one.. Patient lives with his step son and his girlfriend.. Does use a battery operated wheelchair. home nurse who takes care of her lower extremities. This admission:The ER he was diagnosed with left lower extremity cellulitis. His white blood cell count was 16. He was started on IV fluids, Rocephin, and vancomycin. He was placed in observation for further monitoring. He was seen by wound care who recommended Silvadene and continue dressings. Seen by vascular surgery whom did not recommend any surgical interventions at this point in time. Pt then evaluated by infectious disease who felt that his legs may be adequately treated with oral antibiotics. Plan had been for discharge from observation on 12/27/20 however patient does not know family's phone number, and number listed in chart is disconnected. Therefore no safe discharge is available at this time. Today: Patient advised about cutting back on excessive coffee and takes. Because of that he does not eat his food. Patient upset about that. Discussed Dr. russell from ID. Changed to oral Keflex-for 7 days. Topical cream to continue. Patient to follow-up in the wound care center. Discussed with social worker clinical Discussion and discharge planning more than 35 minutes Consultation: Dr. Russell from ID Dr. Alfaro from vascular Dr. baker from wound care center Past medical history to include: COPD, cognitive impairment, bilateral lower extremity chronic cellulitis and wounds, peripheral neuropathy, smoker, right upper lobe lung mass with a negative PET scan, chronic anemia, asbestos exposure, chronic left shoulder pain. Social history: Lives with his step son and his girlfriend. Gets about of the electric cart. Patient started smoking at the age of 10 up to pack and a half to 2 packs a day now down to one half a pack a day. Up to about a year ago he was drinking 4 cases of beer a week is 2 bottles of wine a week. Does use marijuana Gummi's Physical examination: VITAL SIGNS: 98.4, 54, 21, 110/63, 98% room air GENERAL: reclining in bed, awake EYES: Pupils equal. Conjunctiva normal. NECK: JVD not raised; masses not palpable. HEART: First and second heart sounds are normal; edema present. LUNGS: Respiratory rate increased, decreased breath sounds prolonged expiration ABDOMEN: Soft, nontender, liver spleen not palpable, no masses palpable. PSYCH: Alert and oriented x3; mood and affect - anxious. DERMATOLOGICAL: Evidence of stasis dermatitis and cellulitis INVESTIGATIONS, reviewed in the clinical context: WBC 18.3 hemoglobin 12.3 potassium 4 creatinine 0.52 Assessment and plan: -Acute on chronic bilateral lower extremity venous stasis cellulitis/wounds, worsened by underlying peripheral arterial disease. Continue wound care with Kenalog. IV cefepime-changed over to Keflex -Stage II pressure ulcer right calcaneum with fat layer exposure, nonhealing ulcer right dorsal foot with fatty layer exposure POA Collagen, saline moistened gauze, dry gauze. Foam heel covers. -Acute COPD exacerbation in current smoker: DuoNeb 3 times a day -Chronic nicotine dependence patient is a cigarette smoker Nicotine patch -Mild cognitive impairment -Painful peripheral neuropathy Continue with Lyrica -Right upper lobe lung mass with a known negative PET scan. Patient being followed by oncology/pulmonary.-Further workup as outpatient -Chronic medical debility. Does use electronic cart PTOT - moderate protein calorie malnutrition Nutritional supplements . Patient knows to cut back on his coffee intake [facility] a dark [place]. Nurse was 69 hemoglobin and family over 69 supposed to have a family meeting 3:00 not known and INR ARE [id number] Patient Condition at Discharge: Fair Plan - Discharge Summary Discharge Rx Participant: Yes New Discharge Prescriptions: New Triamcinolone 0.1% Cream [Kenalog 0.1% Cream] 1 applic TOPICAL BID applic Ipratropium-Albuterol Nebulize [Duoneb 0.5 mg-3 mg/3 ml Soln] 3 ml INHALATION TID ml Nicotine 21Mg/24Hr Patch [Habitrol] 1 patch TRANSDERM DAILY patch Cephalexin [Keflex] 500 mg PO Q8HR #21 cap Nystatin 100,000Unit/gm Cream [Mycostatin Cream] 1 applic TOPICAL BID applic Pantoprazole [Protonix] 40 mg PO AC-BRKFST tablet. Continue Cholecalciferol [Vitamin D3 (25 Mcg = 1000 Iu)] 125 mcg PO DAILY #30 tablet Vit C/E/Zn/Coppr/Lutein/Zeaxan [Preservision Areds 2 Softgel] 1 cap PO DAILY Pregabalin [Lyrica] 150 mg PO BID #6 cap Discontinued Furosemide [Lasix] 20 mg PO DAILY Discharge Medication List Cholecalciferol [Vitamin D3 (25 Mcg = 1000 Iu)] 125 mcg PO DAILY #30 tablet 11/17/20 [Rx] Vit C/E/Zn/Coppr/Lutein/Zeaxan [Preservision Areds 2 Softgel] 1 cap PO DAILY 12/25/20 [History] Cephalexin [Keflex] 500 mg PO Q8HR #21 cap 12/30/20 [Rx] Ipratropium-Albuterol Nebulize [Duoneb 0.5 mg-3 mg/3 ml Soln] 3 ml INHALATION TID ml 12/30/20 [Rx] Nicotine 21Mg/24Hr Patch [Habitrol] 1 patch TRANSDERM DAILY patch 12/30/20 [Rx] Nystatin 100,000Unit/gm Cream [Mycostatin Cream] 1 applic TOPICAL BID applic 12/30/20 [Rx] Pantoprazole [Protonix] 40 mg PO AC-BRKFST tablet. 12/30/20 [Rx] Pregabalin [Lyrica] 150 mg PO BID #6 cap 12/30/20 [Rx] Triamcinolone 0.1% Cream [Kenalog 0.1% Cream] 1 applic TOPICAL BID applic 12/30/20 [Rx] Follow up Appointment(s)/Referral(s): Simba Salmon MD [Primary Care Provider] - As Needed Nurse,[facility] [NON-STAFF] - As Needed Justino Tolentino DO [Doctor of Osteopathic Medicine] - 1 Week Activity/Diet/Wound Care/Special Instructions: [place] [facility] transportation: #[phone] [facility]: #[phone]
== END 2020-12-30 17:30 | DRG 603 ==
LOC: EC 15:02 → 4SSUR 19:20 → OBSVTOIN 12-29 13:22
PROVIDERS: ADMIT Hospitalist; ATTEND Hospitalist
DX: L03.115 Cellulitis of right lower limb (principal); L97.929 Non-pressure chronic ulcer of unspecified part of left lower leg with unspecified severity; J44.1 Chronic obstructive pulmonary disease with (acute) exacerbation; J44.0 Chronic obstructive pulmonary disease with (acute) lower respiratory infection; E87.2 Acidosis; C34.90 Malignant neoplasm of unspecified part of unspecified bronchus or lung; E44.0 Moderate protein-calorie malnutrition; L03.116 Cellulitis of left lower limb; I83.019 Varicose veins of right lower extremity with ulcer of unspecified site; I83.029 Varicose veins of left lower extremity with ulcer of unspecified site; Z96.1 Presence of intraocular lens; Z91.19 Patient's noncompliance with other medical treatment and regimen; Z86.16 Personal history of COVID-19; Z85.118 Personal history of other malignant neoplasm of bronchus and lung; Z82.49 Family history of ischemic heart disease and other diseases of the circulatory system; Z79.899 Other long term (current) drug therapy; N40.0 Benign prostatic hyperplasia without lower urinary tract symptoms; L97.512 Non-pressure chronic ulcer of other part of right foot with fat layer exposed; L89.612 Pressure ulcer of right heel, stage 2; I87.8 Other specified disorders of veins; I87.2 Venous insufficiency (chronic) (peripheral); I83.009 Varicose veins of unspecified lower extremity with ulcer of unspecified site; I73.9 Peripheral vascular disease, unspecified; F03.90 Unspecified dementia, unspecified severity, without behavioral disturbance, psychotic disturbance, mood disturbance, and anxiety; F17.210 Nicotine dependence, cigarettes, uncomplicated; G62.9 Polyneuropathy, unspecified
CPT/HCPCS: 36415; 71046; 80048; 80053; 83605; 85025; 85027; 87040; 87070; 87205; 94640; 94760; 96365; 96374; 99284

== ENCOUNTER → 2021-04-08 | Outpatient (CLI) | payer OTHER ==
--- NOTE | 2021-04-08 10:12 | MR ---
EXAMINATION TYPE: MR brain wo/w con DATE OF EXAM: 04/08/2021 COMPARISON: CT scan 10/06/2020 HISTORY: Lung Cancer, leg weakness TECHNIQUE: Multiplanar, multisequence images of the brain and brainstem is performed without and with IV contras t, utilizing 6 mL intravenous Gadavist . FINDINGS: Exam limited by motion artifact. Diffusion weighted images demonstrate no evidence of a recent infarct or other diffusion abnormality. There is scattered foci of abnormal signal within the white matter which is nonspecific. No midline shift or mass effect. Midline structures demonstrate normal morphology. The craniocervical junction appears within normal limits. Post contrast images demonstrate no abnormal enhancement. The dural venous sinuses appear pa tent. Orbits are symmetric. Changes of chronic sinusitis noted. IMPRESSION: 1. Degenerative and nonspecific white matter changes most typical of remote white matter ischemia wit h no evidence of enhancing mass to suggest intracranial metastasis
== END | disposition home or self-care (01) ==
LOC: RADMRIMAIN 08:23
PROVIDERS: ATTEND Internal Medicine Hematology & Oncology
DX: C34.11 Malignant neoplasm of upper lobe, right bronchus or lung (principal); I67.82 Cerebral ischemia
CPT/HCPCS: 70553

== ENCOUNTER → 2021-04-21 | Outpatient (CLI) | payer OTHER ==
--- NOTE | 2021-04-21 14:39 | CT ---
EXAMINATION TYPE: CT ChestAbdPelvis w con DATE OF EXAM: 04/21/2021 COMPARISON: 12/19/2020, 08/02/2020 HISTORY: 65-year-old male Lung cancer, observation for mets. C34.11, Z03.89 TECHNIQUE: Contiguous axial scanning of the chest, abdomen, and pelvis performed with IV Contrast, pa tient injected with 100 ml mL of Isovue 300. Delayed images through the kidneys were obtained. Gamez l/sagittal reconstructions performed. CT DLP: 587.90 mGycm Automated exposure control for dose reduction was used. FINDINGS: CHEST: Heart normal size without pericardial effusion. Aortic valvular calcifications with mild aneurysm aor tic root at 4.1 cm. Very direct takeoff of the left vertebral artery directly from the aortic arch. Mild apical scarring calcifications. Enlarging mass that fills the right paratracheal and right tracheobronchial angle region with continu ed increasing mass effect and leftward displacement of the trachea. This mass now measures up to 8.0 cm wide by 7.6 cm AP versus 6.3 x 5.4 cm, previously. There is now irregular invasion into the narrow ed SVC. New contiguous subcarinal lymphadenopathy measuring 2.9 cm and right hilar lymphadenopathy measuring 3.5 cm. The spiculated right upper lobe mass measures 3.0 cm versus 2.6 cm, previously. Satellite nodule just below measures 8 mm versus 4 mm, previously. Numerous additional small nodules throughout the right lung. Many of these show a groundglass appeara nce and could be infectious/inflammatory but metastatic nodules are difficult to exclude. A few similar small groundglass nodules are present on the left now as well measuring up to 8 mm. Prominent dependent atelectasis particularly on the left. Background moderate emphysema. Prominent contrast column within the thoracic esophagus suggests gastroesophageal reflux. ABDOMEN: No focal liver lesion or biliary ductal dilatation. Portal venous system is patent. Gallbladder, adrenal glands, kidneys, spleen, and pancreas show no gross anomaly. Moderate atherosclerotic calcification throughout the abdominal aorta and iliac arteries. No dilated small bowel, free fluid, or free air. No mesenteric or retroperitoneal lymphadenopathy. Th ere is mild to moderate stool within the left side of the colon with oral contrast extending to the l evel of the splenic flexure of the colon. Proximal to mid sigmoid diverticulosis. No definite pericol onic inflammatory change. Rectum is distended with stool up to 7.0 cm wide. Multiple pelvic phleboliths. PELVIS: Prominent 8 mm left external iliac chain lymph node has decreased in size as have the previous left i nguinal lymph nodes. Currently measuring up to 1.0 cm on the right versus 1.4 cm, previously. Bladder distended. No abnormal fluid collection the pelvis. BONES: Mild to moderate degenerative change of the hips. Moderate to advanced multilevel degenerative disc d isease mid to lower thoracic spine and thoracolumbar spine. Hypertrophic facet arthropathy lumbar spi ne. IMPRESSION: 1. INTERVAL ENLARGEMENT OF THE LARGE SUHAIL MASS ALONG THE RIGHT PARATRACHEAL AND RIGHT TRACHEOBRONCHI AL ANGLE REGION NOW MEASURING UP TO 8.0 CM VERSUS 6.3 CM, PREVIOUSLY. THERE IS GREATER DEGREE OF MASS EFFECT AND LEFTWARD DISPLACEMENT OF THE TRACHEA AND INVASION INTO THE SVC NARROWING THE LUMEN. THERE IS NEW CONTIGUOUS SUBCARINAL LYMPHADENOPATHY (2.9 CM) AND NEW RIGHT HILAR LYMPHADENOPATHY (3.5 CM). 2. SPICULATED RIGHT UPPER LOBE MASS NOW 3.0 CM VERSUS 2.6 CM, PREVIOUSLY. SATELLITE NODULE JUST BELOW MEASURES 8 MM VERSUS 4 MM, PREVIOUSLY. NUMEROUS ADDITIONAL SMALLER GROUNDGLASS NODULES THROUGHOUT TH E RIGHT LUNG COULD REPRESENT AN INFECTIOUS ETIOLOGY. NUMEROUS SMALL PULMONARY METASTASES DIFFICULT TO EXCLUDE. 3. LESSER DEGREE OF SCATTERED GROUNDGLASS NODULES ON THE LEFT MEASURING UP TO 8 MM ARE ALSO NEW. AGAI N, BOTH INFECTIOUS ETIOLOGY AND SMALL METASTATIC NODULES ARE BOTH POSSIBILITIES AT THIS TIME. 4. RECTUM DISTENDED UP TO 7.0 CM WIDE WITH STOOL. CORRELATE CLINICALLY TO EXCLUDE FECAL IMPACTION.
--- NOTE | 2021-04-22 15:30 | NM ---
EXAMINATION TYPE: NM bone scan whole body DATE OF EXAM: 04/21/2021 COMPARISON: NONE HISTORY: Lung cancer Delayed whole-body scanning was performed following the injection of 15.0 mCi Tc 99m MDP. Images wer e acquired 3 hours post injection. FINDINGS: No suspicious focal uptake to suggest metastatic disease is identified. Urinary bladder obscures a po rtion of the pelvis. IMPRESSION: 1. No suspicious uptake to suggest metastatic osseous disease
== END | disposition home or self-care (01) ==
LOC: RADNMMAIN 11:32
PROVIDERS: ATTEND Internal Medicine Hematology & Oncology
DX: Z03.89 Encounter for observation for other suspected diseases and conditions ruled out (principal); C34.11 Malignant neoplasm of upper lobe, right bronchus or lung
CPT/HCPCS: 71260; 74177; 36415; 78306; A9503; Q9967

== ENCOUNTER → 2021-07-20 | Outpatient (CLI) | payer OTHER ==
--- NOTE | 2021-07-20 11:06 | CT ---
EXAMINATION TYPE: CT chest w con DATE OF EXAM: 07/20/2021 COMPARISON: 04/21/2021 HISTORY: follow up lung cancer CT DLP: 276.6 mGycm Automated exposure control for dose reduction was used. TECHNIQUE: CT scan of the chest is performed with IV Contrast, patient injected with 100 mL of Isovue 300. MIP Images are created on CT scanner and reviewed. 3D reconstructed images are created on an independent workstation and reviewed. FINDINGS: CHEST: Heart normal size without pericardial effusion. Aortic valvular calcifications with mild aneur ysm aortic root at 4.1 cm. Very direct takeoff of the left vertebral artery directly from the aortic arch. Mild apical scarring calcifications. Mediastinal mass in the region of the right paratracheal and right tracheobronchial angle demonstrate marked interval improvement now measuring 3.2 x 1.7 cm and previously measuring 8 x 7.6 cm. Right perihilar lymphadenopathy now measuring short axis of 1.7 L and previously measuring short axis of 2.4 cm demonstrating interval improvement. Subcarinal lymphadenopathy previously measured 3.5 cm and now measures 0.8 cm. The spiculated right upper lobe mass measures 2.5 cm versus 3 cm and demonstrates central cavitation suggestive of response to therapy. Satellite nodule just below measures 8 mm and is stable. Numerous additional small nodules throughout the right lung. Many of these show a groundglass appearance and could be infectious/inflammatory but metastatic nodules are difficult to exclude. Routine or screening. Hypertrophic and degenerative changes of the spine. No destructive changes. Chr onic rib deformities on the left noted. Fluid-filled esophagus again noted. Suspected soft tissue lip marybeth posteriorly on the right upper thoracic spine ectasia measuring 4.5 cm retrospectively stable. Co ronary artery calcification noted. Arthropathy of the shoulders. IMPRESSION: 1. Interval reduction in size of the spiculated mass right upper lobe now having cavitation measuring 2.5 cm versus 3 cm compatible. 2. Interval reduction in the adenopathy within the mediastinum and right hilum compatible with respon se to therapy. 3. Esophagus is dilated and fluid-filled. 4. Interval reduction in the amount of groundglass scattered reticular nodular changes relative to pr ior exam. Inflammatory infectious etiology small metastatic nodules or lymphangitic metastasis is not excluded
== END | disposition home or self-care (01) ==
LOC: RADCTMAIN 08:58
PROVIDERS: ATTEND Internal Medicine Hematology & Oncology
DX: Z03.89 Encounter for observation for other suspected diseases and conditions ruled out (principal)
CPT/HCPCS: 71260; Q9967

== ENCOUNTER 2021-10-29 07:43 | Inpatient (IN) | payer OTHER ==
[2021-10-29] MEDS ORDERED: ACETAMINOPHEN TAB 500 MG TAB PO STA (08:02)
[2021-10-29] MEDS ORDERED: IBUPROFEN 600 MG TAB PO STA (08:02)
[2021-10-29] MEDS: SODIUM CHLORIDE 0.9% 500 ML 500 ML IV SCH ×3 (08:22→09:35)
[2021-10-29] MEDS ORDERED: PREGABALIN 100 MG CAP PO STA (08:35)
--- NOTE | 2021-10-29 08:38 | ED ---
General Adult HPI - General Chief complaint: Fever Stated complaint: Altered Mental Status Time Seen by Provider: 10/29/21 07:55 Source: patient, EMS, RN notes reviewed, old records reviewed Mode of arrival: EMS Limitations: no limitations - History of Present Illness Initial comments: This is a 66-year-old male who presents emergency Department the past medical history significant for lung cancer. Patient comes in today from the alf because he spiked a fever and his pulse ox was down a little bit and did increase his oxygen from 5 L to 6 L. Patient states he's got a cough but it's always there. Patient states she's had a COVID vaccine. Patient denies any abdominal pain or nausea or vomiting or diarrhea. Patient denies any lighthea dedness or dizziness. Patient denies headache. Patient denies any lesions or rashes or sores that are worsening. Patient states she has a chronic sore on the right lateral calf but it looks no different. Patient denies any dysuria hematuria urinary frequency. - Related Data Home Medications Medication Instructions Recorded Confirmed Acetaminophen [Tylenol] 650 mg PO Q6H PRN 05/12/21 10/29/21 HYDROcodone/APAP 7.5-325MG [Sunray 1 tab PO Q6HR PRN 10/29/21 10/29/21 7.5-325] Ipratropium-Albuterol Nebulize 3 ml INHALATION RT-TID PRN 10/29/21 10/29/21 [Duoneb 0.5 mg-3 mg/3 ml Soln] Nystatin 100,000Unit/gm Cream 1 applic TOPICAL Q8H 10/29/21 10/29/21 [Mycostatin Cream] Pregabalin [Lyrica] 300 mg PO BID 10/29/21 10/29/21 Triamcinolone 0.1% Cream [Kenalog 1 applic TOPICAL BID 10/29/21 10/29/21 0.1% Cream] Allergies Allergy/AdvReac Type Severity Reaction Status Date / Time No Known Allergies Allergy Verified 10/29/21 08:48 Review of Systems ROS Statement: Those systems with pertinent positive or pertinent negative responses have been documented in the HPI. ROS Other: All systems not noted in ROS Statement are negative. Past Medical History Past Medical History: COPD, Eye Disorder, Memory Impairment Additional Past Medical History / Comment(s): COVID in September 2019, BPH, dysphagia, previous liver biopsy results non malignant alcoholism, COPD, dementia, chronic malnutrition, BLE edema, macular degeneration to left eye, masses to both lung lobes suspecting malignancy History of Any Multi-Drug Resistant Organisms: None Reported Past Surgical History: Orthopedic Surgery Additional Past Surgical History / Comment(s): liver biopsy, left thumb surgery left arm fasciotomy, bilateral cataracts removed with lens implants Past Anesthesia/Blood Transfusion Reactions: No Reported Reaction Past Psychological History: No Psychological Hx Reported Smoking Status: Current every day smoker - Past Family History Father History Unknown: Yes Family Medical History: Myocardial Infarction ([place]) Additional Family Medical History / Comment(s): Father of a [place] at the age of 57yrs. Mother Additional Family Medical History / Comment(s): Mother had a tumor in her heart/surgery to remove and of post op infection. General Exam - General Exam Comments Initial Comments: GENERAL: Patient is well-developed and well-nourished. Patient is nontoxic and well- hydrated and is in mild distress. ENT: Neck is soft and supple. No significant lymphadenopathy is noted. Oropharynx is clear. Moist mucous membranes. Neck has full range of motion without eliciting any pain. EYES: The sclera were anicteric and conjunctiva were pink and moist. Extraocular movements were intact and pupils were equal round and reactive to light. Eyelids were unremarkable. PULMONARY: Patient has crackles in both bases and in the upper lung on the left CARDIOVASCULAR: There is a regular rate and rhythm without any murmurs gallops or rubs. ABDOMEN: Soft and nontender with normal bowel sounds. SKIN: Skin is clear with no lesions or rashes and otherwise unremarkable. NEUROLOGIC: Patient is alert and oriented x3. Cranial nerves II through XII are grossly intact. Motor and sensory are also intact. Normal speech, volume and content. Symmetrical smile. MUSCULOSKELETAL: Normal extremities with adequate strength and full range of motion. No edema on the legs LYMPHATICS: No significant lymphadenopathy is noted PSYCHIATRIC: Normal psychiatric evaluation. Limitations: no limitations Course Vital Signs 10/29/21 10/29/21 10/29/21 07:53 09:25 10:04 Temperature 102.6 F H Pulse Rate 128 H 122 H 106 H Respiratory 28 H 20 22 Rate Blood Pressure 104/61 74/53 91/52 O2 Sat by Pulse 94 L 98 95 Oximetry 10/29/21 10/29/21 10:15 10:35 Temperature 98.8 F Pulse Rate 111 H 105 H Respiratory 24 20 Rate Blood Pressure 94/56 96/56 O2 Sat by Pulse 96 Oximetry Medical Decision Making - Medical Decision Making EKG shows sinus tachycardia with frequent PVCs at 131 bpm LA interval 155, QRS is under 2 QT interval is 294 QTC is 371 per patient's EKG shows no ST segment elevation or depression. Patient has influenza. I will give the patient, who. Patient's been hypotensive so the patient received 1.5 L of fluid. He is now having a systolic blood pressure in the 90s. Patient refuses to be catheterized for urine. [facility] agreed to admit the patient admitted the patient I wrote admitting orders. - Lab Data Result diagrams: 10/29/21 08:15 10/29/21 08:15 Lab Results 10/29/21 10/29/21 10/29/21 Range/Units 08:15 08:15 08:15 WBC 12.5 H (3.8-10.6) k/uL RBC 4.72 (4.30-5.90) m/uL Hgb 14.0 (13.0-17.5) gm/dL Hct 43.5 (39.0-53.0) % MCV 92.3 (80.0-100.0) fL MCH 29.6 (25.0-35.0) pg MCHC 32.1 (31.0-37.0) g/dL RDW 13.7 (11.5-15.5) % Plt Count 250 (150-450) k/uL MPV 7.3 Neutrophils % 95 % Lymphocytes % 1 % Monocytes % 3 % Eosinophils % 1 % Basophils % 0 % Neutrophils # 11.8 H (1.3-7.7) k/uL Lymphocytes # 0.1 L (1.0-4.8) k/uL Monocytes # 0.4 (0-1.0) k/uL Eosinophils # 0.1 (0-0.7) k/uL Basophils # 0.1 (0-0.2) k/uL PT 11.3 (9.0-12.0) sec INR 1.1 (<1.2) APTT 28.9 (22.0-30.0) sec Sodium 136 L (137-145) mmol/L Potassium 4.2 (3.5-5.1) mmol/L Chloride 101 (98-107) mmol/L Carbon Dioxide 26 (22-30) mmol/L Anion Gap 9 mmol/L BUN 16 (9-20) mg/dL Creatinine 0.46 L (0.66-1.25) mg/dL Est GFR (CKD-EPI)AfAm >90 (>60 ml/min/1.73 sqM) Est GFR (CKD-EPI)NonAf >90 (>60 ml/min/1.73 sqM) Glucose 119 H (74-99) mg/dL Plasma Lactic Acid Roberto Carlos (0.7-2.0) mmol/L Calcium 8.6 (8.4-10.2) mg/dL Total Bilirubin 0.8 (0.2-1.3) mg/dL AST 33 (17-59) U/L ALT 21 (4-49) U/L Alkaline Phosphatase 106 (38-126) U/L Total Protein 7.6 (6.3-8.2) g/dL Albumin 3.5 (3.5-5.0) g/dL Coronavirus (PCR) (Not Detectd) Influenza Type A RNA (Not Detectd) Influenza Type B (PCR) (Not Detectd) 10/29/21 10/29/21 10/29/21 Range/Units 08:15 08:15 08:15 WBC (3.8-10.6) k/uL RBC (4.30-5.90) m/uL Hgb (13.0-17.5) gm/dL Hct (39.0-53.0) % MCV (80.0-100.0) fL MCH (25.0-35.0) pg MCHC (31.0-37.0) g/dL RDW (11.5-15.5) % Plt Count (150-450) k/uL MPV Neutrophils % % Lymphocytes % % Monocytes % % Eosinophils % % Basophils % % Neutrophils # (1.3-7.7) k/uL Lymphocytes # (1.0-4.8) k/uL Monocytes # (0-1.0) k/uL Eosinophils # (0-0.7) k/uL Basophils # (0-0.2) k/uL PT (9.0-12.0) sec INR (<1.2) APTT (22.0-30.0) sec Sodium (137-145) mmol/L Potassium (3.5-5.1) mmol/L Chloride (98-107) mmol/L Carbon Dioxide (22-30) mmol/L Anion Gap mmol/L BUN (9-20) mg/dL Creatinine (0.66-1.25) mg/dL Est GFR (CKD-EPI)AfAm (>60 ml/min/1.73 sqM) Est GFR (CKD-EPI)NonAf (>60 ml/min/1.73 sqM) Glucose (74-99) mg/dL Plasma Lactic Acid Roberto Carlos 1.1 (0.7-2.0) mmol/L Calcium (8.4-10.2) mg/dL Total Bilirubin (0.2-1.3) mg/dL AST (17-59) U/L ALT (4-49) U/L Alkaline Phosphatase (38-126) U/L Total Protein (6.3-8.2) g/dL Albumin (3.5-5.0) g/dL Coronavirus (PCR) Not Detected (Not Detectd) Influenza Type A RNA Detected H (Not Detectd) Influenza Type B (PCR) Not Detected (Not Detectd) Critical Care Time Critical Care Time: Yes Total Critical Care Time: 35 Disposition Clinical Impression: Influenza, Hypotension, Pneumonia, Sepsis Disposition: ADMITTED IP TO THIS [facility] Referrals: Nonstaff,Physician [Primary Care Provider] - 1-2 days Time of Disposition: 10:10
[2021-10-29 08:40] LABS: Basophils # (A) 0.1 k/uL (0-0.2); Basophils % (A) 0 %; Eosinophils # (A) 0.1 k/uL (0-0.7); Eosinophils % (A) 1 %; HCT 43.5 % (39.0-53.0); Lymphocytes # (A) 0.1 k/uL (1.0-4.8); Lymphocytes % (A) 1 %; MCH 29.6 pg (25.0-35.0); MCHC 32.1 g/dL (31.0-37.0); MCV 92.3 fL (80.0-100.0); Mean Platelet Volume 7.3; Monocytes # (A) 0.4 k/uL (0-1.0); Monocytes % (A) 3 %; Neutrophils # (A) 11.8 k/uL (1.3-7.7); Neutrophils % (A) 95 %; Platelet Count 250 k/uL (150-450); RBC 4.72 m/uL (4.30-5.90); RDW 13.7 % (11.5-15.5); WBC 12.5 k/uL (3.8-10.6)
[2021-10-29 08:47] LABS: INR 1.1 (<1.2); Partial Thromboplastin Time 28.9 sec (22.0-30.0); Prothrombin Time 11.3 sec (9.0-12.0)
[2021-10-29 08:52] LABS: ALT 21 U/L (4-49); African American GFR (CKD) >90 (>60 ml/min/1.73 sqM); Albumin 3.5 g/dL (3.5-5.0); Anion Gap 9 mmol/L; Blood Urea Nitrogen 16 mg/dL (9-20); Calcium 8.6 mg/dL (8.4-10.2); Carbon Dioxide 26 mmol/L (22-30); Chloride 101 mmol/L (98-107); Glucose 119 mg/dL (74-99); Non-African American GFR(CKD) >90 (>60 ml/min/1.73 sqM); Sodium 136 mmol/L (137-145); Total Bilirubin 0.8 mg/dL (0.2-1.3); Total Protein 7.6 g/dL (6.3-8.2)
[2021-10-29 08:57] LABS: AST 33 U/L (17-59); Alkaline Phosphatase 106 U/L (38-126); Potassium 4.2 mmol/L (3.5-5.1)
--- NOTE | 2021-10-29 09:07 | XR ---
EXAMINATION TYPE: XR chest 2V DATE OF EXAM: 10/29/2021 COMPARISON: CT chest July 20, 2021 and older studies HISTORY: Shortness of breath and fever. History of lung cancer. TECHNIQUE: Frontal and lateral views of the chest are obtained. FINDINGS: Osseous structures redemonstrated demineralized. Background chronic emphysematous change w ith right upper lung scarring and/or treated neoplasm redemonstrated. Persistent right-sided volume l oss with mediastinal shift. Patient more rotated to the right on current study. Abnormal thickening o f the right paratracheal stripe remains present. No new pleural effusion or pneumothorax seen. Cardia c silhouette size is upper limits of normal. IMPRESSION: Chronic changes with known right paratracheal mass or neoplasm. No new acute pulmonary p rocess clearly seen.
[2021-10-29] MEDS ORDERED: OSELTAMIVIR 75 MG CAP PO STA (10:13)
[2021-10-29] MEDS ORDERED: SODIUM CHLORIDE 0.9% 500 ML 500 ML IV ONE (10:26)
[2021-10-29] MEDS ORDERED: PNEUMONIA PROTOCOL UTILIZED 1 EACH MISC PO PRN (11:26)
[2021-10-29] MEDS ORDERED: AZITHROMYCIN 500 MG in SODIUM CHLORIDE 0.9% 250 ML IVPB STA (11:26)
[2021-10-29] MEDS ORDERED: cefTRIAXone IN SWFI 1,000 MG/10 ML SYRINGE IVP STA (11:28)
[2021-10-29] MEDS: SODIUM CHLORIDE 0.9% 1,000 ML IV SCH ×2 (12:14→21:07)
[2021-10-29] MEDS ORDERED: ACETAMINOPHEN TAB 325 MG TAB PO PRN (13:24)
--- NOTE | 2021-10-29 13:51 | HP ---
HISTORY AND PHYSICAL DATE OF SERVICE: 10/29/2021 CHIEF COMPLAINTS: Fever and some shortness of breath and lung cancer. HISTORY OF PRESENT ILLNESS: This 66-year-old gentleman with a past medical history of COPD, history of lung cancer, history of COVID in September 2019, being followed by [facility], has apparently received a COVID vaccination but not an influenza vaccination. The patient currently complains of spiking fever and hypoxia. The patient was noted to have influenza A positive. The chest x-ray, which was personally reviewed by me and reviewed in Radiology and compared to the previous one, showed suspicious increase in infiltrates, indicating possibly superadded right-sided pneumonia. Patient is admitted for further evaluation and treatment. There is no history any headache, loss of consciousness or seizures. PAST MEDICAL HISTORY: Past medical history includes COPD, history of COVID-19 in 2019, and lung cancer. HOME MEDICATIONS: Reviewed. They include Lyrica. Doses and rest of the medications noted. ALLERGIES: NONE. FAMILY HISTORY: Myocardial infarction. SOCIAL HISTORY: Previous history of smoking. REVIEW OF SYSTEMS: Fourteen-point review of systems negative except as mentioned earlier. PHYSICAL EXAMINATION: Pulse is 111, blood pressure 90/50, respiration 20. HEENT: Conjunctivae normal. NECK: No jugular venous distention. CARDIOVASCULAR: S1, S2 muffled. RESPIRATION: Breathing efforts are increased. Bilateral scattered rhonchi and crackles. ABDOMEN: Soft, nontender. LEGS: No edema. No swelling. NERVOUS SYSTEM: Diffusely weak. SKIN: No ulcer, rash, bleeding. JOINTS: No active deforming arthropathy. LABS: WBC ntd. Other labs are reviewed. ASSESSMENT: 1. Acute influenza A with possible right-sided pneumonia. 2. Lung cancer. 3. Chronic obstructive pulmonary disease. 4. Dementia. 5. Gait dysfunction. RECOMMENDATIONS AND DISCUSSION: In this 66-year-old gentleman who presented with multiple complex medical issues, we will monitor the patient closely, continue the current medications, continue symptomatic treatment. Will initiate bronchodilators, antibiotics and Tamiflu. I would also recommend pulmonary and infectious disease evaluations. The prognosis is guarded because of multiple complex medical issues. Ensure oxygenation. Further recommendations to follow. MMODL / IJN: [id number] / MTDMarin
[2021-10-29] MEDS: SYMBICORT 160-4.5 MCG INHALER INHALATION SCH ×2 (14:55→20:51)
[2021-10-29] MEDS: ALBUTEROL NEBULIZED 2.5 MG/3 ML INHALATION SCH ×2 (15:43→20:51)
[2021-10-29] MEDS: HEPARIN SODIUM,PORCINE/PF 5,000 UNIT/0.5 ML SYRINGE SQ SCH ×2 (18:08→21:07)
[2021-10-29] MEDS: PANTOPRAZOLE 40 MG TABLET PO SCH (18:08)
[2021-10-29 18:34] LABS: Appearance,Urine Clear (Clear); Bilirubin,Urine Negative (Negative); Blood,Urine Negative (Negative); Color,Urine Yellow; Glucose,Urine (UA) Negative (Negative); Ketones,Urine Negative (Negative); Leukocyte Esterase,Urine Negative (Negative); Nitrite,Urine Negative (Negative); Protein,Urine Trace (Negative); Specific Gravity,Urine 1.019 (1.001-1.035)
--- NOTE | 2021-10-29 18:40 | P.CONS ---
History of Present Illness - Reason for Consult Consult date: 10/29/21 malignancy Requesting physician: Gilles Tirado - Chief Complaint fever, AMS - History of Present Illness Mr. Song is pleasant male pt of Dr. Lozano. He was found to have RUL 2.2X2.[address] CAP in January 2020 while being evaluated for severe neuropathy. He c/o progressive numbness and weakness in both upper and lower extremities, thought to peripheral neuropathy attributed to ETOH abuse. Repeat CT 06/04/20 revealed increased size of RUL mass to 2.5 cm, as well as, development of R paratracheal and subcarinal lymphadenopathy. He had navigational bronchoscopy by Dr. Wen on 06/04/2020 revealed Pulmonary adenocarcinoma. Staging PET, stage III disease, NGS-PTEN mutated, PD-L1 positive. Pt did not f/u to "transportation" issues. He ended up in [facility]. He did not begin treatment until 2021! He was restaged and felt to have locally advanced disease so, treated with chemo/XRT x 7 weeks. He has had his 1st IO maintenance treatment about 2 weeks ago. Pt presents to ER with c/o SOB, cough, weakness and fatigue. CXR no new processes. Flu A positive. Review of Systems 10 point ROS is neg except as stated in HPI Past Medical History Past Medical History: Cancer, COPD, Eye Disorder, Memory Impairment Additional Past Medical History / Comment(s): COVID in September 2019, BPH, dysphagia, previous liver biopsy results non malignant alcoholism, COPD, dementia, chronic malnutrition, BLE edema, macular degeneration to left eye, masses to both lung lobes suspecting malignancy History of Any Multi-Drug Resistant Organisms: None Reported Past Surgical History: Orthopedic Surgery Additional Past Surgical History / Comment(s): liver biopsy, left thumb surgery left arm fasciotomy, bilateral cataracts removed with lens implants Past Anesthesia/Blood Transfusion Reactions: No Reported Reaction Past Psychological History: No Psychological Hx Reported Smoking Status: Current every day smoker - Past Family History Father History Unknown: Yes Family Medical History: Myocardial Infarction ([place]) Additional Family Medical History / Comment(s): Father of a [place] at the age of 57yrs. Mother Additional Family Medical History / Comment(s): Mother had a tumor in her heart/surgery to remove and of post op infection. Medications and Allergies Home Medications Medication Instructions Recorded Confirmed Type Acetaminophen [Tylenol] 650 mg PO Q6H PRN 05/12/21 10/29/21 History HYDROcodone/APAP 7.5-325MG [Weston 1 tab PO Q6HR PRN 10/29/21 10/29/21 History 7.5-325] Ipratropium-Albuterol Nebulize 3 ml INHALATION RT-TID PRN 10/29/21 10/29/21 History [Duoneb 0.5 mg-3 mg/3 ml Soln] Nystatin 100,000Unit/gm Cream 1 applic TOPICAL Q8H 10/29/21 10/29/21 History [Mycostatin Cream] Pregabalin [Lyrica] 300 mg PO BID 10/29/21 10/29/21 History Triamcinolone 0.1% Cream [Kenalog 1 applic TOPICAL BID 10/29/21 10/29/21 History 0.1% Cream] Allergies Allergy/AdvReac Type Severity Reaction Status Date / Time No Known Allergies Allergy Verified 10/29/21 08:48 Physical Exam Vitals: Vital Signs Temp Pulse Resp BP Pulse Ox 10/29/21 12:24 96 22 89/54 96 10/29/21 10:35 98.8 F 105 H 20 96/56 96 10/29/21 10:15 111 H 24 94/56 10/29/21 10:04 106 H 22 91/52 95 10/29/21 09:25 122 H 20 74/53 98 10/29/21 07:53 102.6 F H 128 H 28 H 104/61 94 L Intake and Output 10/28/21 10/29/21 10/29/21 22:59 06:59 14:59 Other: Weight 58.06 kg - Constitutional General appearance: cooperative, no acute distress, thin - EENT Eyes: anicteric sclerae, EOMI ENT: hearing grossly normal - Respiratory Respiratory: right: rhonchi, left: diminished - Cardiovascular Rhythm: regular Heart sounds: normal: S1, S2 Abnormal Heart Sounds: no systolic murmur, no diastolic murmur, no rub, no S3 Gallop, no S4 Gallop, no click, no other leg Peripheral Edema: bilateral: None - Gastrointestinal General gastrointestinal: no absent bowel sounds, no decreased bowel sounds, no distended, no hepatomegaly, no hyperactive bowel sounds, normal bowel sounds, no organomegaly, no rigid, no scaphoid, soft, no splenomegaly, no tenderness, no umbilical hernia, no ventral hernia - Neurologic Neurologic: CNII-XII intact (grossly) - Musculoskeletal Musculoskeletal: strength equal bilaterally - Psychiatric Psychiatric: A&O x's 3, appropriate affect, intact judgment & insight Results CBC & Chem 7: 10/29/21 08:15 10/29/21 08:15 Labs: Abnormal Lab Results - Last 24 Hours (Table) 10/29/21 10/29/21 10/29/21 Range/Units 08:15 08:15 08:15 WBC 12.5 H (3.8-10.6) k/uL Neutrophils # 11.8 H (1.3-7.7) k/uL Lymphocytes # 0.1 L (1.0-4.8) k/uL Sodium 136 L (137-145) mmol/L Creatinine 0.46 L (0.66-1.25) mg/dL Glucose 119 H (74-99) mg/dL Influenza Type A RNA Detected H (Not Detectd) Chest x-ray: report reviewed Assessment and Plan (1) Non-small cell cancer of right lung Current Visit: No Status: Chronic Priority: Medium Code(s): C34.91 - MALIGNANT NEOPLASM OF UNSP PART OF RIGHT BRONCHUS OR LUNG SNOMED Code(s): 661978380 (2) Influenza Current Visit: Yes Status: Acute Priority: High Code(s): J11.1 - FLU DUE TO UNIDENTIFIED INFLUENZA VIRUS W OTH RESP MANIFEST SNOMED Code(s): 3888199 Plan: Pt admitted for symptomatic Influenza A. Defer treatment to Pulmonary and ID. Pt did receive 1st dose of IO just recently. Not suspecting presentation is immunotherapy SE-he did test + for flu. We will follow with you and monitor closely for any symptoms that may appear to be IO related. Hold treatment until pt recovered
[2021-10-29] MEDS: PREGABALIN 100 MG CAP PO SCH (21:38)
[2021-10-29] MEDS: OSELTAMIVIR 75 MG CAP PO SCH (21:38)
[2021-10-30] MEDS: SODIUM CHLORIDE 0.9% 1,000 ML IV SCH ×3 (08:02→17:34)
[2021-10-30] MEDS: PANTOPRAZOLE 40 MG TABLET PO SCH (08:02)
[2021-10-30] MEDS: OSELTAMIVIR 75 MG CAP PO SCH ×2 (08:04→20:03)
[2021-10-30] MEDS: AZITHROMYCIN 500 MG TAB PO SCH (08:04)
[2021-10-30] MEDS: PREGABALIN 100 MG CAP PO SCH ×2 (08:05→20:03)
[2021-10-30] MEDS: HEPARIN SODIUM,PORCINE/PF 5,000 UNIT/0.5 ML SYRINGE SQ SCH ×2 (08:06→20:02)
[2021-10-30] MEDS: ALBUTEROL NEBULIZED 2.5 MG/3 ML INHALATION SCH ×4 (08:11→19:53)
[2021-10-30] MEDS: SYMBICORT 160-4.5 MCG INHALER INHALATION SCH ×2 (08:11→19:53)
--- NOTE | 2021-10-30 09:02 | P.CONS ---
History of Present Illness - Reason for Consult Consult date: 10/29/21 Flu, pneumonia Requesting physician: Gilles Tirado - Chief Complaint Fever x 1 day - History of Present Illness Patient is a 66-year-old male with a past medical history significant for lung cancer the patient has been sent from a local [facility] as apparently the patient was running a fever and was noticed to have a low pulse ox apparently patient was complaining of some cough to the ER physician however no sputum production no nausea no vomiting no abdominal pain no lightheadedness or any dizziness no skin lesion or any diarrhea on presentation to the hospital patient did have a fever of 102.6 F patient was hypoxic and did have a need for 5 L nasal cannula patient did have white count of 12.5 with a left shift creatinine was normal urine has been negative influenza A was positive stuart PCR was negative patient did have a chest x-ray chronic changes with known right paratracheal muscle neoplasm no new acute pulmonary process clearly seen patient has been started on Tamiflu has been admitted to the hospital infectious disease was consulted for further management most of the information has been obtained from review the chart nursing staff as the patient on my evaluation was sleepy lethargic and did not answer any question Review of Systems Positive points has been mentioned in HPI complete review could not be obtained because of his underlying mental status Past Medical History Past Medical History: Cancer, COPD, Eye Disorder, Memory Impairment Additional Past Medical History / Comment(s): COVID in September 2019, BPH, dysphagia, previous liver biopsy results non malignant alcoholism, COPD, dementia, chronic malnutrition, BLE edema, macular degeneration to left eye, masses to both lung lobes suspecting malignancy History of Any Multi-Drug Resistant Organisms: None Reported Past Surgical History: Orthopedic Surgery Additional Past Surgical History / Comment(s): liver biopsy, left thumb surgery left arm fasciotomy, bilateral cataracts removed with lens implants Past Anesthesia/Blood Transfusion Reactions: No Reported Reaction Past Psychological History: No Psychological Hx Reported Smoking Status: Current every day smoker - Past Family History Father History Unknown: Yes Family Medical History: Myocardial Infarction ([place]) Additional Family Medical History / Comment(s): Father of a [place] at the age of 57yrs. Mother Additional Family Medical History / Comment(s): Mother had a tumor in her heart/surgery to remove and of post op infection. Medications and Allergies Home Medications Medication Instructions Recorded Confirmed Type Acetaminophen [Tylenol] 650 mg PO Q6H PRN 05/12/21 10/29/21 History HYDROcodone/APAP 7.5-325MG [[place] 1 tab PO Q6HR PRN 10/29/21 10/29/21 History 7.5-325] Ipratropium-Albuterol Nebulize 3 ml INHALATION RT-TID PRN 10/29/21 10/29/21 History [Duoneb 0.5 mg-3 mg/3 ml Soln] Nystatin 100,000Unit/gm Cream 1 applic TOPICAL Q8H 10/29/21 10/29/21 History [Mycostatin Cream] Pregabalin [Lyrica] 300 mg PO BID 10/29/21 10/29/21 History Triamcinolone 0.1% Cream [Kenalog 1 applic TOPICAL BID 10/29/21 10/29/21 History 0.1% Cream] Allergies Allergy/AdvReac Type Severity Reaction Status Date / Time No Known Allergies Allergy Verified 10/29/21 08:48 Physical Exam Vitals: Vital Signs Temp Pulse Pulse Resp BP BP Pulse Ox 10/29/21 20:00 97.7 F 90 18 110/70 98 10/29/21 17:01 82 20 90/54 100 10/29/21 16:00 88 20 100/63 100 10/29/21 15:26 85 20 92/63 99 10/29/21 12:24 96 22 89/54 96 10/29/21 10:35 98.8 F 105 H 20 96/56 96 10/29/21 10:15 111 H 24 94/56 10/29/21 10:04 106 H 22 91/52 95 10/29/21 09:25 122 H 20 74/53 98 10/29/21 07:53 102.6 F H 128 H 28 H 104/61 94 L Intake and Output 10/29/21 10/29/21 10/29/21 06:59 14:59 22:59 Other: Weight 58.06 kg GENERAL DESCRIPTION: Middle-aged male lying in bed, no distress. No tachypnea or accessory muscle of respiration use. HEENT: Shows Pallor , no scleral icterus. Oral mucous membrane is dry. No pharyngeal erythema or thrush NECK: Trachea central, no thyromegaly. LUNGS: Unlabored breathing. Decreased breath sounds at the base. No wheeze or crackle. HEART: S1, S2, regular rate and rhythm. No loud murmur ABDOMEN: Soft, no tenderness , guarding or rigidity, no organomegaly EXTREMITIES: No edema of feet. SKIN: No rash, no masses palpable. NEUROLOGICAL: The patient is sleepy and lethargic orientation could not be determined Results CBC & Chem 7: 10/29/21 08:15 10/29/21 08:15 Labs: Abnormal Lab Results - Last 24 Hours (Table) 10/29/21 10/29/21 10/29/21 Range/Units 08:15 08:15 08:15 WBC 12.5 H (3.8-10.6) k/uL Neutrophils # 11.8 H (1.3-7.7) k/uL Lymphocytes # 0.1 L (1.0-4.8) k/uL Sodium 136 L (137-145) mmol/L Creatinine 0.46 L (0.66-1.25) mg/dL Glucose 119 H (74-99) mg/dL Urine Protein (Negative) Influenza Type A RNA Detected H (Not Detectd) 10/29/21 Range/Units 18:25 WBC (3.8-10.6) k/uL Neutrophils # (1.3-7.7) k/uL Lymphocytes # (1.0-4.8) k/uL Sodium (137-145) mmol/L Creatinine (0.66-1.25) mg/dL Glucose (74-99) mg/dL Urine Protein Trace H (Negative) Influenza Type A RNA (Not Detectd) Assessment and Plan (1) Influenza Current Visit: Yes Status: Acute Priority: High Code(s): J11.1 - FLU DUE TO UNIDENTIFIED INFLUENZA VIRUS W OTH RESP MANIFEST SNOMED Code(s): 8175401 Plan: 1patient presented to hospital with fever hypoxemia in this patient who did have history of lung cancer symptoms are more likely secondary to acute influenza A, underlying suspicious for secondary bacterial pneumonia remains to be low at the chest x-ray did not show any acute infiltrate. 2patient to continue with the Tamiflu 75 mg twice a day to finish a 5-day course of therapy. 3droplet isolation. 4we will check a CRP and a procalcitonin to see the need for any systemic ant ibiotic therapy. We will follow on clinical condition and cultures to further adjust medication if needed Thank you for this consultation will follow this patient along with you Time with Patient: Greater than 30
[2021-10-30 09:25] LABS: Basophils # (A) 0.04 X 10*3/uL (0.00-0.10); Basophils % (A) 0.6 %; Eosinophils # (A) 0.13 X 10*3/uL (0.04-0.35); Eosinophils % (A) 1.8 %; HCT 39.9 % (39.6-50.0); HGB 12.2 g/dL (13.0-17.0); Immature Grans, Automated 0.7 %; Lymphocytes % (A) 2.8 %; MCH 28.9 pg (27.0-32.0); MCHC 30.6 g/dL (32.0-37.0); MCV 94.5 fL (80.0-97.0); Mean Platelet Volume 10.3 fL (9.5-12.2); Monocytes # (A) 0.42 X 10*3/uL (0.20-1.00); Monocytes % (A) 5.8 %; NRBC Per 100 WBC 0 /100 WBCS (0.0-0.0); Neutrophils # (A) 6.35 X 10*3/uL (1.80-7.70); Neutrophils % (A) 88.3 %; Platelet Count 234 X 10*3/uL (140-440); RBC 4.22 X 10*6/uL (4.40-5.60); RDW 14.9 % (11.5-14.5); WBC 7.19 X 10*3/uL (4.50-10.00)
[2021-10-30 09:44] LABS: African American GFR (CKD) 145.5 (60.0-200.0); Albumin 2.8 g/dL (3.8-4.9); Albumin/Globulin Ratio 0.93 (1.60-3.17); Anion Gap 9.1 mmol/L (10.00-18.00); BUN/Creat Ratio 33.25 Ratio (12.00-20.00); Blood Urea Nitrogen 13.3 mg/dL (9.0-27.0); Calcium 8.3 mg/dL (8.7-10.3); Carbon Dioxide 24.9 mmol/L (20.0-27.5); Non-African American GFR(CKD) 125.5 (60.0-200.0); Potassium 4.1 mmol/L (3.5-5.5); Total Bilirubin 0.3 mg/dL (0.30-1.20); Total Protein 5.8 g/dL (6.2-8.2)
[2021-10-30 11:13] VITALS: BMI 18.8
--- NOTE | 2021-10-30 12:23 | PN ---
PROGRESS NOTE DATE OF SERVICE: 10/30/2021 This 66-year-old gentleman admitted with fever and possible pneumonia also had influenza B positive. Patient is on empiric antibiotics and bronchodilators. Multiple consultants are following the patient closely. Blood cultures are negative so far. Past medical history reviewed. REVIEW OF SYSTEMS: CARDIOVASCULAR SYSTEM: As mentioned earlier. RESPIRATION: As mentioned earlier. GI: As mentioned earlier. NERVOUS SYSTEM: Diffusely weak. CURRENT MEDICATIONS: Reviewed. They include Medanales 7.5 mg. Doses and the rest of the medications are reviewed. PHYSICAL EXAMINATION: Pulse is 111, blood pressure 120/74, respiration 20, pulse ox 96% on 5 L. HEENT: Conjunctivae normal. NECK: No jugular venous distention. CARDIOVASCULAR: S1, S2 muffled. RESPIRATION: Breath sounds diminished at the bases. Bilateral scattered rhonchi and crackles. ABDOMEN: Soft. NERVOUS SYSTEM: Diffusely weak. LABS: Hemoglobin 12.2. Other labs are reviewed. ASSESSMENT: 1. Acute influenza A with possible right-sided pneumonia. 2. Lung cancer. 3. Chronic obstructive pulmonary disease. 4. Dementia. 5. Gait dysfunction. RECOMMENDATIONS AND DISCUSSION: I recommend to continue current medications, continue with the monitoring, symptomatic treatment. Continue with antibiotics. Continue the bronchodilators. Continue with rest of the medications. We will cut down the IV fluids and monitor closely. Prognosis guarded. DVT prophylaxis. See orders for further details. Repeat labs will be ordered. Closely follow with multiple consultants. Discussed with the patient. Further recommendations to follow. MMPRAVINL / EDINN: [id number] /
--- NOTE | 2021-10-30 15:47 | P.CNPUL ---
History of Present Illness Consult date: 10/30/21 Requesting physician: Taj Jimenez Reason for consult: dyspnea Chief complaint: Fever, sweats, cough, shortness of breath History of present illness: This is a 66-year-old male patient with past medical history of COPD, adenocarcinoma of the lung diagnosed in 2019, history of COVID-19 in September 2019, BPH, chronic and ongoing history of nicotine addiction, macular degeneration, dementia, who resides in a fci. On 10/29/2021 patient was brought into the emergency department by EMS for evaluation of fever spikes, and worsening hypoxia, and supplemental oxygen was increased from 5-6 L. Patient does have a chronic cough however this has worsened. Patient reports cold sweats. But no chest discomfort, no headaches, no lightheadedness, no abdominal pain, no nausea vomiting or diarrhea. No hemoptysis, no dysuria or hematuria. Patient had been vaccinated for COVID-19 but not for influenza. Chest x-ray on admission showed chronic changes with known right peritracheal mass and no new acute pulmonary process. Patient tested positive for influenza A, and negative for COVID-19 and negative for influenza type B. His fever on admission was 102.6F patient was tachycardic, on 6 L of oxygen his pulse ox was 94%. His lab evaluation showed a white blood cell count of 12.5, hemoglobin of 14, quite patient profile was within normal limits, electrolytes and renal profile were unremarkable, LFTs were unremarkable, lactic acid was 1.1, urinalysis was negative for infection. Patient was started on Tamiflu in the emergency department, empiric antibiotics in the form of azithromycin and Rocephin were also added, patient was given IV hydration, and currently receiving 0.9, saline at a rate of 1:30 ML per hour, he is on breathing treatments. Today he sitting up in the chair, awake and alert, oriented 3, Ms. on 5 L of oxygen with a pulse ox of 93-97%, low-grade fever this afternoon with a temp of 99.9F, but overall his febrile pattern has improved since admission, blood pressure stable. He states he is feeling significantly better since admission. Review of Systems All systems: negative Constitutional: Reports fever, Denies chills Eyes: denies blurred vision, denies pain Ears, nose, mouth and throat: Denies headache, Denies sore throat Cardiovascular: Denies chest pain, Denies shortness of breath Respiratory: Reports cough, Reports dyspnea, Reports home oxygen Gastrointestinal: Denies abdominal pain, Denies diarrhea, Denies nausea, Denies vomiting Musculoskeletal: Denies myalgias Integumentary: Denies pruritus, Denies rash Neurological: Denies numbness, Denies weakness Psychiatric: Denies anxiety, Denies depression Endocrine: Denies fatigue, Denies weight change Past Medical History Past Medical History: Cancer, COPD, Eye Disorder, Memory Impairment Additional Past Medical History / Comment(s): COVID in September 2019, BPH, dysphagia, previous liver biopsy results non malignant alcoholism, COPD, dementia, chronic malnutrition, BLE edema, macular degeneration to left eye, masses to both lung lobes suspecting malignancy History of Any Multi-Drug Resistant Organisms: None Reported Past Surgical History: Orthopedic Surgery Additional Past Surgical History / Comment(s): liver biopsy, left thumb surgery left arm fasciotomy, bilateral cataracts removed with lens implants Past Anesthesia/Blood Transfusion Reactions: No Reported Reaction Past Psychological History: No Psychological Hx Reported Smoking Status: Current every day smoker - Past Family History Father History Unknown: Yes Family Medical History: Myocardial Infarction ([place]) Additional Family Medical History / Comment(s): Father of a [place] at the age of 57yrs. Mother Additional Family Medical History / Comment(s): Mother had a tumor in her heart/surgery to remove and of post op infection. Medications and Allergies Home Medications Medication Instructions Recorded Confirmed Type Acetaminophen [Tylenol] 650 mg PO Q6H PRN 05/12/21 10/29/21 History HYDROcodone/APAP 7.5-325MG [[place] 1 tab PO Q6HR PRN 10/29/21 10/29/21 History 7.5-325] Ipratropium-Albuterol Nebulize 3 ml INHALATION RT-TID PRN 10/29/21 10/29/21 History [Duoneb 0.5 mg-3 mg/3 ml Soln] Nystatin 100,000Unit/gm Cream 1 applic TOPICAL Q8H 10/29/21 10/29/21 History [Mycostatin Cream] Pregabalin [Lyrica] 300 mg PO BID 10/29/21 10/29/21 History Triamcinolone 0.1% Cream [Kenalog 1 applic TOPICAL BID 10/29/21 10/29/21 History 0.1% Cream] Allergies Allergy/AdvReac Type Severity Reaction Status Date / Time No Known Allergies Allergy Verified 10/29/21 08:48 Physical Exam Vitals: Vital Signs Temp Pulse Pulse Resp BP BP Pulse Ox 10/30/21 14:00 99.0 F 107 H 18 118/64 97 10/30/21 08:11 93 L 10/30/21 08:00 99.9 F H 111 H 20 120/75 96 10/30/21 02:12 98.6 F 103 H 17 131/72 97 10/29/21 20:00 97.7 F 90 18 110/70 98 10/29/21 17:01 82 20 90/54 100 10/29/21 16:00 88 20 100/63 100 Intake and Output 10/30/21 10/30/21 10/30/21 06:59 14:59 22:59 Other: # Voids 3 Weight 58.06 kg GENERAL EXAM: Alert, very pleasant, 66-year-old white male, sitting up in the recliner, on 5 L of oxygen his pulse ox is 93-97%, comfortable in no apparent distress. HEAD: Normocephalic/atraumatic. EYES: Normal reaction of pupils, equal size. Conjunctiva pink, sclera white. NOSE: Clear with pink turbinates. THROAT: No erythema or exudates. NECK: No masses, no JVD, no thyroid enlargement, no adenopathy. CHEST: No chest wall deformity. Symmetrical expansion. LUNGS: Equal air entry with no crackles, wheeze, rhonchi or dullness. CVS: Regular rate and rhythm, normal S1 and S2, no gallops, no murmurs, no rubs ABDOMEN: Soft, nontender. No hepatosplenomegaly, normal bowel sounds, no gu arding or rigidity. EXTREMITIES: No clubbing, no edema, no cyanosis, 2+ pulses and upper and lower e xtremities. MUSCULOSKELETAL: Muscle strength and tone normal. SPINE: No scoliosis or deformity SKIN: No rashes CENTRAL NERVOUS SYSTEM: Alert and oriented -3. No focal deficits, tone is normal in all 4 extremities. PSYCHIATRIC: Alert and oriented -3. Appropriate affect. Intact judgment and insight. Results - Laboratory Findings CBC and BMP: 10/30/21 05:26 10/30/21 05:26 PT/INR, D-dimer PT 11.3 sec (9.0-12.0) 10/29/21 08:15 INR 1.1 (<1.2) 10/29/21 08:15 Abnormal lab findings: Abnormal Labs 10/29/21 10/29/21 10/29/21 08:15 08:15 08:15 WBC 12.5 H RBC Hgb MCHC RDW Immature Gran # Neutrophils # 11.8 H Lymphocytes # 0.1 L Sodium 136 L Anion Gap Creatinine 0.46 L BUN/Creatinine Ratio Glucose 119 H Calcium Total Protein Albumin Albumin/Globulin Ratio Urine Protein Influenza Type A RNA Detected H 10/29/21 10/30/21 10/30/21 18:25 05:26 05:26 WBC RBC 4.22 L Hgb 12.2 L MCHC 30.6 L RDW 14.9 H Immature Gran # 0.05 H Neutrophils # Lymphocytes # 0.20 L Sodium Anion Gap 9.10 L Creatinine 0.4 L BUN/Creatinine Ratio 33.25 H Glucose Calcium 8.3 L Total Protein 5.8 L Albumin 2.8 L Albumin/Globulin Ratio 0.93 L Urine Protein Trace H Influenza Type A RNA - Diagnostic Findings Chest x-ray: report reviewed, image reviewed Additional studies: EKG reviewed Assessment and Plan Plan: Assessment: #1. Acute on chronic hypoxic respiratory failure related to acute influenza A pneumonia. COVID-19 and influenza B were negative #2. Pulmonary adenocarcinoma, first diagnosed in May 2020, and just recently started treatment in 2021 related to multiple issues including overall general medical debility, complex medical issues, poor functional performance, chronic wounds, chronic alcoholism, COPD, social issues. Patient recently was restaged, and was felt to have locally advanced disease and was treated with chemo and radiation for 7 weeks. #3. History of COPD on oxygen #4. History of COVID-19 infection in September 2019 #5. Chronic dysphagia #6. Current every day smoker #7. General medical debility, patient resides at an ECF #8. History of chronic alcoholism #9. History of dementia Plan: Continue Tamiflu Continue empiric antibiotics, if patient and the colon back to the ECF over the weekend or today, may finish therapy with Levaquin Continue breathing treatments Patient already feels improved since admission No acute issues overnight He could be considered for transfer back to the ECF today or over the weekend if cleared by medicine Need outpatient follow-up with Dr. Morales in the office in 7-10 days I have personally seen and examined the patient, performed the documentation and the assessment and plan as written. Number of minutes spent on the visit: 15 Time with Patient: Greater than 30
--- NOTE | 2021-10-30 15:57 | P.PN ---
Subjective Progress Note Date: 10/30/21 Principal diagnosis: Acute influenza A and a question of pneumonia Patient is a 66-year-old male with a past medical history significant for COPD, adenocarcinoma of the lung presented to hospital with fever and some mental status changes patient has been diagnosed with acute influenza A and a question of pneumonia. On today's evaluation that is 10/30/2021, the patient overall fever pattern has improved, the patient denies having any chest pain, the patient did have a cough and is bringing up some purulent sputum no hemoptysis. Denies having any nausea or vomiting no abdominal pain no diarrhea Objective - Vital Signs Vital signs: Vital Signs Temp 99.9 F H 10/30/21 08:00 Pulse 111 H 10/30/21 08:00 Resp 20 10/30/21 08:00 BP 120/75 10/30/21 08:00 Pulse Ox 93 L 10/30/21 08:11 Intake & Output 10/29/21 10/30/21 10/30/21 18:59 06:59 18:59 Weight 58.06 kg 58.06 kg Other: # Voids 3 - Exam GENERAL DESCRIPTION: A middle-aged male lying in bed in no distress RESPIRATORY SYSTEM: Unlabored breathing , coarse breath sounds bilaterally HEART: S1 S2 regular rate and rhythm , ABDOMEN: Soft , no tenderness EXTREMITIES: No edema feet - Labs CBC & Chem 7: 10/30/21 05:26 10/30/21 05:26 Labs: Abnormal Lab Results - Last 24 Hours (Table) 10/29/21 10/30/21 10/30/21 Range/Units 18:25 05:26 05:26 RBC 4.22 L (4.40-5.60) X 10*6/uL Hgb 12.2 L (13.0-17.0) g/dL MCHC 30.6 L (32.0-37.0) g/dL RDW 14.9 H (11.5-14.5) % Immature Gran # 0.05 H (0.00-0.04) X 10*3/uL Lymphocytes # 0.20 L (0.90-5.00) X 10*3/uL Anion Gap 9.10 L (10.00-18.00) mmol/L Creatinine 0.4 L (0.6-1.5) mg/dL BUN/Creatinine Ratio 33.25 H (12.00-20.00) Ratio Calcium 8.3 L (8.7-10.3) mg/dL Total Protein 5.8 L (6.2-8.2) g/dL Albumin 2.8 L (3.8-4.9) g/dL Albumin/Globulin Ratio 0.93 L (1.60-3.17) g/dL Urine Protein Trace H (Negative) Microbiology - Last 24 Hours (Table) 10/29/21 08:20 Blood Culture - Preliminary Blood No Growth after 24 hours 10/29/21 08:15 Blood Culture - Preliminary Blood No Growth after 24 hours Assessment and Plan (1) Influenza Current Visit: Yes Status: Acute Priority: High Code(s): J11.1 - FLU DUE TO UNIDENTIFIED INFLUENZA VIRUS W OTH RESP MANIFEST SNOMED Code(s): 2121185 Plan: 1patient presented to hospital with fever hypoxemia in this patient who did have history of lung cancer symptoms are more likely secondary to acute influenza A, underlying suspicious for secondary bacterial pneumonia remains to be low at the chest x-ray did not show any acute infiltrate. 2patient to continue with the Tamiflu 75 mg twice a day to finish a 5-day course of therapy. 3droplet isolation. 4we are waiting for CRP and a procalcitonin to be reported continue with Rocephin and Zithromax sputum culture has been requested Time with Patient: Less than 30
--- NOTE | 2021-10-30 19:38 | P.PN ---
Subjective Progress Note Date: 10/30/21 Principal diagnosis: Influenza T max 99.9, oxygen stable Objective - Vital Signs Vital signs: Vital Signs Temp 99.9 F H 10/30/21 08:00 Pulse 111 H 10/30/21 08:00 Resp 20 10/30/21 08:00 BP 120/75 10/30/21 08:00 Pulse Ox 93 L 10/30/21 08:11 Intake & Output 10/29/21 10/30/21 10/30/21 18:59 06:59 18:59 Weight 58.06 kg 58.06 kg Other: # Voids 3 - Exam - Constitutional General appearance: cooperative, no acute distress, thin - Respiratory Respiratory: right: rhonchi, left: diminished - Cardiovascular Tachy - Gastrointestinal General gastrointestinal: no absent bowel sounds, no decreased bowel sounds, no distended, no hepatomegaly, no hyperactive bowel sounds, normal bowel sounds, no organomegaly, no rigid, no scaphoid, soft, no splenomegaly, no tenderness, no umbilical hernia, no ventral hernia - Neurologic Neurologic: CNII-XII intact (grossly) - Musculoskeletal Musculoskeletal: strength equal bilaterally - Psychiatric Psychiatric: A&O x's 3, appropriate affect, intact judgment & insight - Labs CBC & Chem 7: 10/30/21 05:26 10/30/21 05:26 Labs: Abnormal Lab Results - Last 24 Hours (Table) 10/29/21 10/30/21 10/30/21 Range/Units 18:25 05:26 05:26 RBC 4.22 L (4.40-5.60) X 10*6/uL Hgb 12.2 L (13.0-17.0) g/dL MCHC 30.6 L (32.0-37.0) g/dL RDW 14.9 H (11.5-14.5) % Immature Gran # 0.05 H (0.00-0.04) X 10*3/uL Lymphocytes # 0.20 L (0.90-5.00) X 10*3/uL Anion Gap 9.10 L (10.00-18.00) mmol/L Creatinine 0.4 L (0.6-1.5) mg/dL BUN/Creatinine Ratio 33.25 H (12.00-20.00) Ratio Calcium 8.3 L (8.7-10.3) mg/dL Total Protein 5.8 L (6.2-8.2) g/dL Albumin 2.8 L (3.8-4.9) g/dL Albumin/Globulin Ratio 0.93 L (1.60-3.17) g/dL Urine Protein Trace H (Negative) Microbiology - Last 24 Hours (Table) 10/29/21 08:20 Blood Culture - Preliminary Blood No Growth after 24 hours 10/29/21 08:15 Blood Culture - Preliminary Blood No Growth after 24 hours Assessment and Plan Plan: Chest x-ray: report reviewed Assessment and Plan (1) Non-small cell cancer of right lung Current Visit: No Status: Chronic Priority: Medium Code(s): C34.91 - MALIGNANT NEOPLASM OF UNSP PART OF RIGHT BRONCHUS OR LUNG SNOMED Code(s): 352692939 (2) Influenza Current Visit: Yes Status: Acute Priority: High Code(s): J11.1 - FLU DUE TO UNIDENTIFIED INFLUENZA VIRUS W OTH RESP MANIFEST SNOMED Code(s): 5578401 Plan: Continue supportive care on influenza per primary ID and pulmonary for influenza Pt admitted for symptomatic Influenza A. Defer treatment to Pulmonary and ID. Hold treatment of immune therapy for cancer until pt recovered Dr. Reyes: I have completed the full history and physical and developed the above impression and plan, agree with dictation, dictated as a scribe
[2021-10-31] MEDS: SODIUM CHLORIDE 0.9% 1,000 ML IV SCH ×3 (03:55→17:53)
[2021-10-31] MEDS: HEPARIN SODIUM,PORCINE/PF 5,000 UNIT/0.5 ML SYRINGE SQ SCH ×2 (08:39→20:04)
[2021-10-31] MEDS: OSELTAMIVIR 75 MG CAP PO SCH ×2 (08:39→20:02)
[2021-10-31] MEDS: PANTOPRAZOLE 40 MG TABLET PO SCH (08:39)
[2021-10-31] MEDS: PREGABALIN 100 MG CAP PO SCH ×2 (08:40→20:02)
[2021-10-31] MEDS: AZITHROMYCIN 500 MG TAB PO SCH (08:40)
[2021-10-31] MEDS: ALBUTEROL NEBULIZED 2.5 MG/3 ML INHALATION SCH ×4 (08:56→20:12)
[2021-10-31] MEDS: SYMBICORT 160-4.5 MCG INHALER INHALATION SCH ×2 (08:56→20:12)
[2021-10-31] MEDS: HYDROcodone/APAP 7.5-325MG 1 EACH TAB PO PRN ×2 (08:59→20:20)
[2021-10-31 09:26] LABS: ALT 25 U/L (4-49); AST 42 U/L (17-59); African American GFR (CKD) >90 (>60 ml/min/1.73 sqM); Albumin 2.6 g/dL (3.5-5.0); Albumin/Globulin Ratio 0.8; Alkaline Phosphatase 85 U/L (38-126); Anion Gap 5 mmol/L; Blood Urea Nitrogen 7 mg/dL (9-20); C Reactive Protein 7.1 mg/dL (<1.0); Carbon Dioxide 27 mmol/L (22-30); Chloride 104 mmol/L (98-107); Globulin 3.3 g/dL; Glucose 85 mg/dL (74-99); Non-African American GFR(CKD) >90 (>60 ml/min/1.73 sqM); Potassium 3.5 mmol/L (3.5-5.1); Sodium 136 mmol/L (137-145); Total Bilirubin 0.4 mg/dL (0.2-1.3); Total Protein 5.9 g/dL (6.3-8.2)
[2021-10-31 09:27] LABS: Basophils % (A) 1 %; Eosinophils # (A) 0.1 k/uL (0-0.7); Eosinophils % (A) 1 %; HCT 43.8 % (39.0-53.0); HGB 13.4 gm/dL (13.0-17.5); Lymphocytes # (A) 0.3 k/uL (1.0-4.8); Lymphocytes % (A) 4 %; MCH 29.1 pg (25.0-35.0); MCHC 30.7 g/dL (31.0-37.0); MCV 94.9 fL (80.0-100.0); Monocytes # (A) 0.4 k/uL (0-1.0); Monocytes % (A) 5 %; Neutrophils # (A) 7.3 k/uL (1.3-7.7); Neutrophils % (A) 89 %; Platelet Count 230 k/uL (150-450); RBC 4.61 m/uL (4.30-5.90); RDW 13.7 % (11.5-15.5); WBC 8.2 k/uL (3.8-10.6)
--- NOTE | 2021-10-31 14:05 | P.PN ---
Subjective Progress Note Date: 10/31/21 This is a 66-year-old male patient with past medical history of COPD, adenocarcinoma of the lung diagnosed in 2019, history of COVID-19 in September 2019, BPH, chronic and ongoing history of nicotine addiction, macular degeneration, dementia, who resides in a [facility]. On 10/29/2021 patient was brought into the emergency department by EMS for evaluation of fever spikes, and worsening hypoxia, and supplemental oxygen was increased from 5-6 L. Patient does have a chronic cough however this has worsened. Patient reports cold sweats. But no chest discomfort, no headaches, no lightheadedness, no abdominal pain, no nausea vomiting or diarrhea. No hemoptysis, no dysuria or hematuria. Patient had been vaccinated for COVID-19 but not for influenza. Chest x-ray on admission showed chronic changes with known right peritracheal mass and no new acute pulmonary process. Patient tested positive for influenza A, and negative for COVID-19 and negative for influenza type B. His fever on admission was 102.6F patient was tachycardic, on 6 L of oxygen his pulse ox was 94%. His lab evaluation showed a white blood cell count of 12.5, hemoglobin of 14, quite patient profile was within normal limits, electrolytes and renal profile were unremarkable, LFTs were unremarkable, lactic acid was 1.1, urinalysis was negative for infection. Patient was started on Tamiflu in the emergency department, empiric antibiotics in the form of azithromycin and Rocephin were also added, patient was given IV hydration, and currently receiving 0.9, saline at a rate of 1:30 ML per hour, he is on breathing treatments. Today he sitting up in the chair, awake and alert, oriented 3, Ms. on 5 L of oxygen with a pulse ox of 93-97%, low-grade fever this afternoon with a temp of 99.9F, but overall his febrile pattern has improved since admission, blood pressure stable. He states he is feeling significantly better since admission. The patient is seen today 10/31/2021 in follow-up in on the regular medical floor. He is currently sitting up in a chair at the bedside. Awake and alert in no acute distress. He is maintaining O2 saturations in the 90s on 2 L/m per nasal cannula. Afebrile. Blood cultures reveal no growth to date. White count 8.2. Hemoglobin 13.4. Platelets 2:30. Sodium 136. Potassium 3.5. BUN 7. Creatinine 0.34. Procalcitonin and 0.28. He is continued on ceftriaxone, Tamiflu, Symbicort and albuterol. Normal saline at 130 ML's per hour. Objective - Vital Signs Vital signs: Vital Signs Temp 97.8 F 10/31/21 08:00 Pulse 50 L 10/31/21 08:00 Resp 16 10/31/21 08:00 BP 121/68 10/31/21 08:00 Pulse Ox 94 L 10/31/21 08:00 Intake & Output 10/30/21 10/31/21 10/31/21 18:59 06:59 18:59 Weight 58.06 kg Other: Voiding Method Urinal Urinal # Voids 3 10 # Bowel Movements 3 - Exam GENERAL EXAM: Alert, pleasant, 66-year-old male patient, sitting up in the recliner, on 2 L of oxygen his pulse ox is 94%, comfortable in no apparent dis tress. HEAD: Normocephalic/atraumatic. EYES: Normal reaction of pupils, equal size. Conjunctiva pink, sclera white. NOSE: Clear with pink turbinates. THROAT: No erythema or exudates. NECK: No masses, no JVD, no thyroid enlargement, no adenopathy. CHEST: No chest wall deformity. Symmetrical expansion. LUNGS: Equal air entry with few scattered rhonchi more so on the right upper lung. CVS: Regular rate and rhythm, normal S1 and S2, no gallops, no murmurs, no rubs ABDOMEN: Soft, nontender. No hepatosplenomegaly, normal bowel sounds, no guarding or rigidity. EXTREMITIES: No clubbing, no edema, no cyanosis, 2+ pulses and upper and lower extremities. MUSCULOSKELETAL: Muscle strength and tone normal. SPINE: No scoliosis or deformity SKIN: No rashes CENTRAL NERVOUS SYSTEM: No focal deficits, tone is normal in all 4 extremities. PSYCHIATRIC: Alert and oriented -3. Appropriate affect. Intact judgment and insight. - Labs CBC & Chem 7: 10/31/21 08:56 10/31/21 08:56 Labs: Abnormal Lab Results - Last 24 Hours (Table) 10/31/21 10/31/21 10/31/21 Range/Units 08:56 08:56 08:56 MCHC 30.7 L (31.0-37.0) g/dL Lymphocytes # 0.3 L (1.0-4.8) k/uL Sodium 136 L (137-145) mmol/L BUN 7 L (9-20) mg/dL Creatinine 0.34 L (0.66-1.25) mg/dL Calcium 8.0 L (8.4-10.2) mg/dL C-Reactive Protein 7.1 H (<1.0) mg/dL Total Protein 5.9 L (6.3-8.2) g/dL Albumin 2.6 L (3.5-5.0) g/dL Procalcitonin 0.28 H (0.02-0.09) ng/mL Microbiology - Last 24 Hours (Table) 10/29/21 08:20 Blood Culture - Preliminary Blood No Growth after 48 hours 10/29/21 08:15 Blood Culture - Preliminary Blood No Growth after 48 hours Assessment and Plan Assessment: 1 Acute on chronic hypoxic respiratory failure related to acute influenza A pneumonia. COVID-19 and influenza B were negative. Remains on ceftriaxone and Tamiflu 2 Pulmonary adenocarcinoma, first diagnosed in May 2020, and just recently started treatment in 2021 related to multiple issues including overall general medical debility, complex medical issues, poor functional performance, chronic wounds, chronic al acoholism, COPD, social issues. Patient recently was restaged, and was felt to have locally advanced disease and was treated with chemo and radiation for 7 weeks. 3 History of COPD on oxygen 4 History of COVID-19 infection in September 2019 5 Chronic dysphagia 6 Current every day smoker 7 General medical debility, patient resides at an [facility] 8 History of chronic alcoholism 9 History of dementia Plan: The patient was seen and evaluated Medications and labs reviewed Stable from the pulmonary standpoint Continue the current treatment plan I have personally seen and examined the patient, performed the documentation and the assessment and plan as written. Number of minutes spent on the visit: 10.
--- NOTE | 2021-10-31 19:11 | PN ---
PROGRESS NOTE DATE OF SERVICE: 10/31/2021 This 66-year-old gentleman who was admitted with influenza B also had a history of pneumonia. The patient had some confusion on presentation. Cultures are negative so far. PHYSICAL EXAMINATION: Pulse is 50, blood pressure 131/60, respirations 16. HEENT: Conjunctivae normal. CARDIOVASCULAR: S1, S2 muffled. RESPIRATION: A few scattered rhonchi. ABDOMEN: Soft. NERVOUS SYSTEM: Diffusely weak. LABS: Reviewed. ASSESSMENT: 1. Acute influenza A as well as right-sided pneumonia. 2. Lung cancer. 3. Chronic obstructive pulmonary disease. 4. Dementia. 5. Gait dysfunction. RECOMMENDATIONS AND DISCUSSION: I recommend to continue current medications, continue the monitoring, symptomatic treatment. Continue the bronchodilators. Continue the rest of the medications. Antibiotics. Possible ECF return on Tuesday. GERALDINE / DERECK: [id number] /
--- NOTE | 2021-11-01 00:17 | P.PN ---
Subjective Progress Note Date: 10/31/21 Principal diagnosis: Acute influenza A and a question of pneumonia Patient is a 66-year-old male with a past medical history significant for COPD, adenocarcinoma of the lung presented to hospital with fever and some mental status changes patient has been diagnosed with acute influenza A and a question of pneumonia. On today's evaluation that is 10/31/2021, the patient is afebrile today, the patient denies having any chest pain, the patient did have a cough and is br inging up some purulent sputum however denies hemoptysis. The patient denies having any nausea or vomiting no abdominal pain no diarrhea Objective - Vital Signs Vital signs: Vital Signs Temp 97.8 F 10/31/21 08:00 Pulse 50 L 10/31/21 08:00 Resp 16 10/31/21 08:00 BP 121/68 10/31/21 08:00 Pulse Ox 94 L 10/31/21 08:00 Intake & Output 10/30/21 10/31/21 10/31/21 18:59 06:59 18:59 Weight 58.06 kg Other: Voiding Method Urinal Urinal # Voids 3 10 # Bowel Movements 3 - Exam GENERAL DESCRIPTION: A middle-aged male lying in bed in no distress RESPIRATORY SYSTEM: Unlabored breathing , coarse breath sounds bilaterally HEART: S1 S2 regular rate and rhythm , ABDOMEN: Soft , no tenderness EXTREMITIES: No edema feet - Labs CBC & Chem 7: 10/31/21 08:56 10/31/21 08:56 Labs: Abnormal Lab Results - Last 24 Hours (Table) 10/31/21 10/31/21 10/31/21 Range/Units 08:56 08:56 08:56 MCHC 30.7 L (31.0-37.0) g/dL Lymphocytes # 0.3 L (1.0-4.8) k/uL Sodium 136 L (137-145) mmol/L BUN 7 L (9-20) mg/dL Creatinine 0.34 L (0.66-1.25) mg/dL Calcium 8.0 L (8.4-10.2) mg/dL C-Reactive Protein 7.1 H (<1.0) mg/dL Total Protein 5.9 L (6.3-8.2) g/dL Albumin 2.6 L (3.5-5.0) g/dL Procalcitonin 0.28 H (0.02-0.09) ng/mL Microbiology - Last 24 Hours (Table) 10/29/21 08:20 Blood Culture - Preliminary Blood No Growth after 48 hours 10/29/21 08:15 Blood Culture - Preliminary Blood No Growth after 48 hours Assessment and Plan (1) Influenza Current Visit: Yes Status: Acute Priority: High Code(s): J11.1 - FLU DUE TO UNIDENTIFIED INFLUENZA VIRUS W OTH RESP MANIFEST SNOMED Code(s): 2982248 Plan: 1patient presented to hospital with fever hypoxemia in this patient who did have history of lung cancer symptoms are more likely secondary to acute influenza A, underlying suspicious for secondary bacterial pneumonia remains to be low at the chest x-ray did not show any acute infiltrate. 2patient to continue with the Tamiflu 75 mg twice a day to finish a 5-day course of therapy. 3droplet isolation. 4patient did have mildly elevated procalcitonin to continue with Rocephin and Z ithromax sputum culture has been requested Time with Patient: Less than 30
[2021-11-01] MEDS: SODIUM CHLORIDE 0.9% 1,000 ML IV SCH ×3 (04:49→17:25)
[2021-11-01] MEDS: ALBUTEROL NEBULIZED 2.5 MG/3 ML INHALATION SCH ×4 (07:27→19:15)
[2021-11-01] MEDS: SYMBICORT 160-4.5 MCG INHALER INHALATION SCH ×2 (07:27→19:15)
[2021-11-01] MEDS: OSELTAMIVIR 75 MG CAP PO SCH ×2 (07:49→19:45)
[2021-11-01] MEDS: HYDROcodone/APAP 7.5-325MG 1 EACH TAB PO PRN ×2 (07:49→19:44)
[2021-11-01] MEDS: PREGABALIN 100 MG CAP PO SCH ×2 (07:49→19:45)
[2021-11-01] MEDS: HEPARIN SODIUM,PORCINE/PF 5,000 UNIT/0.5 ML SYRINGE SQ SCH ×2 (07:50→19:44)
[2021-11-01] MEDS: PANTOPRAZOLE 40 MG TABLET PO SCH (07:51)
--- NOTE | 2021-11-01 18:23 | PN ---
PROGRESS NOTE DATE OF SERVICE: 11/01/2021 This 66-year-old gentleman who was admitted with acute influenza A as well as right- sided pneumonia is being closely monitored. No chest pain. No palpitations. No fever. PHYSICAL EXAMINATION: Pulse 93, blood pressure 100/60, respirations 16. CHEST: A few scattered rhonchi. CARDIOVASCULAR: S1, S2 muffled. ABDOMEN: Soft. NERVOUS SYSTEM: Diffusely weak. LABS: Reviewed. ASSESSMENT: 1. Acute influenza A as well as right-sided pneumonia. 2. Lung cancer. 3. Chronic obstructive pulmonary disease. 4. Dementia. 5. Gait dysfunction. RECOMMENDATIONS AND DISCUSSION: I recommend to continue current medications, continue with the monitoring, symptomatic treatment. Continue with bronchodilators, antibiotics, rest of the medications. Prognosis guarded. MMPRAVINL / EDINN: [id number] /
[2021-11-02] MEDS: SODIUM CHLORIDE 0.9% 1,000 ML IV SCH ×2 (00:50→08:56)
--- NOTE | 2021-11-02 07:48 | P.PN ---
Subjective Progress Note Date: 11/01/21 Principal diagnosis: Acute influenza A and a question of pneumonia Patient is a 66-year-old male with a past medical history significant for COPD, adenocarcinoma of the lung presented to hospital with fever and some mental status changes patient has been diagnosed with acute influenza A and a question of pneumonia. On today's evaluation that is 11/01/2021, the patient remains to be afebrile, the patient denies chest pain, the patient did have a cough and is bringing up some purulent sputum however no sputum has been collected, The patient denies having any nausea or vomiting no abdominal pain no diarrhea Objective - Vital Signs Vital signs: Vital Signs Temp 98.9 F 11/01/21 08:00 Pulse 84 11/01/21 08:00 Resp 16 11/01/21 08:00 BP 120/81 11/01/21 08:00 Pulse Ox 96 11/01/21 08:00 Intake & Output 10/31/21 11/01/21 11/01/21 18:59 06:59 18:59 Output Total 1600 320 Balance -1600 -320 Output: Urine 1600 320 Other: Voiding Method Urinal Urinal Urinal # Voids 3 # Bowel Movements 1 - Exam GENERAL DESCRIPTION: A middle-aged male lying in bed in no distress RESPIRATORY SYSTEM: Unlabored breathing , coarse breath sounds bilaterally HEART: S1 S2 regular rate and rhythm , ABDOMEN: Soft , no tenderness EXTREMITIES: No edema feet - Labs CBC & Chem 7: 10/31/21 08:56 10/31/21 08:56 Labs: Microbiology - Last 24 Hours (Table) 10/29/21 08:20 Blood Culture - Preliminary Blood No Growth after 72 hours 10/29/21 08:15 Blood Culture - Preliminary Blood No Growth after 72 hours Assessment and Plan (1) Influenza Current Visit: Yes Status: Acute Priority: High Code(s): J11.1 - FLU DUE TO UNIDENTIFIED INFLUENZA VIRUS W OTH RESP MANIFEST SNOMED Code(s): 7594743 Plan: 1patient presented to hospital with fever hypoxemia in this patient who did have history of lung cancer symptoms are more likely secondary to acute in fluenza A, underlying suspicious for secondary bacterial pneumonia remains to be low at the chest x-ray did not show any acute infiltrate. 2patient to continue with the Tamiflu 75 mg twice a day to finish a 5-day course of therapy. 3droplet isolation. 4patient did have mildly elevated procalcitonin to continue with Rocephin and Zithromax sputum culture has been requested again and adjust antibiotic if needed Time with Patient: Less than 30
[2021-11-02 08:31] VITALS: RESP 18
[2021-11-02] MEDS: HEPARIN SODIUM,PORCINE/PF 5,000 UNIT/0.5 ML SYRINGE SQ SCH (08:56)
[2021-11-02] MEDS: PANTOPRAZOLE 40 MG TABLET PO SCH (08:56)
[2021-11-02] MEDS: ALBUTEROL NEBULIZED 2.5 MG/3 ML INHALATION SCH ×4 (09:00→20:28)
[2021-11-02] MEDS: SYMBICORT 160-4.5 MCG INHALER INHALATION SCH ×2 (09:00→20:28)
[2021-11-02] MEDS: HYDROcodone/APAP 7.5-325MG 1 EACH TAB PO PRN (09:02)
[2021-11-02] MEDS: PREGABALIN 100 MG CAP PO SCH (09:02)
[2021-11-02] MEDS: OSELTAMIVIR 75 MG CAP PO SCH (09:02)
--- NOTE | 2021-11-02 14:01 | P.DS ---
Providers Date of admission: 10/29/21 11:27 Expected date of discharge: 11/02/21 Attending physician: Gilles Tirado Consults: 10/29/21 13:21 Consult Physician Routine Consulting Provider: Herson Bailey Consult Reason/Comments: malignancy Do you want consulting provider notified?: Yes 10/29/21 13:22 Consult Physician Routine Consulting Provider: Millicent Dubon Consult Reason/Comments: copd Do you want consulting provider notified?: Yes Consult Physician Routine Consulting Provider: Cara Kang Consult Reason/Comments: flu, pneumonia Do you want consulting provider notified?: Yes Primary care physician: Physician Nonstaff Hospital Course: Final diagnosis Acute influenza a as well as right-sided pneumonia Lung cancer Chronic obstructive pulmonary disease Dementia Gait dysfunction Discharge disposition Patient is being discharged in a stable condition with guarded prognosis to [facility]. Patient will follow-up with primary care provider in the outpatient setting upon discharge. Patient is to also follow-up with pulmonary and oncology in the outpatient setting as scheduled. Total time taken is greater than 35 minutes. Hospital course This is a 66-year-old male who was recently admitted with increasing shortness of breath and found to have acute influenza a as well as right-sided pneumonia and was being closely monitored. Pulmonary, oncology, and infectious disease following and recommended close outpatient follow-up with pulmonary and oncology. Patient was started on Tamiflu and this evening's dose will complete the course and patient was also on antibiotics and will continue with oral Ceftin twice daily for the next 3 days to complete the course. Patient will need outpatient follow-up with oncology along with pulmonary on discharge. Patient is currently on 4-5 L via nasal cannula and recommend continuing with breathing inhalational treatments of DuoNeb's and inhalers. Patient is adamant about being discharged today. Patient will be discharged to [facility] clear. Guarded prognosis. Currently no reports of chest pain, shortness of breath, or palpitations. Patient is afebrile. No reports of nausea or vomiting and patient is tolerating diet. Patient will be going to [facility] today. On exam vital signs are stable. Cardio S1, S2 are muffled. Respiratory system shows diminished breath sounds at the bases with some scattered rhonchi noted. Abdomen is soft and nontender. Nervous system shows diffuse weakness. Please refer to medication reconciliation sheet for a list of medications. The impression and plan of care has been dictated by Raisa Walters, Nurse Practitioner as directed. Dr. Celestino MD I have performed a history and examination and MDM of this patient, discussed the same with the dictator, and agree with the dictator's assessment and plan as written ,documented as a scribe. Based on total visit time, I have performed more than 50% of the visit. Patient Condition at Discharge: Fair Plan - Discharge Summary Discharge Rx Participant: No New Discharge Prescriptions: New Budesonide-Formot 160-4.5 Mcg [Symbicort 160-4.5 Mcg Inhaler] 2 puff INHALATION RT-BID gm Oseltamivir [Tamiflu] 75 mg PO Q12HR 1 Days #1 cap Cefuroxime Axetil [Ceftin] 500 mg PO BID 3 Days #6 tab Pantoprazole [Protonix] 40 mg PO AC-BRKFST tab Albuterol Nebulized [Ventolin Nebulized] 2.5 mg INHALATION RT-QID ml Continue Acetaminophen [Tylenol] 650 mg PO Q6H PRN PRN Reason: Mild To Moderate Pain Ipratropium-Albuterol Nebulize [Duoneb 0.5 mg-3 mg/3 ml Soln] 3 ml INHALATION RT-TID PRN PRN Reason: AIRWAY PATENCY Triamcinolone 0.1% Cream [Kenalog 0.1% Cream] 1 applic TOPICAL BID Nystatin 100,000Unit/gm Cream [Mycostatin Cream] 1 applic TOPICAL Q8H Pregabalin [Lyrica] 300 mg PO BID #4 cap HYDROcodone/APAP 7.5-325MG [[place] 7.5-325] 1 tab PO Q6HR PRN #4 tab PRN Reason: Moderate Pain Discharge Medication List Acetaminophen [Tylenol] 650 mg PO Q6H PRN 05/12/21 [History] Ipratropium-Albuterol Nebulize [Duoneb 0.5 mg-3 mg/3 ml Soln] 3 ml INHALATION RT-TID PRN 10/29/21 [History] Nystatin 100,000Unit/gm Cream [Mycostatin Cream] 1 applic TOPICAL Q8H 10/29/21 [History] Triamcinolone 0.1% Cream [Kenalog 0.1% Cream] 1 applic TOPICAL BID 10/29/21 [History] Albuterol Nebulized [Ventolin Nebulized] 2.5 mg INHALATION RT-QID ml 11/02/21 [Rx] Budesonide-Formot 160-4.5 Mcg [Symbicort 160-4.5 Mcg Inhaler] 2 puff INHALATION RT-BID gm 11/02/21 [Rx] Cefuroxime Axetil [Ceftin] 500 mg PO BID 3 Days #6 tab 11/02/21 [Rx] HYDROcodone/APAP 7.5-325MG [[place] 7.5-325] 1 tab PO Q6HR PRN #4 tab 11/02/21 [Rx] Oseltamivir [Tamiflu] 75 mg PO Q12HR 1 Days #1 cap 11/02/21 [Rx] Pantoprazole [Protonix] 40 mg PO AC-BRKFST tab 11/02/21 [Rx] Pregabalin [Lyrica] 300 mg PO BID #4 cap 11/02/21 [Rx] Follow up Appointment(s)/Referral(s): Millicent Dubon MD [STAFF PHYSICIAN] - 1 Week Nonstaff,Physician [Primary Care Provider] - 1-2 days Herson Bailey MD [STAFF PHYSICIAN] - 1 Week Activity/Diet/Wound Care/Special Instructions: Patient is returning to [facility] Activity as tolerated Follow-up with pulmonary outpatient in 1-2 weeks Follow-up with oncology outpatient Continue taking medications as prescribed Continue with oxygen 4-5 L via nasal cannula Continue with breathing treatments 4 times a day and when necessary Last dose of Tamiflu as this evening to complete the course and then may discontinue Discharge Disposition: TRANSFER TO SNF/ECF
[2021-11-02 14:13] VITALS: BP 117/74; PULSE 50; TEMP 97.8
== END 2021-11-02 19:30 | DRG 193 ==
LOC: EC 07:43 → 4SSUR 11:27
PROVIDERS: ADMIT Hospitalist; ATTEND Hospitalist
PROC: 5A0935A Assistance with Respiratory Ventilation, Less than 24 Consecutive Hours, High Flow/Velocity Cannula (ICD-10-PCS; principal; 2021-10-30)
DX: J10.00 Influenza due to other identified influenza virus with unspecified type of pneumonia (principal); J96.21 Acute and chronic respiratory failure with hypoxia; C34.11 Malignant neoplasm of upper lobe, right bronchus or lung; C34.92 Malignant neoplasm of unspecified part of left bronchus or lung; J44.0 Chronic obstructive pulmonary disease with (acute) lower respiratory infection; E46 Unspecified protein-calorie malnutrition; Z68.1 Body mass index [BMI] 19.9 or less, adult; F03.90 Unspecified dementia, unspecified severity, without behavioral disturbance, psychotic disturbance, mood disturbance, and anxiety; F10.20 Alcohol dependence, uncomplicated; F17.200 Nicotine dependence, unspecified, uncomplicated; R59.0 Localized enlarged lymph nodes; G62.1 Alcoholic polyneuropathy; I49.3 Ventricular premature depolarization; Z99.81 Dependence on supplemental oxygen; N40.0 Benign prostatic hyperplasia without lower urinary tract symptoms; Z20.822 Contact with and (suspected) exposure to COVID-19; D38.1 Neoplasm of uncertain behavior of trachea, bronchus and lung; I95.9 Hypotension, unspecified; Z28.311 Partially vaccinated for COVID-19; R53.81 Other malaise; R13.10 Dysphagia, unspecified; R26.9 Unspecified abnormalities of gait and mobility; H35.30 Unspecified macular degeneration; S80.922A Unspecified superficial injury of left lower leg, initial encounter; Z96.1 Presence of intraocular lens; Z92.21 Personal history of antineoplastic chemotherapy; Z92.3 Personal history of irradiation; Z79.899 Other long term (current) drug therapy; Z98.42 Cataract extraction status, left eye; Z98.41 Cataract extraction status, right eye; Z86.16 Personal history of COVID-19; Z98.890 Other specified postprocedural states; Z82.49 Family history of ischemic heart disease and other diseases of the circulatory system; Z80.9 Family history of malignant neoplasm, unspecified; Z82.41 Family history of sudden cardiac death
CPT/HCPCS: 36415; 71046; 80053; 81003; 82533; 83605; 84145; 85025; 85610; 85730; 86140; 87040; 87502; 87635; 93005; 94760; 96361; 96365; 96367; 96376; 99291